=== PATIENT | female | born 1935 | race Caucasian/White ===

== ENCOUNTER → 2018-02-28 12:57 | Outpatient (CLI) | payer MEDICAID, SELFPAY ==
--- NOTE | 2018-02-28 13:06 | CDU_ITS ---
Reason For Study: carotid stenosis Rt. Velocities/BP Lt. Velocities/BP Prox CCA 105.0/21.7 cm/sec. Prox CCA 137.0/27.5 cm/sec. Mid CCA 82.7/20.5 cm/sec. Mid CCA 97.9/21.7 cm/sec. Dist CCA 97.3/21.7 cm/sec. Dist CCA 70.4/19.3 cm/sec. Prox ICA 103.0/24.6 cm/sec. Prox ICA 83.3/27.0 cm/sec. Mid ICA 109.0/35.4 cm/sec. Mid ICA 85.6/30.5 cm/sec. Dist ICA 113.0/27.5 cm/sec. Dist ICA 82.7/26.4 cm/sec. Rt. ICA/CCA = 113.0/82.7=1.4. Lt. ICA/CCA = 85.6/97.9=0.9. Prox ECA 96.2/11.1 cm/sec. Prox ECA 81.5/9.97 cm/sec. Rt. Vert. 73.9/20.5 cm/sec. Lt. Vert. 65.7/18.2 cm/sec. Right Extracranial There is homogeneous, smooth atherosclerotic plaque noted in the right common carotid artery. There is homogeneous, smooth atherosclerotic plaque noted in the right internal carotid artery. The right internal carotid artery is very tortuous. There is heterogeneous, smooth atherosclerotic plaque noted in the right external carotid artery. Antegrade flow is noted in the right vertebral artery. Left Extracranial There is homogeneous, smooth atherosclerotic plaque noted in the left common carotid artery. There is homogeneous, smooth atherosclerotic plaque noted in the left internal carotid artery. There is heterogeneous, smooth atherosclerotic plaque noted in the left external carotid artery. Antegrade flow is noted in the left vertebral artery. Procedure Carotid Duplex 34666. The exam was diagnostic. Exam performed in department. Interpretation Summary Smooth plague noted in bilateral proximal internal carotid arteries with post operative changes noted on the right. <50% stenosis bilateral internal carotids Normal flow bilateral external carotids Patent and antegrade vertebrals bilaterally. Mixed echogenicity 0.6 x 0.4cm lesion near the proximal right common carotid; possibly witin the right thyroid. Clinical correlation if indicated. Ordering Physician: Arjun Pena Referring Physician: Ivania Dennison Performed By: Supriya Torres, SAULO, RVT
== END ==
PROVIDERS: Family Provider Family Medicine; PCP Family Medicine; Visit Provider Surgery
DX: I65.23 Occlusion and stenosis of bilateral carotid arteries (principal)
CPT/HCPCS: 93880

== ENCOUNTER 2018-11-15 09:41 | Emergency (ER) | payer MEDICARE, SELFPAY ==
[2018-11-15 09:43] VITALS: BP 124/63; PULSE 82; RESP 16; TEMP 36.6; O2SAT 96; BMI 28.3
--- NOTE | 2018-11-15 09:59 | EKG12_ITS ---
Test Reason : DYSRHYTHMIA Blood Pressure : / mmHG Vent. Rate : 082 BPM Atrial Rate : 082 BPM P-R Int : 172 ms QRS Dur : 088 ms QT Int : 354 ms P-R-T Axes : 050 020 009 degrees QTc Int : 413 ms Normal sinus rhythm Nonspecific ST and T wave abnormality Abnormal ECG Confirmed by PORTER WRIGHT, QUITA ([id number]), state editor HERMINIA DAVILA ([id number]) on 11/16/2018 1:09:45 PM Referred By: DEMETRIO Confirmed By:QUITA BUENROSTRO MD
--- NOTE | 2018-11-15 09:59 | CT_ITS ---
STUDY: CT BRAIN WITHOUT CONTRAST REASON FOR EXAM: Female, 82 years old. History of fall. Loss of consciousness. RADIATION DOSAGE (If Supplied By Facility): CTDIvol = ( 44.99 ) mGy, DLP = ( 779.24 ) mGycm TECHNIQUE: Transaxial CT imaging of the brain was performed without administration of intravenous contrast material. Individualized dose optimization techniques were used for this CT. COMPARISON: No relevant priors. FINDINGS: Normal soft tissue structures. Normal calvarium. There is mild cerebral atrophy with widening of the extra-axial spaces and ventricular dilatation. There are areas of decreased attenuation within the white matter tracts of the supratentorial brain, consistent with microvascular disease changes. Normal basal ganglia and thalami. Normal brainstem. Normal cerebellum. There is no intracranial hemorrhage. There are no findings of an acute ischemic infarction. Normal visualized paranasal sinuses. CT/Brain/Head without Contrast IMPRESSION: Chronic involutional changes of the brain. Electronically Signed: Franklin Marquez, at 11:25 EDT , Service support ,
--- NOTE | 2018-11-15 10:00 | CT_ITS ---
STUDY: CT CERVICAL SPINE WITHOUT CONTRAST REASON FOR EXAM: Female, 82 years old. History of multiple falls. Loss of consciousness. RADIATION DOSAGE (If Supplied By Facility): CTDIvol = ( 22.86 ) mGy, DLP = ( 369.49 ) mGycm TECHNIQUE: High resolution transaxial imaging was performed without contrast material. Sagittal and coronal images were reconstructed. Individualized dose optimization techniques were used for this CT. COMPARISON: None FINDINGS: Normal craniovertebral junction. There are degenerative changes of the anterior atlantoaxial articulation. Normal odontoid process. There is straightening of the normal cervical lordosis. 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 C2-3: Facet joint osteoarthritis and hypertrophy worse on the left side. C3-4: Marked degree of disc space narrowing with anterior spondylosis. Uncovertebral arthrosis. Facet joint osteoarthritis and hypertrophy. Bilateral neural foraminal stenosis. C4-5: Minimal anterior listhesis of C4 on C5. Moderate degree of disc space narrowing. Moderate degree bilateral neural foraminal stenosis worse on the right side. C5-6: Marked degree of disc space narrowing with anterior and posterior spondylosis. Uncovertebral arthrosis. Central canal stenosis as well as bilateral neural foraminal stenosis worse on the right side. C6-7: Marked degree of disc space narrowing with spondylosis and uncovertebral arthrosis. Mild to moderate degree of bilateral neural foraminal stenosis. CT/Spine Cervical without Contras IMPRESSION: Multilevel degenerative changes, as described above. Electronically Signed: Franklin Marquez, at 11:22 EDT , Service support ,
--- NOTE | 2018-11-15 10:00 | CT_ITS ---
STUDY: CT ABDOMEN AND PELVIS WITHOUT CONTRAST REASON FOR EXAM: Female, 82 years old. History of multiple falls. Decreased level of consciousness. Chronic renal disease. RADIATION DOSAGE (If Supplied By Facility): CTDIvol = ( 20.52 ) mGy, DLP = ( 999.41 ) mGycm TECHNIQUE: Transaxial images were obtained from the dome of the diaphragm to the symphysis pubis without oral contrast, and without intravenous contrast. Sagittal and coronal images were reconstructed. Individualized dose optimization techniques were used for this CT. COMPARISON: None. FINDINGS: Mild increased linear markings at the lung bases suggestive of bibasilar linear atelectasis and/or scarring. The visualized portions of the heart are within normal limits. Normal liver. Normal gallbladder and extrahepatic biliary system. Normal spleen. Normal pancreas. Normal bilateral adrenal glands. Normal right kidney. Normal left kidney. There is a small hiatal hernia. Normal small intestine. Normal colon. The appendix is visualized and appears normal. There is diffuse atherosclerotic calcification of the abdominal aorta, without a demonstrated aneurysm. Normal inferior vena cava. Normal retroperitoneum. Normal urinary bladder. Focal calcification of a fibroid uterus. There is a small umbilical hernia containing fat. There are diffuse degenerative changes of the visualized lumbar spine. CT/Abdomen/Pelvis without Cont IMPRESSION: No acute abnormality is seen. Electronically Signed: Franklin Marquez, at 11:27 EDT , Service support ,
--- NOTE | 2018-11-15 10:00 | CT_ITS ---
STUDY: CT CHEST WITHOUT CONTRAST REASON FOR EXAM: Female, 82 years old. History of fall. Loss of consciousness. RADIATION DOSAGE (If Supplied By Facility): CTDIvol = ( 15.55 ) mGy, DLP = ( 439.05 ) mGycm TECHNIQUE: Transaxial imaging was performed without the administration of intravenous contrast material. Multiplanar coronal and sagittal images were reformatted. Individualized dose optimization techniques were used for this CT. COMPARISON: None. FINDINGS: Mild increased linear markings in the medial aspect of the right middle lobe suggestive of underlying atelectasis and/or scarring. No focal consolidation or mass lesion is seen. Mild increased markings at the lung bases suggestive of scarring. There is no demonstrated pleural abnormality. There are calcifications of the coronary arteries. Normal mediastinum. Normal hilar regions. Normal unenhanced pulmonary arteries. There is atherosclerotic calcification of the aortic arch with tortuosity and elongation of the aortic arch and descending thoracic aorta. There are multi-level degenerative changes of the thoracic spine. There is no demonstrated abnormality of the visualized upper abdomen. CT/Chest without Contrast IMPRESSION: Mild scarring at the lung bases and in the medial aspect of the right middle lobe. No acute abnormality is seen. Electronically Signed: Franklin Marquez, at 11:24 EDT , Service support ,
--- NOTE | 2018-11-15 10:01 | RAD_ITS ---
STUDY: X-RAY - RIGHT RADIUS AND ULNA REASON FOR EXAM: Female, 82 years old. Bruising following a fall. TECHNIQUE: 2 view(s) of the forearm. COMPARISON: None. FINDINGS: There is non-specific soft tissue swelling. Normal visualized radius. Normal visualized ulna. RAD/Forearm 2 Views IMPRESSION: Mild degree of soft tissue swelling. Electronically Signed: Franklin Marquez, at 11:09 EDT , Service support ,
--- NOTE | 2018-11-15 10:08 | ED.DCSUM_ITS ---
- ER Visit Summary Date of Service: 11/15/18 Chief Complaint: Fall History of Present Illness: The patient is a 82 F who reportedly has had nausea and mild diarrhea for the past 3 days. No fever. Today she lost her balance while walking and fell, witnessed by her daughter. Daughter states the patient hit her right side and was propped up against a wall. Daughter went to get help from nursing staff and when they returned the patient lost consciousness for approximately 3 or 4 minutes. At this time patient is awake and alert. Daughter states she is back to baseline. She complains of pain that moves around her body, currently at the right wrist. Physical Examination: Vital signs unremarkable. Patient is immobilized on spine board with c-collar in place. Head neck examination reveals no obvious external sign of trauma. She has mild C-spine tenderness and collar remains in days. Heart is regular rate and rhythm. Lungs sounds are clear. Chest wall is nontender. There is no crepitus. Abdomen is soft and nontender. Back examination reveals no midline thoracic or lumbar tenderness. Extremity examination is significant only for mild tenderness of the right wrist with a large area of ecchymosis. No deformity noted. She has full range of motion of all extremities with no focal deficit. Test Results: EKG is sinus 82 with no acute ischemia. Nonspecific lateral ST changes are noted but unchanged when compared to prior. Right forearm x-ray sh ows mild soft tissue swelling. CT head, C-spine, chest, and abdomen pelvis showed no acute abnormalities. CBC significant only for hemoglobin 11.2. Chemistry studies reveal potassium 3.4, BUN 26, creatinine 1.59. This is consistent with her prior values. Coags normal. Urinalysis normal. Emergency Department Course and Treatment: Patient received IV fluids here. On repeat evaluation she is resting comfortably and visiting with her family. Test results are discussed with patient and family. Patient does have a cane and walker at her assisted living center that she can use. Social work also spoke with patient and family regarding their concerns about her facility. Patient does not want to switch to a different facility and is comfortable with discharge. Treatment Plan: [] Disposition: Discharge Impression: 1. Mechanical fall 2. Syncope This note was generated with [employer] software. It may contain incorrect words, spelling, and punctuation that were not noted in review of the chart prior to signing ED Disposition - Plan for ED Patient: Referrals: Ivania Dennison MD [NON-STAFF] -
[2018-11-15 10:20] VITALS: BP 128/65; PULSE 100; RESP 18; TEMP 36.6; O2SAT 94
[2018-11-15] MEDS: 0.9% Normal Saline 1,000 ML 150 ML IV (10:25)
[2018-11-15 10:44] LABS: Absolute Lymphocyte Count 0.46 X10^3/ul (0.83-4.51); Absolute Neutrophil Count 6.1 X10^3/uL (2.0-7.7); Basophil# 0.01 X10^3/uL; Basophil% 0.1 % (0-1); Eosinophil# 0.01 X10^3/uL; Eosinophils% 0.1 % (0-5); Hematocrit 33.9 % (37-47); Hemoglobin 11.2 g/dl (12.0-15.0); Lymphocyte # 0.46 X10^3/ul (4.0); Lymphocyte % 6.2 % (19-41); Mean Corpuscular Hgb 30.2 pg (27.0-32.0); Mean Corpuscular Volume 91.4 fL (81-99); Mean Platelet Vol. 9.1 fl (6.2-12.0); Monocyte# 0.81 X10^3/uL; Neutrophil % 82.6 % (47-70); Platelet Count 164 K/mm3 (150-450); RBC Distribution Width CV 13.5 % (11.6-14.6); RBC Distribution Width SD 44.6 fl (35.1-43.9); Red Blood Count 3.71 M/mm3 (4.2-5.4); White Blood Count 7.4 K/mm3 (4.4-11.0)
[2018-11-15 10:45] LABS: Differential Indicated SCAN CRITERIA MET; POSITIVE COUNT NO; POSITIVE DIFFERENTIAL YES; POSITIVE MORPHOLOGY NO
[2018-11-15 10:46] LABS: International Normalized Ratio 1.1
[2018-11-15 10:53] LABS: Anion Gap 7 (5-15); BUN 26 mg/dL (7-18); BUN/Creat Ratio 16.4 RATIO (10-20); Calcium,Total 7.5 mg/dL (8.5-10.1); Chloride 100 mmol/L (98-107); Creatinine, Serum 1.59 mg/dL (0.55-1.02); EST Glomerular Filtration Rate 33 mL/min (>60); Est Glom Filt Rate - Afr Amer 40 mL/min (>60); Estimated Creatinine Clearance 19.93 ml/min; Glucose 104 mg/dL (74-106); Potassium 3.4 mmol/L (3.5-5.1); Sodium Level 136 mmol/L (136-145)
[2018-11-15 11:59] LABS: Bacteria 0 SEEN /hpf (None Seen); Mucous, Urine 0 SEEN /hpf (<or=2+); Red Blood Cells-Urine 0 SEEN /hpf (0-5); White Blood Cells 0 SEEN /hpf (0-5)
[2018-11-15 12:02] LABS: Color, Urine Yellow (Yellow); Glucose, Dipstick Normal (Normal); Ketone-Dipstick Negative (Negative); Leukocyte Esterase-Dipstick Negative /ul (Negative); Nitrite-Dipstick Negative (Negative); Occult Blood-Urine Negative /ul (Negative); Protein-Dipstick 30 mg/dl (Negative); Urine Bilirubin Dipstick Negative (Negative); Urine Clarity Clear (Clear); Urine Urobilinogen Normal (Normal); Urine pH 6.5 (5.0 - 8.0)
[2018-11-15 12:08] LABS: Squamous Epithelial Cells - UA 0-5 SEEN /hpf (5-10)
[2018-11-15 12:41] VITALS: BP 121/61; PULSE 81; RESP 17; O2SAT 95
--- NOTE | 2018-11-15 14:18 | ED.DEP ---
ED Disposition - Plan for ED Patient: Disposition: Home or Assisted Living Instructions: ED Mechanical Fall, ED Fainting Unkn Cause Referrals: Ivania Dennison MD [NON-STAFF] -
--- NOTE | 2018-11-15 14:33 | CM.ED ---
SOCIAL WORK NOTE INFORMANT: DR. ATKINSON REASON FOR CONSULT: DAUGHTER WITH ISSUES/CONCERNS WITH [facility] MET WITH PATIENT AND PATIENT'S DAUGHTER, SHANNAN AT BEDSIDE. PATIENT SITTING UP IN CHAIR VISITING WITH DAUGHTER UPON ENTERING THE ROOM. PATIENT AND DAUGHTER REPORTS PATIENT IS FROM ASSISTED LIVING AT [facility]. DAUGHTER VOICED CONCERNS WITH PATIENT RECENTLY BEING ILL AND NO SUPPORT FROM STAFF. DAUGHTER ALSO REPORTS IS NOT HAPPY WITH THE MEALS AND SNACKS PROVIDED AT FACILITY. BRUCE GUO HAS BEEN IN CONTACT WITH [facility] BEFORE AND CHANGES WERE MADE PREVIOUSLY. DISCUSSED CHANGING FACILITIES AND PATIENT NOT IN AGREEMENT. DAUGHTER VOICED OWN HEALTH ISSUES AND STATES HAS HAD MANY SIT DOWNS WITH STAFF AT [facility] AND JUST WISHES THEY WOULD PROVIDE BETTER MEAL SELECTION AND CARE. DISCUSSED SPEAKING WITH DIRECTION OIL WELL PERFORATOR OPERATOR. BRUCE GUO DOES NOT HAVE TIME TO CALL. INFORMED DAUGHTER THIS WORKER WILL GET IN TOUCH WITH [facility] AND STAFF AT [facility] TO REPORT ISSUES/CONCERNS. DAUGHTER AND PATIENT IN AGREEMENT WITH PLAN. CALL TO [facility]- SPOKE WITH LUCIAN. LUCIAN AWARE OF DAUGHTER'S FRUSTRATIONS AND REPORTS DAUGHTER AND PATIENT DO NOT ALWAYS SEE EYE TO EYE. [facility] STAFF HAVE BEEN AWARE PATIENT HAS BEEN ILL AND HAVE PROVIDED SUPPORT. 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 AWAITING CALL BACK AT THIS TIME. PLAN: RETURN TO [facility].
[2018-11-15 14:53] VITALS: BP 119/55; PULSE 80; RESP 17; TEMP 36.6
--- NOTE | 2018-11-15 14:54 | ED.RN ---
report called to rn at [facility] about pt coming back
== END 2018-11-15 14:55 | disposition home or self-care (01) ==
PROVIDERS: Emergency Provider Emergency Medicine; Family Provider Physician Assistant; PCP Physician Assistant
DX: R55 Syncope and collapse (principal); S60.211A Contusion of right wrist, initial encounter; W19.XXXA Unspecified fall, initial encounter; Y93.01 Activity, walking, marching and hiking; Y92.9 Unspecified place or not applicable; Y99.9 Unspecified external cause status; J44.9 Chronic obstructive pulmonary disease, unspecified; I10 Essential (primary) hypertension; N28.9 Disorder of kidney and ureter, unspecified; R19.7 Diarrhea, unspecified; F32.9 Major depressive disorder, single episode, unspecified; F41.9 Anxiety disorder, unspecified; Z79.02 Long term (current) use of antithrombotics/antiplatelets; Z79.82 Long term (current) use of aspirin; Z79.899 Other long term (current) drug therapy
CPT/HCPCS: 70450; 71250; 72125; 73090; 74176; 80048; 81001; 85025; 85610; 85730; 93005; 96360; 96361; 99285; J7030; A4216

== ENCOUNTER 2020-05-30 09:17 | Inpatient (IN) | payer MEDICARE, MEDICAID, SELFPAY ==
[2020-05-30] VITALS (13 sets, daily range): BP systolic 136–178; BP diastolic 69–88; PULSE 58–74; RESP 14–18; TEMP 36.7–36.8; O2SAT 93–100; BMI 32.4; BMI 32.2
--- NOTE | 2020-05-30 09:22 | EKG12_ITS ---
Test Reason : WEAKNESS Blood Pressure : / mmHG Vent. Rate : 061 BPM Atrial Rate : 061 BPM P-R Int : 174 ms QRS Dur : 086 ms QT Int : 420 ms P-R-T Axes : 053 001 030 degrees QTc Int : 422 ms Normal sinus rhythm Normal ECG Confirmed by SARAN WRIGHT, NOVA ([id number]), make up editor HERMINIA DAVILA ([id number]) on 06/04/2020 11:06:35 AM Referred By: BRYANNA Confirmed By:JESSICA NOONAN MD
--- NOTE | 2020-05-30 09:34 | ED.DCSUM_ITS ---
- ER Visit Summary Date of Service: 05/30/20 Chief Complaint: Numbness History of Present Illness: The patient is a 84 F who sees Noman Qiu. She reports that she went to bed at 7:00 last night feeling fine. However, she woke up at 630 this morning and her right side is numb. She denies any new weakness. She does report that she feels off balance. No difficulty with her speech. No vertigo. She has not fallen. On review of systems patient complains of intermittent nausea that is longstanding. She is not nauseated at this time. She denies any fever, chills, chest pain, shortness of breath. No abdominal pain. No vomiting or diarrhea. No dysuria or frequency. Physical Examination: Vitals: Stable. Afebrile. General: Well-nourished and well-developed. Head: Normocephalic atraumatic. Neck: Supple, no lymphadenopathy. No JVD. Nontender. Cardiovascular: Regular rate and rhythm. No murmurs. Respiratory: No respiratory distress. Clear to auscultation bilaterally. Abdominal: Soft, nontender, nondistended, normal bowel sounds. No guarding, rebound, or peritoneal signs. Back: Nontender. Extremities: Nontender, no edema. Skin: Normal color, no rash. Neurologic: Alert and oriented ?3. Cranial nerves II through XII are intact. Normal strength and sensation. NIH scale is 1 for paresthesias to right face, arm, and leg. Psych: Normal affect. Test Results: EKG is sinus at 61 with no acute changes. CBC shows a hemoglobin 11.9. Chem-7 shows a creatinine 1.7 glucose 145. Coags are normal. Troponin is negative. Clinical Impression(s) from Imaging Studies Chest X-Ray 05/30/20 10:20 IMPRESSION: Degenerative changes, as described above. No demonstrated acute cardiopulmonary process. Electronically Signed: Jeffrey Braga at 12:03 EDT Tel , Service support , Head/Neck CTA 05/30/20 10:36 IMPRESSION: No hemodynamically significant stenosis noted on the CTA Head and neck with contrast. Electronically Signed: Jeffrey Braga at 11:18 EDT Tel , Service support , Emergency Department Course and Treatment: Patient has had greater than 12 hours since her last known well. She is not a TPA candidate. However, the patient would be a candidate for clot retrieval. Because of this I do think that doing a CTA of her head and neck is indicated despite her creatinine of 1.7. This would not change her management if present. She was given a liter of normal saline to help prevent NÉSTOR. Treatment Plan: Patient is resting comfortably without complaint. She was discussed with the hospitalist. She will be admitted for further evaluation and treatment. Disposition: Admitted in stable condition. Impression: 1. Right-sided paresthesias. 2. Chronic renal insufficiency. This note was generated with [employer] dictation software. It may contain incorrect words, spelling, and punctuation that were not noted in review of the chart prior to signing ED Disposition - Plan for ED Patient: Referrals: Patrick Qiu PA [Primary Care Provider] -
[2020-05-30 09:41] LABS: Bedside Glucose 161 mg/dL (70-110)
[2020-05-30 09:47] LABS: Absolute Neutrophil Count 3.4 X10^3/uL (2.0-7.7); Basophil# 0.03 X10^3/uL; Basophil% 0.6 % (0-1); Eosinophil# 0.11 X10^3/uL; Eosinophils% 2.2 % (0-5); Hemoglobin 11.9 g/dL (12.0-15.0); Lymphocyte % 19.9 % (19-41); Mean Corp Hgb Conc 31.3 g/dL (32-36); Mean Corpuscular Volume 95.7 fL (81-99); Mean Platelet Vol. 9.4 fl (6.2-12.0); Monocyte# 0.48 X10^3/uL; Monocyte% 9.5 % (0-10); NRBC Flagged by Analyzer 0 % (0-5); Neutrophil % 67.6 % (47-70); Platelet Count 209 K/mm3 (150-450); RBC Distribution Width CV 12.9 % (11.6-14.6); RBC Distribution Width SD 45.7 fl (35.1-43.9); Red Blood Count 3.97 M/mm3 (4.2-5.4)
[2020-05-30 09:57] LABS: International Normalized Ratio 1.1; Partial Thromboplast Time 31.3 Seconds (24.1-36.2); Prothrombin Time (Protime)PT. 13.2 SECONDS (11.7-14.9)
[2020-05-30 09:59] LABS: Anion Gap 6 (5-15); BUN 15 mg/dL (7-18); BUN/Creat Ratio 8.8 RATIO (10-20); Calcium,Total 8.8 mg/dL (8.5-10.1); Chloride 105 mmol/L (98-107); EST Glomerular Filtration Rate 31 mL/min (>60); Est Glom Filt Rate - Afr Amer 37 mL/min (>60); Estimated Creatinine Clearance 18.01 ml/min; Glucose 145 mg/dL (74-106); Potassium 3.9 mmol/L (3.5-5.1); Sodium Level 141 mmol/L (136-145)
[2020-05-30 10:10] LABS: Bacteria 0 SEEN /hpf (None Seen); Mucous, Urine 0 SEEN /hpf (<or=2+); Red Blood Cells-Urine 0 SEEN /hpf (0-5); Squamous Epithelial Cells - UA 0 SEEN /hpf (5-10); White Blood Cells 0 SEEN /hpf (0-5)
[2020-05-30 10:12] LABS: Color, Urine Yellow (Yellow); Glucose, Dipstick Normal (Normal); Ketone-Dipstick Negative (Negative); Leukocyte Esterase-Dipstick Negative /ul (Negative); Nitrite-Dipstick Negative (Negative); Occult Blood-Urine Negative /ul (Negative); Protein-Dipstick Negative (Negative); Urine Bilirubin Dipstick Negative (Negative); Urine Clarity Clear (Clear); Urine Urobilinogen Normal (Normal); Urine pH 6.5 (5.0 - 8.0)
--- NOTE | 2020-05-30 10:20 | RAD_ITS ---
STUDY: X-RAY CHEST REASON FOR EXAM: Female, 84 years old. RIGHT SIDED WEAKNESS WITH NUMBNESS/TINGLING THAT SHE WOKE WITH -- CP, SOME SOB PER PT TECHNIQUE: Single AP portable view of the chest. COMPARISON: None. FINDINGS: The lungs are underexpanded. There is no demonstrated pleural abnormality. Normal size heart. Normal mediastinum and gustavo. Normal visualized pulmonary arteries. There is atherosclerotic calcification of the aortic arch with tortuosity. Normal visualized thoracic spine. There is degenerative osteoarthritis of the bilateral shoulders. There is no demonstrated abnormality of the visualized soft tissue structures of the upper abdomen. RAD/Chest 1 View IMPRESSION: Degenerative changes, as described above. No demonstrated acute cardiopulmonary process. Electronically Signed: Jeffrey Braga, at 12:03 EDT Tel , Service support ,
--- NOTE | 2020-05-30 10:36 | CT_ITS ---
STUDY: CTA HEAD AND NECK WITH CONTRAST REASON FOR EXAM: Female, 84 years old. right sided weakness. hx of htn, copd, ckd RADIATION DOSAGE (If Supplied By Facility): CTDIvol = ( 27.60 ) mGy, DLP = ( 1401.74 ) mGycm TECHNIQUE: CT angiography was performed with a multi-detector CT scanner. Data acquisition was obtained from the skull base through the vertex following intravenous administration of 100 ML OF ISOVUE 370. MIP images were reconstructed from the axial data set. Post-processing of the angiographic images was performed, with multiplanar reformation and 3D reconstruction. Individualized dose optimization techniques were used for this CT. COMPARISON: No relevant priors. FINDINGS: Normal bilateral petrous carotid arteries. There is calcified plaque formation of the right cavernous carotid artery, without a cross-sectional luminal stenosis. There is calcified plaque formation of the left cavernous carotid artery, without a cross-sectional luminal stenosis. Normal right A1 segments of the anterior cerebral artery. Normal left A1 segments of the anterior cerebral artery. Normal intact anterior communicating artery (ACOM). Normal bilateral A2 segments of the anterior cerebral arteries. Normal right M1 and M2 segments of the middle cerebral arteries, with a normal M1 bifurcation. Normal left M1 and M2 segments of the middle cerebral arteries, with a normal M1 bifurcation. There is non-visualization of the right posterior communicating artery (PCOM). There is non-visualization of the left posterior communicating artery (PCOM). Normal bilateral vertebral arteries. Normal basilar artery with a normal basilar bifurcation. The visualized bilateral superior cerebellar (SCA) arteries are normal. Normal bilateral P1, P2 and visualized P3 segments of the posterior cerebral arteries. There is no demonstrated aneurysm of the [place] of [place]. There is no demonstrated abnormality of the visualized brain. AORTIC ARCH: Normal visualized aortic arch. Normal origins of the brachiocephalic, left common carotid, and left subclavian arteries. RIGHT CAROTID ARTERIES: Normal right common carotid artery (CCA). Normal right common carotid bulb. Normal origin of the right internal carotid (ICA) artery without a hemodynamically significant stenosis. Normal visualized cervical portion of the right internal carotid artery. Normal origin of the right external carotid artery (ECA). LEFT CAROTID ARTERIES: Normal left common carotid artery (CCA). Normal left common carotid bulb. Normal origin of the left internal carotid (ICA) artery without a hemodynamically significant stenosis. Normal visualized cervical portion of the left internal carotid artery. Normal origin of the left external carotid artery (ECA). VERTEBRAL ARTERIES: Normal bilateral vertebral arteries. CT/CTA Head AND Neck W/ Contrast IMPRESSION: No hemodynamically significant stenosis noted on the CTA Head and neck with contrast. Electronically Signed: Jeffrey Braga, at 11:18 EDT Tel , Service support ,
[2020-05-30] MEDS: 0.9% Normal Saline 1,000 ML 999 ML IV (11:00)
--- NOTE | 2020-05-30 12:28 | HP.PCM_ITS ---
History of Present Illness Date of Admission: 05/30/20 Chief Complaint: right leg, arm and right face numbness The patient is a 84 year old F with an extensive past medical history as outlined. Patient states she went to bed at around 7:30 PM last night and woke up this morning and noticed that her right leg, right arm and right side of her face was numb. She has not had such symptoms before. She denied any blurred vision, palpitations, dizziness, nausea vomiting. She denied any weakness in any extremity or any slurring of her speech. Review of symptoms otherwise negative. The ED, vitals showed temperature of 98.1 Fahrenheit with blood pressure of 166/75, pulse rate of 61 and respiratory to 14. She was saturating at 96% on 2 L of oxygen. Chemistry showed creatinine of 1.7 was otherwise unremarkable. Initial troponin was negative. CBC showed hemoglobin of 11.9 but was otherwise unremarkable. Chest x-ray showed no acute cardiopulmonary process. CTA of the head and neck showed no hemodynamically significant stenosis. She is being admitted to be managed for TIA. [] Past Medical History Allergies ibuprofen Allergy (Verified 05/30/20 09:18) Unknown Penicillins Allergy (Verified 05/30/20 09:18) Swelling cyclobenzaprine [From Flexeril] Adverse Reaction (Verified 05/30/20 09:18) Other Home Medications: Ambulatory Orders Medication Instructions Recorded Acetaminophen [Tylenol] 2 tab PO Q4H PRN 05/30/20 Aspirin [Aspirin, Baby] 81 mg PO DAILY@0800 05/30/20 Carvedilol 25 mg PO BID 05/30/20 Clonazepam [Klonopin] 0.25 mg PO SUTUTHSA 05/30/20 Clonazepam [Klonopin] 0.5 mg PO MOWEFR 05/30/20 Clopidogrel Bisulfate [Plavix] 75 mg PO DAILY 05/30/20 Cyanocobalamin (Vitamin B-12) 1,000 mcg PO DAILY 05/30/20 [B-12] Denosumab [Prolia] 60 mg SQ 05/30/20 Ergocalciferol [Vitamin D] 50,000 unit PO SA 05/30/20 Famotidine [Pepcid] 20 mg PO BID 05/30/20 Guaifenesin [Robitussin] 10 ml PO Q4H PRN PRN 05/30/20 Mag Hydrox/Aluminum Hyd/Simeth 30 ml PO Q4H PRN 05/30/20 [Antacid Suspension] Magnesium Hydroxide [Milk Of 30 ml PO DAILY PRN PRN 05/30/20 Magnesia] Peg 400/Hypromellose/Glycerin 1 drp EACH EYE PRN PRN 05/30/20 [Artificial Tears] Polyethylene Glycol 3350 [Miralax] 17 gm PO QHS 05/30/20 Promethazine HCl 25 mg PO Q6H PRN 05/30/20 Quetiapine Fumarate [Seroquel] 100 mg PO QHS 05/30/20 Rosuvastatin Calcium 5 mg PO QHS 05/30/20 Venlafaxine HCl [Venlafaxine HCl 150 mg PO DAILY 05/30/20 ER] Surgical History: no surgical history Psychiatric History: 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 Lives: Alone Smoking Status: Former smoker Alcohol: None Drugs: None - *Family History Maternal History Items: No pertinent history Paternal History Items: No pertinent history Review of Systems Constitutional: Denies: Chills, Fever, Weight Change, Fatigue Eyes: Denies: Blurred vision HEENT: Denies: Head Aches, Sinus Congestion, Sinus Drainage Cardiovascular: Denies: Chest Pain, Palpitations Respiratory: Denies: Cough, Shortness of Breath, Shortness of breath at rest, Sputum production Gastrointestinal: Denies: Abdominal Pain, Nausea, Vomiting Genitourinary: Denies: Dysuria Musculoskeletal: Denies: Joint Pain, Joint Tenderness Skin: Denies: Rash, Wounds Neurological: Reports: Numbness, Tingling. Denies: Balance problems, Double vision, Change in Speech, Slurred speech, Confusion, Difficulty swallowing, Focal weakness, Tremor Psychiatric: Denies: Anxiety, Depression, Homicidal Ideations, Suicidal Ideations Hematologic/ Lymphatic: Denies: Easy Bruising, Easy Bleeding VTE Information - Inpt Only VTE Present on Admission: No VTE Pharm Prophylaxis ordered?: Yes - Physical Exam Vitals/I&O's: Vital Signs Temp Pulse Resp BP Pulse Ox 98.1 F 61 14 166/75 H 96 05/30/20 09:18 05/30/20 11:00 05/30/20 11:00 05/30/20 11:00 05/30/20 11:00 Oxygen Flow Rate (L/min) 2 Oxygen Delivery Method Nasal Cannula Weight: 166 lb 0.129 oz Body Mass Index (BMI) 32.4 Finger Stick Blood Glucose 161 General: Alert, Oriented x3, Cooperative, No apparent distress HEENT: Atraumatic, PERRLA, EOMI, Normocephalic Oral: Moist Mucosa Neck: Supple, No JVD, Negative Carotid Bruits Lungs: Clear to auscultation, Normal air movement, No rhonchi, No wheeze Cardiovascular: Regular rate, Regular Rhythm, Normal S1, Normal S2, No murmurs Abdomen: Bowel Sounds Present, Soft, Non Tender, Non-Distended, No Hepato- splenomegaly Extremities: No clubbing, No cyanosis, No edema, Capillary Refill Less than 3 Seconds Skin: No rashes, No breakdown Musculoskeletal: No Tenderness to Palpation of Joints or Extremities Lymphatic: No Cervical, Supraclavicular, or Inguinal Adenopathy Neurological: Cranial nerves II-XII grossly intact, Neuro grossly intact, Motor Exam 5/5 strength throughout, - - NIHSS is 1 Psych/Mental Status: Normal Affect, Appropriate, Alert and oriented to time, place, person, mood and affect Laboratory Results 05/30/20 09:33: WBC 5.0, RBC 3.97 L, Hgb 11.9 L, Hct 38.0, MCV 95.7, MCH 30.0, MCHC 31.3 L, RDW Std Deviation 45.7 H, RDW Coeff of Jessica 12.9, Plt Count 209, MPV 9.4, Immature Gran % (Auto) 0.200, Neut % (Auto) 67.6, Lymph % (Auto) 19.9, [place] % (Auto) 9.5, Eos % (Auto) 2.2, Baso % (Auto) 0.6, Absolute Neuts (auto) 3.4, Absolute Lymphs (auto) 1.00, Nucleated RBC % 0 05/30/20 09:33: PT 13.2, INR 1.1, APTT 31.3 05/30/20 09:33: Sodium 141, Potassium 3.9, Chloride 105, Carbon Dioxide 30.0, An ion Gap 6, BUN 15, Creatinine 1.70 H, Estim Creat Clear Calc 18.01, Est GFR (MDRD) Af Amer 37 L, Est GFR (MDRD) Non-Af 31 L, BUN/Creatinine Ratio 8.8 L, Glucose 145 H, Calcium 8.8, Troponin I < 0.015 05/30/20 09:37: POC Glucose 161 H 05/30/20 10:05: Urine Color Yellow, Urine Clarity Clear, Urine pH 6.5, Ur Specific [place] 1.010, Urine Protein Negative, Urine Glucose (UA) Normal, Urine Ketones Negative, Urine Occult Blood Negative, Urine Nitrite Negative, Urine Bilirubin Negative, Urine Urobilinogen Normal, Ur Leukocyte Esterase Negative, Urine RBC 0 SEEN, Urine WBC 0 SEEN, Ur Squamous Epith Cells 0 SEEN, Urine Bacteria 0 SEEN, Urine Mucus 0 SEEN Diagnostic Data Chest X-Ray 05/30/20 10:20 IMPRESSION: Degenerative changes, as described above. No demonstrated acute cardiopulmonary process. Electronically Signed: Jeffrey Braga, at 12:03 EDT Tel , Service support , Head/Neck CTA 05/30/20 10:36 IMPRESSION: No hemodynamically significant stenosis noted on the CTA Head and neck with contrast. Electronically Signed: Jeffrey Braga, at 11:18 EDT Tel , Service support , Current Medications Labetalol HCl (Trandate) 20 mg IV X1 PRN PRN Reason: BLOOD PRESSURE Assessment/Plan 84-year-old admitted with a complaint of right-sided numbness. # TIA * Admit to PCU telemetry. * NIH stroke scale is 1 on account of numbness and tingling on the right side. * Check A1c and lipid panel. P.o. aspirin 81 mg daily. * PT OT consults. Fall precautions. * CTA of the head and neck was negative for any stenosis. No CT of the brain was done. * Get MRI of the brain. * Get 2D echo. * #Hypertension: On carvedilol. #CAD: On aspirin, carvedilol, Plavix and rosuvastatin. DVT prophylaxis: SCDs CODE STATUS: Full code * Patient counseled extensively about different types of CODE STATUS including full code, DNR CCA and DNR CCA. Patient elects to be full code. Total [id number]-wr-izsm time 16 minutes. OBSV E&M: 44830 Initial observation care L2 Procedures: 21573 Advncd Care Plan 30 Min
--- NOTE | 2020-05-30 12:54 | MRI_ITS ---
STUDY: MRI BRAIN WITHOUT CONTRAST REASON FOR EXAM: Female, 84 years old. Dizziness right-sided neurologic deficit TECHNIQUE: Standardized multiplanar fat and water weighted pulse sequences were obtained. COMPARISON: CT head 30 May 2020 earlier same day FINDINGS: There are 2 punctate infarcts in the left thalamus. There is no acute territorial infarction. There is mild global brain atrophy and periventricular white matter gliosis. There are no extra parenchymal fluid collections, acute intracranial hemorrhage or herniation. MRI/Brain without Contrast IMPRESSION: 1. Two acute punctate left thalamic infarcts. Electronically Signed: Marco Rojas, at 16:40 EDT Tel , Service support ,
--- NOTE | 2020-05-30 13:08 | NURSING ---
MIRANDA PERRIN KAREEN
--- NOTE | 2020-05-30 14:52 | ECHOD_ITS ---
Reason For Study: TIA/CVA Procedure This was a 2D Doppler, Color Flow transthoracic echocardiogram. Exam performed portable in patient room. Left Ventricle Normal left ventricle. Left ventricular systolic function is normal. Right Ventricle Normal right ventricle. Normal systolic function. Atria Normal left atrium. Normal right atrium. Normal atrial septum. Mitral Valve The mitral valve is structurally normal. No prolapse or stenosis seen. Trivial eccentric mitral valve insufficiency. Tricuspid Valve Normal tricuspid valve. Mild tricuspid valve insufficiency. Aortic Valve Normal aortic valve. No aortic valve insufficiency. Pulmonic Valve The pulmonic valve is not well visualized. Great Vessels Normal arch. Inferior vena cava collapse with respiration. Pericardium/Pleural No pericardial effusion. Medication Performed a rapid injection of agitated mix of 9 cc saline and 1cc air to assess for atrial septal defect. MMode/2D Measurements & Calculations LVIDd: 4.0 cm IVSd: 1.1 cm Ao root diam: 3.0 cm LVIDs: 2.3 cm LVPWd: 1.0 cm RVDd: 2.8 cm FS: 42.1 % LAV(MOD-bp): 43.2 ml LA A4 area: 16.9 cm2 LA dimension(2D): 3.4 cm LAV(MOD-bp) Indexed: 25.5 ml/m2 LAV(MOD-sp2): 40.2 ml LAV(MOD-sp4): 45.8 ml RA A4 area: 14.1 cm2 Time Measurements MV dec time: 0.25 sec Doppler Measurements & Calculations MV E max jeovanny: 69.6 cm/sec Lat Peak E' Jeovanny: 5.6 cm/sec Med Peak E' Jeovanny: 5.4 cm/sec MV A max jeovanny: 76.4 cm/sec E/E' lat: 12.5 E/E' med: 13.0 MV E/A: 0.91 Ao V2 max: 123.7 cm/sec LV V1 max: 106.9 cm/sec TR max jeovanny: 246.9 cm/sec Ao max P.1 mmHg LV V1 max P.6 mmHg TR max P.4 mmHg Ao V2 mean: 83.9 cm/sec LV V1 mean P.3 mmHg Ao mean P.2 mmHg LV V1 mean: 69.9 cm/sec Ao V2 VTI: 28.7 cm LV V1 VTI: 23.5 cm Interpretation Summary Normal LV systolic function EF 55-60% Mild tricuspid valve insufficiency. Bubble study is negative, No PFO Ordering Physician: Mariposa Gaytan Referring Physician: JAZ Performed By: Lety Fitzpatrick, RDCS, RVT
--- NOTE | 2020-05-30 20:35 | TELEMED_ITS ---
[facility] Tele[facility] has confirmed receipt of a request for visit. This document confirms receipt of the order initiating the consult. To find the results of the consultation, please view the patient's reports for the scanned Telemed Consult.
[2020-05-30] MEDS: Acetaminophen 325 MG Tablet 650 MG PO (20:42)
[2020-05-30] MEDS: QUEtiapine 100 MG Tablet PO (21:26)
[2020-05-30] MEDS: Atorvastatin Calcium 80 MG Tablet PO (21:26)
[2020-05-30] MEDS: clonazePAM 0.5 MG Tablet PO (21:26)
[2020-05-30] MEDS: Carvedilol 25 MG Tablet PO (21:27)
[2020-05-31] VITALS (12 sets, daily range): BP systolic 134–163; BP diastolic 57–85; PULSE 62–71; RESP 16–18; TEMP 36.6–37.3; O2SAT 94–98; BMI 32.2
[2020-05-31 06:34] LABS: Absolute Lymphocyte Count 1.44 X10^3/uL (0.83-4.51); Absolute Neutrophil Count 2.4 X10^3/uL (2.0-7.7); Basophil# 0.01 X10^3/uL; Basophil% 0.2 % (0-1); Eosinophil# 0.11 X10^3/uL; Eosinophils% 2.5 % (0-5); Hematocrit 34.3 % (37-47); Hemoglobin 10.8 g/dL (12.0-15.0); Lymphocyte # 1.44 X10^3/ul (4.0); Lymphocyte % 32.6 % (19-41); Mean Corp Hgb Conc 31.5 g/dL (32-36); Mean Corpuscular Hgb 30.5 pg (27.0-32.0); Mean Corpuscular Volume 96.9 fL (81-99); Mean Platelet Vol. 9.4 fl (6.2-12.0); Monocyte# 0.48 X10^3/uL; Monocyte% 10.9 % (0-10); NRBC Flagged by Analyzer 0 % (0-5); Neutrophil # 2.37 X10^3/uL (2.7-7.7); Neutrophil % 53.6 % (47-70); Platelet Count 201 K/mm3 (150-450); RBC Distribution Width CV 13.2 % (11.6-14.6); RBC Distribution Width SD 47.4 fl (35.1-43.9); Red Blood Count 3.54 M/mm3 (4.2-5.4); White Blood Count 4.4 K/mm3 (4.4-11.0)
[2020-05-31 06:57] LABS: Erythrocyte Sedimentation Rate 10 mm/hr (0-30)
[2020-05-31 07:00] LABS: Anion Gap 5 (5-15); BUN 13 mg/dL (7-18); BUN/Creat Ratio 9.6 RATIO (10-20); CRP < 2.90 mg/L (0.0-3.0); Calcium,Total 8.4 mg/dL (8.5-10.1); Chloride 105 mmol/L (98-107); Cholesterol 152 mg/dL (200); Creatinine, Serum 1.36 mg/dL (0.55-1.02); EST Glomerular Filtration Rate 39 mL/min (>60); Est Glom Filt Rate - Afr Amer 48 mL/min (>60); Estimated Creatinine Clearance 36.86 ml/min; Glucose 81 mg/dL (74-106); High Density Lipoprotein 71 mg/dL; Potassium 3.6 mmol/L (3.5-5.1); Sodium Level 139 mmol/L (136-145); Triglycerides 123 mg/dL; Very Low Density Lipoprotein 25 mg/dL (5-40)
[2020-05-31] MEDS: Cyanocobalamin 500 MCG Tablet 1000 MCG PO (10:50)
[2020-05-31] MEDS: Carvedilol 25 MG Tablet PO (10:50)
[2020-05-31] MEDS: Famotidine 20 MG Tablet PO (10:51)
[2020-05-31] MEDS: 0.9% Saline Lock 10 ML Syringe IV (10:51)
[2020-05-31] MEDS: Clopidogrel Bisulfate 75 MG Tablet PO (10:51)
[2020-05-31] MEDS: Aspirin 81 MG TAB.CHEW PO (10:51)
--- NOTE | 2020-05-31 13:49 | PCM.DC.SUM ---
Discharge Date and Diagnosis Date of Admission: 05/30/20 Date of Discharge: 06/01/20 - Primary Discharge Diagnosis Acute Problems: CVA Hospital Course and Treatment Imaging Results: Diagnostic Data Chest X-Ray 05/30/20 10:20 IMPRESSION: Degenerative changes, as described above. No demonstrated acute cardiopulmonary process. Electronically Signed: Jeffrey Braga, at 12:03 EDT Tel , Service support , Head/Neck CTA 05/30/20 10:36 IMPRESSION: No hemodynamically significant stenosis noted on the CTA Head and neck with contrast. Electronically Signed: Jeffrey Braga, at 11:18 EDT Tel , Service support , Brain MRI 05/30/20 12:54 IMPRESSION: 1. Two acute punctate left thalamic infarcts. Electronically Signed: Marco Rojas, at 16:40 EDT Tel , Service support , neurology Operations: None, - Procedures: 2-D Echocardiogram Summary of Care Provided: The patient is a 84 year old F with an extensive past medical history as outlined. Patient states she went to bed at around 7:30 PM last night and woke up this morning and noticed that her right leg, right arm and right side of her face was numb. She has not had such symptoms before. She denied any blurred vision, palpitations, dizziness, nausea vomiting. She denied any weakness in any extremity or any slurring of her speech. Review of symptoms otherwise negative. The ED, vitals showed temperature of 98.1 Fahrenheit with blood pressure of 166/75, pulse rate of 61 and respiratory to 14. She was saturating at 96% on 2 L of oxygen. Chemistry showed creatinine of 1.7 was otherwise unremarkable. Initial troponin was negative. CBC showed hemoglobin of 11.9 but was otherwise unremarkable. Chest x-ray showed no acute cardiopulmonary process. CTA of the head and neck showed no hemodynamically significant stenosis. She was admitted to be managed for TIA and probable stroke. MRI of the brain done showed 2 acute punctate left thalamic infarcts.2D echo done showed EF of 55-60%, with normal LV systolic function and mild tricuspid valve insufficiency. neurology was consulted and recommended her continuing on aspirin and plavix as well as high intensity statin. Lipid panel done was WNL. Neurology also recommended ESR and ROCKY as well as RPR and a P2 Y 12 assay to ensure adequate response to Plavix. These were ordered and P2 Y 12 assay was pending at time of discharge. Patient remained stable and was evaluated by physical therapy and deemed as not needing any skilled therapy needs. She was discharged back to assisted living facility on 06/01/2020. She was continue her aspirin and Plavix as well as high intensity statin. She was fitted with a 48-hour Holter monitor and a 30-day event monitor also ordered which will be mailed to the patient to evaluate for 1 occult arrhythmia. Patient seen and examined prior to discharge. She had no complaints. Review of symptoms otherwise negative. Labs and vitals reviewed. Home medications reviewed and reconciled. O/E: Vital Signs Temp Pulse Resp BP Pulse Ox 97.7 F L 80 16 178/75 H 96 06/01/20 06:10 06/01/20 06:10 06/01/20 06:10 06/01/20 06:10 06/01/20 06:10 General: Alert, Oriented x3, Cooperative, No apparent distress HEENT: Atraumatic, PERRLA, EOMI, Normocephalic Oral: Moist Mucosa Neck: Supple, No JVD, Negative Carotid Bruits Lungs: Clear to auscultation, Normal air movement, No rhonchi, No wheeze Cardiovascular: Regular rate, Regular Rhythm, Normal S1, Normal S2, No murmurs Abdomen: Bowel Sounds Present, Soft, Non Tender, Non-Distended, No Hepato-splenomegaly Extremities: No clubbing, No cyanosis, No edema, Capillary Refill Less than 3 Seconds Skin: No rashes, No breakdown Musculoskeletal: No Tenderness to Palpation of Joints or Extremities Lymphatic: No Cervical, Supraclavicular, or Inguinal Adenopathy Neurological: Cranial nerves II-XII grossly intact, Neuro grossly intact, Motor Exam 5/5 strength throughout, - - NIHSS is 0 Psych/Mental Status: Normal Affect, Appropriate, Alert and oriented to time, place, person, mood and affect Plan is for discharge home today as above. - Physical Exam Vitals/I&O's: Vital Signs Temp Pulse Resp BP Pulse Ox 97.8 F 63 16 139/67 H 96 05/31/20 10:50 05/31/20 10:50 05/31/20 10:50 05/31/20 10:50 05/31/20 10:50 Oxygen Flow Rate (L/min) 2 Oxygen Delivery Method Room Air Weight: 164 lb 3.91 oz Body Mass Index (BMI) 32.2 Finger Stick Blood Glucose 161 Intake and Output for Last 24 Hours 05/29/20 05/30/20 05/31/20 23:59 23:59 23:59 Intake Total 1480 / 1480 240 / 240 Balance 1480 / 1480 240 / 240 Laboratory Results 05/30/20 16:46: Troponin I < 0.015 05/31/20 05:28: WBC 4.4, RBC 3.54 L, Hgb 10.8 L, Hct 34.3 L, MCV 96.9, MCH 30.5, MCHC 31.5 L, RDW Std Deviation 47.4 H, RDW Coeff of Jessica 13.2, Plt Count 201, MPV 9.4, Immature Gran % (Auto) 0.200, Neut % (Auto) 53.6, Lymph % (Auto) 32.6, [place] % (Auto) 10.9 H, Eos % (Auto) 2.5, Baso % (Auto) 0.2, Absolute Neuts (auto) 2.4, Absolute Lymphs (auto) 1.44, Nucleated RBC % 0, ESR 10 05/31/20 05:28: Sodium 139, Potassium 3.6, Chloride 105, Carbon Dioxide 29.0, Anion Gap 5, BUN 13, Creatinine 1.36 H, Estim Creat Clear Calc 36.86, Est GFR (MDRD) Af Amer 48 L, Est GFR (MDRD) Non-Af 39 L, BUN/Creatinine Ratio 9.6 L, Glucose 81, Calcium 8.4 L, C-React Prot Ext Range < 2.90, Triglycerides 123, Cholesterol 152, LDL Cholesterol 56, VLDL Cholesterol 25, HDL Cholesterol 71 05/31/20 05:28: Miscellaneous Test Pending 05/31/20 05:28: RPR Pending Current Medications Acetaminophen (Tylenol) 650 mg PO Q4H PRN PRN PRN Reason: Pain 1-10 or Fever Last Admin: 05/30/20 20:42 Dose: 650 mg Documented by: Al Hydroxide/Mg Hydroxide (Mylanta Ii) 30 ml PO Q4H PRN PRN Reason: GI DISTRESS Aspirin (Aspirin, Baby) 81 mg PO DAILY@0800 [facility] Last Admin: 05/31/20 10:51 Dose: 81 mg Documented by: Atorvastatin Calcium (Lipitor) 80 mg PO QHS [facility] Last Admin: 05/30/20 21:26 Dose: 80 mg Documented by: Carvedilol (Coreg) 25 mg PO BID [facility] Last Admin: 05/31/20 10:50 Dose: 25 mg Documented by: Clonazepam (Klonopin) 0.25 mg PO SuTuThSa@2100 [facility] Clonazepam (Klonopin) 0.5 mg PO MoWeFr@2100 [facility] Last Admin: 05/30/20 21:26 Dose: 0.5 mg Documented by: Clopidogrel Bisulfate (Plavix) 75 mg PO DAILY [facility] Last Admin: 05/31/20 10:51 Dose: 75 mg Documented by: Cyanocobalamin (Vitamin B12) 1,000 mcg PO DAILY [facility] Last Admin: 05/31/20 10:50 Dose: 1,000 mcg Documented by: Ergocalciferol (Vitamin D) 50,000 unit PO Sa@1000 [facility] Last Admin: 05/31/20 10:51 Dose: 50,000 unit Documented by: Famotidine (Pepcid) 20 mg PO DAILY [facility] Last Admin: 05/31/20 10:51 Dose: 20 mg Documented by: Guaifenesin (Robitussin) 10 ml PO Q4H PRN PRN PRN Reason: COUGH Hydralazine HCl (Apresoline Iv) 5 mg IV Q30M PRN PRN Reason: to maintain BP goals Labetalol HCl (Trandate) 20 mg IV X1 PRN PRN Reason: BLOOD PRESSURE Labetalol HCl (Trandate) 10 - 20 mg IV Q10M PRN PRN PRN Reason: to Maintain BP Goals Magnesium Hydroxide (Milk Of Magnesia) 30 ml PO DAILY PRN PRN PRN Reason: Constipation Ondansetron HCl (Zofran) 4 mg IV Q8H PRN PRN PRN Reason: NAUSEA/VOMITING Polyethylene Glycol (Miralax) 17 gm PO QHS [facility] Last Admin: 05/30/20 21:16 Dose: Not Given Documented by: Promethazine HCl (Phenergan Tablet) 25 mg PO Q6H PRN PRN PRN Reason: NAUSEA Quetiapine Fumarate (Seroquel) 100 mg PO QHS [facility] Last Admin: 05/30/20 21:26 Dose: 100 mg Documented by: Sodium Chloride () 10 - 40 ml IV UD PRN PRN Reason: SALINE FLUSH Last Admin: 05/31/20 10:51 Dose: 10 ml Documented by: Discharge Diet: Low fat/ Low Cholesterol Weight Bearing Status: Weight bearing as tolerated Home Medications: Medications to take at Discharge Acetaminophen [Tylenol] 2 tab PO Q4H PRN 05/30/20 Aspirin [Aspirin, Baby] 81 mg PO DAILY@0800 05/30/20 Carvedilol 25 mg PO BID 05/30/20 Clonazepam [Klonopin] 0.25 mg PO SUTUTHSA 05/30/20 Clonazepam [Klonopin] 0.5 mg PO MOWEFR 05/30/20 Clopidogrel Bisulfate [Plavix] 75 mg PO DAILY 05/30/20 Cyanocobalamin (Vitamin B-12) [B-12] 1,000 mcg PO DAILY 05/30/20 Denosumab [Prolia] 60 mg SQ 05/30/20 Ergocalciferol [Vitamin D] 50,000 unit PO SA 05/30/20 Famotidine [Pepcid] 20 mg PO BID 05/30/20 Guaifenesin [Robitussin] 10 ml PO Q4H PRN PRN 05/30/20 Mag Hydrox/Aluminum Hyd/Simeth [Antacid Suspension] 30 ml PO Q4H PRN 05/30/20 Magnesium Hydroxide [Milk Of Magnesia] 30 ml PO DAILY PRN PRN 05/30/20 Peg 400/Hypromellose/Glycerin [Artificial Tears] 1 drp EACH EYE PRN PRN 05/30/20 Polyethylene Glycol 3350 [Miralax] 17 gm PO QHS 05/30/20 Promethazine HCl 25 mg PO Q6H PRN 05/30/20 Quetiapine Fumarate [Seroquel] 100 mg PO QHS 05/30/20 Venlafaxine HCl [Venlafaxine HCl ER] 150 mg PO DAILY 05/30/20 Atorvastatin Calcium 40 mg PO QHS #30 tab 05/31/20 Following Prescriptions Were Given to Patient: Atorvastatin Calcium 40 mg PO QHS #30 tab Transmission Status: Received by [id number] Other Amb Orders: 30-Day Event Recorder [[facility]] Location: None Selected Primary Care Physician: Patrick Qiu PA [Primary Care Provider] - Patient Instructions: Symptoms of Stroke, What Is Ischemic Stroke?, Stroke: Taking Medications, Stroke: Self-Care Disposition: Home Minutes spent on discharge:: 40 Patient Condition:: Stable Medical Necessity - Tobacco Use Smoking Status: Former smoker Meaningful Use Info Meaningful Use Diagnoses (Choose all that apply): Ischemic CVA - CVA Therapy Assessed for PT,OT and/or ST?: Yes - Ischemic Stroke Antithrombotic order at d/c?: Yes Dx of Atrial fib/flutter?: No Statins at discharge?: Yes Primary Dx Acute Ischemic CVA?: Yes IV tPA ordered during stay?: No Reason IV t-PA not ordered: Treatment not Indicated Inpatient E&M: 25305 [facility]
--- NOTE | 2020-05-31 14:02 | PCM.PN.HOSP ---
Subjective: Patient seen and examined. She still complained of numbness on right side. Review of signs otherwise negative. She has been hemodynamically stable. Vitals/I&O's: Vital Signs Temp Pulse Resp BP Pulse Ox 97.8 F 63 16 139/67 H 96 05/31/20 10:50 05/31/20 10:50 05/31/20 10:50 05/31/20 10:50 05/31/20 10:50 Oxygen Flow Rate (L/min) 2 Oxygen Delivery Method Room Air Weight: 164 lb 3.91 oz Body Mass Index (BMI) 32.2 Finger Stick Blood Glucose 161 Intake and Output for Last 24 Hours 05/29/20 05/30/20 05/31/20 23:59 23:59 23:59 Intake Total 1480 / 1480 240 / 240 Balance 1480 / 1480 240 / 240 General: Alert, Oriented x3, Cooperative, No apparent distress HEENT: Atraumatic, PERRLA, EOMI, Normocephalic Oral: Moist Mucosa Neck: Supple, No JVD, Negative Carotid Bruits Lungs: Clear to auscultation, Normal air movement, No rhonchi, No wheeze Cardiovascular: Regular rate, Regular Rhythm, Normal S1, Normal S2, No murmurs Abdomen: Bowel Sounds Present, Soft, Non Tender, Non-Distended, No Hepato-splenomegaly Extremities: No clubbing, No cyanosis, No edema, Capillary Refill Less than 3 Seconds Skin: No rashes, No breakdown Musculoskeletal: No Tenderness to Palpation of Joints or Extremities Lymphatic: No Cervical, Supraclavicular, or Inguinal Adenopathy Neurological: Cranial nerves II-XII grossly intact, Neuro grossly intact, Motor Exam 5/5 strength throughout, - - NIHSS is 1 Psych/Mental Status: Normal Affect, Appropriate, Alert and oriented to time, place, person, mood and affect Laboratory Results 05/30/20 16:46: Troponin I < 0.015 05/31/20 05:28: WBC 4.4, RBC 3.54 L, Hgb 10.8 L, Hct 34.3 L, MCV 96.9, MCH 30.5, MCHC 31.5 L, RDW Std Deviation 47.4 H, RDW Coeff of Jessica 13.2, Plt Count 201, MPV 9.4, Immature Gran % (Auto) 0.200, Neut % (Auto) 53.6, Lymph % (Auto) 32.6, Boyd % (Auto) 10.9 H, Eos % (Auto) 2.5, Baso % (Auto) 0.2, Absolute Neuts (auto) 2.4, Absolute Lymphs (auto) 1.44, Nucleated RBC % 0, ESR 10 05/31/20 05:28: Sodium 139, Potassium 3.6, Chloride 105, Carbon Dioxide 29.0, Anion Gap 5, BUN 13, Creatinine 1.36 H, Estim Creat Clear Calc 36.86, Est GFR (MDRD) Af Amer 48 L, Est GFR (MDRD) Non-Af 39 L, BUN/Creatinine Ratio 9.6 L, Glucose 81, Calcium 8.4 L, C-React Prot Ext Range < 2.90, Triglycerides 123, Cholesterol 152, LDL Cholesterol 56, VLDL Cholesterol 25, HDL Cholesterol 71 05/31/20 05:28: Miscellaneous Test Pending 05/31/20 05:28: RPR Pending Current Medications Acetaminophen (Tylenol) 650 mg PO Q4H PRN PRN PRN Reason: Pain 1-10 or Fever Last Admin: 05/30/20 20:42 Dose: 650 mg Documented by: Al Hydroxide/Mg Hydroxide (Mylanta Ii) 30 ml PO Q4H PRN PRN Reason: GI DISTRESS Aspirin (Aspirin, Baby) 81 mg PO DAILY@0800 [facility] Last Admin: 05/31/20 10:51 Dose: 81 mg Documented by: Atorvastatin Calcium (Lipitor) 80 mg PO QHS [facility] Last Admin: 05/30/20 21:26 Dose: 80 mg Documented by: Carvedilol (Coreg) 25 mg PO BID [facility] Last Admin: 05/31/20 10:50 Dose: 25 mg Documented by: Clonazepam (Klonopin) 0.25 mg PO SuTuThSa@2100 [facility] Clonazepam (Klonopin) 0.5 mg PO MoWeFr@2100 [facility] Last Admin: 05/30/20 21:26 Dose: 0.5 mg Documented by: Clopidogrel Bisulfate (Plavix) 75 mg PO DAILY [facility] Last Admin: 05/31/20 10:51 Dose: 75 mg Documented by: Cyanocobalamin (Vitamin B12) 1,000 mcg PO DAILY [facility] Last Admin: 05/31/20 10:50 Dose: 1,000 mcg Documented by: Ergocalciferol (Vitamin D) 50,000 unit PO Sa@1000 [facility] Last Admin: 05/31/20 10:51 Dose: 50,000 unit Documented by: Famotidine (Pepcid) 20 mg PO DAILY [facility] Last Admin: 05/31/20 10:51 Dose: 20 mg Documented by: Guaifenesin (Robitussin) 10 ml PO Q4H PRN PRN PRN Reason: COUGH Hydralazine HCl (Apresoline Iv) 5 mg IV Q30M PRN PRN Reason: to maintain BP goals Labetalol HCl (Trandate) 20 mg IV X1 PRN PRN Reason: BLOOD PRESSURE Labetalol HCl (Trandate) 10 - 20 mg IV Q10M PRN PRN PRN Reason: to Maintain BP Goals Magnesium Hydroxide (Milk Of Magnesia) 30 ml PO DAILY PRN PRN PRN Reason: Constipation Ondansetron HCl (Zofran) 4 mg IV Q8H PRN PRN PRN Reason: NAUSEA/VOMITING Polyethylene Glycol (Miralax) 17 gm PO QHS [facility] Last Admin: 05/30/20 21:16 Dose: Not Given Documented by: Promethazine HCl (Phenergan Tablet) 25 mg PO Q6H PRN PRN PRN Reason: NAUSEA Quetiapine Fumarate (Seroquel) 100 mg PO QHS [facility] Last Admin: 05/30/20 21:26 Dose: 100 mg Documented by: Sodium Chloride () 10 - 40 ml IV UD PRN PRN Reason: SALINE FLUSH Last Admin: 05/31/20 10:51 Dose: 10 ml Documented by: STROKE Vital Signs/Narrative: Vital Signs Temp Pulse Resp BP Pulse Ox 05/31/20 10:50 97.8 F 63 16 139/67 H 96 Medical Necessity - Tobacco Use Smoking Status: Former smoker Assessment/Plan 84-year-old admitted with a complaint of right-sided numbness. # Acute CVA NIH stroke score remains 1 on account of numbness on right side of body. MRI done 2 to acute small thalamic infarcts On aspirin and Plavix. On high intensity statin. Neurology reviewed patient and recommended ROCKY and RPR as well as ESR check in a P2 Y 12 assay to determine if she had resistance to Plavix. These have been ordered PT/OT on board. 2D echo done showed EF of 55 to 60% with trivial mitral valve insufficiency but otherwise normal. Fall precautions. #Hypertension: On carvedilol. #CAD: On aspirin, carvedilol, Plavix and statom DVT prophylaxis: SCDs CODE STATUS: Full code OBSV E&M: 95029 Subsequent observation care L2
--- NOTE | 2020-05-31 14:10 | CM.UR ---
Addendum entered by Lexie Mendoza 05/31/20 15:41: Appears not being discharged today. Changed to IP. Loela Mendoza RN, CCM. Original Note: reviewed OBS status. Xsolis score remains 25. Meets Interqual criteria for IP for Stroke however patient is being discharged today. Leola Mendoza RN, CCM.
[2020-05-31 14:28] LABS: Hemoglobin A1c 5.8 % (3.8-5.6)
--- NOTE | 2020-05-31 16:59 | CASEMGMT ---
Social Work Consult: Return to Assisted Living Informant: etl informatica developer Met with patient in room. Introduced self and social and political studies professor role. Patient agreeable to speaking with this social and political studies professor. Patient reports to have lived at [facility] for several years. Patient plans to return to [facility]. Per therapy documentation recommending for patient to use a walker. Patient reports to have a walk[facility] at the [facility]. Patient with no concerns on returning to assisted living and is hoping to be able to discharge tomorrow. Patient with no further questions. Updated medical team on patient wish to discharge tomorrow. Green sheet placed on chart in the event that patient is cleared for discharge. Declan Hogan MSW, KOTA
[2020-05-31] MEDS: clonazePAM 0.5 MG Tablet 0.25 MG PO (21:20)
[2020-05-31] MEDS: Polyethylene Glycol 3350 17 GM PACKET PO (21:21)
[2020-05-31] MEDS: QUEtiapine 100 MG Tablet PO (21:21)
[2020-05-31] MEDS: Atorvastatin Calcium 80 MG Tablet PO (21:21)
[2020-06-01 01:42] VITALS: BMI 32.2
[2020-06-01 02:10] VITALS: BP 141/64; PULSE 69; RESP 16; TEMP 36.3; O2SAT 93
[2020-06-01 03:00] VITALS: PULSE 76
[2020-06-01 06:10] VITALS: BP 178/75; PULSE 80; RESP 16; TEMP 36.5; O2SAT 96
[2020-06-01 07:04] VITALS: O2SAT 93
[2020-06-01 07:33] VITALS: PULSE 64
--- NOTE | 2020-06-01 09:36 | DCINST_ITS ---
You will use the following diet at home:: Cardiac Your food should be the consistency of: Regular Your liquids should be the consistency of: Regular/Thin Discharge Activity: Return to Normal Activity Weight Bearing Status: Weight bearing as tolerated Call your doctor if you observe: Numbness or Tingling, Shortness of breath, Dizziness, Fainting spells, Swelling in the ankles Instructions: Symptoms of Stroke, What Is Ischemic Stroke?, Stroke: Taking Medications, Stroke: Self-Care Allergies/Adverse Reactions: Allergies ibuprofen Allergy (Verified 05/30/20 09:18) Unknown Penicillins Allergy (Verified 05/30/20 09:18) Swelling cyclobenzaprine [From Flexeril] Adverse Reaction (Verified 05/30/20:18) Other Medications to take at Discharge Acetaminophen [Tylenol] 2 tab PO Q4H PRN 05/30/20 Aspirin [Aspirin, Baby] 81 mg PO DAILY@0800 05/30/20 Carvedilol 25 mg PO BID 05/30/20 Clonazepam [Klonopin] 0.25 mg PO SUTUTHSA 05/30/20 Clonazepam [Klonopin] 0.5 mg PO MOWEFR 05/30/20 Clopidogrel Bisulfate [Plavix] 75 mg PO DAILY 05/30/20 Cyanocobalamin (Vitamin B-12) [B-12] 1,000 mcg PO DAILY 05/30/20 Denosumab [Prolia] 60 mg SQ 05/30/20 Ergocalciferol [Vitamin D] 50,000 unit PO SA 05/30/20 Famotidine [Pepcid] 20 mg PO BID 05/30/20 Guaifenesin [Robitussin] 10 ml PO Q4H PRN PRN 05/30/20 Mag Hydrox/Aluminum Hyd/Simeth [Antacid Suspension] 30 ml PO Q4H PRN 05/30/20 Magnesium Hydroxide [Milk Of Magnesia] 30 ml PO DAILY PRN PRN 05/30/20 Peg 400/Hypromellose/Glycerin [Artificial Tears] 1 drp EACH EYE PRN PRN 05/30/20 Polyethylene Glycol 3350 [Miralax] 17 gm PO QHS 05/30/20 Promethazine HCl 25 mg PO Q6H PRN 05/30/20 Quetiapine Fumarate [Seroquel] 100 mg PO QHS 05/30/20 Venlafaxine HCl [Venlafaxine HCl ER] 150 mg PO DAILY 05/30/20 Atorvastatin Calcium 40 mg PO QHS #30 tab 05/31/20 The following prescriptions were given: Atorvastatin Calcium 40 mg PO QHS #30 tab Transmission Status: Received by [id number] Orders to be completed after discharge: [facility]-Day [facility] Location: None Selected Primary Care Physician: Patrick Qiu PA [Primary Care Provider] - Test Results: Test results from this visit will be discussed in further detail at your follow- up appointment, if applicable. Proposed Discharge Date: 06/01/20
[2020-06-01 09:38] VITALS: BP 134/76; PULSE 73; RESP 16; TEMP 36.7; O2SAT 96
[2020-06-01] MEDS: Aspirin 81 MG TAB.CHEW PO (09:55)
[2020-06-01] MEDS: Carvedilol 25 MG Tablet PO (09:55)
[2020-06-01] MEDS: Clopidogrel Bisulfate 75 MG Tablet PO (09:55)
[2020-06-01] MEDS: Cyanocobalamin 500 MCG Tablet 1000 MCG PO (09:55)
[2020-06-01] MEDS: Acetaminophen 325 MG Tablet 650 MG PO (09:55)
[2020-06-01] MEDS: Famotidine 20 MG Tablet PO (09:55)
--- NOTE | 2020-06-01 13:11 | NURSING ---
Report called to Margaret, nurse at [facility].
[2020-06-05 01:46] LABS: Rapid Plasmin Reagin (RPR) NONREACTIVE (NONREACTIVE)
== END 2020-06-01 12:50 | disposition home or self-care (01) ==
LOC: ED 09:38 → PCU 15:04
PROVIDERS: Family Medicine; Admitting Provider Student in an Organized Health Care Education/Training Program; Emergency Provider Emergency Medicine; PCP Physician Assistant; Visit Provider Student in an Organized Health Care Education/Training Program
CPT/HCPCS: 36415; 70496; 70498; 70551; 71045; 80048; 80061; 81001; 82962; 83036; 84484; 85025; 85610; 85652; 85730; 86140; 86592; 93005; 93225; 93226; 93306; 94762; 97161; 97165; 99251; 99285; J7030; Q9967; A4216; G0463

== ENCOUNTER → 2020-06-01 12:47 | Outpatient (CLI) | payer MEDICARE, MEDICAID, SELFPAY ==
[2020-06-01 01:42] VITALS: BMI 32.2
== END ==
PROVIDERS: PCP Physician Assistant; Visit Provider Internal Medicine Cardiovascular Disease
DX: Z86.73 Personal history of transient ischemic attack (TIA), and cerebral infarction without residual deficits (principal)
CPT/HCPCS: 93225; 93226

== ENCOUNTER 2021-04-28 16:21 | Emergency (ER) | payer MEDICARE, MEDICAID, SELFPAY ==
[2021-04-28 16:23] VITALS: BP 190/88; PULSE 69; RESP 15; TEMP 36.6; O2SAT 99; BMI 31.4
[2021-04-28 16:26] VITALS: O2SAT 99
--- NOTE | 2021-04-28 17:02 | CT_ITS ---
STUDY: CT CERVICAL SPINE WITHOUT CONTRAST REASON FOR EXAM: Female, 85 years old. trauma RADIATION DOSAGE (If Supplied By Facility): CTDIvol = ( 14.94 ) mGy, DLP = ( 286.26 ) mGycm TECHNIQUE: High resolution transaxial imaging was performed without contrast material. Sagittal and coronal images were reconstructed. Individualized dose optimization techniques were used for this CT. COMPARISON: 11/15/2018. FINDINGS: Normal craniovertebral junction. Normal anterior atlantoaxial articulation. Normal odontoid process. Normal cervical lordosis. Normal vertebral bodies and posterior osseous elements. C2-3: Normal endplates. Normal disc height and morphology. Normal central canal and intervertebral neuroforamina. Mild facet arthrosis. C3-4: Disc space narrowing with sclerotic endplate changes. Mild, noncompressive spondylotic bar. Mild foraminal encroachment due to uncinate and facet hypertrophy. C4-5: Disc space narrowing. 4 mm degenerative anterolisthesis. No demonstrated fracture. No canal stenosis. Foramina are patent. Left facet hypertrophy. No significant change from the prior study. C5-6: Marked disc space narrowing with sclerotic endplate changes. 3 mm degenerative retrolisthesis. No demonstrated fracture. Borderline canal stenosis due to retrolisthesis and mild spondylotic bar. Foraminal stenosis is mild on the left and severe on the right due to uncinate hypertrophy. No significant change from prior. C6-7: Marked disc space narrowing. Mild, noncompressive spondylotic bar. No canal stenosis. Mild foraminal encroachment due to uncinate hypertrophy. C7-T1: Normal endplates. Normal disc height and morphology. Normal central canal and intervertebral neuroforamina. T1-T2: Disc space narrowing with sclerotic endplate changes. No canal stenosis. Mild foraminal encroachment due to spurring. T1-2: 3 mm degenerative anterolisthesis. No demonstrated fracture. No canal or foraminal stenosis. Normal visualized soft tissue structures. CT/Spine Cervical without Contras IMPRESSION: 1. No demonstrated trauma. 2. Mild degenerative changes of the cervical spine, detailed above. Electronically Signed: Loli Garcia MD at 17:52 EDT Tel , Service support ,
--- NOTE | 2021-04-28 17:02 | CT_ITS ---
EXAMINATION : Head CT w/out contrast HISTORY : trauma COMPARISON : 11/15/2018. TECHNIQUE : Multiple contiguous axial images were obtained from the skull base to the vertex without intravenous contrast. A radiation dose optimization technique was used for this scan. FINDINGS : There is no evidence for acute intracranial hemorrhage, mass effect, or midline shift. There is no extra-axial fluid collection. There are periventricular white matter changes consistent with chronic microvascular ischemic disease. There is sulcal widening and ventricular enlargement consistent with cerebral atrophy. There is normal tafoya-white differentiation, without CT evidence of acute ischemia or infarct. The skull base and calvarium are unremarkable. The orbits are unremarkable. The paranasal sinuses are clear. The mastoid air cells are well-aerated. The soft tissues are unremarkable. CT/Brain/Head without Contrast IMPRESSION: No acute intracranial abnormality. Chronic involutional and ischemic changes of the brain. Electronically Signed: John Zaidi MD at 17:29 EDT Tel , Service support ,
--- NOTE | 2021-04-28 17:04 | EDS_ITS ---
HPI History of Present Illness Chief Complaint: Fall Informant: patient Onset/Context/Timing Onset: Today Mechanism/Context: Fall Location of pain/injuries: Left arm Current Severity: Mild Maximum Severity: Mild Narrative Narrative: Patient presents after fall at [facility]. She states she was getting up out of a recliner. She felt that she was off balance and fell putting her left arm out to catch herself. She has 3 skin tears noted to the left forearm region. She denies striking her head. No loss of consciousness. [facility] Medical History CKD (chronic kidney disease) Hyperlipemia Hypertension Home Medications acetaminophen 2 tab PO Q4H PRN 05/30/20 [History Last Taken Unknown] alum-mag hydroxide-simeth 30 ml PO Q4H PRN 05/30/20 [History Last Taken Unknown] aspirin 81 mg PO DAILY@0800 05/30/20 [History Last Taken Unknown] carvedilol 25 mg PO BID 05/30/20 [History Last Taken Unknown] clonazepam 0.25 mg PO SUTUTHSA 05/30/20 [History Last Taken Unknown] clonazepam 0.5 mg PO MOWEFR 05/30/20 [History Last Taken Unknown] clopidogrel 75 mg PO DAILY 05/30/20 [History Last Taken Unknown] cyanocobalamin (vitamin B-12) 1,000 mcg PO DAILY 05/30/20 [History Last Taken Unknown] denosumab 60 mg SQ 05/30/20 [History Last Taken Unknown] ergocalciferol (vitamin D2) 50,000 unit PO SA 05/30/20 [History Last Taken Unknown] famotidine 20 mg PO BID 05/30/20 [History Last Taken Unknown] guaifenesin 10 ml PO Q4H PRN PRN 05/30/20 [History Last Taken Unknown] magnesium hydroxide 30 ml PO DAILY PRN PRN 05/30/20 [History Last Taken Unknown] peg [id number] 1 drp EACH EYE PRN PRN 05/30/20 [History Last Taken Unknown] polyethylene glycol 3350 17 gm PO QHS 05/30/20 [History Last Taken Unknown] promethazine 25 mg PO Q6H PRN 05/30/20 [History Last Taken Unknown] quetiapine 100 mg PO QHS 05/30/20 [History Last Taken Unknown] venlafaxine 150 mg PO DAILY 05/30/20 [History Last Taken Unknown] atorvastatin 40 mg PO QHS #30 tab 05/31/20 [Rx Last Taken Unknown] Allergy/AdvReac Type Severity Reaction Status Date / Time ibuprofen Allergy Unknown Verified 04/28/21 16:28 Penicillins Allergy Swelling Verified 04/28/21 16:28 cyclobenzaprine AdvReac Other Verified 04/28/21 16:28 [From Flexeri] Social History Smoking Status: Former smoker ROS ROS ED Constitutional Constitutional ED: Denies chills or fever(s) Eyes Eyes: Denies change in vision ENT ENT ED: Denies sore throat Cardiovascular Cardiovascular: Denies chest pain Respiratory/Chest Respiratory/Chest: Denies cough or dyspnea Gastrointestinal Gastrointestinal: Denies abdominal pain, diarrhea, nausea or vomiting Genitourinary Genitourinary ED: Denies dysuria Musculoskeletal Musculoskeletal: Reports arthralgias and neck pain; Denies back pain Integumentary Denies rash Neurologic Neurologic: Denies headache(s) or weakness Allergic/Immunologic Allergic/Immunologic ED: Denies urticaria EXAM Physical Exam Const Vital Signs: 04/28/21 16:23 04/28/21 16:26 04/28/21 18:21 Temperature 98 F Temperature Source Oral Pulse Rate 69 Respiratory Rate 15 Respiratory Effort Normal Non-Labored Respiratory Depth Normal Respiratory Pattern Normal Blood Pressure 190/88 H 176/96 H Blood Pressure Mean 122 122 Pulse Ox 99 99 Oxygen Delivery Method Room Air Room Air Positive well nourished and well developed General Appearance ED: well developed HEENT Reports normocephalic and head/scalp atraumatic Eyes PERRL and EOMs intact bilaterally Neck supple Neck Narrative: Mild C-spine tenderness. No step-offs. Chest Wall inspection of chest normal and palpation of chest normal Resp normal respiratory effort and clear to auscultation bilaterally Cardio regular rate and regular rhythm GI normal to inspection, nondistended, normoactive bowel sounds Palpation: soft Back/Spine no CVA tenderness Extremity normal to inspection Extremity Narrative: 3 U-shaped skin tears to the left forearm, each measuring approximately 2 x 2 cm. Mild tenderness at the elbow. Full range of motion without difficulty. Strong distal pulses. No tenderness at the hand or shoulder. Neuro oriented x3 and no sensory deficits noted Sensorium / Orientation: alert Motor Exam: strength 5/5 throughout Psych mental status grossly normal MDM MDM MDM Narrative Medical decision making narrative: Patient is given Tylenol. CT scan of the head and C-spine are obtained. Left forearm x-rays obtained. Radiography Diagnostic Testing: Radiology Impression Brain CT 04/28/21 17:02 IMPRESSION: No acute intracranial abnormality. Chronic involutional and ischemic changes of the brain. Electronically Signed: John Zaidi MD at 17:29 EDT Tel , Service support , Cervical Spine CT 04/28/21 17:02 IMPRESSION: 1. No demonstrated trauma. 2. Mild degenerative changes of the cervical spine, detailed above. Electronically Signed: Loli Garcia MD at 17:52 EDT Tel , Service support , Forearm X-Ray 04/28/21 17:23 IMPRESSION: Bone demineralization, otherwise negative x-ray examination of the radius and ulna. Electronically Signed: Loli Garcia MD at 17:56 EDT Tel , Service support , Treatment and Re-Evaluation Comments:: Left arm x-ray reveals no fracture per my interpretation. Radiology interpreted patient is reviewed. CT scans are unremarkable. Left arm wounds were cleansed. Steri-Strips and dressing applied by nursing staff. Tetanus shot will be given and patient be discharged back to [facility]. Discharge Plan Triage Chief Complaint: Fall ED Provider: Lexie Weiss Dx/Rx/DC Orders Clinical Impression: Skin tear, Contusion of forearm, left, Fall Instructions: ED Contusion, Upper Extremity, ED Mechanical Fall, ED Skin Avulsion Prescriptions: No Action carvedilol 25 MG tablet 25 mg PO BID RF: 0 cyanocobalamin (vitamin B-12) 1,000 MCG tablet 1,000 mcg PO DAILY RF: 0 guaifenesin 10 ML liquid 10 ml PO Q4H PRN PRN (Reason: Cough) RF: 0 aspirin 81 MG tablet,chewable 81 mg PO DAILY@0800 RF: 0 ergocalciferol (vitamin D2) 50,000 UNIT capsule 50,000 unit PO SA RF: 0 alum-mag hydroxide-simeth 355 ML suspension 30 ml PO Q4H PRN (Reason: GI DISTRESS) RF: 0 peg [id number] 1 DROP bottle 1 drp EACH EYE PRN PRN (Reason: Dry Eyes) RF: 0 acetaminophen 325 MG capsule 2 tab PO Q4H PRN (Reason: Pain 1-10 Or Fever) RF: 0 polyethylene glycol 3350 17 GM packet 17 gm PO QHS RF: 0 clonazepam 0.5 MG tablet 0.5 mg PO MOWEFR RF: 0 clonazepam 0.5 MG tablet 0.25 mg PO SUTUTHSA RF: 0 venlafaxine 150 MG capsule,extended release 24hr 150 mg PO DAILY RF: 0 clopidogrel 75 MG tablet 75 mg PO DAILY RF: 0 quetiapine 100 MG tablet 100 mg PO QHS RF: 0 famotidine 20 MG tablet 20 mg PO BID RF: 0 magnesium hydroxide 30 ML suspension 30 ml PO DAILY PRN PRN (Reason: Constipation) RF: 0 promethazine 25 MG tablet 25 mg PO Q6H PRN (Reason: Nausea) RF: 0 denosumab 60 MG/ML syringe 60 mg SQ RF: 0 atorvastatin 40 MG tablet 40 mg PO QHS Qty: 30 RF: 1 Primary Care Provider: Patrick Qiu Referrals: Patrick Qiu, MARILEE [Primary Care Provider] - 1 Week Disposition Disposition: Home, Self Care
[2021-04-28] MEDS: Acetaminophen 325 MG Tablet 650 MG PO (17:08)
--- NOTE | 2021-04-28 17:23 | RAD_ITS ---
STUDY: X-RAY - LEFT RADIUS AND ULNA REASON FOR EXAM: Female, 85 years old. fall TECHNIQUE: 2 view(s) of the forearm. COMPARISON: None. FINDINGS: Bones are demineralized. No acute fracture or dislocation. No destructive bone changes. Joint spaces are well-maintained. Normal alignment. Soft tissues are unremarkable. No radiopaque foreign body or soft tissue gas. RAD/Forearm 2 Views IMPRESSION: Bone demineralization, otherwise negative x-ray examination of the radius and ulna. Electronically Signed: Loli Garcia MD at 17:56 EDT Tel , Service support ,
[2021-04-28 18:21] VITALS: BP 176/96
[2021-04-28] MEDS: Diphth,Pertuss(Acell),Tet Vac 0.5 ML Vial IM (18:46)
--- NOTE | 2021-04-28 18:56 | ED.RN ---
Report called to Jayla at [facility].
== END 2021-04-28 19:28 | disposition home or self-care (01) ==
PROVIDERS: Emergency Provider Emergency Medicine; PCP Physician Assistant
DX: S51.812A Laceration without foreign body of left forearm, initial encounter (principal); S50.12XA Contusion of left forearm, initial encounter; W01.0XXA Fall on same level from slipping, tripping and stumbling without subsequent striking against object, initial encounter; Y93.89 Activity, other specified; Y92.129 Unspecified place in nursing home as the place of occurrence of the external cause; Y99.8 Other external cause status; I12.9 Hypertensive chronic kidney disease with stage 1 through stage 4 chronic kidney disease, or unspecified chronic kidney disease; N18.9 Chronic kidney disease, unspecified; E78.5 Hyperlipidemia, unspecified; Z23 Encounter for immunization; Z79.82 Long term (current) use of aspirin; Z79.02 Long term (current) use of antithrombotics/antiplatelets; Z79.899 Other long term (current) drug therapy; Z87.891 Personal history of nicotine dependence
CPT/HCPCS: 90471; 70450; 72125; 73090; 90715; 99285

== ENCOUNTER → 2021-09-10 04:00 | Outpatient (REF) | payer MEDICARE, MEDICAID, SELFPAY ==
[2021-09-10 07:57] LABS: Absolute Lymphocyte Count 1.68 X10^3/uL (0.83-4.51); Absolute Neutrophil Count 2.7 X10^3/uL (2.0-7.7); Basophil# 0.02 X10^3/uL; Basophil% 0.4 % (0-1); Hematocrit 34.4 % (37-47); Hemoglobin 11.1 g/dL (12.0-15.0); Lymphocyte # 1.68 X10^3/ul (0.83-4.51); Lymphocyte % 32.8 % (19-41); Mean Corp Hgb Conc 32.3 g/dL (32-36); Mean Corpuscular Hgb 29.6 pg (27.0-32.0); Mean Corpuscular Volume 91.7 fL (81-99); Mean Platelet Vol. 9.7 fl (6.2-12.0); Monocyte# 0.63 X10^3/uL; Monocyte% 12.3 % (0-10); NRBC Flagged by Analyzer 0 % (0-5); Neutrophil # 2.67 X10^3/uL (2.7-7.7); Neutrophil % 52.1 % (47-70); Platelet Count 200 K/mm3 (150-450); RBC Distribution Width CV 13.3 % (11.6-14.6); RBC Distribution Width SD 45.4 fl (35.1-43.9); Red Blood Count 3.75 M/mm3 (4.2-5.4); White Blood Count 5.1 K/mm3 (4.4-11.0)
[2021-09-10 08:17] LABS: Hemoglobin A1c 6.1 % (3.8-5.6)
[2021-09-10 08:24] LABS: PTHIN 79.9 pg/mL (18.4-80.1)
[2021-09-10 08:33] LABS: AST(SGOT) 20 U/L (15-37); Alanine Aminotransfer ALT/SGPT 18 U/L (13-56); Albumin, Serum 3.2 g/dL (3.2-5.0); Alkaline Phosphatase 81 U/L (45-117); Anion Gap 5 (5-15); BUN 15 mg/dL (7-18); BUN/Creat Ratio 10.7 RATIO (10-20); Calcium,Total 8.3 mg/dL (8.5-10.1); Chloride 105 mmol/L (98-107); Cholesterol 145 mg/dL (200); EST Glomerular Filtration Rate 38 mL/min (>60); Est Glom Filt Rate - Afr Amer 46 mL/min (>60); Globulin 3.3 g/dL (2.2-4.2); Glucose 80 mg/dL (74-106); High Density Lipoprotein 60 mg/dL; Potassium 3.7 mmol/L (3.5-5.1); Protein, Total 6.5 g/dL (6.4-8.2); Sodium Level 140 mmol/L (136-145); Triglycerides 122 mg/dL; Very Low Density Lipoprotein 24 mg/dL (5-40)
== END ==
LOC: OLS.SWAL 04:00
PROVIDERS: PCP Physician Assistant
DX: D64.9 Anemia, unspecified (principal); F33.41 Major depressive disorder, recurrent, in partial remission; N18.4 Chronic kidney disease, stage 4 (severe); E78.2 Mixed hyperlipidemia
CPT/HCPCS: 36415; 80053; 80061; 82306; 83036; 83970; 85025

== ENCOUNTER 2022-06-14 09:18 | Emergency (ER) | payer MEDICARE, MEDICAID, SELFPAY ==
[2022-06-14 09:19] VITALS: BP 114/52; PULSE 86; RESP 18; TEMP 37; O2SAT 93; BMI 29.9
--- NOTE | 2022-06-14 09:26 | EKG12_ITS ---
Test Reason : ALT LOC Blood Pressure : / mmHG Vent. Rate : 086 BPM Atrial Rate : 086 BPM P-R Int : 172 ms QRS Dur : 094 ms QT Int : 372 ms P-R-T Axes : 056 -01 014 degrees QTc Int : 445 ms Sinus rhythm with marked sinus arrhythmia Nonspecific ST and T wave abnormality Abnormal ECG Confirmed by DARCY WRIGHT, SULEIMAN ([id number]), publication editor HERMINIA DAVILA ([id number]) on 06/16/2022 8:36:47 AM Referred By: Confirmed By:SULEIMAN TAVERAS MD
--- NOTE | 2022-06-14 09:27 | EX.ED.DYSGE1 ---
HPI History of Present Illness Chief Complaint: Alt LOC Informant: patient, EMS and SNF Narrative Narrative: 86-year-old female from [facility] reportedly sent to the emergency room following an unresponsive episode. It was reported the patient has been sick for the past several days. Patient does not know whether or not she has felt sick. Apparently she was sitting in a chair today was found unresponsive and was hypotensive. EMS notes that now she is awake talking and normotensive. She does not recall going unresponsive. She states that she had oatmeal today but cannot recall anything else that is happened. She denies any pain. She denies any fevers. The chart states that she is a full code. [facility] Medical History CKD (chronic kidney disease) Hyperlipemia Hypertension Home Medications acetaminophen 325 mg capsule 2 tab PO Q4H PRN Pain 1-10 Or Fever 05/30/20 [History Last Taken Unknown] aluminum-mag hydroxide-simethicone 400 mg-400 mg-40 mg/5 mL oral susp 30 ml PO Q4H PRN GI DISTRESS 05/30/20 [History Last Taken Unknown] aspirin 81 mg chewable tablet 81 mg PO DAILY@0800 05/30/20 [History Last Taken Unknown] carvedilol 25 mg tablet 25 mg PO BID 05/30/20 [History Last Taken Unknown] clonazepam 0.5 mg tablet 0.25 mg PO SUTUTHSA 05/30/20 [History Last Taken Unknown] clonazepam 0.5 mg tablet 0.5 mg PO MOWEFR 05/30/20 [History Last Taken Unknown] clopidogrel 75 mg tablet 75 mg PO DAILY 05/30/20 [History Last Taken Unknown] cyanocobalamin (vitamin B-12) 1,000 mcg tablet 1,000 mcg PO DAILY 05/30/20 [History Last Taken Unknown] denosumab 60 mg/mL subcutaneous syringe 60 mg SQ 05/30/20 [History Last Taken Unknown] famotidine 20 mg tablet 20 mg PO BID 05/30/20 [History Last Taken Unknown] guaifenesin 100 mg/5 mL oral liquid 10 ml PO Q4H PRN PRN Cough 05/30/20 [History Last Taken Unknown] magnesium hydroxide 400 mg/5 mL oral suspension 30 ml PO DAILY PRN PRN Constipation 05/30/20 [History Last Taken Unknown] peg [id number] 1 %-0.2 %-0.2 % eye drops 1 drp EACH EYE PRN PRN Dry Eyes 05/30/20 [History Last Taken Unknown] polyethylene glycol 3350 17 gram oral powder packet 17 gm PO QHS 05/30/20 [History Last Taken Unknown] promethazine 25 mg tablet 25 mg PO Q6H PRN Nausea 05/30/20 [History Last Taken Unknown] quetiapine 100 mg tablet 100 mg PO QHS 05/30/20 [History Last Taken Unknown] venlafaxine 150 mg capsule,extended release 24 hr 150 mg PO DAILY 05/30/20 [History Last Taken Unknown] atorvastatin 40 mg tablet 40 mg PO QHS #30 tabs 05/31/20 [Rx Last Taken Unknown] alendronate 70 mg tablet 70 mg PO QWEEK 06/14/22 [History Last Taken Unknown] cholecalciferol (vitamin D3) 50 mcg (2,000 unit) capsule (Vitamin D3) 50 mcg PO DAILY 06/14/22 [History Last Taken Unknown] lisinopril 5 mg tablet 5 mg PO DAILY 06/14/22 [History Last Taken Unknown] Allergy/AdvReac Type Severity Reaction Status Date / Time ibuprofen Allergy Unknown Verified 06/14/22 09:26 Penicillins Allergy Swelling Verified 06/14/22 09:26 cyclobenzaprine AdvReac Other Verified 06/14/22 09:26 [From Flexeril] Social History (Updated 06/14/22 @ 09:[address] Glenn Acevedo, DO) Smoking Status: Former smoker substance use type: does not use ROS ROS ED Constitutional Constitutional ED: Denies chills or weight loss Eyes Eyes: Denies change in vision or diplopia ENT ENT ED: Denies ear pain, rhinorrhea or sore throat Cardiovascular Cardiovascular: Denies chest pain, orthopnea, palpitations or racing heartbeat Respiratory/Chest Respiratory/Chest: Reports cough; Denies dyspnea or orthopnea Gastrointestinal Gastrointestinal: Denies abdominal pain, diarrhea, nausea or vomiting Genitourinary Genitourinary ED: Denies dysuria, hematuria or urinary frequency Musculoskeletal Musculoskeletal: Denies arthralgias or myalgias Integumentary Denies abscess or rash Neurologic Neurologic: Denies headache(s) or weakness Psychiatric Psychiatric: Denies anxiety, depression, suicidal ideation or suicidal thoughts Endocrine Endocrinology: Denies polydipsia, polyphagia or polyuria Allergic/Immunologic Allergic/Immunologic ED: Denies mouth swelling, tongue swelling or urticaria EXAM Physical Exam Const Vital Signs: 06/14/22 09:19 06/14/22 09:32 06/14/22 09:59 Temperature 98.6 F 97.9 F Temperature Source Oral Temporal Pulse Rate 86 88 Respiratory Rate 18 16 Respiratory Effort Normal Respiratory Pattern Normal Blood Pressure 114/52 L 133/89 H Blood Pressure Mean 72 103 Pulse Ox 93 97 Oxygen Delivery Method Room Air Room Air 06/14/22 11:36 06/14/22 13:17 Temperature Temperature Source Pulse Rate 72 74 Respiratory Rate 20 H 23 H Respiratory Effort Respiratory Pattern Blood Pressure 145/59 H 147/73 H Blood Pressure Mean 87 97 Pulse Ox 99 94 Oxygen Delivery Method Room Air Room Air Positive well nourished and well developed General Appearance ED: well developed HEENT Reports normocephalic, head/scalp atraumatic and moist mucous membranes Eyes PERRL and EOMs intact bilaterally Neck no lymphadenopathy, supple and no JVD Resp normal respiratory effort and clear to auscultation bilaterally Cardio regular rate, regular rhythm and no murmurs GI normal to inspection, nondistended, normoactive bowel sounds and non-tender Palpation: soft Back/Spine no CVA tenderness and normal ROM Extremity normal to inspection General Extremety ED: Negative for edema General Extremity: Negative for edema Neuro CN's II-XII intact bilaterally Sensorium / Orientation: alert Motor Exam: strength 5/5 throughout Psych mental status grossly normal Mood & Affect: Negative for depressed or tearful Skin no rashes or lesions noted and no wounds MDM MDM MDM Narrative Medical decision making narrative: Patient has been normotensive and without any dysrhythmias on the monitor for her ED course. White count of 6.4 with a hemoglobin of 12. Coags normal. BUN is 16 with a creatinine 1.75. Troponin and delta troponin are in the normal range. Initial lactic acid was curiously elevated. But a repeat 1 was normal. She is not showing any evidence of a shock state. She has been conversant and has also taken naps. I think the patient is able to be discharged at this time. Lab Data Attestation: I reviewed the patient's lab results. Labs: Laboratory Results - last 24 hr 06/14/22 06/14/22 06/14/22 09:02 09:02 09:02 WBC 6.4 RBC 3.94 L Hgb 12.0 Hct 36.7 L MCV 93.1 MCH 30.5 MCHC 32.7 RDW Std Deviation 46.0 H RDW Coeff of Jessica 13.4 Plt Count 154 MPV 9.8 Immature Gran % (Auto) 0.500 Neut % (Auto) 73.0 H Lymph % (Auto) 15.5 L [place] % (Auto) 10.8 H Eos % (Auto) 0.0 Baso % (Auto) 0.2 Absolute Neuts (auto) 4.7 Absolute Lymphs (auto) 0.99 Nucleated RBC % 0 PT 14.0 INR 1.1 APTT 33.5 Sodium 135 L Potassium 3.4 L Chloride 98 Carbon Dioxide 30.0 Anion Gap 7 BUN 16 Creatinine 1.75 H Estim Creat Clear Calc 16.88 Est GFR (MDRD) Af Amer 36 L Est GFR (MDRD) Non-Af 29 L BUN/Creatinine Ratio 9.1 L Glucose 179 H Lactic Acid Calcium 8.1 L Total Bilirubin 0.50 AST 103 H ALT 46 Alkaline Phosphatase 69 Troponin I High Sens 18 Total Protein 7.0 Albumin 3.4 Globulin 3.6 Albumin/Globulin Ratio 0.9 Urine Color Urine Clarity Urine pH Ur Specific [place] Urine Protein Urine Glucose (UA) Urine Ketones Urine Occult Blood Urine Nitrite Urine Bilirubin Urine Urobilinogen Ur Leukocyte Esterase Urine RBC Urine WBC Ur Squamous Epith Cells Urine Bacteria Urine Mucus 06/14/22 06/14/22 06/14/22 09:02 09:55 11:00 WBC RBC Hgb Hct MCV MCH MCHC RDW Std Deviation RDW Coeff of Jessica Plt Count MPV Immature Gran % (Auto) Neut % (Auto) Lymph % (Auto) [place] % (Auto) Eos % (Auto) Baso % (Auto) Absolute Neuts (auto) Absolute Lymphs (auto) Nucleated RBC % PT INR APTT Sodium Potassium Chloride Carbon Dioxide Anion Gap BUN Creatinine Estim Creat Clear Calc Est GFR (MDRD) Af Amer Est GFR (MDRD) Non-Af BUN/Creatinine Ratio Glucose Lactic Acid 2.4 H* Calcium Total Bilirubin AST ALT Alkaline Phosphatase Troponin I High Sens 16 Total Protein Albumin Globulin Albumin/Globulin Ratio Urine Color Yellow Urine Clarity Clear Urine pH 6.0 Ur Specific [place] 1.015 Urine Protein 30 H Urine Glucose (UA) Normal Urine Ketones 15 H Urine Occult Blood 10 H Urine Nitrite Negative Urine Bilirubin Negative Urine Urobilinogen Normal Ur Leukocyte Esterase Negative Urine RBC 0 SEEN Urine WBC 0 SEEN Ur Squamous Epith Cells 0 SEEN Urine Bacteria 0 SEEN Urine Mucus 0 SEEN 06/14/22 11:00 WBC RBC Hgb Hct MCV MCH MCHC RDW Std Deviation RDW Coeff of Jessica Plt Count MPV Immature Gran % (Auto) Neut % (Auto) Lymph % (Auto) [place] % (Auto) Eos % (Auto) Baso % (Auto) Absolute Neuts (auto) Absolute Lymphs (auto) Nucleated RBC % PT INR APTT Sodium Potassium Chloride Carbon Dioxide Anion Gap BUN Creatinine Estim Creat Clear Calc Est GFR (MDRD) Af Amer Est GFR (MDRD) Non-Af BUN/Creatinine Ratio Glucose Lactic Acid 1.8 Calcium Total Bilirubin AST ALT Alkaline Phosphatase Troponin I High Sens Total Protein Albumin Globulin Albumin/Globulin Ratio Urine Color Urine Clarity Urine pH Ur Specific [place] Urine Protein Urine Glucose (UA) Urine Ketones Urine Occult Blood Urine Nitrite Urine Bilirubin Urine Urobilinogen Ur Leukocyte Esterase Urine RBC Urine WBC Ur Squamous Epith Cells Urine Bacteria Urine Mucus Radiography Diagnostic Testing: Clinical Impression(s) from Imaging Studies Chest X-Ray 06/14/22 09:35 IMPRESSION: Possible 3.4 cm x 2.6 cm nodule in the medial aspect of the right lung base. Correlation with CT scan is recommended. Electronically Signed: Franklin Marquez MD at 9:57 EDT Reading Location ID and State: [facility] / [place] , Service support , EKG Initial EKG: Attestation: I personally reviewed and interpreted this EKG as follows: Comments: Sinus rhythm with a ventricular rate of 86 bpm. Sinus arrhythmia noted. Discharge Plan Triage Chief Complaint: Alt LOC ED Provider: Glenn Acevedo Dx/Rx/DC Orders Clinical Impression: Syncope, Dementia Instructions: What Is Syncope Prescriptions: No Action carvedilol 25 MG tablet 25 mg PO BID cyanocobalamin (vitamin B-12) 1,000 MCG tablet 1,000 mcg PO DAILY guaifenesin 10 ML liquid 10 ml PO Q4H PRN PRN (Reason: Cough) aspirin 81 MG tablet,chewable 81 mg PO DAILY@0800 alum-mag hydroxide-simeth 355 ML suspension 30 ml PO Q4H PRN (Reason: GI DISTRESS) peg [id number] 1 DROP bottle 1 drp EACH EYE PRN PRN (Reason: Dry Eyes) acetaminophen 325 MG capsule 2 tab PO Q4H PRN (Reason: Pain 1-10 Or Fever) polyethylene glycol 3350 17 GM packet 17 gm PO QHS clonazepam 0.5 MG tablet 0.5 mg PO MOWEFR clonazepam 0.5 MG tablet 0.25 mg PO SUTUTHSA venlafaxine 150 MG capsule,extended release 24hr 150 mg PO DAILY clopidogrel 75 MG tablet 75 mg PO DAILY quetiapine 100 MG tablet 100 mg PO QHS famotidine 20 MG tablet 20 mg PO BID magnesium hydroxide 30 ML suspension 30 ml PO DAILY PRN PRN (Reason: Constipation) promethazine 25 MG tablet 25 mg PO Q6H PRN (Reason: Nausea) denosumab 60 MG/ML syringe 60 mg SQ Rx Instructions: Q 6 MONTHS atorvastatin 40 MG tablet 40 mg PO QHS Qty: 30 1RF alendronate 70 mg Tablet 70 mg PO QWEEK lisinopril 5 mg Tablet 5 mg PO DAILY cholecalciferol (vitamin D3) [Vitamin D3] 50 mcg (2,000 unit) Capsule 50 mcg PO DAILY Primary Care Provider: Yonny Renee Referrals: Patrick Qiu, PA [Non-Staff] - As soon as possible Disposition Disposition: Home, Self Care
[2022-06-14] MEDS: 0.9% Normal Saline 1,000 ML 1000 ML IV (09:33)
--- NOTE | 2022-06-14 09:35 | RAD_ITS ---
STUDY: X-RAY CHEST REASON FOR EXAM: Female, 86 years old. Syncope TECHNIQUE: Single AP portable view of the chest. COMPARISON: Comparison is made with prior study 05/30/2020. FINDINGS: EKG electrodes are seen. Hyperinflation. Questionable 2.6 cm x 3.4 cm nodule in the medial aspect of the right lung base. There is no demonstrated pleural abnormality. Normal size heart. Normal mediastinum and gustavo. Normal visualized pulmonary arteries. There is atherosclerotic tortuosity of the aortic arch and descending thoracic aorta. There are diffuse degenerative changes of the visualized thoracic spine. Normal visualized ribs, clavicles, and shoulders. There is no demonstrated abnormality of the visualized soft tissue structures of the upper abdomen. RAD/Chest 1 View (Portable) IMPRESSION: Possible 3.4 cm x 2.6 cm nodule in the medial aspect of the right lung base. Correlation with CT scan is recommended. Electronically Signed: Franklin Marquez MD at 9:57 EDT ,
[2022-06-14 09:44] LABS: Absolute Lymphocyte Count 0.99 X10^3/uL (0.83-4.51); Absolute Neutrophil Count 4.7 X10^3/uL (2.0-7.7); Basophil# 0.01 X10^3/uL; Basophil% 0.2 % (0-1); Hematocrit 36.7 % (37-47); Lymphocyte # 0.99 X10^3/ul (0.83-4.51); Lymphocyte % 15.5 % (19-41); Mean Corp Hgb Conc 32.7 g/dL (32-36); Mean Corpuscular Hgb 30.5 pg (27.0-32.0); Mean Corpuscular Volume 93.1 fL (81-99); Mean Platelet Vol. 9.8 fl (6.2-12.0); Monocyte# 0.69 X10^3/uL; Monocyte% 10.8 % (0-10); NRBC Flagged by Analyzer 0 % (0-5); Neutrophil # 4.67 X10^3/uL (2.7-7.7); Platelet Count 154 K/mm3 (150-450); RBC Distribution Width CV 13.4 % (11.6-14.6); Red Blood Count 3.94 M/mm3 (4.2-5.4); White Blood Count 6.4 K/mm3 (4.4-11.0)
[2022-06-14 09:59] VITALS: BP 133/89; PULSE 88; RESP 16; TEMP 36.6; O2SAT 97
[2022-06-14 09:59] LABS: ALB/GLOB Ratio 0.9 RATIO (0.9-2.4); AST(SGOT) 103 U/L (15-37); Alanine Aminotransfer ALT/SGPT 46 U/L (13-56); Albumin, Serum 3.4 g/dL (3.2-5.0); Alkaline Phosphatase 69 U/L (45-117); Anion Gap 7 (5-15); BUN 16 mg/dL (7-18); BUN/Creat Ratio 9.1 RATIO (10-20); Calcium,Total 8.1 mg/dL (8.5-10.1); Chloride 98 mmol/L (98-107); Creatinine, Serum 1.75 mg/dL (0.55-1.02); EST Glomerular Filtration Rate 29 mL/min (>60); Est Glom Filt Rate - Afr Amer 36 mL/min (>60); Estimated Creatinine Clearance 16.88 ml/min; Globulin 3.6 g/dL (2.2-4.2); Glucose 179 mg/dL (74-106); Potassium 3.4 mmol/L (3.5-5.1); Sodium Level 135 mmol/L (136-145); Troponin-I HS 18 pg/mL (3.0-54.0)
[2022-06-14 10:00] LABS: International Normalized Ratio 1.1
[2022-06-14 10:01] LABS: Bacteria 0 SEEN /hpf (None Seen); Mucous, Urine 0 SEEN /hpf (<or=2+); Red Blood Cells-Urine 0 SEEN /hpf (0-5); Squamous Epithelial Cells - UA 0 SEEN /hpf (5-10); White Blood Cells 0 SEEN /hpf (0-5)
[2022-06-14 10:01] LABS: Partial Thromboplast Time 33.5 Seconds (24.1-36.2)
[2022-06-14 10:06] LABS: Lactic Acid 2.4 mmol/L (0.4-1.9)
[2022-06-14 10:06] LABS: Color, Urine Yellow (Yellow); Glucose, Dipstick Normal (Normal); Ketone-Dipstick 15 mg/dl (Negative); Leukocyte Esterase-Dipstick Negative /ul (Negative); Nitrite-Dipstick Negative (Negative); Occult Blood-Urine 10 /ul (Negative); Protein-Dipstick 30 mg/dl (Negative); Specific Gravity, Urine 1.015 (1.002-1.030); Urine Bilirubin Dipstick Negative (Negative); Urine Clarity Clear (Clear); Urine Urobilinogen Normal (Normal)
--- NOTE | 2022-06-14 10:38 | ED.RN ---
dr elaine requesting second lactic acid be drawn at 2 hours with the second troponin
[2022-06-14 11:36] VITALS: BP 145/59; PULSE 72; RESP 20; O2SAT 99
[2022-06-14 12:06] LABS: Lactic Acid 1.8 mmol/L (0.4-1.9)
[2022-06-14 12:53] LABS: Troponin-I HS 16 pg/mL (3.0-54.0)
[2022-06-14 13:17] VITALS: BP 147/73; PULSE 74; RESP 23; O2SAT 94
[2022-06-14 13:35] LABS: Reflex Lactate? Y
== END 2022-06-14 16:07 | disposition home or self-care (01) ==
PROVIDERS: Emergency Provider Emergency Medicine; PCP Family Medicine; Visit Provider Emergency Medicine
DX: R55 Syncope and collapse (principal); F03.90 Unspecified dementia, unspecified severity, without behavioral disturbance, psychotic disturbance, mood disturbance, and anxiety; I12.9 Hypertensive chronic kidney disease with stage 1 through stage 4 chronic kidney disease, or unspecified chronic kidney disease; N18.9 Chronic kidney disease, unspecified; E78.5 Hyperlipidemia, unspecified; Z79.82 Long term (current) use of aspirin; Z79.899 Other long term (current) drug therapy; Z87.891 Personal history of nicotine dependence
CPT/HCPCS: 71045; 80053; 81001; 83605; 84484; 85025; 85610; 85730; 93005; 96360; 96361; 99285; A4216

== ENCOUNTER → 2023-02-28 | Outpatient (REF) | payer MEDICARE, MEDICAID, SELFPAY ==
[2023-03-01 08:10] LABS: Bacteria 0 SEEN /hpf (None Seen); Mucous, Urine 0 SEEN /hpf (<or=2+); Red Blood Cells-Urine 0 SEEN /hpf (0-5)
[2023-03-01 08:34] LABS: Color, Urine Yellow (Yellow); Glucose, Dipstick Normal (Normal); Ketone-Dipstick Negative (Negative); Leukocyte Esterase-Dipstick 25 /ul (Negative); Nitrite-Dipstick Negative (Negative); Occult Blood-Urine Negative /ul (Negative); Protein-Dipstick 15 mg/dl (Negative); Urine Bilirubin Dipstick Negative (Negative); Urine Clarity Clear (Clear); Urine Urobilinogen Normal (Normal)
[2023-03-01 08:46] LABS: Squamous Epithelial Cells - UA 0-5 SEEN /hpf (5-10); White Blood Cells 0-5 SEEN /hpf (0-5)
== END ==
LOC: OLS.SWAL 08:09
PROVIDERS: PCP Family Medicine
DX: N39.0 Urinary tract infection, site not specified (principal)
CPT/HCPCS: 81001; 87086; 87088

== ENCOUNTER 2023-08-01 19:42 | Observation (INO) | payer MEDICARE, MEDICAID, SELFPAY ==
[2023-08-01] VITALS (14 sets, daily range): BP systolic 155–196; BP diastolic 69–97; PULSE 64–82; RESP 16–20; TEMP 33.8–36.3; O2SAT 94–98; BMI 21.6
--- NOTE | 2023-08-01 19:58 | CT_ITS ---
STUDY: CT BRAIN WITHOUT CONTRAST REASON FOR EXAM: Female, 87 years old. Neuro deficit, acute, stroke suspected RADIATION DOSAGE (If Supplied By Facility): CTDIvol = ( 44.99 ) mGy, DLP = ( 745.49 ) mGycm TECHNIQUE: Transaxial CT imaging of the brain was performed without administration of intravenous contrast material. Individualized dose optimization techniques were used for this CT. COMPARISON: April 28, 2021 FINDINGS: Normal soft tissue structures. Normal calvarium. There is temporomandibular arthrosis. There is moderate cerebral atrophy with widening of the extra-axial spaces and ventricular dilatation. There are areas of decreased attenuation within the white matter tracts of the supratentorial brain, consistent with microvascular disease changes. Normal basal ganglia and thalami. Normal brainstem. Normal cerebellum. There is no intracranial hemorrhage. There are no findings of an acute ischemic infarction. Normal visualized paranasal sinuses. CT/Brain/Head without Contrast IMPRESSION: Chronic involutional changes of the brain. Electronically Signed: Kendall Mary MD at 21:05 EST ,
--- NOTE | 2023-08-01 19:58 | EKG12_ITS ---
Test Reason : DYSRHYTHMIA Blood Pressure : / mmHG Vent. Rate : 064 BPM Atrial Rate : 064 BPM P-R Int : 166 ms QRS Dur : 088 ms QT Int : 410 ms P-R-T Axes : 020 004 044 degrees QTc Int : 422 ms Normal sinus rhythm Normal ECG Confirmed by SARAN WRIGHT, NOVA ([id number]), managing editor GUY FLOYD ([id number]) on 08/08/2023 6:56:47 AM Referred By: Confirmed By:JESSICA NOONAN MD
--- NOTE | 2023-08-01 19:59 | ED.VIS.STROK ---
HPI History of Present Illness Chief Complaint: Numb/Ting Narrative Narrative: 87-year-old female past medical history of hypertension, hypercholesterolemia, presents from her assisted living facility at [facility] with right-sided arm and leg numbness. She states that at around 6:45 PM, almost an hour ago, she was sitting and resting, and not doing anything active. She started to get right arm and leg numbness. She denies chest pain or shortness of breath, but noticed that her blood pressure was elevated at 215 systolic. She presents with the numbness that seems to be improving. She denies any difficulty with speech, no headaches, no other symptoms. She is unsure if she has had problems with TIA or stroke in the past. She does state that she is on a blood thinner but does not know which 1. [facility] Medical History (Updated 08/01/23 @ 22:16 by Eliazar Mcknight MD) Anxiety CKD (chronic kidney disease) COPD (chronic obstructive pulmonary disease) Hyperlipemia Hypertension Major depressive disorder with psychotic features Home Medications acetaminophen 325 mg capsule 2 tab PO Q4H PRN Pain 1-10 Or Fever 05/30/20 [History Last Taken Unknown] aluminum-mag hydroxide-simethicone 400 mg-400 mg-40 mg/5 mL oral susp 30 ml PO Q4H PRN GI DISTRESS 05/30/20 [History Last Taken Unknown] aspirin 81 mg chewable tablet 81 mg PO DAILY@0800 05/30/20 [History Last Taken Unknown] carvedilol 25 mg tablet 25 mg PO BID 05/30/20 [History Last Taken Unknown] clopidogrel 75 mg tablet 75 mg PO DAILY 05/30/20 [History Last Taken Unknown] cyanocobalamin (vitamin B-12) 1,000 mcg tablet 1,000 mcg PO DAILY 05/30/20 [History Last Taken Unknown] famotidine 20 mg tablet 20 mg PO BID 05/30/20 [History Last Taken Unknown] guaifenesin 100 mg/5 mL oral liquid 10 ml PO Q4H PRN PRN Cough 05/30/20 [History Last Taken Unknown] magnesium hydroxide 400 mg/5 mL oral suspension 30 ml PO DAILY PRN PRN Constipation 05/30/20 [History Last Taken Unknown] peg [id number] 1 %-0.2 %-0.2 % eye drops 1 drp EACH EYE PRN PRN Dry Eyes 05/30/20 [History Last Taken Unknown] polyethylene glycol 3350 17 gram oral powder packet 17 gm PO QHS 05/30/20 [History Last Taken Unknown] promethazine 25 mg tablet 25 mg PO Q6H PRN Nausea 05/30/20 [History Last Taken Unknown] quetiapine 100 mg tablet 100 mg PO QHS 05/30/20 [History Last Taken Unknown] venlafaxine 150 mg capsule,extended release 24 hr 150 mg PO DAILY 05/30/20 [History Last Taken Unknown] atorvastatin 40 mg tablet 40 mg PO QHS #30 tabs 05/31/20 [Rx Last Taken Unknown] alendronate 70 mg tablet 70 mg PO QWEEK 06/14/22 [History Last Taken Unknown] cholecalciferol (vitamin D3) 50 mcg (2,000 unit) capsule (Vitamin D3) 50 mcg PO DAILY 06/14/22 [History Last Taken Unknown] lisinopril 5 mg tablet 5 mg PO DAILY 06/14/22 [History Last Taken Unknown] Allergy/AdvReac Type Severity Reaction Status Date / Time ibuprofen Allergy Unknown Verified 08/01/23 19:51 Penicillins Allergy Swelling Verified 08/01/23 19:51 cyclobenzaprine AdvReac Other Verified 08/01/23 19:51 [From Flexeril] Social History Smoking Status: Former smoker substance use type: does not use ROS ROS ED ROS Narrative Constitutional: No fever, no chills. HEENT: No sore throat. No neck pain. No loss of vision. No rhinorrhea. Cardiovascular: No chest pain. No palpitations. No pedal edema. Respiratory: No cough, no shortness of breath. Abdominal: No abdominal pain. No nausea. No vomiting. Genitourinary: No dysuria. No hematuria. Musculoskeletal: No myalgias. No arthralgias. Neurologic: No headaches. No dizziness. No lightheadedness. Paresthesias of right arm and right leg. Skin: No rash. No change in color. Psychiatric: No depression. No anxiety. EXAM Physical Exam Narrative Exam Narrative: Afebrile. Vital signs noted. HEENT: Normocephalic. Atraumatic. PERRL, EOMI. Neck soft and supple. No point tenderness or step off. Cardiovascular: Regular rate and rhythm. No murmurs, rubs, or gallops appreciated. Respiratory: No tachypnea. Lungs clear to auscultation bilaterally. Gastrointestinal: Abdomen soft, nontender, with normoactive bowel sounds. No rebound or guarding. Neurological: Awake. Alert. Nonfocal, nonlateralizing. NIH stroke scale of 0. Skin: No rash. Normal color. No pallor. Musculoskeletal: No pedal edema. Full range of motion extremities. Const Vital Signs: 08/01/23 19:43 08/01/23 20:11 08/01/23 20:04 Temperature 97.0 F L Temperature Source Temporal Pulse Rate 70 67 Respiratory Rate 18 18 Blood Pressure 178/95 H 192/91 H Blood Pressure Mean 122 124 Pulse Ox 96 96 Oxygen Delivery Method Room Air Room Air Room Air 08/01/23 20:17 08/01/23 20:19 08/01/23 20:34 Temperature Temperature Source Pulse Rate 68 65 Respiratory Rate 16 19 H Blood Pressure 196/88 H 155/85 H 186/91 H Blood Pressure Mean 124 108 122 Pulse Ox 98 95 Oxygen Delivery Method Room Air Room Air 08/01/23 20:49 08/01/23 21:04 08/01/23 21:19 Temperature Temperature Source Pulse Rate 70 66 82 Respiratory Rate 16 19 H 18 Blood Pressure 181/76 H 169/77 H 173/91 H Blood Pressure Mean 111 107 118 Pulse Ox 97 94 95 Oxygen Delivery Method Room Air Room Air Room Air 08/01/23 21:49 08/01/23 22:00 08/01/23 22:03 Temperature 93 F L Temperature Source Pulse Rate 64 64 65 Respiratory Rate 16 18 19 H Blood Pressure 161/83 H 159/97 H 159/97 H Blood Pressure Mean 109 117 117 Pulse Ox 96 95 Oxygen Delivery Method Room Air NIHSS NIHSS Initial: 1a Level of Consciousness: 0 1b LOC Questions (Score 2 if aphasic/stupor): 0 1c LOC Commands (Only score 1st attempt): 0 2 Best Gaze (If aphasic, use reflexive mvmts.): 0 3 Visual: 0 4 Facial Palsy: 0 5 Motor Arm Right (UN = amputation/fusion): 0 5 Motor Arm Left: 0 6 Motor Leg Right: 0 6 Motor Leg Left: 0 7 Limb ataxia (Only + if out of proportion): 0 8 Sensory (Aphasia/stupor=0 or 1, coma=2): 0 9 Best Language: 0 10 Dysarthria (mute, coma=2, intubated=UN): 0 11 Extinction and Inattention (only scored if +): 0 Total Score: 0 MDM MDM MDM Narrative Medical decision making narrative: Patient only has subjective paresthesias of her right arm and leg. She did have elevated blood pressure reportedly but currently it is 178/95. I do not feel that stroke team is indicated as her NIH stroke scale is 0. However, CT of the brain will be obtained along with generalized stroke workup as she may be having more of a TIA. Chest x-ray in 1 view was obtained and I see no evidence of pneumothorax or pneumonia. I reviewed the radiology report and they commented on a left seventh rib fracture. However, patient is not having any tenderness or pain in that area. There is no direct clinical correlation. Patient did require a dose of labetalol as her blood pressure was elevated at 191 systolic. I reviewed her laboratory work and she has normal white count of 6.1, hemoglobin stable 11.1, hematocrit 34.7, platelet count normal at 221. Coags are normal with an INR of 1.0 and a PTT of 29.7. Her BUN is elevated at 19 with a creatinine of 1.46. She does have a history of chronic kidney disease. Troponin is 9. [id number] glucose 95. I reviewed the radiology report of the CT of the brain which shows chronic involutional Saulo changes but no evidence of acute hemorrhage. I do not feel CTA is indicated as her NIH stroke scale is 0. I do not feel that she is a tPA candidate as she does not have a debilitating deficit, and has subjective numbness. Upon repeat examination, she states she feels she has improved. I do feel that she requires further workup. I discussed the patient with Dr. Perfecto Juarez for observation on PCU. Patient is in stable condition. History & Record Review Discussion w/independent historian: Patient Additional record(s) reviewed:: Prior ED visit and Prior labs Lab Data Attestation: I reviewed the patient's lab results. Labs: Laboratory Results - last 24 hr 08/01/23 08/01/23 20:02 20:11 WBC 6.1 RBC 3.78 L Hgb 11.1 L Hct 34.7 L MCV 91.8 MCH 29.4 MCHC 32.0 RDW Std Deviation 45.5 H RDW Coeff of Jessica 13.5 Plt Count 221 MPV 9.3 Immature Gran % (Auto) 0.200 Neut % (Auto) 54.1 Lymph % (Auto) 30.0 [place] % (Auto) 12.0 H Eos % (Auto) 3.0 Baso % (Auto) 0.7 Absolute Neuts (auto) 3.3 Absolute Lymphs (auto) 1.82 Nucleated RBC % 0 PT 12.9 INR 1.0 APTT 29.7 Sodium 136 Potassium 3.7 Chloride 99 Carbon Dioxide 32.0 Anion Gap 5 BUN 19 H Creatinine 1.46 H Estim Creat Clear Calc 3.97 Est GFR (MDRD) Af Amer 44 L Est GFR (MDRD) Non-Af 36 L BUN/Creatinine Ratio 13.0 Glucose 105 Calcium 8.7 Troponin I High Sens 9 POC Glucose 95 Radiography Diagnostic Testing: Clinical Impression(s) from Imaging Studies Brain CT 08/01/23 19:58 IMPRESSION: Chronic involutional changes of the brain. Electronically Signed: Kendall Mary MD at 21:05 EST , Chest X-Ray 08/01/23 20:25 IMPRESSION: Left rib fracture. Electronically Signed: Kendall Mary MD at 21:12 EST , Differential Diagnosis Differential Diagnosis: TIA, stroke, hypertensive emergency/urgency, intracranial hemorrhage. Stroke Documentation Questions Stroke Team Activated: No Was Patient considered for Endovascular Intervention?: No-CTA not indicated IV Thrombolytic Administered: No Discharge Plan Dx/Rx/DC Orders Clinical Impression: TIA (transient ischemic attack), Hyperlipemia, Hypertension Disposition Disposition: Acute Care [facility]
[2023-08-01 20:11] LABS: Absolute Lymphocyte Count 1.82 X10^3/uL (0.83-4.51); Absolute Neutrophil Count 3.3 X10^3/uL (2.0-7.7); Basophil# 0.04 X10^3/uL; Basophil% 0.7 % (0-1); Eosinophil# 0.18 X10^3/uL; Hematocrit 34.7 % (37-47); Hemoglobin 11.1 g/dL (12.0-15.0); Lymphocyte # 1.82 X10^3/ul (0.83-4.51); Mean Corpuscular Hgb 29.4 pg (27.0-32.0); Mean Corpuscular Volume 91.8 fL (81-99); Mean Platelet Vol. 9.3 fl (6.2-12.0); Monocyte# 0.73 X10^3/uL; NRBC Flagged by Analyzer 0 % (0-5); Neutrophil # 3.29 X10^3/uL (2.7-7.7); Neutrophil % 54.1 % (47-70); Platelet Count 221 K/mm3 (150-450); RBC Distribution Width CV 13.5 % (11.6-14.6); RBC Distribution Width SD 45.5 fl (35.1-43.9); Red Blood Count 3.78 M/mm3 (4.2-5.4); White Blood Count 6.1 K/mm3 (4.4-11.0)
[2023-08-01] MEDS: Labetalol (Prefilled) 20 MG/4 ML IV (20:13)
[2023-08-01 20:25] LABS: Prothrombin Time (Protime)PT. 12.9 SECONDS (11.7-14.9)
--- NOTE | 2023-08-01 20:25 | RAD_ITS ---
STUDY: X-RAY CHEST REASON FOR EXAM: Female, 87 years old. Neuro deficit, acute, stroke suspected TECHNIQUE: Single AP portable view of the chest. COMPARISON: June 14, 2022 FINDINGS: The lungs are clear and expanded. There is no demonstrated pleural abnormality. Normal size heart. Normal mediastinum and gustavo. Normal visualized pulmonary arteries. There is atherosclerotic calcification of the aortic arch with tortuosity. Normal visualized thoracic spine. There is left seventh rib fracture. There is no demonstrated abnormality of the visualized soft tissue structures of the upper abdomen. RAD/Chest 1 View IMPRESSION: Left rib fracture. Electronically Signed: Kendall Mary MD at 21:[address] [facility] ,
[2023-08-01 20:26] LABS: Partial Thromboplast Time 29.7 Seconds (24.1-36.2)
[2023-08-01 20:30] LABS: Anion Gap 5 (5-15); BUN 19 mg/dL (7-18); Calcium,Total 8.7 mg/dL (8.5-10.1); Chloride 99 mmol/L (98-107); Creatinine, Serum 1.46 mg/dL (0.55-1.02); EST Glomerular Filtration Rate 36 mL/min (>60); Est Glom Filt Rate - Afr Amer 44 mL/min (>60); Estimated Creatinine Clearance 3.97 ml/min; Glucose 105 mg/dL (74-106); Potassium 3.7 mmol/L (3.5-5.1); Sodium Level 136 mmol/L (136-145); Troponin-I HS 9 pg/mL (3.0-54.0)
[2023-08-01 20:38] LABS: Bedside Glucose 95 mg/dL (74-106)
--- NOTE | 2023-08-01 21:52 | PCM.HP.STD ---
HPI - General General Date of Admission: 08/01/23 Date of Service: 08/01/23 Chief Complaint: Right-sided paresthesia HPI Narrative GELY DAVILA, is a 87 F who presents to the emergency room with chief complaint of right-sided arm and leg numbness. Onset of symptoms began this evening after she was having dinner. Where she felt her leg was heavy and her arm felt numb as well. This was approximately at 6:45 PM and she was transferred to the emergency room for evaluation. She denies any chest pain, shortness of breath or fevers or chills. She does have an elevated blood pressure with systolic of 215 upon arrival however her initial NIH score was 0. CT scan of the brain was negative for hemorrhage and other laboratory studies were unremarkable. Patient will be admitted for observation to the progressive care unit for workup of fatigue of transient ischemic attack. Patient does states she is on a blood thinner but is unclear as to which one she is taking at this time will review medical records. [facility] Medical History (Updated 08/01/23 @ 21:[address] Perfecto Juarez MD) Anxiety CKD (chronic kidney disease) COPD (chronic obstructive pulmonary disease) Hyperlipemia Hypertension Major depressive disorder with psychotic features Home Medications acetaminophen 325 mg capsule 2 tab PO Q4H PRN Pain 1-10 Or Fever 05/30/20 [History Last Taken Unknown] aluminum-mag hydroxide-simethicone 400 mg-400 mg-40 mg/5 mL oral susp 30 ml PO Q4H PRN GI DISTRESS 05/30/20 [History Last Taken Unknown] aspirin 81 mg chewable tablet 81 mg PO DAILY@0800 05/30/20 [History Last Taken Unknown] carvedilol 25 mg tablet 25 mg PO BID 05/30/20 [History Last Taken Unknown] clopidogrel 75 mg tablet 75 mg PO DAILY 05/30/20 [History Last Taken Unknown] cyanocobalamin (vitamin B-12) 1,000 mcg tablet 1,000 mcg PO DAILY 05/30/20 [History Last Taken Unknown] famotidine 20 mg tablet 20 mg PO BID 05/30/20 [History Last Taken Unknown] guaifenesin 100 mg/5 mL oral liquid 10 ml PO Q4H PRN PRN Cough 05/30/20 [History Last Taken Unknown] magnesium hydroxide 400 mg/5 mL oral suspension 30 ml PO DAILY PRN PRN Constipation 05/30/20 [History Last Taken Unknown] peg 608-kfzhyfricdey-hbfrimjg 1 %-0.2 %-0.2 % eye drops 1 drp EACH EYE PRN PRN Dry Eyes 05/30/20 [History Last Taken Unknown] polyethylene glycol 3350 17 gram oral powder packet 17 gm PO QHS 05/30/20 [History Last Taken Unknown] promethazine 25 mg tablet 25 mg PO Q6H PRN Nausea 05/30/20 [History Last Taken Unknown] quetiapine 100 mg tablet 100 mg PO QHS 05/30/20 [History Last Taken Unknown] venlafaxine 150 mg capsule,extended release 24 hr 150 mg PO DAILY 05/30/20 [History Last Taken Unknown] atorvastatin 40 mg tablet 40 mg PO QHS #30 tabs 05/31/20 [Rx Last Taken Unknown] alendronate 70 mg tablet 70 mg PO QWEEK 06/14/22 [History Last Taken Unknown] cholecalciferol (vitamin D3) 50 mcg (2,000 unit) capsule (Vitamin D3) 50 mcg PO DAILY 06/14/22 [History Last Taken Unknown] lisinopril 5 mg tablet 5 mg PO DAILY 06/14/22 [History Last Taken Unknown] Allergy/AdvReac Type Severity Reaction Status Date / Time ibuprofen Allergy Unknown Verified 08/01/23 19:51 Penicillins Allergy Swelling Verified 08/01/23 19:51 cyclobenzaprine AdvReac Other Verified 08/01/23 19:51 [From Flexeril] Social History Smoking Status: Former smoker substance use type: does not use ROS Constitutional Constitutional: Denies chills or fever(s) Eyes Eyes: Denies blurry vision, change in vision or double vision ENT HEENT: Denies abnormal hearing, headache(s), hearing loss or loss taste/smell Cardiovascular Cardiovascular: Denies chest pain Respiratory/Chest Respiratory/Chest: Denies shortness of breath at rest Gastrointestinal Gastrointestinal: Denies abdominal pain Genitourinary Genitourinary: Denies dysuria Musculoskeletal Musculoskeletal: Denies back pain Neurologic Neurologic: Reports numbness; Denies confusion Psychiatric Psychiatric: Denies anxiety Vital Signs Vital Signs Vital Signs: 08/01/23 19:43 08/01/23 20:11 08/01/23 20:04 Temperature 97.0 F L Temperature Source Temporal Pulse Rate 70 67 Respiratory Rate 18 18 Blood Pressure 178/95 H 192/91 H Blood Pressure Mean 122 124 Pulse Ox 96 96 Oxygen Delivery Method Room Air Room Air Room Air 08/01/23 20:17 08/01/23 20:19 08/01/23 20:34 Temperature Temperature Source Pulse Rate 68 65 Respiratory Rate 16 19 H Blood Pressure 196/88 H 155/85 H 186/91 H Blood Pressure Mean 124 108 122 Pulse Ox 98 95 Oxygen Delivery Method Room Air Room Air 08/01/23 20:49 08/01/23 21:04 08/01/23 21:19 Temperature Temperature Source Pulse Rate 70 66 82 Respiratory Rate 16 19 H 18 Blood Pressure 181/76 H 169/77 H 173/91 H Blood Pressure Mean 111 107 118 Pulse Ox 97 94 95 Oxygen Delivery Method Room Air Room Air Room Air Weight Weight: 20 lb 0.993 oz Body Mass Index (BMI) 3.9 Physical Exam Const oriented x3 General Appearance: cooperative and well developed HEENT normocephalic and head/scalp atraumatic Eyes PERRL and EOMs intact bilaterally Neck no lymphadenopathy Lymph Lymphatic: no lymphadenopathy noted Resp normal respiratory effort, normal air movement and clear to auscultation bilaterally Cardio regular rate, regular rhythm, S1 normal heart sound and S2 normal heart sound GI normal to inspection, nondistended, normoactive bowel sounds Extremity normal capillary refill Skin General Skin Exam: turgor normal Neuro CN's II-XII intact bilaterally Speech: speech normal Motor Exam: strength 5/5 throughout Psych thought process normal, cooperative and affect normal Appearance: appropriate Results Lab / Micro Data 08/01/23 20:02 08/01/23 20:02 Labs: Laboratory Results - last 24 hr 08/01/23 20:02: WBC 6.1, RBC 3.78 L, Hgb 11.1 L, Hct 34.7 L, MCV 91.8, MCH 29.4, MCHC 32.0, RDW Std Deviation 45.5 H, RDW Coeff of Jessica 13.5, Plt Count 221, MPV 9.3, Immature Gran % (Auto) 0.200, Neut % (Auto) 54.1, Lymph % (Auto) 30.0, [place] % (Auto) 12.0 H, Eos % (Auto) 3.0, Baso % (Auto) 0.7, Absolute Neuts (auto) 3.3, Absolute Lymphs (auto) 1.82, Nucleated RBC % 0, PT 12.9, INR 1.0, APTT 29.7, Sodium 136, Potassium 3.7, Chloride 99, Carbon Dioxide 32.0, Anion Gap 5, BUN 19 H, Creatinine 1.46 H, Estim Creat Clear Calc 3.97, Est GFR (MDRD) Af Amer 44 L, Est GFR (MDRD) Non-Af 36 L, BUN/Creatinine Ratio 13.0, Glucose 105, Calcium 8.7, Troponin I High Sens 9 08/01/23 20:11: POC Glucose 95 Imagaing Radiology Impression Brain CT 08/01/23 19:58 IMPRESSION: Chronic involutional changes of the brain. Electronically Signed: Kendall Mary MD at 21:05 EST , Chest X-Ray 08/01/23 20:25 IMPRESSION: Left rib fracture. Electronically Signed: Kendall Mary MD at 21:12 EST , Assessment & Plan Assessment/Plan (1) TIA (transient ischemic attack): (2) Major depressive disorder with psychotic features: (3) Hypertension: (4) Hyperlipemia: (5) CKD (chronic kidney disease): (6) COPD (chronic obstructive pulmonary disease): PLAN: Plan 1 transient ischemic attack?admit patient for observation to progressive care unit, neurologic evaluations every 4 hours per routine protocol, will add aspirin if not already taking after review of home medical record, MRI MRA head and neck to be done in the morning 2. COPD?continue routine home medications 3. Hyperlipidemia?continue statin therapy 4. Hypertension?will add as needed antihypertensive per routine TIA protocol 5. Depression?continue antidepressant therapy 6. DVT prophylaxis?low molecular weight heparin unless already anticoagulated after review Charges/Coding Visit Charges OBSV E&M: 25903 Observ/hosp same date L2
[2023-08-02] VITALS: O2SAT 95
[2023-08-02 00:14] VITALS: BMI 21.6
[2023-08-02 00:21] VITALS: BMI 21.6
[2023-08-02] MEDS: Atorvastatin Calcium 40 MG Tablet PO (00:31)
[2023-08-02] MEDS: Carvedilol 25 MG Tablet PO ×2 (00:31→11:20)
[2023-08-02] MEDS: QUEtiapine 100 MG Tablet PO (00:31)
[2023-08-02 03:30] VITALS: BP 155/85; PULSE 68; RESP 16; TEMP 36.5; O2SAT 95
[2023-08-02 07:15] VITALS: BP 129/83; PULSE 65; RESP 16; TEMP 36.1; O2SAT 94
[2023-08-02 07:29] LABS: Cholesterol 162 mg/dL (200); High Density Lipoprotein 81 mg/dL; Triglycerides 61 mg/dL; Very Low Density Lipoprotein 12 mg/dL (5-40)
[2023-08-02 08:10] VITALS: O2SAT 92
--- NOTE | 2023-08-02 09:15 | MRI_ITS ---
INDICATION: Transient ischemic attack, rt arm weakness, memory issues EXAMINATION: MRA - MRA Neck W/O Contrast TECHNIQUE: Routine non-contrast [id number] Carotid MR angiogram protocol was performed without gadolinium. 3D reconstructions were reviewed. Nascet criteria using the distal ICAs for comparison were used for evaluation of stenoses. IV Contrast Dosage and Agent: None. COMPARISON: CTA neck 05/30/2020. FINDINGS: AORTIC ARCH AND BRANCHES: Suboptimal visualization due to excessive motion. RIGHT CCA: Limited study due to motion. No suspicious occlusion or significant stenosis in the source images. RIGHT ICA: Limited study due to motion. No suspicious occlusion or significant stenosis in the source images. LEFT CCA: Limited study due to motion. No suspicious occlusion or significant stenosis in the source images. LEFT ICA: Limited study due to motion. No suspicious occlusion or significant stenosis in the source images. RIGHT VERTEBRAL ARTERY: Limited study due to motion. No suspicious occlusion or significant stenosis. LEFT VERTEBRAL ARTERY: Limited study due to motion. No suspicious occlusion or significant stenosis. MRI/MRA Neck without Contrast IMPRESSION: Limited study due to motion but no suspicious occlusion or significant stenosis in both cervical carotid and vertebral arteries. This correlates with CTA neck of 05/30/2020. Electronically Signed: Eliazar Beltran MD at 11:27 EST ,
--- NOTE | 2023-08-02 09:15 | MRI_ITS ---
EXAM: MR HEAD WITHOUT INTRAVENOUS CONTRAST CLINICAL INDICATION: Transient ischemic attack, rt arm weakness, memory issues TECHNIQUE: Multiplanar and multisequence MR images of the brain were obtained without intravenous contrast. COMPARISON: MRI brain without contrast 05/30/2020. CT Head without contrast 08/02/2023. FINDINGS: BRAIN AND EXTRA-AXIAL SPACES: Periventricular white matter more than subcortical white matter T2 FLAIR hyperintensity foci in both cerebral hemispheres are chronic white matter ischemic changes. No intra- or extra-axial hemorrhage. No intracranial mass or mass effect. Posterior fossa structures are unremarkable. No hydrocephalus. Basal cisterns are patent. No diffusion restriction to suspect acute or subacute ischemic infarct throughout the brain parenchyma. No remote cortical-based ischemic infarct. SELLA: Unremarkable. Normal sella turcica, pituitary gland, infundibular stalk, optic chiasm and hypothalamus. AUDITORY SYSTEM: Unremarkable. The internal auditory canals are patent. BONES/JOINTS: Unremarkable. No discrete lytic or blastic abnormalities. SINUSES: Unremarkable as visualized. Clear. MASTOID AIR CELLS: Unremarkable as visualized. Clear. ORBITS: Unremarkable as visualized. Both globes, extraocular muscles, optic nerves and retrobulbar fat appear unremarkable. VASCULATURE: Unremarkable as visualized. Normal flow voids in the major intracranial circulation. MRI/Brain without Contrast IMPRESSION: 1. No MRI evidence of acute or subacute ischemic infarct or remote cortical-based ischemic infarct. 2. Chronic white matter ischemic changes in both cerebral hemispheres. 3. No significant interval change when compared to 05/30/2020. Electronically Signed: Eliazar Beltran MD at 11:35 EST ,
--- NOTE | 2023-08-02 09:15 | MRI_ITS ---
INDICATION: Transient ischemic attack rt arm weakness, memory issues EXAMINATION: MRA - MRA Head W/O Contrast TECHNIQUE: Routine [place]/brain 3D time of flight MR angiogram protocol was performed without gadolinium. 3D reconstructions were reviewed. IV Contrast Dosage and Agent: None. COMPARISON: CTA head 05/30/2020. FINDINGS: --Anterior Circulation: ICAs: No significant stenosis at the intracranial/visualized segments. ACAs: No significant stenosis at the visualized segments. ACOM: Present. MCAs: No significant stenosis at the visualized segments. --Posterior Circulation: PCOMs: No visible posterior communicating arteries. director of integrated marketing: No significant stenosis at the visualized segments. BASILAR ARTERY: No significant stenosis. VERTEBRAL ARTERIES: No significant stenosis at the intradural/visualized segments. No suspicious intracranial aneurysm. MRI/MRA Head ONLY without Contrast IMPRESSION: Unremarkable MRA head and without significant change when compared to CTA head of 05/30/2020. Electronically Signed: Eliazar Beltran MD at 11:30 EST ,
[2023-08-02] MEDS: Clopidogrel Bisulfate 75 MG Tablet PO (11:20)
[2023-08-02] MEDS: Aspirin 81 MG TAB.CHEW PO (11:20)
[2023-08-02] MEDS: Famotidine 20 MG Tablet PO (11:21)
[2023-08-02] MEDS: Venlafaxine XR 150 MG Capsule PO (11:21)
[2023-08-02] MEDS: Cholecalciferol (VIT D3) 25 MCG TABLET (1,000 UNITS) 50 MCG PO (11:21)
[2023-08-02] MEDS: Enoxaparin 30 MG/0.3 ML Syringe SC (11:21)
[2023-08-02] MEDS: Cyanocobalamin 500 MCG Tablet 1000 MCG PO (11:21)
[2023-08-02] MEDS: Lisinopril 5 MG Tablet PO (11:22)
[2023-08-02 11:30] VITALS: BP 151/84; PULSE 58; RESP 14; TEMP 36.6; O2SAT 99
--- NOTE | 2023-08-02 14:09 | CASEMGMT ---
Discharge Planning Updates faxed to [facility] with msg that patient will likely return today. Kira Bingham, Discharge Planning Asst.
--- NOTE | 2023-08-02 15:36 | DCINST_ITS ---
Discharge Instructions Diet Discharge Diet: No restrictions Activity Discharge Activity: Return to Normal Activity Weight Bearing Status: Full weight bearing Follow Up Care Please Follow Up With: Yonny Renee MD When: As needed Test Results: Test results from this visit will be discussed in further detail at your follow- up appointment, if applicable. Pending Tests Upon Discharge: None Discharge Plan Admission Admit Date/Time: 08/01/23 22:00 Primary Reason for Your Visit: Right-sided paresthesias Attending Provider: Shane Conroy Primary Care Provider: Yonny Renee Consulting Providers: Perfecto Juarez Instructions Additional Instructions / Restrictions: Continue all home medications as previously prescribed. Follow-up with your primary care doctor as needed. Discharge Orders/Prescriptions Prescriptions: Continued carvedilol 25 MG tablet 25 mg PO BID cyanocobalamin (vitamin B-12) 1,000 MCG tablet 1,000 mcg PO DAILY guaifenesin 10 ML liquid 10 ml PO Q4H PRN PRN (Reason: Cough) aspirin 81 MG tablet,chewable 81 mg PO DAILY@0800 alum-mag hydroxide-simeth 355 ML suspension 30 ml PO Q4H PRN (Reason: GI DISTRESS) peg [id number]-iljxmcgp 1 DROP bottle 1 drp EACH EYE PRN PRN (Reason: Dry Eyes) acetaminophen 325 MG capsule 2 tab PO Q4H PRN (Reason: Pain 1-10 Or Fever) polyethylene glycol 3350 17 GM packet 17 gm PO QHS venlafaxine 150 MG capsule,extended release 24hr 150 mg PO DAILY clopidogrel 75 MG tablet 75 mg PO DAILY quetiapine 100 MG tablet 100 mg PO QHS famotidine 20 MG tablet 20 mg PO BID magnesium hydroxide 30 ML suspension 30 ml PO DAILY PRN PRN (Reason: Constipation) promethazine 25 MG tablet 25 mg PO Q6H PRN (Reason: Nausea) atorvastatin 40 MG tablet 40 mg PO QHS Qty: 30 1RF alendronate 70 mg Tablet 70 mg PO QWEEK lisinopril 5 mg Tablet 5 mg PO DAILY cholecalciferol (vitamin D3) [Vitamin D3] 50 mcg (2,000 unit) Capsule 50 mcg PO DAILY Referrals / Follow Up: Yonny Renee MD [Primary Care Provider] - Disposition Disposition (needs filled in before D/C Order can be placed): Home Health Service
--- NOTE | 2023-08-02 15:39 | PCM.DC.SUM ---
Providers Date of Admission: 08/01/23 Date of Discharge: 08/02/23 Primary Care Physician: Dr. Yonny Renee MD Reason For Visit: TIA,HYPERTENSIVE URGENCY Diagnosis Discharge Diagnosis (1) TIA (transient ischemic attack): Status: Acute Code(s): G45.9 - Transient cerebral ischemic attack, unspecified (2) Major depressive disorder with psychotic features: Status: Acute Code(s): F32.3 - Major depressive disorder, single episode, severe with psychotic features (3) Hypertension: Status: Chronic Code(s): I10 - Essential (primary) hypertension (4) Hyperlipemia: Status: Acute Code(s): E78.5 - Hyperlipidemia, unspecified (5) CKD (chronic kidney disease): Status: Chronic Code(s): N18.9 - Chronic kidney disease, unspecified (6) COPD (chronic obstructive pulmonary disease): Status: Chronic Code(s): J44.9 - Chronic obstructive pulmonary disease, unspecified Medications at Discharge Home Medications acetaminophen 325 mg capsule 2 tab PO Q4H PRN Pain 1-10 Or Fever 05/30/20 aluminum-mag hydroxide-simethicone 400 mg-400 mg-40 mg/5 mL oral susp 30 ml PO Q4H PRN GI DISTRESS 05/30/20 aspirin 81 mg chewable tablet 81 mg PO DAILY@0800 heart health 05/30/20 carvedilol 25 mg tablet 25 mg PO BID blood pressure 05/30/20 clopidogrel 75 mg tablet 75 mg PO DAILY anti platelet 05/30/20 cyanocobalamin (vitamin B-12) 1,000 mcg tablet 1,000 mcg PO DAILY vitamin 05/30/20 famotidine 20 mg tablet 20 mg PO BID reflux 05/30/20 guaifenesin 100 mg/5 mL oral liquid 10 ml PO Q4H PRN PRN Cough 05/30/20 magnesium hydroxide 400 mg/5 mL oral suspension 30 ml PO DAILY PRN PRN Constipation 05/30/20 peg 204-jopjjuhrhmgw-xnvlwvag 1 %-0.2 %-0.2 % eye drops 1 drp EACH EYE PRN PRN Dry Eyes 05/30/20 polyethylene glycol 3350 17 gram oral powder packet 17 gm PO QHS 05/30/20 promethazine 25 mg tablet 25 mg PO Q6H PRN Nausea 05/30/20 quetiapine 100 mg tablet 100 mg PO QHS sleep 05/30/20 venlafaxine 150 mg capsule,extended release 24 hr 150 mg PO DAILY mental health 05/30/20 atorvastatin 40 mg tablet 40 mg PO QHS cholesterol #30 tabs 05/31/20 alendronate 70 mg tablet 70 mg PO QWEEK bone health 06/14/22 cholecalciferol (vitamin D3) 50 mcg (2,000 unit) capsule (Vitamin D3) 50 mcg PO DAILY vitamin 06/14/22 lisinopril 5 mg tablet 5 mg PO DAILY blood pressure 06/14/22 Hospital Course Operations None Procedures EKG and - (CXR, CT brain, MRI brain w/o contrast, MRA head/neck) Summary of Care Provided Minutes Spent on Discharge: 35 Hospital Course: Patient is an 87 year old female who presented to [facility] ED on 08/01/2023 from her assisted living facility with new-onset right-sided paresthesias. Short hospital course as noted below. Patient ultimately was stable for discharge back to her AL facility with home health care on 08/02. Right-sided paresthesias, CVA ruled out: Presented with right-sided arm and leg numbness, onset on evening of admission while having dinner. Noted to have elevated systolic BP of 215 in the ED, but NIHSS score 0. CT brain w/o contrast non-acute. MRI brain w/o contrast with no evidence of acute or subacute ischemic infarct or remote cortical-based ischemic infarct. MRA head/neck unremarkable. Labs benign. Patient did report some continued mild symptoms on day of discharge but had moderate improvement. - Continued home aspirin and statin on discharge. PT/OT/case management followed, discharged back to assisted living facility with home health care to see her at her facility as needed. Hypertension: Hypertensive on admit as noted above but improved with administration of home medications. Continued home Coreg 25 mg BID, lisinopril 5 mg daily on discharge. Chronic medical conditions managed during hospitalization: - Hyperlipidemia: Continued home statin. - Depression: Continued home venlafaxine, Seroquel. - GERD: Continued home PPI. Total clinical time spent by myself addressing the patient's discharge needs: 35 minutes. Physical Exam Const alert, oriented x3, no apparent distress and average body habitus General Appearance: cooperative and comfortable HEENT normocephalic, head/scalp atraumatic, hearing grossly normal bilaterally, nasal mucous membranes and turbinates normal and moist oral mucous membranes Eyes PERRL, EOMs intact bilaterally and conjunctivae normal Neck full ROM, no lymphadenopathy and supple Lymph Lymphatic: no lymphadenopathy noted Chest inspection of chest normal Resp normal respiratory effort, normal air movement, no use of accessory muscles and clear to auscultation bilaterally Cardio regular rate, regular rhythm, no murmurs and peripheral pulses 2+ throughout GI normal to inspection, nondistended, normoactive bowel sounds, soft to palpation, non-tender and non-distended Back/Spine normal ROM Extremity normal to inspection, full ROM and no pedal edema Skin no rashes or lesions noted Neuro moves all extremities Speech: speech normal Psych mental status grossly normal Weight / BMI Weight Weight: 66.3 kg Body Mass Index (BMI) 21.6 ABG / Lab / Microbiology Data 08/01/23 20:02 08/01/23 20:02 Laboratory: Laboratory Results - last 24 hr 08/01/23 20:02: WBC 6.1, RBC 3.78 L, Hgb 11.1 L, Hct 34.7 L, MCV 91.8, MCH 29.4, MCHC 32.0, RDW Std Deviation 45.5 H, RDW Coeff of Jessica 13.5, Plt Count 221, MPV 9.3, Immature Gran % (Auto) 0.200, Neut % (Auto) 54.1, Lymph % (Auto) 30.0, [place] % (Auto) 12.0 H, Eos % (Auto) 3.0, Baso % (Auto) 0.7, Absolute Neuts (auto) 3.3, Absolute Lymphs (auto) 1.82, Nucleated RBC % 0, PT 12.9, INR 1.0, APTT 29.7, Sodium 136, Potassium 3.7, Chloride 99, Carbon Dioxide 32.0, Anion Gap 5, BUN 19 H, Creatinine 1.46 H, Estim Creat Clear Calc 3.97, Est GFR (MDRD) Af Amer 44 L, Est GFR (MDRD) Non-Af 36 L, BUN/Creatinine Ratio 13.0, Glucose 105, Calcium 8.7, Troponin I High Sens 9 08/01/23 20:11: POC Glucose 95 08/02/23 06:20: Triglycerides 61, Cholesterol 162, LDL Cholesterol 69, VLDL Cholesterol 12, HDL Cholesterol 81 Radiography Diagnostic Testing: Radiology Impression Brain CT 08/01/23 19:58 IMPRESSION: Chronic involutional changes of the brain. Electronically Signed: Kendall Mary MD at 21:05 EST , Chest X-Ray 08/01/23 20:25 IMPRESSION: Left rib fracture. Electronically Signed: Kendall Mary MD at 21:12 EST , Brain MRI 08/02/23 09:15 IMPRESSION: 1. No MRI evidence of acute or subacute ischemic infarct or remote cortical-based ischemic infarct. 2. Chronic white matter ischemic changes in both cerebral hemispheres. 3. No significant interval change when compared to 05/30/2020. Electronically Signed: Eliazar Beltran MD at 11:35 EST , Head MRA 08/02/23 09:15 IMPRESSION: Unremarkable MRA head and without significant change when compared to CTA head of 05/30/2020. Electronically Signed: Eliazar Beltran MD at 11:30 EST , Neck MRA 08/02/23 09:15 IMPRESSION: Limited study due to motion but no suspicious occlusion or significant stenosis in both cervical carotid and vertebral arteries. This correlates with CTA neck of 05/30/2020. Electronically Signed: Eliazar Beltran MD at 11:27 EST , D/C Instructions Discharge Diet: No restrictions Weight Bearing Status: Full weight bearing Pending Tests Upon Discharge: None Please Follow Up With: Yonny Renee MD When: As needed Meaningful Use Info Meaningful Use Diagnoses (Choose all that apply): None applicable Discharge Plan Admission Admit Date/Time: 08/01/23 22:00 Primary Reason for Your Visit: Right-sided paresthesias Attending Provider: Shane Conroy Primary Care Provider: Yonny Renee Consulting Providers: Perfecto Juarez Instructions Additional Instructions / Restrictions: Continue all home medications as previously prescribed. Follow-up with your primary care doctor as needed. Discharge Orders/Prescriptions Prescriptions: Continued carvedilol 25 MG tablet 25 mg PO BID cyanocobalamin (vitamin B-12) 1,000 MCG tablet 1,000 mcg PO DAILY guaifenesin 10 ML liquid 10 ml PO Q4H PRN PRN (Reason: Cough) aspirin 81 MG tablet,chewable 81 mg PO DAILY@0800 alum-mag hydroxide-simeth 355 ML suspension 30 ml PO Q4H PRN (Reason: GI DISTRESS) peg [id number]-[id number] 1 DROP bottle 1 drp EACH EYE PRN PRN (Reason: Dry Eyes) acetaminophen 325 MG capsule 2 tab PO Q4H PRN (Reason: Pain 1-10 Or Fever) polyethylene glycol 3350 17 GM packet 17 gm PO QHS venlafaxine 150 MG capsule,extended release 24hr 150 mg PO DAILY clopidogrel 75 MG tablet 75 mg PO DAILY quetiapine 100 MG tablet 100 mg PO QHS famotidine 20 MG tablet 20 mg PO BID magnesium hydroxide 30 ML suspension 30 ml PO DAILY PRN PRN (Reason: Constipation) promethazine 25 MG tablet 25 mg PO Q6H PRN (Reason: Nausea) atorvastatin 40 MG tablet 40 mg PO QHS Qty: 30 1RF alendronate 70 mg Tablet 70 mg PO QWEEK lisinopril 5 mg Tablet 5 mg PO DAILY cholecalciferol (vitamin D3) [Vitamin D3] 50 mcg (2,000 unit) Capsule 50 mcg PO DAILY Referrals / Follow Up: Yonny Renee MD [Primary Care Provider] - Disposition Disposition (needs filled in before D/C Order can be placed): Home Health Service Charges/Coding Visit Charges Inpatient E&M: 66172 Disch Hosp >30min
--- NOTE | 2023-08-02 15:43 | PHA.DC.MR.R ---
Pharmacy CT Med Reconciliation Pharmacy Service has performed discharge medication reconciliation for this patient. The patient's discharge medication list was reviewed for discrepancies and discrepancies were resolved.
--- NOTE | 2023-08-02 15:48 | CASEMGMT ---
Discharge Planning PT/OT evals and discharge instructions faxed to [facility]. Kira Bingham, Discharge Planning Asst.
--- NOTE | 2023-08-02 15:49 | CASEMGMT ---
SW spoke with patient. Introduced self and role at [facility]. Patient confirms her plan is to return to [facility]. Patient said she is not sure if her daughter can take her back. SW called patient's daughter Pam and she said she is out of town until 9p tonight so she will not be able to transport patient. Plan: d/c back to [facility]. [facility] [employer]
--- NOTE | 2023-08-02 16:16 | CASEMGMT ---
Discharge Planning [facility] will transport patient by wheelchair at 6:30p. SW updated. Kira Bingham, Discharge Planning Asst.
[2023-08-02 18:18] VITALS: BP 120/89; PULSE 75; RESP 16; TEMP 36.2; O2SAT 93
== END 2023-08-02 20:25 | disposition home health service (06) ==
LOC: ED 22:16 → PCU 22:25
PROVIDERS: Admitting Provider Family Medicine; Emergency Provider Emergency Medicine; PCP Family Medicine; Visit Provider Hospitalist
DX: G45.9 Transient cerebral ischemic attack, unspecified (principal); J44.9 Chronic obstructive pulmonary disease, unspecified; F32.3 Major depressive disorder, single episode, severe with psychotic features; Z79.82 Long term (current) use of aspirin; I12.9 Hypertensive chronic kidney disease with stage 1 through stage 4 chronic kidney disease, or unspecified chronic kidney disease; N18.9 Chronic kidney disease, unspecified; Z87.891 Personal history of nicotine dependence; I16.0 Hypertensive urgency; K21.9 Gastro-esophageal reflux disease without esophagitis; R29.700 NIHSS score 0; E78.00 Pure hypercholesterolemia, unspecified; Z79.02 Long term (current) use of antithrombotics/antiplatelets; Z79.899 Other long term (current) drug therapy; R20.0 Anesthesia of skin; R20.2 Paresthesia of skin
CPT/HCPCS: 36415; 70450; 70544; 70547; 70551; 71045; 80048; 80061; 82962; 84484; 85025; 85610; 85730; 93005; 94762; 96372; 96374; 97162; 97166; 99221; 99285; A4216; G0378

== ENCOUNTER → 2023-10-27 | Outpatient (REF) | payer MEDICARE, MEDICAID, SELFPAY ==
[2023-10-28 07:41] LABS: Bacteria 0 SEEN /hpf (None Seen); Mucous, Urine 0 SEEN /hpf (<or=2+); Red Blood Cells-Urine 0 SEEN /hpf (0-5)
--- OUTSIDE RECORDS SUMMARY | 2023-10-28 07:43 | XMS RPT_ITS | CCD ---
Author Name Unknown Address [address] [place] [address] Organization [facility] Care Team Providers Care Unloader Operator Name Role Phone Patrick Qiu PA-C Primary Care Provider [phone] Taj Sifuentes MD Primary Care Provider Ivania Dennison DO Primary Care Provider [phone] Patrick QIU Referring Unavailable Patrick QIU Primary Care Unavailable Patrick QIU Primary Care Unavailable BENJAMIN RENEE Attending Unavailable Patrick QIU Attending Unavailable Patrick QIU Primary Care Unavailable Patrick QIU Attending Unavailable Patrick QIU Primary Care Unavailable Patrick QIU Attending Unavailable Patrick QIU Primary Care Unavailable Patrick QIU Attending Unavailable Patrick QIU Primary Care Unavailable Patrick QIU Primary Care Unavailable Allergies Allergy Classification Reported Allergen(s) Allergy Type Date of Onset Reaction(s) Facility (12 sources) cyclobenzaprine; Translations: [CYCLOBENZAPRINE HCL] Drug Allergy 03-23-2016 Intolerance [facility] (12 sources) Ibuprofen; Translations: [IBUPROFEN] Drug Allergy 03-23-2016 Intolerance [facility] (12 sources) Penicillin; Translations: [PENICILLIN] Drug Allergy 03-23-2016 [facility] Medications Current Medications Medication Drug Class(es) Dates Sig (Normalized) Sig (Original) lisinopril 30 mg oral tablet (9 sources) Angiotensin Converting Enzyme Inhibitor Start: 08-19-2023 End: 08-18-2024 take 1 tablet by mouth once daily lisinopril (ZESTRIL) 30 mg tablet Take 1 tablet by mouth once daily. 30 tablet 11 08/19/2023 08/18/2024 Active Completed/Discontinued Medications Medication Drug Class(es) Dates Sig (Normalized) Sig (Original) acetaminophen 325 mg oral tablet (9 sources) take 2 tablets by mouth every six hours as needed acetaminophen (TYLENOL) 325 mg tablet Take 650 mg by mouth every 6 hours as needed. 0 Active Problems Active Problems Problem Classification Problem Date Documented Da te Episodic/Chronic Acute cerebrovascular disease (14 sources) Ischemic stroke; Translations: [Other cerebral infarction due to occlusion or stenosis of small artery] Onset: 06-01-2020 08-31-2021 Chronic Chronic kidney disease (14 sources) Chronic renal failure; Translations: [Chronic kidney disease, stage 4 (severe)] Onset: 06-09-2016 05-08-2018 Chronic Chronic obstructive pulmonary disease and bronchiectasis (12 sources) Chronic obstructive lung disease; Translations: [Chronic obstructive pulmonary disease, unspecified] Onset: 09-06-2022 Chronic Delirium, dementia, and amnestic and other cognitive disorders (2 sources) Senile dementia; Translations: [Alzheimer's disease with late onset] Onset: 08-11-2023 08-11-2023 Chronic Disorders of lipid metabolism (13 sources) Mixed hyperlipidemia; Translations: [Mixed hyperlipidemia] Onset: 06-27-2017 06-27-2017 Chronic Essential hypertension (15 sources) Essential hypertension; Translations: [Essential (primary) hypertension] Onset: 12-23-2016 12-23-2016 Chronic Mood disorders (15 sources) Recurrent major depression in partial remission; Translations: [Major depressive disorder, recurrent, in partial remission] Onset: 06-09-2016 11-13-2020 Chronic Nutritional deficiencies (1 source) Vitamin D deficiency, unspecified; Translations: [Vitamin D deficiency] Onset: 02-09-2023 Chronic Occlusion or stenosis of precerebral arteries (13 sources) Internal carotid artery stenosis; Translations: [Occlusion and stenosis of right carotid artery] Onset: 10-14-2016 06-09-2020 Chronic Osteoporosis (15 sources) Osteoporosis; Translations: [Age-related osteoporosis without current pathological fracture] Onset: 12-08-2016 12-23-2016 Chronic Other aftercare (1 source) Encounter for follow-up examination after completed treatment for conditions other than malignant neoplasm; Translations: [Hospital discharge follow-up] Onset: 08-11-2023 Episodic Other circulatory disease (1 source) Other specified symptoms and signs involving the circulatory and respiratory systems; Translations: [Labile hypertension] Onset: 08-11-2023 Episodic Other ear and sense organ disorders (1 source) Tinnitus; Translations: [Tinnitus, unspecified ear] Episodic Other lower respiratory disease (1 source) Multiple nodules of lung; Translations: [Other nonspecific abnormal finding of lung field] Episodic Other nervous system disorders (1 source) Impairment of balance; Translations: [Other abnormalities of gait and mobility] Episodic Other nervous system disorders (1 source) Abnormal gait; Translations: [Unsteadiness on feet] Episodic Residual codes; unclassified (1 source) Auditory hallucinations; Translations: [Auditory hallucinations] Episodic Residual codes; unclassified (1 source) Amnesia; Translations: [Other amnesia] Episodic Transient cerebral ischemia (1 source) Transient cerebral ischemic attack, unspecified; Translations: [TIA (transient ischemic attack)] Onset: 08-11-2023 Chronic Unclassified (1 source) Mild late onset Alzheimer's dementia without behavioral disturbance, psychotic disturbance, mood disturbance, or anxiety (HCC); Translations: [Mild late onset Alzheimer's dementia without behavioral disturbance, psychotic disturbance, mood disturbance, or anxiety (HCC)] Onset: 08-11-2023 Past or Other Problems Problem Classification Problem Date Documented Da te Episodic/Chronic Abdominal hernia (12 sources) Hiatal hernia; Translations: [Diaphragmatic hernia without obstruction or gangrene] Onset: 09-02-2022 Episodic Deficiency and other anemia (1 source) Anemia, unspecified; Translations: [Anemia, unspecified type] Onset: 12-02-2022 Episodic Diabetes mellitus without complication (14 sources) Prediabetes; Translations: [Prediabetes] Onset: 09-22-2017 09-22-2017 Episodic Nutritional deficiencies (1 source) Deficiency of other specified B group vitamins; Translations: [Vitamin B12 deficiency] Onset: 02-09-2023 Episodic Other gastrointestinal disorders (12 sources) Oropharyngeal dysphagia; Translations: [Dysphagia, oropharyngeal phase] Onset: 01-30-2018 01-30-2018 Episodic Other gastrointestinal disorders (1 source) Dysphagia, oropharyngeal phase; Translations: [Oropharyngeal dysphagia] Onset: 01-30-2018 Episodic Other lower respiratory disease (12 sources) Solitary nodule of lung; Translations: [Solitary pulmonary nodule] Onset: 06-25-2022 06-25-2022 Episodic Residual codes; unclassified (1 source) Auditory hallucinations; Translations: [Auditory hallucinations] Onset: 02-09-2023 Episodic Residual codes; unclassified (1 source) Other amnesia; Translations: [Memory loss] Onset: 02-09-2023 Episodic Spondylosis; intervertebral disc disorders; other back problems (11 sources) Chronic low back pain; Translations: [Lumbago with sciatica, right side] Onset: 12-23-2016 12-23-2016 Episodic Results Test Name Value Interpretation Reference Range Facil ity Vital Signs Date Time Vital Sign Value Performing Clinician Faci lity 10-10-2023 13:44-0500 Body weight 65.77 kg NA Qiu PA-C Work Phone: [facility] 10-10-2023 13:44-0500 Diastolic blood pressure 66 mm[Hg] NA Qiu PA-C Work Phone: [facility] 10-10-2023 13:44-0500 Heart rate 66 /min NA Qiu PA-C Work Phone: [facility] 10-10-2023 13:44-0500 Respiratory rate 16 /min NA Qiu PA-C Work Phone: [facility] 10-10-2023 13:44-0500 SaO2% (BldA) [Mass fraction] 96 % NA Qiu PA-C Work Phone: [facility] 10-10-2023 13:44-0500 Systolic blood pressure 118 mm[Hg] NA Qiu PA-C Work Phone: [facility] 09-02-2022 09:53-0500 Body weight 68.49 kg NA Qiu PA-C Work Phone: [facility] 09-02-2022 09:53-0500 Diastolic blood pressure 60 mm[Hg] NA Qiu PA-C Work Phone: [facility] 09-02-2022 09:53-0500 Heart rate 83 /min NA Qiu PA-C Work Phone: [facility] 09-02-2022 09:53-0500 Respiratory rate 18 /min NA Qiu PA-C Work Phone: [facility] 09-02-2022 09:53-0500 SaO2% (BldA) [Mass fraction] 95 % NA Qiu PA-C Work Phone: [facility] 09-02-2022 09:53-0500 Systolic blood pressure 142 mm[Hg] NA Qiu PA-C Work Phone: [facility] Encounters Encounter Date Encounter Type Care Provider Facility Start: 10-10-2023 End: 10-10-2023 ambulatory Patrick QIU Facility:[facility] Start: 10-10-2023 End: 10-10-2023 Patient encounter procedure Patrick Qiu PA-C Work Phone: [facility] Procedures Date Procedure Procedure Detail Performing Clinician Start: 08-09-2012 SURGICAL PATHOLOGY, CONVERTED Rigo Preciado MD Work Phone: Start: 07-02-2008 SURGICAL PATHOLOGY, CONVERTED Taj Sifuentes MD Work Phone: Plan of Treatment Date Care Activity Detail Author Start: 04-28-2031 Urine microalbumin profile [facility] Start: 02-09-2026 DIABETES SCREEN DIABETES SCREEN [facility] Start: 02-09-2026 Diabetes Screening Diabetes Screenin g [facility] Start: 10-10-2024 Covid-19 Vaccine (#1) Covid-19 Vacci ne (#1) [facility] Immunizations Immunization Date Immunization Notes Care Provider Fa cility 04-28-2021 tetanus toxoid, redu nabil diphtheria toxoid, and acellular pertussis vaccine, adsorbed NA Qiu PA-C Work Phone: [facility] 06-24-2020 influenza virus vaccine, unspecified formulation Taj Sifuentes MD Work Phone: [facility] 05-11-2019 influenza, high dose seasonal, preservative-free NA Qiu PA-C Work Phone: [facility] 06-07-2018 influenza, injectabl e, quadrivalent, contains preservative NA Qiu PA-C Work Phone: [facility] Work Phone: 05-25-2016 influenza, high dose seasonal, preservative-free NA Qiu PA-C Work Phone: [facility] Payers Date Payer Category Payer Medicaid [facility] [employer] [facility] [employer]ICA[facility] [id number] 2018-Present [phone] [address] [place] [address] Medicaid [id number] 2017 Medicare [id number] 2001 Medicare [id number] Social History Date Type Detail Facility Start: 10-26-2017 End: 09-02-2022 Tobacco smoking status NHIS Never smoked tobacco [facility] Work Phone: Start: 10-26-2017 End: 09-02-2022 Tobacco use and exposure Smokeless tobacco non-user [facility] Work Phone: Start: 08-31-2021 End: 10-10-2023 Alcohol intake Not Asked [facility] Start: 06-09-2020 End: 02-04-2023 History SDOH Social Connections Phone 5 [facility] Start: 06-09-2020 End: 02-04-2023 History SDOH Social Connections Get Together 1 [facility] Start: 06-09-2020 End: 02-04-2023 History SDOH Social Connections Membership 2 [facility] Start: 06-09-2020 End: 02-04-2023 History SDOH Social Connections Living 4 [facility] Start: 06-09-2020 End: 02-04-2023 History SDOH Physical Activity DPW 0 [facility] Start: 1935 Sex Assigned At Not on file [facility] Start: 02-04-2023 History SDOH Stress 3 [facility] Start: 09-06-2022 End: 02-04-2023 History of Social function [facility] Start: 09-06-2022 End: 02-04-2023 Social connection and isolation panel [facility] Do you belong to any clubs or organizations such as evangelical groups, unions, fraternal or athletic groups, or school groups? No [facility] Are you now , , , , never or living with a partner? [facility] How often to you hav e a drink containing alcohol? Never [facility] How many standard dr inks containing alcohol do you have on a typical day? Patient does not drink [facility] Do you feel stress - tense, restless, nervous, or anxious, or unable to sleep at night because your mind is troubled all the time - these days [OSQ] To some extent [facility] (I/We) worried wheth er (my/our) food would run out before (I/we) got money to buy more. Never true [facility] Tobacco smoking stat [facility] Tobacco smoking consumption unknown [facility] Start: 08-08-2021 End: 09-07-2021 Exposure to SARS-CoV-2 (event) Unable to assess [facility] Clinical Notes 06-09-2016 to 10-10-2023 Patrick Qiu PA-C - 10/10/2023 1:51 PM Patrick Velásquez PA-C - 10/10/2023 1:47 PM ESTTelephone Encounter - Ailyn Amador Ma - 02/28/2023 5:20 PM TRESATBenjamin Renee MD - 02/04/2023 9:11 AM EDT Note Date & Type Note Facility 10-10-2023 Note HNO ID: [id number] Author: Patrick QIU PA-C Service: ? Author Type: Physician It Engineer Type: Progress Notes Filed: 10/10/2023 18:54 Note Text: 87 year old female with c/o here for 4 week BP recheck since increasing to Lisinopril 30mg BP from [facility] show controlled BPs 09/24/2023: 92/68 09/15/2023: 144/70 09/10/2023: 150-76 Pt states she sleeps in until 9 am, and she doesn't eat until lunch. She doesn't participate in any activities. Daughter comes to visit. She watches TV a lot. Appetite is good. Sleep is good. She complains she lost her keys (to her door). Forgot the visit today was happening. She identifies that she does not get out as much, and tends to stay in but knows that being social helps her feel better. Stools: loose, and smaller pieces ( has not changed diet) 1 month or so. HTN: Current meds: HCTZ 12.5 mg daily Lisinopril 30mg daily Carvedilol 25mg daily Patient is compliant with meds Yes Monitors bp at home: Yes. If yes, Readings from ECF without comment: 09/24/2023: 92/68 09/15/2023: 144/70 09/10/2023: 150-76 Denies side effects: No. Chest pain: No. Dyspnea: No, but some SOB coming in today from parking lot to office. Edema: No. Palpitations: No. Syncope: No. Headache: No. Dizziness: Yes. [place] a little unsteady coming in today, unsure-footed , blames on her anxiety. Does have some cough, a little tickle and then coughs, states not recently Last 3 Encounter BP Readings: Date: BP: 10/10/2023 118/66 09/12/2023 152/79 08/11/2023 179/83 [BP AVERAGE[ Last 2 Encounter Wt Readings: Date: Wt: 10/10/2023 65.8 kg (145 lb) 09/12/2023 64.4 kg (142 lb) Readings from ECF HISTORIES FAMILY HISTORY Problem Relation Age of Onset Breast Cancer Mother PAST MEDICAL HISTORY Diagnosis Date Anxiety Arterial ischemic stroke, vertebrobasilar, thalamic, acute, left ([facility]) 06/01/2020 05/30/2020 sx dizziness and RUE numbness, MRI brain WO: two punctate left thalamic infarcts. CKD (chronic kidney disease) stage 3, GFR 30-59 ml/min ([facility]) COPD (chronic obstructive pulmonary disease) ([facility]) Essential hypertension Hyperlipidemia Recurrent major depression in partial remission ([facility]) 06/09/2016 PAST SURGICAL HISTORY Procedure Laterality Date BREAST LUMPECTOMY HX Left 1987 TEAEC W/PATCH GRF CAROTID VERTB SUBCLAV NECK INC Right 01/27/2017 Social History Tobacco Use Smoking status: Never Smokeless tobacco: Never ACTIVE PROBLEM LIST Recurrent Major Depression in Partial Remission ([facility]) Chronic Renal Failure, Stage 4 (Severe) ([facility]) Internal Carotid Artery Stenosis, Right Osteoporosis Chronic Midline Low Back Pain With Right-Sided Sciatica Essential Hypertension Hyperlipidemia, Mixed Prediabetes Oropharyngeal Dysphagia Arterial Ischemic Stroke, Vertebrobasilar, Thalamic, Acute, Left (Hcc) Incidental Lung Nodule, Greater Than Or Equal to 8mm Hiatal Hernia Chronic Obstructive Pulmonary Disease (Hcc) Major Depression With Psychotic Features (Hcc) Mild Late Onset Alzheimer's Dementia Without Behavioral Disturbance, Psychotic Disturbance, Mood Disturbance, Or Anxiety (Hcc) Current Outpatient Medications Medication Sig Dispense Refill hydroCHLOROthiazide 12.5 mg capsule Take 1 capsule by mouth once daily. 30 capsule 12 lisinopril (ZESTRIL) 30 mg tablet Take 1 tablet by mouth once daily. 30 tablet 11 donepezil (ARICEPT) 5 mg tablet Take 1 tablet by mouth daily at bedtime. 30 tablet 2 Cholecalciferol, Vitamin D3, 50 mcg (2,000 unit) cap Take by mouth. carvedilol (COREG) 25 mg tablet Take 1 tablet by mouth two times a day. 180 tablet 1 venlafaxine ER (EFFEXOR XR) 150 mg 24 hr capsule Take 1 capsule by mouth once daily. 30 capsule 5 famotidine (PEPCID) 20 mg tablet Take 1 tablet by mouth twice daily. promethazine (PHENERGAN) 25 mg tablet Take 1 tablet by mouth every 6 hours as needed for nausea/vomiting. Walker misc 1 Each once daily. 1 Each 0 atorvastatin (LIPITOR) 40 mg tablet Take 40 mg by mouth once daily. QUEtiapine (SEROQUEL) 100 mg tablet Take 100 mg by mouth once daily. alendronate (FOSAMAX) 70 mg tablet Take 1 tablet by mouth one time a week. Take with a full glass of water, on an empty stomach; do NOT lie down for 30minutes. 12 tablet 3 magnesium hydroxide (MILK OF MAGNESIA ORAL) Take 30 mL by mouth as needed. clopidogrel (PLAVIX) 75 mg tablet Take 1 tablet by mouth once daily. 30 tablet 11 aluminum-magnesium hydroxide-simethicone (MAALOX,MYLANTA,MAG-AL PLUS) 200-200-20 mg/5 mL suspension Take 30 mL by mouth every 4 hours as needed. for Gi distress guaiFENesin (ROBITUSSIN) 100 mg/5 mL syrup Take 10 mL by mouth every 4 hours as needed. for cough and congestion aspirin, enteric coated (ASPIRIN, ENTERIC COATED) 81 mg EC tablet GIVE 1 TABLET BY MOUTH ONCE DAILY 30 tablet 2 clonazePAM (KLONOPIN) 0.5 mg tablet Take 0.125 mg by mouth daily at bedtime. Routine dose. Mayra Irving Sa (more content not included)... [facility] 10-10-2023 Note HNO ID: [id number] Author: Patrick QIU PA-C Service: ? Author Type: Physician It Engineer Type: Progress Notes Filed: 10/10/2023 18:54 Note Text: . [facility] 10-10-2023 History of Presen t illness Narrative 87 year old female with c/o here for 4 week BP recheck since increasing to Lisinopril 30mg BP from [facility] show controlled BPs 09/24/2023: 92/68 09/15/2023: 144/70 09/10/2023: 150-76 Pt states she sleeps in until 9 am, and she doesn't eat until lunch. She doesn't participate in any activities. Daughter comes to visit. She watches TV a lot. Appetite is good. Sleep is good. She complains she lost her keys (to her door). Forgot the visit today was happening. She identifies that she does not get out as much, and tends to stay in but knows that being social helps her feel better. Stools: loose, and smaller pieces ( has not changed diet) 1 month or so. HTN: Current meds: HCTZ 12.5 mg daily Lisinopril 30mg daily Carvedilol 25mg daily Patient is compliant with meds Yes Monitors bp at home: Yes. If yes, Readings from [facility] without comment: 09/24/2023: 92/68 09/15/2023: 144/70 09/10/2023: 150-76 Denies side effects: No. Chest pain: No. Dyspnea: No, but some SOB coming in today from parking lot to office. Edema: No. Palpitations: No. Syncope: No. Headache: No. Dizziness: Yes. [place] a little unsteady coming in today, unsure-footed , blames on her anxiety. Does have some cough, a little tickle and then coughs, states not recently Last 3 Encounter BP Readings: Date: BP: 10/10/2023 118/66 09/12/2023 152/79 08/11/2023 179/83 [BP AVERAGE[ Last 2 Encounter Wt Readings: Date: Wt: 10/10/2023 65.8 kg (145 lb) 09/12/2023 64.4 kg (142 lb) Readings from ECF HISTORIES FAMILY HISTORY Problem Relation Age of Onset Breast Cancer Mother PAST MEDICAL HISTORY Diagnosis Date Anxiety Arterial ischemic stroke, vertebrobasilar, thalamic, acute, left (HCC) 06/01/2020 05/30/2020 sx dizziness and RUE numbness, MRI brain WO: two punctate left thalamic infarcts. CKD (chronic kidney disease) stage 3, GFR 30-59 ml/min (HCC) COPD (chronic obstructive pulmonary disease) (HCC) Essential hypertension Hyperlipidemia Recurrent major depression in partial remission (HCC) 06/09/2016 PAST SURGICAL HISTORY Procedure Laterality Date BREAST LUMPECTOMY HX Left 1987 TEAEC W/PATCH GRF CAROTID VERTB SUBCLAV NECK INC Right 01/27/2017 Social History Tobacco Use Smoking status: Never Smokeless tobacco: Never ACTIVE PROBLEM LIST Recurrent Major Depression in Partial Remission ([facility]) Chronic Renal Failure, Stage 4 (Severe) ([facility]) Internal Carotid Artery Stenosis, Right Osteoporosis Chronic Midline Low Back Pain With Right-Sided Sciatica Essential Hypertension Hyperlipidemia, Mixed Prediabetes Oropharyngeal Dysphagia Arterial Ischemic Stroke, Vertebrobasilar, Thalamic, Acute, Left (Hcc) Incidental Lung Nodule, Greater Than Or Equal to 8mm Hiatal Hernia Chronic Obstructive Pulmonary Disease ([facility]) Major Depression With Psychotic Features ([facility]) Mild Late Onset Alzheimer's Dementia Without Behavioral Disturbance, Psychotic Disturbance, Mood Disturbance, Or Anxiety ([facility]) Current Outpatient Medications Medication Sig Dispense Refill hydroCHLOROthiazide 12.5 mg capsule Take 1 capsule by mouth once daily. 30 capsule 12 lisinopril (ZESTRIL) 30 mg tablet Take 1 tablet by mouth once daily. 30 tablet 11 donepezil (ARICEPT) 5 mg tablet Take 1 tablet by mouth daily at bedtime. 30 tablet 2 Cholecalciferol, Vitamin D3, 50 mcg (2,000 unit) cap Take by mouth. carvedilol (COREG) 25 mg tablet Take 1 tablet by mouth two times a day. 180 tablet 1 venlafaxine ER (EFFEXOR XR) 150 mg 24 hr capsule Take 1 capsule by mouth once daily. 30 capsule 5 famotidine (PEPCID) 20 mg tablet Take 1 tablet by mouth twice daily. promethazine (PHENERGAN) 25 mg tablet Take 1 tablet by mouth every 6 hours as needed for nausea/vomiting. Walker misc 1 Each once daily. 1 Each 0 atorvastatin (LIPITOR) 40 mg tablet Take 40 mg by mouth once daily. QUEtiapine (SEROQUEL) 100 mg tablet Take 100 mg by mouth once daily. alendronate (FOSAMAX) 70 mg tablet Take 1 tablet by mouth one time a week. Take with a full glass of water, on an empty stomach; do NOT lie down for 30minutes. 12 tablet 3 magnesium hydroxide (MILK OF MAGNESIA ORAL) Take 30 mL by mouth as needed. clopidogrel (PLAVIX) 75 mg tablet Take 1 tablet by mouth once daily. 30 tablet 11 aluminum-magnesium hydroxide-simethicone (MAALOX,MYLANTA,MAG-AL PLUS) 200-200-20 mg/5 mL suspension Take 30 mL by mouth every 4 hours as needed. for Gi distress guaiFENesin (ROBITUSSIN) 100 mg/5 mL syrup Take 10 mL by mouth every 4 hours as needed. for cough and congestion aspirin, enteric coated (ASPIRIN, ENTERIC COATED) 81 mg EC tablet GIVE 1 TABLET BY MOUTH ONCE DAILY 30 tablet 2 clonazePAM (KLONOPIN) 0.5 mg tablet Take 0.125 mg by mouth daily at bedtime. Routine dose. Tues, Thur, Sat, Sun in the evening. This medication is managed and ordered by Psychiatrist, Dr. Salinas. acetaminophen (TYLENOL) 325 mg tablet Take 650 mg by mouth every 6 hours as needed. POLYETHYLENE GLYCOL 3350 (MIRALAX ORAL) Take 17 g by mouth once daily. cyanocobalamin (VITAMIN B-12) 1,000 mcg tab Take 1,000 mcg by mouth once daily. (Patient not taking: Reported on 09/12/2023) No current facility-administered medications for this visit. Pneumococcal Vaccine: 65+(1 of 2 - PCV) Never done Spirometry Never done Shingrix Vaccine(1 of 2) Never done RSV Vaccine(1 - 1-dose 60+ series) Never done Advance Directive Discussion due on 08/22/2023 EXAM: BP 118/66 Pulse 66 Resp 16 Wt 65.8 kg (145 lb) SpO2 96% BMI 29.29 kg/m Pleasant adult female, in no acute distress. Again more alert today. Knows who I am and where she is. Normal affect and cognition. Speech normal. No deficits to learning or comprehension. Skin warm, dry, pink to lips and nailbeds. Normal turgor. Respirations regular and unlabored. Chest is normal shape. Lungs are clear to all velázquez with good air exchange through out. HRRR without murmur or gallop. No lifts, heaves, or rubs. Extrem: no clubbing or cyanosis. Edema: None. Extremities are warm and pink with prompt capillary refill. ASSESSMENT/PLAN: 1. Essential hypertension - ICD9: 401.9, ICD10: I10 - Controlled: possible over controlled. Instruction to ECF to hold Lisinopril if SBP < 100 - Continue current medications - Recommend home blood pressure monitoring, to bring results to next visit - Encouraged sodium restriction, DASH or Mediterranean diet - Recommend regular aerobic exercise F/u routine visit 3 months, CRISS Sosa PA-C Some of this note may have been copied and pasted for the purpose of history context and comparison and has been adjusted for changes in prior data. Patrick Qiu PA-C . documented in this encounter [facility] 09-12-2023 Note HNO ID: [id number] Author: Patrick QIU PA-C Service: ? Author Type: Physician It Engineer Type: Progress Notes Filed: 09/12/2023 20:48 Note Text: 87 year old female with c/o recheck on BP HTN: Current meds: Carvedilol 25mg twice a day Lisinopril 30mg daily Patient is compliant with meds Yes Monitors bp at home: Yes.. ECF nursing checks If yes, readings: Denies side effects: Yes. Chest pain: No. Dyspnea: No. Edema: No. Palpitations: No. Syncope: No. Headache: No. Dizziness: No. Last 3 Encounter BP Readings: Date: BP: 09/12/2023 152/79 08/11/2023 179/83[BP AVERAGE[ 12/02/2022 144/82 Started donezapil: does seem more herself today: speaking clearly. HISTORIES FAMILY HISTORY Problem Relation Age of Onset Breast Cancer Mother PAST MEDICAL HISTORY Diagnosis Date Anxiety Arterial ischemic stroke, vertebrobasilar, thalamic, acute, left (HCC) 06/01/2020 05/30/2020 sx dizziness and RUE numbness, MRI brain WO: two punctate left thalamic infarcts. CKD (chronic kidney disease) stage 3, GFR 30-59 ml/min (HCC) COPD (chronic obstructive pulmonary disease) (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-Sided Sciatica Essential Hypertension Hyperlipidemia, Mixed Prediabetes Oropharyngeal Dysphagia Arterial Ischemic Stroke, Vertebrobasilar, Thalamic, Acute, Left (Hcc) Incidental Lung Nodule, Greater Than Or Equal to 8mm Hiatal Hernia Chronic Obstructive Pulmonary Disease ([facility]) Major Depression With Psychotic Features ([facility]) Mild Late Onset Alzheimer's Dementia Without Behavioral Disturbance, Psychotic Disturbance, Mood Disturbance, Or Anxiety ([facility]) Current Outpatient Medications Medication Sig Dispense Refill lisinopril (ZESTRIL) 30 mg tablet Take 1 tablet by mouth once daily. 30 tablet 11 donepezil (ARICEPT) 5 mg tablet Take 1 tablet by mouth daily at bedtime. 30 tablet 2 Cholecalciferol, Vitamin D3, 50 mcg (2,000 unit) cap Take by mouth. carvedilol (COREG) 25 mg tablet Take 1 tablet by mouth two times a day. 180 tablet 1 venlafaxine ER (EFFEXOR XR) 150 mg 24 hr capsule Take 1 capsule by mouth once daily. 30 capsule 5 famotidine (PEPCID) 20 mg tablet Take 1 tablet by mouth twice daily. promethazine (PHENERGAN) 25 mg tablet Take 1 tablet by mouth every 6 hours as needed for nausea/vomiting. Walker misc 1 Each once daily. 1 Each 0 atorvastatin (LIPITOR) 40 mg tablet Take 40 mg by mouth once daily. QUEtiapine (SEROQUEL) 100 mg tablet Take 100 mg by mouth once daily. alendronate (FOSAMAX) 70 mg tablet Take 1 tablet by mouth one time a week. Take with a full glass of water, on an empty stomach; do NOT lie down for 30minutes. 12 tablet 3 cyanocobalamin (VITAMIN B-12) 1,000 mcg tab Take 1,000 mcg by mouth once daily. magnesium hydroxide (MILK OF MAGNESIA ORAL) Take 30 mL by mouth as needed. clopidogrel (PLAVIX) 75 mg tablet Take 1 tablet by mouth once daily. 30 tablet 11 aluminum-magnesium hydroxide-simethicone (MAALOX,MYLANTA,MAG-AL PLUS) 200-200-20 mg/5 mL suspension Take 30 mL by mouth every 4 hours as needed. for Gi distress guaiFENesin (ROBITUSSIN) 100 mg/5 mL syrup Take 10 mL by mouth every 4 hours as needed. for cough and congestion aspirin, enteric coated (ASPIRIN, ENTERIC COATED) 81 mg EC tablet GIVE 1 TABLET BY MOUTH ONCE DAILY 30 tablet 2 clonazePAM (KLONOPIN) 0.5 mg tablet Take 0.125 mg by mouth daily at bedtime. Routine dose. Tues, Thur, Sat, Sun in the evening. This medication is managed and ordered by Psychiatrist, Dr. Salinas. (Patient not taking: Reported on 08/11/2023) acetaminophen (TYLENOL) 325 mg tablet Take 650 mg by mouth every 6 hours as needed. POLYETHYLENE GLYCOL 3350 (MIRALAX ORAL) Take 17 g by mouth once daily. No current facility-administered medications for this visit. Covid-19 Vaccine(1) Never done Pneumococcal Vaccine: 65+(1 of 2 - PCV) Never done Spirometry Never done Shingrix Vaccine(1 of 2) Never done RSV Vaccine(1 - 1-dose 60+ series) Never done Influenza Vaccine(1) due on 04/22/2023 Advance Directive Discussion due on 08/22/2023 EXAM: BP 152/79 Pulse 63 Resp 16 Wt 64.4 kg (142 lb) SpO2 96% BMI 28.68 kg/m? Pleasant overweight adult woman in no acute distress. More alert today, talking about daughters, past issues, taking new BP medication. Alert to time and place. Usual affect and cognition. Speech normal. No deficits to learning or comprehension. Skin warm, dry, pin (more content not included)... [facility] 08-11-2023 Note HNO ID: [id number] Author: Patrick Qiu PA-C Service: ? Author Type: Physician It Engineer Type: Progress Notes Filed: 08/11/2023 9:30 PM Note Text: 87 year old female with c/o Hospital discharge follow-up: Facility: [facility] Date of admission 08/01/2023 Date of discharge 08/02/2023 Discharge diagnoses: 1. TIA acute 2. Major depressive disorder with psychotic features 3. Hypertension, chronic 4. Hyperlipidemia, unspecified 5. Chronic kidney disease 6. COPD Medication reconciliation: Continued: Carvedilol 25 mg p.o. twice daily Cyanocobalamin 1000 mcg daily Guaifenesin 10 mL every 4 hours as needed for cough ASA 81 mg chewable daily Ikas-dgo-audgumti-simeth 355ml susp 30 mL every 4 hours as needed Wetting eyedrops as needed Acetaminophen 325 2 tabs every 4 hours as needed Polyethylene glycol 3350: 17 g packet daily at bedtime Venlafaxine 150 mg XR every 24 hours Clopidogrel 75 mg daily Quetiapine 100 mg nightly Famotidine 20 mg p.o. twice daily Magnesium hydroxide 30 mL suspension daily as needed for constipation Promethazine 25 mg p.o. every 6 hours. Nausea atorvastatin 40 mg nightly, #30/1 Alendronate 70 mg p.o. q. weekly Cholecalciferol 2000 unit capsule daily Hospital course: 08/01/2023 presented to emergency room with numbness and tingling right arm and leg numbness while she was sitting and resting without activity. No chest pain or shortness of breath. Systolic blood pressure per record was elevated at 215. By the time she reached ER she states symptoms were receding. Identified possible TIA in the past and on blood thinner. Exam: Vital signs 97.0 F-70-18-178/95-96% RA. Exam essentially normal, no focal or lateralizing symptoms. NIH stroke scale of 0. Patient was given 1 dose of labetalol due to elevated blood pressure. Data: CBC abnormals: RBC 3.78-Hgb 11.1-HCT 34.7, RDW 45.5, monocyte percent 12.0 PT, INR, APTT WNL, troponin normal Chemistry abnormals: CO2 32.0-BUN 19-CRE 1.46, EGFR [address] brain: Chronic involutional changes Chest x-ray: Left rib fracture Admission assessment and plan: 1. Transient ischemic attack, admitted to PCU for observation with neurologic evaluations every 4 hours per protocol. MRI of head and neck 2. COPD: Continue home meds 3. Hyperlipidemia: Continue statin 4. Hypertension will add as needed hypertensive medication per routine Protocol 5. Depression: Continue antidepressant therapy 6. DVT prophylaxis with low molecular weight heparin 08/02/2023 MRI: 1. No evidence of acute or subacute ischemic infarct or remote cortical-based ischemic infarct. 2. Chronic white matter ischemic changes both cerebral hemispheres 3. No significant interval change compared to prior 92 Currently status: Denies numbness or tingling Had severe pain indicating epigastric area and into chest, didn't last long at all . Current status: Presents alone in office with son-in-law in [facility]. Doesn't recall hospitalization though when reviewed details says she does remember. Talked about ECF and residents, women and their terrible lusts, alleged having women residents talking about handsome young man and having sex with him. This is unusual sexual level of talk for Esha with me. Reciting her usual thoughts of desire to and have a good man she can love and depend on. She acknowledges memory decline and loss of words. Denies any current numbness or tingling Feels she has been using all extremities without complication, feeding herself, bathing herself, ambulating in hallways for exercise. ECF records indicate labile BPs last 3 months: 157/88 169/94 122/70 122/74 154/82 176/84 146/82 138/82 120/64 130/80 BP's with similar pattern back to 03/04/2016 Has outstanding US carotids ordered 12/01/2022. US bilateral carotids: IMPRESSION Compared to prior study of 11/20/2018, Unable to visualize plaque within internal carotid artery. Was noted 20-39% previously. No significant change on the left. RIGHT SIDE Common carotid artery: Endarterectomy patch at distal : 0.90 cm. Internal carotid artery: 0-19% stenosis. Endarterectomy patch . Vertebral artery: Patent and antegrade flow noted. Subclavian artery: Plaque visualized without evidence of hemodynamically significant stenosis. LEFT SIDE Internal carotid artery: 20-39% stenosis. Vertebral artery: Patent and antegrade flow noted. HISTORIES FAMILY HISTORY Problem Relation Age of Onset Breast Cancer Mother PAST MEDICAL HISTORY Diagnosis Date Anxiety Arterial ischemic stroke, vertebrobasilar, thalamic, acute, left (HCC) 06/01/2020 05/30/2020 sx dizziness and RUE numbness, MRI brain WO: two punctate left thalamic infarcts. CKD (chronic kidney disease) stage 3, GFR 30-59 ml/min (HCC) COPD (chronic obstructive pulmonary disease) (HCC) Essential hypertension Hyperlipidemi (more content not included)... [facility] 02-28-2023 Miscellaneous Notes Orders faxed to [facility] See mychart note to daughter Pam today. I think patient resides at [facility]. I don't see that she was checked for UTI at her last visit with change in mental status with hallucinations both visual and auditory. I would like notes on when the first evidence of auditory or visual hallucinations (bugs) occurred. Please contact [facility] to see if this was checked and if not should have a least a urinalysis and culture. Should also have a CXR to r/o occult pneumonia. Thanks, Noman Qiu PA-C documented in this encounter [facility] 02-04-2023 Note HNO ID: [id number] Author: Benjamin Renee MD Service: ? Author Type: Physician Type: Progress Notes Filed: 02/04/2023 9:34 AM Note Text: Patient presents with: Acute Visit HPI:This Team Access Model visit is a virtual encounter. It required patient-provider interaction for the medical decision making as documented below. Patient has elected to have a visit through distance medicine I have communicated my name and active licensure. The patient's identity and physical location were verified at the time of this visit. Either the patient or their legal medical claims representative has been informed of the risks and benefits of -- and alternatives to -- treatment through a remote evaluation and consents to proceed with the evaluation remotely. Accompanied by her daughter. Is noting music like a choir singing is very soothing. No voices. But sounds like singing. Is happening for a number of months. Happens often at night. Has noted it at other times. Did have her ears cleaned out recently. Has been referred to neurology for dementia work up as long ago as 2017 but did not go. Has had ongoing memory issues. I had even done lab work for memory loss in 2020. Emotionally is stable. Does take effexor and seroquel. Is in assisted living. No visual hallucinations. No focal neuro issues. Does have a cane and walker but does not like to use them. No recent falls No headaches. No chest pain or shortness of breath. Does have some occasional lightheadedness a few weeks ago but thought it was allergies. No garbled speech. No new bladder control issues. Appetite has been ok No fever or chills. MEDICATIONS: Current Outpatient Medications Medication Sig lisinopril (ZESTRIL) 10 mg tablet Take 1 tablet by mouth once daily. venlafaxine ER (EFFEXOR XR) 150 mg 24 hr capsule Take 1 capsule by mouth once daily. famotidine (PEPCID) 20 mg tablet Take 1 tablet by mouth twice daily. promethazine (PHENERGAN) 25 mg tablet Take 1 tablet by mouth every 6 hours as needed for nausea/vomiting. Walker misc 1 Each once daily. atorvastatin (LIPITOR) 40 mg tablet QUEtiapine (SEROQUEL) 100 mg tablet Take 100 mg by mouth once daily. alendronate (FOSAMAX) 70 mg tablet Take 1 tablet by mouth one time a week. Take with a full glass of water, on an empty stomach; do NOT lie down for 30minutes. cyanocobalamin (VITAMIN B-12) 1,000 mcg tab Take 1,000 mcg by mouth once daily. magnesium hydroxide (MILK OF MAGNESIA ORAL) Take 30 mL by mouth as needed. cholecalciferol, Vitamin D3, (VITAMIN D3) 50,000 unit cap capsule Take 1 capsule by mouth once each week. carvedilol (COREG) 12.5 mg tablet Take 1 tablet by mouth twice daily. (Patient taking differently: Take 25 mg by mouth twice daily.) clopidogrel (PLAVIX) 75 mg tablet Take 1 tablet by mouth once daily. aluminum-magnesium hydroxide-simethicone (MAALOX,MYLANTA,MAG-AL PLUS) 200-200-20 mg/5 mL suspension Take 30 mL by mouth every 4 hours as needed. for Gi distress guaiFENesin (ROBITUSSIN) 100 mg/5 mL syrup Take 10 mL by mouth every 4 hours as needed. for cough and congestion aspirin, enteric coated (ASPIRIN, ENTERIC COATED) 81 mg EC tablet GIVE 1 TABLET BY MOUTH ONCE DAILY clonazePAM (KLONOPIN) 0.5 mg tablet Take 0.125 mg by mouth daily at bedtime. Routine dose. Tues, Thur, Sat, Sun in the evening. This medication is managed and ordered by Psychiatrist, Dr. Salinas. acetaminophen (TYLENOL) 325 mg tablet Take 650 mg by mouth every 6 hours as needed. POLYETHYLENE GLYCOL 3350 (MIRALAX ORAL) Take 17 g by mouth once daily. tuberculin (TUBERSOL) 5 tub. unit /0.1 mL injection 5 Units by INTRADERMAL route one time only. No current facility-administered medications for this visit. ALLERGIES: ALLERGIES Allergen Reactions Flexeril [Cyclobenz* Intolerance Ibuprofen Intolerance Penicillin Swelling PAST MEDICAL HISTORY Diagnosis Date Anxiety Arterial ischemic stroke, vertebrobasilar, thalamic, acute, left ([facility]) 06/01/2020 05/30/2020 sx dizziness and RUE numbness, MRI brain WO: two punctate left thalamic infarcts. CKD (chronic kidney disease) stage 3, GFR 30-59 ml/min ([facility]) COPD (chronic obstructive pulmonary disease) ([facility]) Essential hypertension Hyperlipidemia Recurrent major depression in partial remission ([facility]) 06/09/2016 PAST SURGICAL HISTORY Procedure Laterality Date BREAST LUMPECTOMY HX Left 1987 TEAEC W/PATCH GRF CAROTID VERTB SUBCLAV NECK INC Right 01/27/2017 FAMILY HISTORY Problem Relation Age of Onset Breast Cancer Mother Social History Tobacco Use Smoking status: Never Smokeless tobacco: Never Reviewed current medications, allergies, past medical history, surgical history, family history and social history today. REVIEW OF SYSTEMS All other reviewed and negative other than HPI. VITALS: There were no vitals taken for this visit. Last 4 Encounter Wt Readings: Date: Wt: 12/02/2022 68.5 kg (151 lb) 0 (more content not included)... [facility] 02-04-2023 History of Presen t illness Narrative Patient presents with: Acute Visit HPI:This Team Access Model visit is a virtual encounter. It required patient-provider interaction for the medical decision making as documented below. Patient has elected to have a visit through distance medicine I have communicated my name and active licensure. The patient's identity and physical location were verified at the time of this visit. Either the patient or their legal medical claims representative has been informed of the risks and benefits of -- and alternatives to -- treatment through a remote evaluation and consents to proceed with the evaluation remotely. Accompanied by her daughter. Is noting music like a choir singing is very soothing. No voices. But sounds like singing. Is happening for a number of months. Happens often at night. Has noted it at other times. Did have her ears cleaned out recently. Has been referred to neurology for dementia work up as long ago as 2016 but did not go. Has had ongoing memory issues. I had even done lab work for memory loss in 2020. Emotionally is stable. Does take effexor and seroquel. Is in assisted living. No visual hallucinations. No focal neuro issues. Does have a cane and walker but does not like to use them. No recent falls No headaches. No chest pain or shortness of breath. Does have some occasional lightheadedness a few weeks ago but thought it was allergies. No garbled speech. No new bladder control issues. Appetite has been ok No fever or chills. MEDICATIONS: Current Outpatient Medications Medication Sig lisinopril (ZESTRIL) 10 mg tablet Take 1 tablet by mouth once daily. venlafaxine ER (EFFEXOR XR) 150 mg 24 hr capsule Take 1 capsule by mouth once daily. famotidine (PEPCID) 20 mg tablet Take 1 tablet by mouth twice daily. promethazine (PHENERGAN) 25 mg tablet Take 1 tablet by mouth every 6 hours as needed for nausea/vomiting. Walker misc 1 Each once daily. atorvastatin (LIPITOR) 40 mg tablet QUEtiapine (SEROQUEL) 100 mg tablet Take 100 mg by mouth once daily. alendronate (FOSAMAX) 70 mg tablet Take 1 tablet by mouth one time a week. Take with a full glass of water, on an empty stomach; do NOT lie down for 30minutes. cyanocobalamin (VITAMIN B-12) 1,000 mcg tab Take 1,000 mcg by mouth once daily. magnesium hydroxide (MILK OF MAGNESIA ORAL) Take 30 mL by mouth as needed. cholecalciferol, Vitamin D3, (VITAMIN D3) 50,000 unit cap capsule Take 1 capsule by mouth once each week. carvedilol (COREG) 12.5 mg tablet Take 1 tablet by mouth twice daily. (Patient taking differently: Take 25 mg by mouth twice daily.) clopidogrel (PLAVIX) 75 mg tablet Take 1 tablet by mouth once daily. aluminum-magnesium hydroxide-simethicone (MAALOX,MYLANTA,MAG-AL PLUS) 200-200-20 mg/5 mL suspension Take 30 mL by mouth every 4 hours as needed. for Gi distress guaiFENesin (ROBITUSSIN) 100 mg/5 mL syrup Take 10 mL by mouth every 4 hours as needed. for cough and congestion aspirin, enteric coated (ASPIRIN, ENTERIC COATED) 81 mg EC tablet GIVE 1 TABLET BY MOUTH ONCE DAILY clonazePAM (KLONOPIN) 0.5 mg tablet Take 0.125 mg by mouth daily at bedtime. Routine dose. Tues, Thur, Sat, Sun in the evening. This medication is managed and ordered by Psychiatrist, Dr. Salinas. acetaminophen (TYLENOL) 325 mg tablet Take 650 mg by mouth every 6 hours as needed. POLYETHYLENE GLYCOL 3350 (MIRALAX ORAL) Take 17 g by mouth once daily. tuberculin (TUBERSOL) 5 tub. unit /0.1 mL injection 5 Units by INTRADERMAL route one time only. No current facility-administered medications for this visit. ALLERGIES: ALLERGIES Allergen Reactions Flexeril [Cyclobenz* Intolerance Ibuprofen Intolerance Penicillin Swelling PAST MEDICAL HISTORY Diagnosis Date Anxiety Arterial ischemic stroke, vertebrobasilar, thalamic, acute, left ([facility]) 06/01/2020 05/30/2020 sx dizziness and RUE numbness, MRI brain WO: two punctate left thalamic infarcts. CKD (chronic kidney disease) stage 3, GFR 30-59 ml/min ([facility]) COPD (chronic obstructive pulmonary disease) ([facility]) Essential hypertension Hyperlipidemia Recurrent major depression in partial remission ([facility]) 06/09/2016 PAST SURGICAL HISTORY Procedure Laterality Date BREAST LUMPECTOMY HX Left 1987 TEAEC W/PATCH GRF CAROTID VERTB SUBCLAV NECK INC Right 01/27/2017 FAMILY HISTORY Problem Relation Age of Onset Breast Cancer Mother Social History Tobacco Use Smoking status: Never Smokeless tobacco: Never Reviewed current medications, allergies, past medical history, surgical history, family history and social history today. REVIEW OF SYSTEMS All other reviewed and negative other than HPI. VITALS: There were no vitals taken for this visit. Last 4 Encounter Wt Readings: Date: Wt: 12/02/2022 68.5 kg (151 lb) 09/02/2022 68.5 kg (151 lb) 08/31/2021 71.2 kg (157 lb) 02/12/2021 71.7 kg (158 lb) PHYSICAL EXAMINATION: Patient is alert and oriented during visit. Answers appropriately. ASSESSMENT/PLAN: 1. Arterial ischemic stroke, vertebrobasilar, thalamic, acute, left (HCC) - ICD9: 434.91, ICD10: I63.81 (primary diagnosis) - stable. 2. Auditory hallucinations - ICD9: 780.1, ICD10: R44.0 - rule out dementia. Rule out hearing issues. Consider psych. If worsens call. Is on seroquel. - CONSULT TO NEUROLOGY - CBC + DIFF - COMP METABOLIC PANEL - VITAMIN B12 BLOOD - FOLATE SERUM - TSH BLD - VITAMIN B1 (THIAMINE), WHOLE BLOOD 3. Memory loss - ICD9: 780.93, ICD10: R41.3 - as above. - CONSULT TO NEUROLOGY - CBC + DIFF - COMP METABOLIC PANEL - VITAMIN B12 BLOOD - FOLATE SERUM - TSH BLD - VITAMIN B1 (THIAMINE), WHOLE BLOOD 4. Tinnitus, unspecified laterality - ICD9: 388.30, ICD10: H93.19 - CONSULT TO ENT 5. Essential hypertension - ICD9: 401.9, ICD10: I10 - Controlled - CBC + DIFF - COMP METABOLIC PANEL - LIPID PANEL BASIC 6. Age-related osteoporosis without current pathological fracture - ICD9: 733.01, ICD10: M81.0 - VITAMIN D 25 HYDROXY 7. Prediabetes - ICD9: 790.29, ICD10: R73.03 - HGB A1C Benjamin Renee MD RTO in six weeks documented in this encounter [facility] 01-24-2023 Miscellaneous Notes Placed call to [facility]. No answer. Left detailed message on his secure voicemail that patient can stop the med. Advised to call back with any questions or concerns. Ciear Black Can stop [facility] with [facility] calls to ask if dr wants pt to still take [place] 5/325 mg 1 q 6hrs prn pain. Do not see a current rx for this medication in pt's med chart. Red reports if dr wants pt to still take medication a new rx needs to be sent to [facility]. Red reports Dr. Renee wrote original rx?! Please review and advise. Radha White LPN documented in this encounter [facility] 01-14-2023 Miscellaneous Notes Caregiver calling with bp concerns, pt breathing is labored and she is anxious. Caregiver denies any new or worsening symptoms of which a provider is not aware:No transferred to the affiliate line for paging an adoption social worker provider to report. Jeanine Archer LPN documented in this encounter [facility] 12-02-2022 Note HNO ID: [id number] Author: Patrick Qiu PA-C Service: ? Author Type: Physician It Engineer Type: Progress Notes Filed: 12/02/2022 12:41 PM Note Text: 87 year old female with c/o here for routine follow up Always tired, bored. Daughter states she asks her something and she answers completely off. Concerned about hearing. Arterial ischemic stroke, vertebrobasilar, thalamic, acute, left (hcc) (primary encounter diagnosis) Internal carotid artery stenosis, right Essential hypertension Hyperlipidemia, mixed Cardiovascular interval hx: 05/31/2020 echocardiogram [facility]: LV: Normal size and LVSF. RV: Normal RV SF Bilateral atria normal size, bubble study no PFO. Mild tricuspid insufficiency, otherwise no valvular heart disease. 05/30/2020 MRI brain without contrast: 2 punctate infarcts in left thalamus, no acute territorial infarction, mild global brain atrophy and periventricular white matter gliosis 05/30/2020 CTA head/ neck no significant stenosis. 02/28/17 US: Endarterectomy patch at distal : 0.89 cm with homogeneous plaque noted at mid vessel, proximal to patch site. LICA 20-39%, patent vertebral; Subclavian artery: Plaque visualized without evidence of hemodynamically significant stenosis. 01/27/17 LICE 09/27/16 LINDA 60-79% stenosis, LIC 20-39%. Vertebrals without retrograde flow. Following with Dr. Yinka Pena. Current meds: Atorvastatin 40 mg Carvedilol 25mg twice a day Clopidogrel 75 mg daily ASA 81 mg daily Chest pain: No. SOB: Gets out of breath easily. Exercises a couple times a day walking in the facility, does leg strengthening in room over last 6 week. Dyspnea with exertion: No orthopnea: No racing or irregular heartbeats: No palpitations: No syncopal sx: No Leg swelling: No Nausea: No diaphoresis: No Heartburn: No Claudication: No Smoking: No Following Low cholesterol, high fiber diet? Yes If on statin: muscle aches? No If on statin: GI sx or diarrhea? No Additional history none. Component Latest Ref Rng AND Units 10/10/2020 12/30/2020 WBC 3.70 - 11.00 k/uL 5.58 RBC 3.90 - 5.20 m/uL 3.77 (L) Hemoglobin 11.5 - 15.5 g/dL 11.7 Hematocrit 36.0 - 46.0 % 36.5 MCV 80.0 - 100.0 fL 96.8 MCH 26.0 - 34.0 pG 31.0 MCHC 30.5 - 36.0 g/dL 32.1 RDW-CV 11.5 - 15.0 % 13.1 Platelet Count 150 - 400 k/uL 216 MPV 9.0 - 12.7 fL 9.8 Neut% % 67.3 Abs Neut (ANC) 1.45 - 7.50 k/uL 3.75 Lymph% % 21.9 Abs Lymph 1.00 - 4.00 k/uL 1.22 Coamo% % 8.6 Abs Coamo <0.87 k/uL 0.48 Eosin% % 1.8 Abs Eosin <0.46 k/uL 0.10 Baso% % 0.4 Abs Baso <0.11 k/uL <0.03 Nucleated Reds 0 /100 WBC 0.0 Absolute nRBC <0.01 k/uL <0.01 Diff Type Auto Diff Protein, Total 6.3 - 8.0 g/dL 7.1 Albumin 3.9 - 4.9 g/dL 4.3 Calcium 8.5 - 10.2 mg/dL 9.1 Bilirubin, Total 0.2 - 1.3 mg/dL 0.4 Alkaline Phosphatase 34 - 123 U/L 99 AST 13 - 35 U/L 22 Glucose 74 - 99 mg/dL 91 BUN 7 - 21 mg/dL 18 Creatinine 0.58 - 0.96 mg/dL 1.67 (H) Sodium 136 - 144 mmol/L 141 Potassium 3.7 - 5.1 mmol/L 4.2 Chloride 97 - 105 mmol/L 100 CO2 22 - 30 mmol/L 29 Anion Gap 9 - 18 mmol/L 12 ALT 7 - 38 U/L 16 eGFR- 35 eGFR-All Other Races . 29 Cholesterol, Total <200 mg/dL 144 Triglyceride <150 mg/dL 132 HDL Cholesterol >39 mg/dL 65 LDL Cholesterol <100 mg/dL 53 Non HDL Cholesterol <130 mg/dL 79 Fasting Time hrs 12 VLDL Cholesterol <30 mg/dL 26 TC:HDL Ratio <5.10 2.22 LDL:HDL Ratio <2.54 0.82 Last 14 BP Last 14 Encounter BP Readings: Date: BP: 12/02/2022 144/82 09/02/2022 142/60 08/31/2021 183/89 02/12/2021 142/84 12/18/2020 162/82 11/13/2020 120/68 07/01/2020 122/82 04/07/2020 140/92 03/31/2020 170/82 09/21/2019 118/68 05/11/2019 130/80 11/06/2018 134/88 08/07/2018 138/74 05/08/2018 136/72 Chronic obstructive pulmonary disease, unspecified copd type (hcc) No current medications. Occasional cough. No wheezing. Prediabetes Hemoglobin A1C (%) Date Value 12/30/2020 6.1 05/11/2019 5.7 ) Chronic renal failure, stage 4 (severe) (hcc) CMP Latest Ref Rng AND Units 05/11/2019 10/10/2020 12/30/2020 SODIUM 136 - 144 mmol/L 138 141 140 POTASSIUM 3.7 - 5.1 mmol/L 4.6 4.2 4.2 CHLORIDE 97 - 105 mmol/L 98 100 100 CO2 22 - 30 mmol/L 30 29 29 GLUCOSE 74 - 99 mg/dL 86 91 93 BUN 7 - 21 mg/dL 16 18 19 CREATININE 0.58 - 0.96 mg/dL 1.58(H) 1.67(H) 1.55(H) EGFR-ALL OTHER RACES . 31 29 32 EGFR- - 38 35 39 PROTEIN, TOTAL 6.3 - 8.0 g/dL 7.0 7.1 - ALBUMIN 3.9 - 4.9 g/dL 4.3 4.3 - CALCIUM, TOTAL 8.5 - 10.2 mg/dL 9.4 9.1 9.1 BILIRUBIN, TOTAL 0.2 - 1.3 mg/dL <0.2(L) 0.4 - AST 13 - 35 U/L 26 22 - ALT 7 - 38 U/L 11 16 - ALKALINE PHOSPHATASE 34 - 123 U/L 71 99 - Hiatal Hernia Oropharyngeal dysphagia Current medication: Famotidine 20mg daily AC Maalox 30 mL as needed Current symptoms: gets upset stomach but related to stress or emotional upset. . Last Mg level if on PPI chronically: n/a. Heartburn is controlled (more content not included)... [facility] [place] 09-09-2022 Miscellaneous Notes Patient has been identified by name and date of : Yes Requested Prescriptions Pending Prescriptions Disp Refills venlafaxine ER (EFFEXOR XR) 150 mg 24 hr capsule 30 capsule 5 Sig: Take 1 capsule by mouth once daily. RX INSTRUCTIONS: Requested per Hector Louis. Bobbi New LPN documented in this encounter [facility] 09-02-2022 Instructions M Beto Qiu PA-C - 09/02/2022 10:17 AM EST Please check carvedilol (Coreg) dosage and prescriber and let me know what the bottle says. documented in this encounter [facility] 09-02-2022 History of Presen t illness Narrative 86 year old female with c/o daughter's concern with loss of balance and falls. Twice missed step and tumbled forward. Last episode was in kitchen, turning in daughter's kitchen and lost balance, hit kitchen table with a little soreness in posterior lower rib from contact. Patient identifies usually occurs when turning and stepping. Has pain with L> R hip, states she has known severe arthritis but I can find no record. Doesn't want to consider surgery Essential hypertension (primary encounter diagnosis) Current meds: Lisinopril 5mg daily Carvedilol 25mg twice a day continued rx per Dr. Verdugo, last OV 09/13/2017 Patient is compliant with meds No Monitors bp at home: no If yes, readings: Denies side effects: Yes. Chest pain: Yes. Had sharp pain under left breast brief. Dyspnea: some with activity but no change. . Edema: No. Palpitations: No. Syncope: No. Headache: No. Dizziness: No. Last 3 Encounter BP Readings: Date: BP: 09/02/2022 142/60 08/31/2021 183/89 02/12/2021 142/84 Last 2 Encounter Wt Readings: Date: Wt: 09/02/2022 68.5 kg (151 lb) 08/31/2021 71.2 kg (157 lb) Hyperlipidemia, mixed Current medication Atorvastatin 40mg daily BOLAÑOS Taking medication consistently Yes Observing low cholesterol high fiber diet No Muscle aches No Stomach complaints/ diarrhea No Last 2 Lipids: Component Latest Ref Rng & Units 11/06/2018 10/10/2020 Cholesterol, Total <200 mg/dL 144 Triglyceride <150 mg/dL 132 HDL Cholesterol >39 mg/dL 65 LDL Cholesterol <100 mg/dL 53 Non HDL Cholesterol <130 mg/dL 79 Fasting Time hrs 12 VLDL Cholesterol <30 mg/dL 26 TC:HDL Ratio <5.10 2.22 LDL:HDL Ratio <2.54 0.82 Total Cholesterol, Nonfasting <200 mg/dL 187 Triglycerides, Nonfasting <150 mg/dL 200 (H) HDL Cholesterol, Nonfasting >39 mg/dL 74 LDL Cholesterol, Nonfasting <100 mg/dL 73 Non HDL Cholesterol, Nonfasting <130 mg/dL 113 VLDL Cholesterol, Nonfasting <30 mg/dL 40 (H) Total Chol/HDL Ratio, Nonfasting <5.10 mg/dL 2.53 LDL/HDL Ratio, Nonfasting <2.54 mg/dL 0.99 Arterial ischemic stroke, vertebrobasilar, thalamic, acute, left (hcc) Internal carotid artery stenosis, right 05/30/2020 MRI brain without contrast: 2 punctate infarcts in left thalamus, no acute territorial infarction, mild global brain atrophy and periventricular white matter gliosis 05/30/2020 sx dizziness and RUE numbness, MRI brain WO: two punctate left thalamic infarcts. Pending coag tests. 05/30/2020 CTA head/ neck no significant stenosis. 02/28/17 US: Endarterectomy patch at distal : 0.89 cm with homogeneous plaque noted at mid vessel, proximal to patch site. LICA 20-39%, patent vertebral; Subclavian artery: Plaque visualized without evidence of hemodynamically significant stenosis. 01/27/17 LICE 09/27/16 LINDA 60-79% stenosis, LIC 20-39%. Vertebrals without retrograde flow. Following with Dr. Yinka Pena. Current medications: Clopidogrel 75mg daily ASA 81mg EC daily Chronic renal failure, stage 4 (severe) (hcc) Component Latest Ref Rng & Units 11/06/2018 05/11/2019 12/30/2020 Protein, Total 6.3 - 8.0 g/dL 7.0 Albumin 3.9 - 4.9 g/dL 4.1 4.3 Calcium 8.5 - 10.2 mg/dL 9.0 9.4 9.1 Bilirubin, Total 0.2 - 1.3 mg/dL <0.2 (L) Alkaline Phosphatase 34 - 123 U/L 71 AST 13 - 35 U/L 26 Glucose 74 - 99 mg/dL 78 86 93 BUN 7 - 21 mg/dL 14 16 19 Creatinine 0.58 - 0.96 mg/dL 1.51 (H) 1.58 (H) 1.55 (H) Sodium 136 - 144 mmol/L 137 138 140 Potassium 3.7 - 5.1 mmol/L 4.4 4.6 4.2 Chloride 97 - 105 mmol/L 96 (L) 98 100 CO2 22 - 30 mmol/L 28 30 29 Anion Gap 9 - 18 mmol/L 13 10 11 ALT 7 - 38 U/L 11 eGFR- 40 38 39 eGFR-All Other Races . 33 31 32 Phosphorus 2.7 - 4.8 mg/dL 3.0 Prediabetes Hemoglobin A1C (%) Date Value 12/30/2020 6.1 05/11/2019 5.7 ) Recurrent major depression in partial remission (hcc) Psychiatrist Dr. Salinas Current medications: Venlafaxine 150mg ER Quetiapine 100mg daily Klonopin 0.5m.125mg daily Stable symptom maria per patient and daughter. Chronic obstructive pulmonary disease, unspecified copd type (hcc) No medications No overt sx with chronic cough. Winded with exercise at times. 06/14/2022 CXR [facility] showed a 2.6 x 3.4cm nodule medial aspect right lun07/09/2022 CT chest WO: 2 mm right upper lobe nodule (6, 72). 4 mm right medial upper lobe triangular subpleural nodule (6, 72). 5-6 mm right lower lobe pulmonary nodule (6, 124). Subcentimeter calcified left lower lobe granuloma. 4 mm lingular pulmonary nodule (6, 108). Age-related osteoporosis without current pathological fracture 12/01/2020 DXA osteoporosis right hip unchanged, LS spine and LH improved. T- scores: LS 1.135; LH -1.1, LFN -1.9; RH -1.1; RFN -2.8 08/18/2017 -08/20/2020 desonumab 1mg SC q6m. Stopped due to lack of insurance converage 12/08/16 Started Fosamax 12/08/16 DXA study: osteoporosis: T/Z-scores: LS -0.6 SDs /2.1 SDs; LH -1.0/ 1.0; LFN: -2.5 SDs/ -0.2; RH: -1.1 SDs /1.0 SDs; RFN: -2.8 SDs/- 0.5 SDs ( FRAX 10y major 21%, hip 7.6% Oropharyngeal dysphagia No recent issues. Has had episodes dysphagia in past associated with anxiety. No heart burn or reflux. HISTORIES FAMILY HISTORY Problem Relation Age of Onset Breast Cancer Mother PAST MEDICAL HISTORY Diagnosis Date Anxiety Arterial ischemic stroke, vertebrobasilar, thalamic, acute, left (HCC) 06/01/2020 05/30/2020 sx dizziness and RUE numbness, MRI brain WO: two punctate left thalamic infarcts. CKD (chronic kidney disease) stage 3, GFR 30-59 ml/min ([facility]) COPD (chronic obstructive pulmonary disease) ([facility]) Essential hypertension Hyperlipidemia Recurrent major depression in partial remission (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 1 Each 0 lisinopril (ZESTRIL, PRINIVIL) 5 mg tablet Take 1 tablet by mouth once daily. 30 tablet 5 atorvastatin (LIPITOR) 40 mg tablet QUEtiapine (SEROQUEL) 100 mg tablet Take 100 mg by mouth once daily. alendronate (FOSAMAX) 70 mg tablet Take 1 tablet by mouth one time a week. Take with a full glass of water, on an empty stomach; do NOT lie down for 30minutes. 12 tablet 3 cyanocobalamin (VITAMIN B-12) 1,000 mcg tab Take 1,000 mcg by mouth once daily. magnesium hydroxide (MILK OF MAGNESIA ORAL) Take 30 mL by mouth as needed. cholecalciferol, Vitamin D3, (VITAMIN D3) 50,000 unit cap capsule Take 1 capsule by mouth once each week. 12 capsule 3 carvedilol (COREG) 12.5 mg tablet Take 1 tablet by mouth twice daily. (Patient taking differently: Take 25 mg by mouth twice daily. ) 60 tablet 3 venlafaxine ER (EFFEXOR XR) 150 mg 24 hr capsule Take 1 capsule by mouth once daily. 90 capsule 3 clopidogrel (PLAVIX) 75 mg tablet Take 1 tablet by mouth once daily. 30 tablet 11 aluminum-magnesium hydroxide-simethicone (MAALOX,MYLANTA,MAG-AL PLUS) 200-200-20 mg/5 mL suspension Take 30 mL by mouth every 4 hours as needed. for Gi distress guaiFENesin (ROBITUSSIN) 100 mg/5 mL syrup Take 10 mL by mouth every 4 hours as needed. for cough and congestion aspirin, enteric coated (ASPIRIN, ENTERIC COATED) 81 mg EC tablet GIVE 1 TABLET BY MOUTH ONCE DAILY 30 tablet 2 clonazePAM (KLONOPIN) 0.5 mg tablet Take 0.25 mg by mouth twice daily as needed. Routine dose.Also 0.5 mg Mon, Wed, Fri in the evening. This medication is managed and ordered by Psychiatrist, Dr. Salinas. acetaminophen (TYLENOL) 325 mg tablet Take 650 mg by mouth every 6 hours as needed. POLYETHYLENE GLYCOL 3350 (MIRALAX ORAL) Take 17 g by mouth once daily. tuberculin (TUBERSOL) 5 tub. unit /0.1 mL injection 5 Units by INTRADERMAL route one time only. No current facility-administered medications for this visit. COVID-19 VACCINE(1) Never done PNEUMOCOCCAL: 65+(1 - PCV) Never done SPIROMETRY Never done SHINGRIX VACCINE(1 of 2) Never done INFLUENZA(1) due on 04/22/2022 ADVANCE DIRECTIVE DISCUSSION Never done EXAM: BP 142/60 Pulse 83 Resp 18 Wt 68.5 kg (151 lb) SpO2 95% BMI 30.50 kg/m Pleasant overweight older adult woman in no acute distress. Alert and oriented all spheres. Normal affect and cognition. Speech normal. No deficits to learning or comprehension. Skin warm, dry, pink to lips and nailbeds. Normal turgor. Respirations regular and unlabored. HEENT: NCAT. No scleral icterus or conjunctival injection. TM's clear. Nose and oropharynx free from injection or lesion. Oral membranes moist and pink. No cervical lymph nodes. Thyroid non-tender, no masses, or enlargement. Carotids pulses 2+/4+ without bruits. No JVD with HOB at 30 degrees. Chest is normal shape. Lungs are clear to all velázquez with good air exchange through out. HRRR without murmur or gallop. No lifts, heaves, or rubs. Extrem: no clubbing or cyanosis. Edema: none. Extremities are warm and pink with prompt capillary refill. Neuro:Romberg negative, heel to toe in tandem WNL. No pass-pointing . EOMI, vision intact to confrontation. No pronator drift. ASSESSMENT/PLAN: 1. Essential hypertension - ICD9: 401.9, ICD10: I10 (primary diagnosis) - good control - Recommended regular aerobic exercise. - Recommend home blood pressure monitoring, to bring results in on next visit - Goal of BP <130/80 - CBC - COMP METABOLIC PANEL - MAGNESIUM BLD 2. Hyperlipidemia, mixed - ICD9: 272.2, ICD10: E78.2 - good control - Continue current medication. - COMP METABOLIC PANEL - LIPID PANEL BASIC 3. Arterial ischemic stroke, vertebrobasilar, thalamic, acute, left (HCC) - ICD9: 434.91, ICD10: I63.81 No recurrent sx 4. Internal carotid artery stenosis, right - ICD9: 433.10, ICD10: I65.[address] orders to recheck. 5. Chronic renal failure, stage 4 (severe) (HCC) - ICD9: 585.4, ICD10: N18.4 - eGFR: Stable - Counseled on avoiding regular use of NSAIDs, adequate hydration, potential risk of IV dye - ALBUMIN/CREAT RATIO RND UR - URINALYSIS, WITH MICROSCOPIC 6. Prediabetes - ICD9: 790.29, ICD10: R73.03 Follow trends - MAGNESIUM BLD - HGB A1C 7. Recurrent major depression in partial remission (HCC) - ICD9: 296.35, ICD10: F33.41 Stable, managed by psychiatry - CBC - LIPID PANEL BASIC 8. Chronic obstructive pulmonary disease, unspecified COPD type (HCC) - ICD9: 496, ICD10: J44.9 No medications or overt sx. 9. Age-related osteoporosis without current pathological fracture - ICD9: 733.01, ICD10: M81.0 - revisit later this year for BMD: improved on Prolia. - set up for BMD AP Spine and Hip Unilateral - Reviewed the need for Calcium and Vitamin D supplements and weight bearing exercise as tolerated 10. Oropharyngeal dysphagia - ICD9: 787.22, ICD10: R13.12 No current issues, 11. Hiatal hernia - ICD9: 553.3, ICD10: K44.9 No current sx. Patrick Qiu PA-C documented in this encounter [facility] 08-25-2022 Miscellaneous Notes Daughter contacted and updated of orders below. Walker prescription and PT order faxed to [facility] as requested. Natalie Perez RN [facility] Get Medical Advice on 08/20/22 CONSULT TO PHYSICAL THERAPY Please fax order printed an on desk Thanks, Noman Qiu PA-C Daughter is requesting physical therapy order to be faxed to [facility]. . The following approved medication requests have been transmitted electronically. Requested Prescriptions Signed Prescriptions Disp Refills Walker misc 1 Each 0 Si Each once daily. Patrick Qiu PA-C documented in this encounter [facility] 06-29-2022 Miscellaneous Notes Spoke with patients daughterPam who states patients number is wrong. Gave me correct number. Chart updated. Pam is durable POA and took message regarding result. Verbalized understanding. Sent to schedulers for CT. Ciera Black TC to pt, phone rings busy. Eddie Gerard LPN Please advise CXR [facility] showed a 2.6 x 3.4cm nodule medial aspect right lung: recommend CT chest for clarification. Telephone on 06/25/22 CT CHEST WO IVCON Noman Martinez PA-C documented in this encounter [facility] documented as of this encounter (statuses as of 08/26/2022) [address]19-2016 History of Past illness Narrative* Problem Noted Date Resolved Date Undiagnosed cardiac murmurs 06/09/2016 05/0 10/2016 documented as of this encounter (statuses as of 09/06/2022) [address]19-2016 History of Past illness Narrative* Problem Noted Date Resolved Date Undiagnosed cardiac murmurs 06/09/2016 05/0 10/2016 documented as of this encounter (statuses as of 09/08/2022) [address]19-2016 History of Past illness Narrative* Problem Noted Date Resolved Date Undiagnosed cardiac murmurs 06/09/2016 05/0 10/2016 documented as of this encounter (statuses as of 09/09/2022) [facility] History of Past illness Narrative* Problem Noted Date Resolved Date Undiagnosed cardiac murmurs 06/09/2016/0 10/2016 documented as of this encounter (statuses as of 01/15/2023) [facility] History of Past illness Narrative* Problem Noted Date Resolved Date Undiagnosed cardiac murmurs 06/09/2016/0 10/2016 documented as of this encounter (statuses as of 01/25/2023) [address]19-2016 History of Past illness Narrative* Problem Noted Date Resolved Date Undiagnosed cardiac murmurs 06/09/2016 05/0 10/2016 documented as of this encounter (statuses as of 02/04/2023) [address]19-2016 History of Past illness Narrative* Problem Noted Date Diagnosed Date Resolved Date Undiagnosed cardiac murmurs 06/09/2016 12/22/2016 documented as of this encounter (statuses as of 03/01/2023) [address]19-2016 History of Past illness Narrative* Problem Noted Date Diagnosed Date Resolved Date UNDIAGNOSED CARDIAC MURMURS 06/09/2016 12/22/2016 documented as of this encounter (statuses as of 05/12/2023) [facility] History of Past illness Narrative* Problem Noted Date Diagnosed Date Resolved Date Undiagnosed cardiac murmurs 06/09/2016 12/22/2016 documented as of this encounter (statuses as of 05/13/2023) [facility] History of Past illness Narrative* Problem Noted Date Diagnosed Date Resolved Date Undiagnosed cardiac murmurs 06/09/2016 12/22/2016 documented as of this encounter (statuses as of 10/10/2023) [facility] Diagnosis Imbalance- Primary Abnormality of gait Gait instability Abnormality of gait [facility] Diagnosis Essential hypertension- Primary Unspecified essential hypertension Hyperlipidemia, mixed Mixed hyperlipidemia Arterial ischemic stroke, vertebrobasilar, thalamic, acute, left (HCC) Internal carotid artery stenosis, right Chronic renal failure, stage 4 (severe) (HCC) Prediabetes Other abnormal glucose Recurrent major depression in partial remission (HCC) Major depressive disorder, recurrent episode, in partial or unspecified remission Chronic obstructive pulmonary disease, unspecified COPD type (HCC) Age-related osteoporosis without current pathological fracture Senile osteoporosis Oropharyngeal dysphagia Dysphagia, oropharyngeal phase Hiatal hernia Diaphragmatic hernia without mention of obstruction or gangrene [facility] Lung nodules- Primary Other nonspecific abnormal finding of lung field Incidental lung nodule, greater than or equal to 8mm Solitary pulmonary nodule [facility] Diagnosis Arterial ischemic stroke, vertebrobasilar, thalamic, acute, left (HCC)- Primary Auditory hallucinations Hallucinations Memory loss Tinnitus, unspecified laterality Essential hypertension Unspecified essential hypertension Age-related osteoporosis without current pathological fracture Senile osteoporosis Prediabetes Other abnormal glucose [facility] Diagnosis Essential hypertension- Primary Unspecified essential hypertension Chronic renal failure, stage 4 (severe) (HCC) documented in this encounter [facility] Reason for Referral Specialty Diagnoses / Procedures Referred By Flip wray Referred To Contact [facility] Diagnoses Imbalance Gait instability Procedures CONSULT TO PHYSICAL THERAPY PHYSICAL THERAPY EVALUATION HIGH COMPLEX 45 MINS Patrick Qiu PA-C [address] [place] [address] [facility] [place] [address] [place] [address] Referral ID Status Reason Start Date Expiration Date Visits Requested Visits Authorized [id number] Pending Review Auto-Generat ed Referral 08/24/2022 08/24/2023 1 1 Specialty Diagnoses / Procedures Referred By Contac t Referred To Contact CT IMAGING Diagnoses Lung nodules Procedures CT CHEST WO IVCON DIAGNOSTIC COMPUTED TOMOGRAPHY THORAX W/O TERESAT Patrick Qiu PA-C [address] [place] [address] Ct Imaging Referral ID Status Reason Start Date Expiration Date V isits Requested Visits Authorized [id number] Closed Auto-Generate d Referral 06/25/2022 07/25/2023 1 1 Specialty Diagnoses / Procedures Referred By Contac t Referred To Contact Ent - Otolaryngology Diagnoses Tinnitus, unspecified laterality Procedures CONSULT TO ENT OFFICE/OUTPATIENT CARE ONE AT [facility] 60-74 MINUTES Benjamin Renee MD [facility] [place] [address] Referral ID Status Reason Start Date Expiration Date Visits Requested Visits Authorized [id number] Authorized PCP Requested Referral 02/04/2023 02/04/2024 1 1 Specialty Diagnoses / Procedures Referred By Contac t Referred To Contact Neurology Diagnoses Auditory hallucinations Memory loss Procedures CONSULT TO NEUROLOGY OFFICE/OUTPATIENT CARE ONE AT [facility] 60-74 MINUTES Benjamin Renee MD [address] [place] [address] Referral ID Status Reason Start Date Expiration Date Visits Requested Visits Authorized [id number] Authorized PCP Requested Referral 02/04/2023 02/04/2024 1 1 Advance Directives No Advanced Directives Records FoundDocuments on File Type Date Recorded Patient Litigator Expl anation Advance Directive(s) 04/09/2016 12:37 PM Documents on File Type Date Recorded Patient Litigator Expl anation Advance Directive(s) 04/09/2016 12:37 PM Summary Purpose Family History No Family History Records Found Additional Source Comments Source Comments (unrecognize d section and content) In the event this informatio n is protected by the Federal Confidentiality of Alcohol and Drug Abuse Patient Records regulations: The Federal rules restrict any use of the information to criminally investigate or prosecute any alcohol or drug abuse patient.[facility] event this information is protected by the Federal Confidentiality of Alcohol and Drug Abuse Patient Records regulations: The Federal rules restrict any use of the information to criminally investigate or prosecute any alcohol or drug abuse patient.[facility] the event this information is protected by the Federal Confidentiality of Alcohol and Drug Abuse Patient Records regulations: The Federal rules restrict any use of the information to criminally investigate or prosecute any alcohol or drug abuse patient.[facility] event this information is protected by the Federal Confidentiality of Alcohol and Drug Abuse Patient Records regulations: The Federal rules restrict any use of the information to criminally investigate or prosecute any alcohol or drug abuse patient.[facility] event this information is protected by the Federal Confidentiality of Alcohol and Drug Abuse Patient Records regulations: The Federal rules restrict any use of the information to criminally investigate or prosecute any alcohol or drug abuse patient.[facility] the event this information is protected by the Federal Confidentiality of Alcohol and Drug Abuse Patient Records regulations: The Federal rules restrict any use of the information to criminally investigate or prosecute any alcohol or drug abuse patient.[facility]ima[facility] the event this information is protected by the Federal Confidentiality of Alcohol and Drug Abuse Patient Records regulations: The Federal rules restrict any use of the information to criminally investigate or prosecute any alcohol or drug abuse patient.[facility]ima[facility] the event this information is protected by the Federal Confidentiality of Alcohol and Drug Abuse Patient Records regulations: The Federal rules restrict any use of the information to criminally investigate or prosecute any alcohol or drug abuse patient.[facility]ima[facility] the event this information is protected by the Federal Confidentiality of Alcohol and Drug Abuse Patient Records regulations: The Federal rules restrict any use of the information to criminally investigate or prosecute any alcohol or drug abuse patient.[facility]ima[facility] the event this information is protected by the Federal Confidentiality of Alcohol and Drug Abuse Patient Records regulations: The Federal rules restrict any use of the information to criminally investigate or prosecute any alcohol or drug abuse patient.[facility]ima[facility] the event this information is protected by the Federal Confidentiality of Alcohol and Drug Abuse Patient Records regulations: The Federal rules restrict any use of the information to criminally investigate or prosecute any alcohol or drug abuse patient.[facility] Care Teams (unrecognized sec tion and content) Unloader Operator Relationship Specialty Start Date End Date Patrick Qiu PA-C [address] [place] [address] PCP - General Family Medicine 12/22/16 Unloader Operator Relationship Specialty Start Date End Date Patrick Qiu PA-C [address] [place] [address] PCP - General Family Medicine 12/22/16 Unloader Operator Relationship Specialty Start Date End Date Patrick Qiu PA-C [address] [place] [address] PCP - General Family Medicine 12/22/16 Unloader Operator Relationship Specialty Start Date End Date Patrick Qiu PA-C [address] [place] [address] PCP - General Family Medicine 12/22/16 Unloader 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 Relationship Specialty Start Date End Date Patrick Qiu PA-C [address] [place] [address] PCP - General Family Medicine 12/22/16 Unloader Operator Relationship Specialty Start Date End Date Patrick Qiu PA-C [address] [place] [address] PCP - General Family Medicine 12/22/16 Unloader Operator Relationship Specialty Start Date End Date Patrick Qiu PA-C [address] [place] [address] PCP - General Family Medicine 12/22/16 Unloader Operator Relationship Specialty Start Date End Date Taj Sifuentes MD [address] [place] [phone] PCP - General Family Medicine 02/27/16 03/22/16 Ivania Dennison DO [address] [place] [phone] PCP - General Family Medicine 03/23/16 12/21/16 Patrick Qiu PA-C [address] [place] [address] PCP - General Family Medicine 12/22/16 Unloader Operator Relationship Specialty Start Date End Date Patrick Qiu PA-C [address] [place] [address] PCP - General Family Medicine 12/22/16 Reason for Visit (unrecogniz ed section and content) Reason Comments Results Reason Onset Date Comments Refill Request 09/09/2022 Reason Onset Date Comments Blood Pressure 01/14/2023 Reason Comments Medication Question Reason Comments Acute Visit Reason Comments Patient Update Reason Comments Follow Up 4 week INFORMATION SOURCE (unrecogn ized section and content) FOR RECORDS PERTAINING TO PATIENTS WHO ARE OR HAVE BEEN ENROLLED IN A CHEMICAL DEPENDENCY/SUBSTANCEABUSE PROGRAM, SOME INFORMATION MAY BE OMITTED. This clinical summary was aggregated from multiple sources. Caution should be exercised in using it in the provision of clinical care. This summary normalizes information from multiple sources, and as a consequence, information in this document may materially change the coding, format and clinical context of patient data. In addition, data may be omitted in some cases. CLINICAL DECISIONS SHOULD BE BASED ON THE PRIMARY CLINICAL RECORDS. [employer] provides no warranty or guarantee of the accuracy or completeness of information in this document.
[2023-10-28 08:06] LABS: Color, Urine Yellow (Yellow); Glucose, Dipstick Normal (Normal); Ketone-Dipstick 5 mg/dl (Negative); Leukocyte Esterase-Dipstick 25 /ul (Negative); Nitrite-Dipstick Negative (Negative); Occult Blood-Urine Negative /ul (Negative); Protein-Dipstick 15 mg/dl (Negative); Specific Gravity, Urine 1.015 (1.002-1.030); Urine Bilirubin Dipstick Negative (Negative); Urine Clarity Sl. Cloudy (Clear); Urine Urobilinogen Normal (Normal)
[2023-10-28 08:47] LABS: Squamous Epithelial Cells - UA 0-5 SEEN /hpf (5-10); White Blood Cells 0-5 SEEN /hpf (0-5)
== END ==
LOC: OLS.SWAL 18:00
PROVIDERS: PCP Family Medicine; Visit Provider Registered Nurse
DX: N39.0 Urinary tract infection, site not specified (principal)
CPT/HCPCS: 81001; 87086; 87088

== ENCOUNTER 2023-10-31 12:31 | Emergency (ER) | payer MEDICARE, MEDICAID, SELFPAY ==
[2023-10-31 12:33] VITALS: BP 166/91; PULSE 61; RESP 16; TEMP 36.1; O2SAT 92; BMI 21.7
[2023-10-31 12:45] VITALS: BP 166/89; PULSE 78; RESP 16; O2SAT 99
--- NOTE | 2023-10-31 13:20 | EX.ED.VIS.PS ---
HPI <MARILEE Holt - Last Filed: 10/31/23 16:49> HPI - Psych History of Present Illness Chief Complaint: Mental Health Narrative Narrative: Patient presenting today due to hallucinations that patient has had since over the weekend. She is presenting from [facility]. They report that patient has been paranoid that there is 2 people that are trying to kill her. Patient has told the staff that she can see them waiting outside in the car. Patient has also been complaining of seeing spiders on the bed that are not there. Patient did tell her daughter about this who became concerned and wanted her to be evaluated to have her, psych meds adjusted. The nursing facility did try to get a hold of her PCP but were unsuccessful, prompting them to bring her here for evaluation. Patient denies any fevers, chills, recent illness, SI, HI. PFSH <MARILEE Holt - Last Filed: 10/31/23 16:49> PFS Medical History Anxiety CKD (chronic kidney disease) COPD (chronic obstructive pulmonary disease) Hyperlipemia Hypertension Major depressive disorder with psychotic features Home Medications acetaminophen 325 mg capsule 2 tab PO Q4H PRN Pain 1-10 Or Fever 05/30/20 [History Last Taken Unknown] aluminum-mag hydroxide-simethicone 400 mg-400 mg-40 mg/5 mL oral susp 30 ml PO Q4H PRN GI DISTRESS 05/30/20 [History Last Taken Unknown] aspirin 81 mg chewable tablet 81 mg PO DAILY@0800 heart health 05/30/20 [History Last Taken Unknown] carvedilol 25 mg tablet 25 mg PO BID blood pressure 05/30/20 [History Last Taken Unknown] clopidogrel 75 mg tablet 75 mg PO DAILY anti platelet 05/30/20 [History Last Taken Unknown] cyanocobalamin (vitamin B-12) 1,000 mcg tablet 1,000 mcg PO DAILY vitamin 05/30/20 [History Last Taken Unknown] famotidine 20 mg tablet 20 mg PO BID reflux 05/30/20 [History Last Taken Unknown] guaifenesin 100 mg/5 mL oral liquid 10 ml PO Q4H PRN PRN Cough 05/30/20 [History Last Taken Unknown] magnesium hydroxide 400 mg/5 mL oral suspension 30 ml PO DAILY PRN PRN Constipation 05/30/20 [History Last Taken Unknown] peg [id number] 1 %-0.2 %-0.2 % eye drops 1 drp EACH EYE PRN PRN Dry Eyes 05/30/20 [History Last Taken Unknown] polyethylene glycol 3350 17 gram oral powder packet 17 gm PO QHS 05/30/20 [History Last Taken Unknown] promethazine 25 mg tablet 25 mg PO Q6H PRN Nausea 05/30/20 [History Last Taken Unknown] quetiapine 100 mg tablet 100 mg PO QHS sleep 05/30/20 [History Last Taken Unknown] venlafaxine 150 mg capsule,extended release 24 hr 150 mg PO DAILY mental health 05/30/20 [History Last Taken Unknown] atorvastatin 40 mg tablet 40 mg PO QHS cholesterol #30 tabs 05/31/20 [Rx Last Taken Unknown] alendronate 70 mg tablet 70 mg PO QWEEK bone health 06/14/22 [History Last Taken Unknown] cholecalciferol (vitamin D3) 50 mcg (2,000 unit) capsule (Vitamin D3) 50 mcg PO DAILY vitamin 06/14/22 [History Last Taken Unknown] lisinopril 5 mg tablet 5 mg PO DAILY blood pressure 06/14/22 [History Last Taken Unknown] sulfamethoxazole 800 mg-trimethoprim 160 mg tablet (Bactrim DS) 1 tab PO BID 7 days #13 tabs 10/31/23 [Rx Last Taken Unknown] Allergy/AdvReac Type Severity Reaction Status Date / Time ibuprofen Allergy Unknown Verified 10/31/23 12:33 Penicillins Allergy Swelling Verified 10/31/23 12:33 cyclobenzaprine AdvReac Other Verified 10/31/23 12:33 [From Flexeril] Social History Smoking Status: Unknown if ever smoked substance use type: does not use ROS <MARILEE Holt - Last Filed: 10/31/23 16:49> ROS ED Constitutional Constitutional ED: Denies chills or fever(s) Cardiovascular Cardiovascular: Denies chest pain Respiratory/Chest Respiratory/Chest: Denies cough or dyspnea Gastrointestinal Gastrointestinal: Denies abdominal pain, nausea or vomiting Genitourinary Genitourinary ED: Denies dysuria, hematuria or urinary frequency Musculoskeletal Musculoskeletal: Denies arthralgias or myalgias Integumentary Denies rash Neurologic Neurologic: Denies confusion or weakness Psychiatric Psychiatric: Reports hallucinations and paranoia; Denies anxiety, depression, suicidal ideation or suicidal thoughts EXAM <MARILEE Holt - Last Filed: 10/31/23 16:49> Physical Exam Const Vital Signs: 10/31/23 12:33 10/31/23 12:45 10/31/23 14:45 Temperature 97.0 F L Temperature Source Temporal Pulse Rate 61 78 80 Respiratory Rate 16 16 16 Blood Pressure 166/91 H 166/89 H 171/90 H Blood Pressure Mean 116 114 117 Pulse Ox 92 99 98 Oxygen Delivery Method Room Air 10/31/23 16:30 Temperature 97.6 F L Temperature Source Pulse Rate 79 Respiratory Rate 16 Blood Pressure 166/90 H Blood Pressure Mean 115 Pulse Ox 99 Oxygen Delivery Method Positive well nourished, well developed and no apparent distress General Appearance ED: well developed HEENT Reports normocephalic and head/scalp atraumatic Mouth ED: Yes moist mucous membranes normal Eyes PERRL and EOMs intact bilaterally Neck full ROM and supple Chest Wall inspection of chest normal Resp normal respiratory effort and clear to auscultation bilaterally Cardio regular rate and regular rhythm GI soft to palpation, non-tender, non-distended and no masses Back/Spine normal ROM and normal to inspection Extremity normal to inspection and full ROM Neuro oriented x3, CN's II-XII intact bilaterally, moves all extremities, no focal motor deficits and no sensory deficits noted Sensorium / Orientation: awake and alert Psych mental status grossly normal, thought process normal, cooperative, affect normal and speech normal Appearance: grossly normal Attitude: calm Thought Process: normal thought process Skin no rashes or lesions noted and no wounds <Dr. Katharina Read DO - Last Filed: 11/02/23 12:37> Physical Exam Const Vital Signs: 10/31/23 12:33 10/31/23 12:45 10/31/23 14:45 Temperature 97.0 F L Temperature Source Temporal Pulse Rate 61 78 80 Respiratory Rate 16 16 16 Blood Pressure 166/91 H 166/89 H 171/90 H Blood Pressure Mean 116 114 117 Pulse Ox 92 99 98 Oxygen Delivery Method Room Air 10/31/23 16:30 Temperature 97.6 F L Temperature Source Pulse Rate 79 Respiratory Rate 16 Blood Pressure 166/90 H Blood Pressure Mean 115 Pulse Ox 99 Oxygen Delivery Method MDM <MARILEE Holt - Last Filed: 10/31/23 16:49> [facility] Narrative Medical decision making narrative: Patient presenting today due to concerns for delirium. She was telling her daughter that she was seeing bugs in her room that were not there and thought that people outside were trying to harm her. She is alert and oriented x 4, well-appearing, and in no acute distress. She does not appear confused. Labs will be obtained to rule out leukocytosis, anemia, electrolyte abnormality, NÉSTOR, and UTI. CT of the head will be obtained to rule out intracranial abnormality. She does have a UTI, culture will be obtained. 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 Given the CT findings, I did offer admission to the hospital for further workup to include an MRI of the head. Patient does not want to be admitted and prefers to be discharged home, she would rather follow-up with her PCP as an outpatient. I did try to get ahold of her POA, her daughter Pam but she just had surgery performed today and is unable to answer the phone. I did speak to her other daughter, Supriya who reports that it is best if we send her mom home and have her follow-up with her PCP to have this worked up as an outpatient. I do think that this is a reasonable plan. She will be started on Bactrim for the UTI and will be discharged in stable condition. She is comfortable with plan. Lab Data Attestation: I reviewed the patient's lab results. Labs: Laboratory Results - last 24 hr 10/31/23 10/31/23 13:25 13:55 WBC 5.0 RBC 3.53 L Hgb 10.5 L Hct 32.5 L MCV 92.1 MCH 29.7 MCHC 32.3 RDW Std Deviation 44.0 H RDW Coeff of Jessica 13.2 Plt Count 185 MPV 10.2 Immature Gran % (Auto) 0.400 Neut % (Auto) 66.0 Lymph % (Auto) 19.9 Harnett % (Auto) 10.9 H Eos % (Auto) 2.4 Baso % (Auto) 0.4 Absolute Neuts (auto) 3.3 Absolute Lymphs (auto) 1.00 Nucleated RBC % 0 Sodium 138 Potassium 3.6 Chloride 102 Carbon Dioxide 33.0 H Anion Gap 3 L BUN 14 Creatinine 1.50 H Estim Creat Clear Calc 28.14 Est GFR (MDRD) Af Amer 42 L Est GFR (MDRD) Non-Af 35 L BUN/Creatinine Ratio 9.3 L Glucose 104 Calcium 8.8 Urine Color Yellow Urine Clarity Sl. Cloudy Urine pH 7.0 Ur Specific Paisley 1.005 Urine Protein 15 H Urine Glucose (UA) Normal Urine Ketones Negative Urine Occult Blood Negative Urine Nitrite Negative Urine Bilirubin Negative Urine Urobilinogen Normal Ur Leukocyte Esterase 500 H Urine RBC 0 SEEN Urine WBC 25-50 SEEN Ur Squamous Epith Cells 0-5 SEEN Urine Bacteria 1+ Urine Mucus 0 SEEN Radiography X-Ray: Read by ED Physician Diagnostic Testing: Clinical Impression(s) from Imaging Studies Brain CT 10/31/23 13:33 IMPRESSION: Tiny lacuna is seen in the posterior medial aspect of the left thalamus. Age cannot be determined on a single examination. Electronically Signed: Franklin Marquez MD at 14:21 EDT , Chest X-Ray 10/31/23 14:08 IMPRESSION: Hyperinflation. The lungs are clear. Electronically Signed: Franklin Marquez MD at 14:22 EDT , <Dr. Katharina Read, DO - Last Filed: 11/02/23 12:37> [facility] Lab Data Labs: Laboratory Results - last 24 hr 10/31/23 10/31/23 13:25 13:55 WBC 5.0 RBC 3.53 L Hgb 10.5 L Hct 32.5 L MCV 92.1 MCH 29.7 MCHC 32.3 RDW Std Deviation 44.0 H RDW Coeff of Jessica 13.2 Plt Count 185 MPV 10.2 Immature Gran % (Auto) 0.400 Neut % (Auto) 66.0 Lymph % (Auto) 19.9 Harnett % (Auto) 10.9 H Eos % (Auto) 2.4 Baso % (Auto) 0.4 Absolute Neuts (auto) 3.3 Absolute Lymphs (auto) 1.00 Nucleated RBC % 0 Sodium 138 Potassium 3.6 Chloride 102 Carbon Dioxide 33.0 H Anion Gap 3 L BUN 14 Creatinine 1.50 H Estim Creat Clear Calc 28.14 Est GFR (MDRD) Af Amer 42 L Est GFR (MDRD) Non-Af 35 L BUN/Creatinine Ratio 9.3 L Glucose 104 Calcium 8.8 Urine Color Yellow Urine Clarity Sl. Cloudy Urine pH 7.0 Ur Specific Paisley 1.005 Urine Protein 15 H Urine Glucose (UA) Normal Urine Ketones Negative Urine Occult Blood Negative Urine Nitrite Negative Urine Bilirubin Negative Urine Urobilinogen Normal Ur Leukocyte Esterase 500 H Urine RBC 0 SEEN Urine WBC 25-50 SEEN Ur Squamous Epith Cells 0-5 SEEN Urine Bacteria 1+ Urine Mucus 0 SEEN Radiography Diagnostic Testing: Clinical Impression(s) from Imaging Studies Brain CT 10/31/23 13:33 IMPRESSION: Tiny lacuna is seen in the posterior medial aspect of the left thalamus. Age cannot be determined on a single examination. Electronically Signed: Franklin Marquez MD at 14:21 EDT , Chest X-Ray 10/31/23 14:08 IMPRESSION: Hyperinflation. The lungs are clear. Electronically Signed: Franklin Marquez MD at 14:22 EDT , Treatment and Re-Evaluation Narrative: I have personally performed a face to face assessment of the patient and have reviewed the ZOË Note. I performed a substantive portion of the visit including all aspects of the following. My kearns findings include: History is patient 87-year-old female presenting with couple days of intermittent visual hallucinations. She had waxing waning symptoms. Sounds more like delirium as she has had intermittent paranoia and seeing bugs under her bed. However, patient recalls these episodes. Patient is currently acting appropriately with no audio or visual hallucinations. Has no physical complaints at this time. On exam patient is well-appearing sitting in bed, no acute distress. She is acting appropriately. ANO x 4 with no focal neurologic deficits appreciated. Medical workup looking for infection or other acute abnormalities to explain her symptoms is obtained. CBC and BMP largely unremarkable. Creatinine is mildly elevated at 1.5 but this appears to be patient's baseline. Clinically she does not appear dehydrated. Urinalysis is concerning for infection with 500 leukocyte esterase, 25-50 white blood cells and 1+ bacteria. Will be sent for culture and patient is started on Bactrim (has a penicillin allergy). A CT of the brain does show an age-indeterminate lacunar infarct. I do not think it likely that her symptoms are consistent with an acute infarct however patient is offered admission for further neurologic workup/MRI. Patient states she feels fine and would like to go home. We spoke with one of the patient's daughter who is agreeable to treating her UTI and outpatient follow-up for the CT findings. Given that patient does not have any focal neurologic deficits and appears to be at her baseline I think this is reasonable plan of care. In addition patient is acting appropriately and I think requires Vandana psych evaluation at this time. Patient is [facility] back to [facility]. Other additions or changes: [None] Discharge Plan Triage Chief Complaint: Mental Health ED Midlevel Provider: Lara Jones ED Provider: Katharina Read Dx/Rx/DC Orders Clinical Impression: UTI (urinary tract infection), Acute delirium Instructions: Urinary Tract Infections in Women Prescriptions: New sulfamethoxazole-trimethoprim [Bactrim DS] 800-160 mg tablet 1 tab PO BID 7 Days Qty: 13 0RF No Action carvedilol 25 MG tablet 25 mg PO BID cyanocobalamin (vitamin B-12) 1,000 MCG tablet 1,000 mcg PO DAILY guaifenesin 10 ML liquid 10 ml PO Q4H PRN PRN (Reason: Cough) aspirin 81 MG tablet,chewable 81 mg PO DAILY@0800 alum-mag hydroxide-simeth 355 ML suspension 30 ml PO Q4H PRN (Reason: GI DISTRESS) peg 435-gllffzlptggn-nwfjjiur 1 DROP bottle 1 drp EACH EYE PRN PRN (Reason: Dry Eyes) acetaminophen 325 MG capsule 2 tab PO Q4H PRN (Reason: Pain 1-10 Or Fever) polyethylene glycol 3350 17 GM packet 17 gm PO QHS venlafaxine 150 MG capsule,extended release 24hr 150 mg PO DAILY clopidogrel 75 MG tablet 75 mg PO DAILY quetiapine 100 MG tablet 100 mg PO QHS famotidine 20 MG tablet 20 mg PO BID magnesium hydroxide 30 ML suspension 30 ml PO DAILY PRN PRN (Reason: Constipation) promethazine 25 MG tablet 25 mg PO Q6H PRN (Reason: Nausea) atorvastatin 40 MG tablet 40 mg PO QHS Qty: 30 1RF alendronate 70 mg Tablet 70 mg PO QWEEK lisinopril 5 mg Tablet 5 mg PO DAILY cholecalciferol (vitamin D3) [Vitamin D3] 50 mcg (2,000 unit) Capsule 50 mcg PO DAILY Primary Care Provider: Yonny Renee Referrals: Yonny Renee MD [Primary Care Provider] - 3-5 Days Activity Restrictions/Additional Instructions: The CT scan of your head shows a lacunar infarct, it is unclear how old that is, I would recommend following up with your PCP for an outpatient MRI. Disposition Disposition: Home, Self Care Discharge Date/Time: 10/31/23 18:00
--- NOTE | 2023-10-31 13:33 | CT_ITS ---
STUDY: CT BRAIN WITHOUT CONTRAST REASON FOR EXAM: Female, 87 years old. Confusion, delirium. Hallucinations. RADIATION DOSAGE (If Supplied By Facility): CTDIvol = ( 44.99 ) mGy, DLP = ( 745.49 ) mGycm TECHNIQUE: Transaxial CT imaging of the brain was performed without administration of intravenous contrast material. Individualized dose optimization techniques were used for this CT. COMPARISON: No relevant priors. FINDINGS: Normal soft tissue structures. Normal calvarium. There is mild cerebral atrophy with widening of the extra-axial spaces and ventricular dilatation. There are areas of decreased attenuation within the white matter tracts of the supratentorial brain, consistent with microvascular disease changes. Tiny lacunae seen in the posterior medial aspect of the left thalamus. Normal brainstem. Normal cerebellum. There is no intracranial hemorrhage. There are no findings of an acute ischemic infarction. Atherosclerotic plaque formation of the cavernous portions of the internal carotid arteries bilaterally. Normal visualized paranasal sinuses. CT/Brain/Head without Contrast IMPRESSION: Tiny lacuna is seen in the posterior medial aspect of the left thalamus. Age cannot be determined on a single examination. Electronically Signed: Franklin Marquez MD at 14:21 EDT ,
[2023-10-31 13:39] LABS: Absolute Neutrophil Count 3.3 X10^3/uL (2.0-7.7); Basophil# 0.02 X10^3/uL; Basophil% 0.4 % (0-1); Eosinophil# 0.12 X10^3/uL; Eosinophils% 2.4 % (0-5); Hematocrit 32.5 % (37-47); Hemoglobin 10.5 g/dL (12.0-15.0); Lymphocyte % 19.9 % (19-41); Mean Corp Hgb Conc 32.3 g/dL (32-36); Mean Corpuscular Hgb 29.7 pg (27.0-32.0); Mean Corpuscular Volume 92.1 fL (81-99); Mean Platelet Vol. 10.2 fl (6.2-12.0); Monocyte# 0.55 X10^3/uL; Monocyte% 10.9 % (0-10); NRBC Flagged by Analyzer 0 % (0-5); Neutrophil # 3.32 X10^3/uL (2.7-7.7); POSITIVE COUNT YES; Platelet Count 185 K/mm3 (150-450); RBC Distribution Width CV 13.2 % (11.6-14.6); Red Blood Count 3.53 M/mm3 (4.2-5.4)
[2023-10-31 13:58] LABS: Anion Gap 3 (5-15); BUN 14 mg/dL (7-18); BUN/Creat Ratio 9.3 RATIO (10-20); Calcium,Total 8.8 mg/dL (8.5-10.1); Chloride 102 mmol/L (98-107); EST Glomerular Filtration Rate 35 mL/min (>60); Est Glom Filt Rate - Afr Amer 42 mL/min (>60); Estimated Creatinine Clearance 28.14 ml/min; Glucose 104 mg/dL (74-106); Potassium 3.6 mmol/L (3.5-5.1); Sodium Level 138 mmol/L (136-145)
[2023-10-31 14:03] LABS: Mucous, Urine 0 SEEN /hpf (<or=2+); Red Blood Cells-Urine 0 SEEN /hpf (0-5)
--- NOTE | 2023-10-31 14:08 | RAD_ITS ---
STUDY: X-RAY CHEST REASON FOR EXAM: Female, 87 years old. Confusion TECHNIQUE: PA and lateral views of the chest. COMPARISON: Comparison is made with prior study dated August 01, 2023. FINDINGS: Hyperinflation. The lungs are clear. There is no demonstrated pleural abnormality. Normal size heart. Normal mediastinum and gustavo. Normal visualized pulmonary arteries. There is atherosclerotic calcification of the aortic arch with tortuosity. There are diffuse degenerative changes of the visualized thoracic spine. Healed left rib fractures. There is no demonstrated abnormality of the visualized soft tissue structures of the upper abdomen. RAD/Chest PA and Lateral IMPRESSION: Hyperinflation. The lungs are clear. Electronically Signed: Franklin Marquez MD at 14:22 EDT ,
[2023-10-31 14:10] LABS: Color, Urine Yellow (Yellow); Glucose, Dipstick Normal (Normal); Ketone-Dipstick Negative (Negative); Leukocyte Esterase-Dipstick 500 /ul (Negative); Nitrite-Dipstick Negative (Negative); Occult Blood-Urine Negative /ul (Negative); Protein-Dipstick 15 mg/dl (Negative); Specific Gravity, Urine 1.005 (1.002-1.030); Urine Bilirubin Dipstick Negative (Negative); Urine Clarity Sl. Cloudy (Clear); Urine Urobilinogen Normal (Normal)
[2023-10-31 14:24] LABS: Squamous Epithelial Cells - UA 0-5 SEEN /hpf (5-10); White Blood Cells 25-50 SEEN /hpf (0-5)
[2023-10-31 14:25] LABS: Bacteria 1+ /hpf (None Seen)
[2023-10-31 14:45] VITALS: BP 171/90; PULSE 80; RESP 16; O2SAT 98
--- NOTE | 2023-10-31 15:50 | ED.RN ---
attempted to call amalia curran for report/update.
--- NOTE | 2023-10-31 15:55 | ED.RN ---
attempted to call amalia curran with no answer.
--- NOTE | 2023-10-31 16:10 | ED.RN ---
third attempt tp call amalia curran with no answer
--- NOTE | 2023-10-31 16:19 | ED.RN ---
spoke with director at care center. gave reports/reviewed plan of care. to call fro transport.
[2023-10-31] MEDS: Smz/Tmp Ds Tablet 1 TABLET PO (16:24)
[2023-10-31 16:30] VITALS: BP 166/90; PULSE 79; RESP 16; TEMP 36.4; O2SAT 99
--- NOTE | 2023-10-31 16:41 | ED.RN ---
EUGENIE CALLED, ETA 3 HOURS ([phone])
--- NOTE | 2023-10-31 17:18 | ED.RN ---
pt dressed and ready for dc. updated pt that ride eta 3hrs
--- NOTE | 2023-10-31 17:30 | ED.RN ---
called dietary for dinner tray
--- OUTSIDE RECORDS SUMMARY | 2023-10-31 19:41 | XMS RPT_ITS | CCD ---
Author Name Unknown Address [address] [facility] [address] [place] [address] Organization [facility] Care Team Providers Care Nursing Resident Name Role Phone Patrick Qiu PA-C Primary Care Provider [phone] Taj Sifuentes MD Primary Care Provider [phone] Ivania Dennison DO Primary Care Provider Patrick QIU Referring Unavailable Patrick QIU Primary [...] Translations: [CYCLOBENZAPRINE HCL] Drug Allergy 03-23-2016 Intolerance [facility] (12 sources) Ibuprofen; Translations: [IBUPROFEN] Drug Allergy 03-23-2016 Intolerance [facility] (12 sources) Penicillin; Translations: [PENICILLIN] Drug Allergy 03-23-2016 [facility] Medications Current Medications Medication Drug Class(es) Dates [...] 65.77 kg NA Qiu PA-C Work Phone: [facility] 10-10-2023 13:44-0500 Diastolic blood pressure 66 mm[Hg] NA Qiu PA-C Work Phone: [facility] 10-10-2023 13:44-0500 Heart rate 66 /min NA Qiu PA-C Work Phone: [facility] 10-10-2023 13:44-0500 Respiratory rate 16 /min NA Qiu PA-C Work Phone: [facility] 10-10-2023 13:44-0500 SaO2% (BldA) [Mass fraction] 96 % NA Qiu PA-C Work Phone: [facility] 10-10-2023 13:44-0500 Systolic blood pressure 118 mm[Hg] NA Qiu PA-C Work Phone: [facility] 09-02-2022 09:53-0500 Body weight 68.49 kg NA Qiu PA-C Work Phone: [facility] 09-02-2022 09:53-0500 Diastolic blood pressure 60 mm[Hg] NA Qiu PA-C Work Phone: [facility] 09-02-2022 09:53-0500 Heart rate 83 /min NA Qiu PA-C Work Phone: [facility] 09-02-2022 09:53-0500 Respiratory rate 18 /min NA Qiu PA-C Work Phone: [facility] 09-02-2022 09:53-0500 SaO2% (BldA) [Mass fraction] 95 % NA Qiu PA-C Work Phone: [facility] 09-02-2022 09:53-0500 Systolic blood pressure 142 mm[Hg] NA Qiu PA-C Work Phone: [facility] Encounters Encounter Date Encounter Type Care Provider Facility Start: 10-10-2023 End: 10-10-2023 ambulatory Patrick QIU Facility:[facility] Start: 10-10-2023 End: 10-10-2023 Patient encounter procedure Patrick Qiu PA-C Work Phone: [facility] Procedures Date Procedure Procedure Detail Performing Clinician Start: 08-09-2012 SURGICAL PATHOLOGY, CONVERTED Rigo Preciado MD Work Phone: Start: 07-02-2008 SURGICAL PATHOLOGY, CONVERTED Taj Sifuentes MD Work Phone: Plan of Treatment Date Care Activity Detail Author Start: 04-28-2031 Urine microalbumin profile [facility] Start: 02-09-2026 DIABETES SCREEN DIABETES SCREEN [facility] Start: 02-09-2026 Diabetes Screening Diabetes Screenin g [facility] Start: 10-10-2024 Covid-19 Vaccine (#1) Covid-19 Vacci ne (#1) [facility] Immunizations Immunization Date Immunization Notes Care Provider Fa cility 04-28-2021 tetanus toxoid, redu nabil diphtheria toxoid, and acellular pertussis vaccine, adsorbed NA Qiu PA-C Work Phone: [facility] 06-24-2020 influenza virus vaccine, unspecified formulation Taj Sifuentes MD Work Phone: [facility] 05-11-2019 influenza, high dose seasonal, preservative-free NA Qiu PA-C Work Phone: [facility] 06-07-2018 influenza, injectabl e, quadrivalent, contains preservative NA Qiu PA-C Work Phone: [facility] Work Phone: 05-25-2016 influenza, high dose seasonal, preservative-free NA Qiu PA-C Work Phone: [facility] Payers Date Payer Category Payer Medicaid [facility] MEDICAID MYC ARE [facility] MEDICAID [id number] 2018-Present [phone] [address] [place] [address] Medicaid [id number] 2017 Medicare [id number] 2001 Medicare [id number] Social History Date Type Detail Facility Start: 10-26-2017 End: 09-02-2022 Tobacco smoking status NHIS Never smoked tobacco [facility] Work Phone: Start: 10-26-2017 End: 09-02-2022 Tobacco use and exposure Smokeless tobacco non-user [facility] Work Phone: Start: 08-31-2021 End: 10-10-2023 Alcohol intake Not Asked [facility] Start: 06-09-2020 End: 02-04-2023 History SDOH Social Connections Phone 5 [facility] Start: 06-09-2020 End: 02-04-2023 History SDOH Social Connections Get Together 1 [facility] Start: 06-09-2020 End: 02-04-2023 History SDOH Social Connections Membership 2 [facility] Start: 06-09-2020 End: 02-04-2023 History SDOH Social Connections Living 4 [facility] Start: 06-09-2020 End: 02-04-2023 History SDOH Physical Activity DPW 0 [facility] Start: 1935 Sex Assigned At Not on file [facility] Start: 02-04-2023 History SDOH Stress 3 [facility] Start: 09-06-2022 End: 02-04-2023 History of Social function [facility] Start: 09-06-2022 End: 02-04-2023 Social connection and isolation panel [facility] Do you belong to any clubs or organizations such as caodaism groups, unions, fraternal or athletic groups, or school groups? No [facility] Are you now , , , , never or living with a partner? [facility] How often to you hav e a drink containing alcohol? Never [facility] How many standard dr inks containing alcohol do you have on a typical day? Patient does not drink [facility] Do you feel stress - tense, restless, nervous, or anxious, or unable to sleep at night because your mind is troubled all the time - these days [OSQ] To some extent [facility] (I/We) worried wheth er (my/our) food would run out before (I/we) got money to buy more. Never true [facility] Tobacco smoking stat [facility] Tobacco smoking consumption unknown [facility] Start: 08-08-2021 End: 09-07-2021 Exposure to SARS-CoV-2 (event) Unable to assess [facility] Clinical Notes 06-09-2016 to 10-10-2023 Patrick Qiu PA-C - 10/10/2023 1:51 PM Patrick Velásquez PA-C - 10/10/2023 1:47 PM ESTTelephone Encounter - Ailyn Amador Ma - 02/28/2023 5:20 PM TRESATBenjamin Renee MD - 02/04/2023 9:11 AM EDT Note Date & Type Note Facility 10-10-2023 Note HNO ID: [id number] Author: Patrick QIU PA-C Service: ? Author Type: Physician Sample Mounter Type: Progress Notes Filed: 10/10/2023 18:54 Note Text: 87 year old female with c/o here for 4 week BP recheck since increasing to Lisinopril 30mg BP from [facility] Living show controlled BPs 09/24/2023: 92/68 09/15/2023: [...] No. Syncope: No. Headache: No. Dizziness: Yes. [place] a little unsteady coming in today, unsure-footed [...] Arterial ischemic stroke, vertebrobasilar, thalamic, acute, left ([facility]) 06/01/2020 05/30/2020 sx dizziness and RUE numbness, MRI brain WO: two punctate left thalamic infarcts. CKD (chronic kidney disease) stage 3, GFR 30-59 ml/min ([facility]) COPD (chronic obstructive pulmonary disease) ([facility]) Essential hypertension Hyperlipidemia Recurrent major depression in partial remission ([facility]) 06/09/2016 PAST SURGICAL HISTORY Procedure Laterality Date BREAST LUMPECTOMY HX Left 1987 TEAEC W/PATCH GRF CAROTID VERTB SUBCLAV NECK INC Right 01/27/2017 Social History Tobacco Use Smoking status: Never Smokeless tobacco: Never ACTIVE PROBLEM LIST Recurrent Major Depression in Partial Remission ([facility]) Chronic Renal Failure, Stage 4 (Severe) ([facility]) Internal Carotid Artery Stenosis, Right Osteoporosis Chronic [...] Mayra Irving Sa (more content not included)... [facility] 10-10-2023 Note HNO ID: [id number] Author: Patrick QIU PA-C Service: ? Author Type: Physician Sample Mounter Type: Progress Notes Filed: 10/10/2023 18:54 Note Text: . [facility] 10-10-2023 History of Presen t illness Narrative 87 year old female with c/o here for 4 week BP recheck since increasing to Lisinopril 30mg BP from [facility] show controlled BPs 09/24/2023: 92/68 09/15/2023: 144/70 [...] at home: Yes. If yes, Readings from [facility] without comment: 09/24/2023: 92/68 09/15/2023: 144/70 09/10/2023: 150-76 Denies side effects: No. Chest pain: No. Dyspnea: No, but some SOB coming in today from parking lot to office. Edema: No. Palpitations: No. Syncope: No. Headache: No. Dizziness: Yes. [place] a little unsteady coming in today, unsure-footed [...] LIST Recurrent Major Depression in Partial Remission ([facility]) Chronic Renal Failure, Stage 4 (Severe) ([facility]) Internal Carotid Artery Stenosis, Right Osteoporosis Chronic Midline Low Back Pain With Right-Sided Sciatica Essential Hypertension Hyperlipidemia, Mixed Prediabetes Oropharyngeal Dysphagia Arterial Ischemic Stroke, Vertebrobasilar, Thalamic, Acute, Left ([facility]) Incidental Lung Nodule, Greater Than Or Equal to 8mm Hiatal Hernia Chronic Obstructive Pulmonary Disease ([facility]) Major Depression With Psychotic Features ([facility]) Mild Late Onset Alzheimer's Dementia Without Behavioral Disturbance, Psychotic Disturbance, Mood Disturbance, Or Anxiety ([facility]) Current Outpatient Medications Medication Sig Dispense Refill [...] Qiu PA-C . documented in this encounter [facility] 09-12-2023 Note HNO ID: [id number] Author: Patrick QIU PA-C Service: ? Author Type: Physician Sample Mounter Type: Progress Notes Filed: 09/12/2023 20:48 Note [...] ml/min (HCC) COPD (chronic obstructive pulmonary disease) ([facility]) Essential hypertension Hyperlipidemia Recurrent major depression in partial remission ([facility]CC) 06/09/2016 PAST SURGICAL HISTORY Procedure Laterality Date BREAST LUMPECTOMY HX Left 1987 TEAEC W/PATCH GRF CAROTID VERTB SUBCLAV NECK INC Right 01/27/2017 Social History Tobacco Use Smoking status: Never Smokeless tobacco: Never ACTIVE PROBLEM LIST Recurrent Major Depression in Partial Remission ([facility]) Chronic Renal Failure, Stage 4 (Severe) ([facility]) Internal Carotid Artery Stenosis, Right Osteoporosis Chronic Midline Low Back Pain With Right-Sided Sciatica Essential Hypertension Hyperlipidemia, Mixed Prediabetes Oropharyngeal Dysphagia Arterial Ischemic Stroke, Vertebrobasilar, Thalamic, Acute, Left ([facility]) Incidental Lung Nodule, Greater Than Or Equal to 8mm Hiatal Hernia Chronic Obstructive Pulmonary Disease ([facility]) Major Depression With Psychotic Features ([facility]) Mild Late Onset Alzheimer's Dementia Without Behavioral Disturbance, Psychotic Disturbance, Mood Disturbance, Or Anxiety ([facility]) Current Outpatient Medications Medication Sig Dispense Refill [...] warm, dry, pin (more content not included)... [facility] 08-11-2023 Note HNO ID: [id number] Author: Patrick Qiu PA-C Service: ? Author Type: Physician Sample Mounter Type: Progress Notes Filed: 08/11/2023 9:30 PM Note Text: 87 year old female with c/o Hospital discharge follow-up: Facility: [facility] Date of admission 08/01/2023 Date of discharge 08/02/2023 Discharge diagnoses: 1. TIA acute 2. Major depressive disorder with psychotic features 3. Hypertension, chronic 4. Hyperlipidemia, unspecified 5. Chronic kidney disease 6. COPD Medication reconciliation: Continued: Carvedilol 25 mg p.o. twice daily Cyanocobalamin 1000 mcg daily Guaifenesin 10 mL every 4 hours as needed for cough ASA 81 mg chewable daily Yyma-xml-wgbjsuzk-simeth 355ml susp 30 mL every 4 hours [...] Presents alone in office with son-in-law in [facility]. Doesn't recall hospitalization though when reviewed [...] Essential hypertension Hyperlipidemi (more content not included)... [facility] 02-28-2023 Miscellaneous Notes Orders faxed to [facility] See mychart note to daughter Pam today. I think patient resides at [facility]. I don't see that she was checked for UTI at her last visit with change in mental status with hallucinations both visual and auditory. I would like notes on when the first evidence of auditory or visual hallucinations (bugs) occurred. Please contact [facility] to see if this was checked and if not should have a least a urinalysis and culture. Should also have a CXR to r/o occult pneumonia. Thanks, Noman Qiu PA-C documented in this encounter [facility] 02-04-2023 Note HNO ID: [id number] Author: Benjamin Renee MD Service: ? Author [...] visit. Either the patient or their legal manufacturer representative has been informed of the risks [...] Arterial ischemic stroke, vertebrobasilar, thalamic, acute, left ([facility]) 06/01/2020 05/30/2020 sx dizziness and RUE numbness, MRI brain WO: two punctate left thalamic infarcts. CKD (chronic kidney disease) stage 3, GFR 30-59 ml/min ([facility]) COPD (chronic obstructive pulmonary disease) ([facility]) Essential hypertension Hyperlipidemia Recurrent major depression in partial remission ([facility]) 06/09/2016 PAST SURGICAL HISTORY Procedure Laterality Date [...] (151 lb) 0 (more content not included)... [facility] 02-04-2023 History of Presen t illness Narrative [...] visit. Either the patient or their legal manufacturer representative has been informed of the risks [...] Arterial ischemic stroke, vertebrobasilar, thalamic, acute, left ([facility]) 06/01/2020 05/30/2020 sx dizziness and RUE numbness, MRI brain WO: two punctate left thalamic infarcts. CKD (chronic kidney disease) stage 3, GFR 30-59 ml/min ([facility]) COPD (chronic obstructive pulmonary disease) ([facility]) Essential hypertension Hyperlipidemia Recurrent major depression in partial remission ([facility]) 06/09/2016 PAST SURGICAL HISTORY Procedure Laterality Date [...] in six weeks documented in this encounter [facility] 01-24-2023 Miscellaneous Notes Placed call to Red with [facility]. No answer. Left detailed message on his secure voicemail that patient can stop the med. Advised to call back with any questions or concerns. Ciera Black Can stop Red with H[facility] Louis calls to ask if dr wants pt to still take [place]rose 5/325 mg 1 q 6hrs prn pain. Do not see a current rx for this medication in pt's med chart. Red reports if dr wants pt to still take medication a new rx needs to be sent to [facility]. Red reports Dr. Renee wrote original rx?! Please review and advise. Radha White LPN documented in this encounter [facility] 01-14-2023 Miscellaneous Notes Caregiver calling with bp concerns, pt breathing is labored and she is anxious. Caregiver denies any new or worsening symptoms of which a provider is not aware:No transferred to the affiliate line for paging an infection prevention specialist provider to report. Jeanine Archer LPN documented in this encounter [facility] 12-02-2022 Note HNO ID: [id number] Author: Patrick Qiu PA-C Service: ? Author Type: Physician Sample Mounter Type: Progress Notes Filed: 12/02/2022 12:41 PM [...] Abs Lymph 1.00 - 4.00 k/uL 1.22 Weston% % 8.6 Abs Weston <0.87 k/uL 0.48 Eosin% % 1.8 Abs [...] Heartburn is controlled (more content not included)... [facility] 09-09-2022 Miscellaneous Notes Patient has been identified by name and date of : Yes Requested Prescriptions Pending Prescriptions Disp Refills venlafaxine ER (EFFEXOR XR) 150 mg 24 hr capsule 30 capsule 5 Sig: Take 1 capsule by mouth once daily. RX INSTRUCTIONS: Requested per Hector Louis. Bobbi New LPN documented in this encounter [facility] 09-02-2022 Instructions M Beto Qiu PA-C - 09/02/2022 10:17 AM EST Please check carvedilol (Coreg) dosage and prescriber and let me know what the bottle says. documented in this encounter [facility] 09-02-2022 History of Presen t illness Narrative [...] kidney disease) stage 3, GFR 30-59 ml/min ([facility]) COPD (chronic obstructive pulmonary disease) ([facility]) Essential hypertension Hyperlipidemia Recurrent major depression in partial remission ([facility]) 06/09/2016 PAST SURGICAL HISTORY Procedure Laterality Date BREAST LUMPECTOMY HX Left 1987 TEAEC W/PATCH GRF CAROTID VERTB SUBCLAV NECK INC Right 01/27/2017 Social History Tobacco Use Smoking status: Never Smokeless tobacco: Never ACTIVE PROBLEM LIST Recurrent Major Depression in Partial Remission ([facility]) Chronic Renal Failure, Stage 4 (Severe) ([facility]) Internal Carotid Artery Stenosis, Right Osteoporosis Chronic [...] Patrick Qiu PA-C documented in this encounter [facility] 08-25-2022 Miscellaneous Notes Daughter contacted and updated of orders below. Walker prescription and PT order faxed to [facility] as requested. Natalie Perez RN [facility] Get Medical Advice on 08/20/22 CONSULT TO PHYSICAL THERAPY Please fax order printed an on desk Thanks, Noman Qiu PA-C Daughter is requesting physical therapy order to be faxed to [facility]. . The following approved medication requests have been transmitted electronically. Requested Prescriptions Signed Prescriptions Disp Refills Walker misc 1 Each 0 Si Each once daily. Patrick Qiu PA-C documented in this encounter [facility] 06-29-2022 Miscellaneous Notes Spoke with patients daughterPam who states patients number is wrong. Gave me correct number. Chart updated. Pam is durable POA and took message regarding result. Verbalized understanding. Sent to schedulers for CT. Ciera Black TC to pt, phone rings busy. Edide Gerard LPN Please advise CXR [facility] showed a 2.6 x 3.4cm nodule medial aspect right lung: recommend CT chest for clarification. Telephone on 06/25/22 CT CHEST WO IVCON Noman Martinez PA-C documented in this encounter [facility] documented as of this encounter (statuses as of 08/26/2022) [address]19-2016 History of Past illness Narrative* Problem Noted Date Resolved Date Undiagnosed cardiac murmurs 06/09/2016 05/0 10/2016 documented as of this encounter (statuses as of 09/06/2022) [address]19-2016 History of Past illness Narrative* Problem Noted Date Resolved Date Undiagnosed cardiac murmurs 06/09/2016 05/0 10/2016 documented as of this encounter (statuses as of 09/08/2022) [address]19-2016 History of Past illness Narrative* Problem Noted Date Resolved Date Undiagnosed cardiac murmurs 06/09/2016 05/0 10/2016 documented as of this encounter (statuses as of 09/09/2022) [facility] History of Past illness Narrative* Problem Noted Date Resolved Date Undiagnosed cardiac murmurs 06/09/2016/0 10/2016 documented as of this encounter (statuses as of 01/15/2023) [facility] History of Past illness Narrative* Problem Noted Date Resolved Date Undiagnosed cardiac murmurs 06/09/2016/0 10/2016 documented as of this encounter (statuses as of 01/25/2023) [address]19-2016 History of Past illness Narrative* Problem Noted Date Resolved Date Undiagnosed cardiac murmurs 06/09/2016 05/0 10/2016 documented as of this encounter (statuses as of 02/04/2023) [address]19-2016 History of Past illness Narrative* Problem Noted Date Diagnosed Date Resolved Date Undiagnosed cardiac murmurs 06/09/2016 12/22/2016 documented as of this encounter (statuses as of 03/01/2023) [address]19-2016 History of Past illness Narrative* Problem Noted Date Diagnosed Date Resolved Date UNDIAGNOSED CARDIAC MURMURS 06/09/2016 12/22/2016 documented as of this encounter (statuses as of 05/12/2023) [facility] History of Past illness Narrative* Problem Noted Date Diagnosed Date Resolved Date Undiagnosed cardiac murmurs 06/09/2016 12/22/2016 documented as of this encounter (statuses as of 05/13/2023) [facility] History of Past illness Narrative* Problem Noted Date Diagnosed Date Resolved Date Undiagnosed cardiac murmurs 06/09/2016 12/22/2016 documented as of this encounter (statuses as of 10/10/2023) [facility] Diagnosis Imbalance- Primary Abnormality of gait Gait instability Abnormality of gait [facility] Diagnosis Essential hypertension- Primary Unspecified essential [...] obstruction or gangrene [facility] Diagnosis Lung nodules- Primary Other nonspecific abnormal finding of lung field Incidental lung nodule, greater than or equal to 8mm Solitary pulmonary nodule [facility] Diagnosis Arterial ischemic stroke, vertebrobasilar, thalamic, acute, left (HCC)- Primary Auditory hallucinations Hallucinations Memory loss Tinnitus, unspecified laterality Essential hypertension Unspecified essential hypertension Age-related osteoporosis without current pathological fracture Senile osteoporosis Prediabetes Other abnormal glucose [facility] Diagnosis Essential hypertension- Primary Unspecified essential hypertension Chronic renal failure, stage 4 (severe) (HCC) documented in this encounter [facility] Reason for Referral Specialty Diagnoses / Procedures Referred By Flip wray Referred To Contact [facility] Diagnoses Imbalance Gait instability Procedures CONSULT TO PHYSICAL THERAPY PHYSICAL THERAPY EVALUATION HIGH COMPLEX 45 MINS Patrick Qiu PA-C [address] [place] [address] [facility] [place] [address] [place] [address] Referral ID Status Reason Start Date Expiration Date Visits Requested Visits Authorized [id number] Pending Review Auto-Generat ed Referral 08/24/2022 08/24/2023 1 1 Specialty Diagnoses / Procedures Referred By Contac t Referred To Contact CT IMAGING Diagnoses Lung nodules Procedures CT CHEST WO IVCON DIAGNOSTIC COMPUTED TOMOGRAPHY THORAX W/O TERESAT Patrick Qiu PA-C [address] [place] [address] Ct Imaging Referral ID Status Reason Start Date Expiration Date V isits Requested Visits Authorized [id number] Closed Auto-Generate d Referral 06/25/2022 07/25/2023 1 1 Specialty Diagnoses / Procedures Referred By Contac t Referred To Contact Ent - Otolaryngology Diagnoses Tinnitus, unspecified laterality Procedures CONSULT TO ENT OFFICE/OUTPATIENT [facility] 60-74 MINUTES Benjamin Renee MD [facility] [place] [address] Referral ID Status Reason Start Date Expiration Date Visits Requested Visits Authorized [id number] Authorized PCP Requested Referral 02/04/2023 02/04/2024 1 1 Specialty Diagnoses / Procedures Referred By Contac t Referred To Contact Neurology Diagnoses Auditory hallucinations Memory loss Procedures CONSULT TO NEUROLOGY OFFICE/OUTPATIENT [facility] 60-74 MINUTES Benjamin Renee MD [address] [place] [address] Referral ID Status Reason Start Date Expiration Date Visits Requested Visits Authorized [id number] Authorized PCP Requested Referral 02/04/2023 02/04/2024 1 1 Advance Directives No Advanced Directives Records FoundDocuments on File Type Date Recorded Patient Regional Coordinator Expl anation Advance Directive(s) 04/09/2016 12:37 PM Documents on File Type Date Recorded Patient Regional Coordinator Expl anation Advance Directive(s) 04/09/2016 12:37 PM [...] or prosecute any alcohol or drug abuse patient.[facility] HospitalIn the event this information is protected by the Federal Confidentiality of Alcohol and Drug Abuse Patient Records regulations: The Federal rules restrict any use of the information to criminally investigate or prosecute any alcohol or drug abuse patient.[facility] HospitalIn the event this information is protected by the Federal Confidentiality of Alcohol and Drug Abuse Patient Records regulations: The Federal rules restrict any use of the information to criminally investigate or prosecute any alcohol or drug abuse patient.[facility] HospitalIn the event this information is protected by the Federal Confidentiality of Alcohol and Drug Abuse Patient Records regulations: The Federal rules restrict any use of the information to criminally investigate or prosecute any alcohol or drug abuse patient.[facility] HospitalIn the event this information is protected by the Federal Confidentiality of Alcohol and Drug Abuse Patient Records regulations: The Federal rules restrict any use of the information to criminally investigate or prosecute any alcohol or drug abuse patient.[facility] HospitalIn the event this information is protected by the Federal Confidentiality of Alcohol and Drug Abuse Patient Records regulations: The Federal rules restrict any use of the information to criminally investigate or prosecute any alcohol or drug abuse patient.[facility] HospitalIn the event this information is protected by the Federal Confidentiality of Alcohol and Drug Abuse Patient Records regulations: The Federal rules restrict any use of the information to criminally investigate or prosecute any alcohol or drug abuse patient.[facility] HospitalIn the event this information is protected by the Federal Confidentiality of Alcohol and Drug Abuse Patient Records regulations: The Federal rules restrict any use of the information to criminally investigate or prosecute any alcohol or drug abuse patient.[facility] HospitalIn the event this information is protected by the Federal Confidentiality of Alcohol and Drug Abuse Patient Records regulations: The Federal rules restrict any use of the information to criminally investigate or prosecute any alcohol or drug abuse patient.[facility] HospitalIn the event this information is protected by the Federal Confidentiality of Alcohol and Drug Abuse Patient Records regulations: The Federal rules restrict any use of the information to criminally investigate or prosecute any alcohol or drug abuse patient.[facility] HospitalIn the event this information is protected by the Federal Confidentiality of Alcohol and Drug Abuse Patient Records regulations: The Federal rules restrict any use of the information to criminally investigate or prosecute any alcohol or drug abuse patient.[facility] Care Teams (unrecognized sec tion and content) Nursing Resident Relationship Specialty Start Date End Date Patrick Qiu PA-C [address] [place] [address] PCP - General Family Medicine 12/22/16 Nursing Resident Relationship Specialty Start Date End Date Patrick Qiu PA-C [address] [place] [address] PCP - General Family Medicine 12/22/16 Nursing Resident Relationship Specialty Start Date End Date Patrick Qiu PA-C [address] [place] [address] PCP - General Family Medicine 12/22/16 Nursing Resident Relationship Specialty Start Date End Date Patrick Qiu PA-C [address] [place] [address] PCP - General Family Medicine 12/22/16 Nursing Resident Relationship Specialty Start Date End Date Patrick Qiu PA-C [address] [place] [address] PCP - General Family Medicine 12/22/16 Nursing Resident Relationship Specialty Start Date End Date Patrick Qiu PA-C [address] [place] [address] PCP - General Family Medicine 12/22/16 Nursing Resident Relationship Specialty Start Date End Date Patrick Qiu PA-C [address] [place] [address] PCP - General Family Medicine 12/22/16 Nursing Resident Relationship Specialty Start Date End Date Taj Sifuentes MD [address] [place] [id number] PCP - General Family Medicine 02/27/16 03/22/16 Ivania Dennison DO [address] [place] [phone] PCP - General Family Medicine 03/23/16 12/21/16 Patrick Qiu PA-C [address] [place] [address] PCP - General Family Medicine 12/22/16 Nursing Resident Relationship Specialty Start Date End Date Patrick Qiu PA-C [address] [place] [address] PCP - General Family Medicine 12/22/16 Reason [...] BE BASED ON THE PRIMARY CLINICAL RECORDS. [employer] provides no warranty or guarantee of the accuracy or completeness of information in this document.
== END 2023-10-31 18:00 | disposition home or self-care (01) ==
PROVIDERS: Physician Assistant; Emergency Provider Emergency Medicine; PCP Family Medicine; Visit Provider Emergency Medicine
DX: N39.0 Urinary tract infection, site not specified (principal); J44.9 Chronic obstructive pulmonary disease, unspecified; R41.0 Disorientation, unspecified; N18.9 Chronic kidney disease, unspecified
CPT/HCPCS: 70450; 71046; 80048; 81001; 85025; 87086; 87088; 99282

== ENCOUNTER → 2024-04-02 | Outpatient (REF) | payer MEDICARE, MEDICAID, SELFPAY ==
[2024-04-02 09:10] LABS: Hemoglobin 9.8 g/dL (12.0-15.0); Mean Corp Hgb Conc 30.6 g/dL (32-36); Mean Corpuscular Hgb 28.5 pg (27.0-32.0); Mean Platelet Vol. 9.5 fl (6.2-12.0); Platelet Count 217 K/mm3 (150-450); RBC Distribution Width SD 48.1 fl (35.1-43.9); Red Blood Count 3.44 M/mm3 (4.2-5.4); White Blood Count 5.3 K/mm3 (4.4-11.0)
[2024-04-02 09:18] LABS: Color, Urine Yellow (Yellow); Glucose, Dipstick Normal (Normal); Ketone-Dipstick Negative (Negative); Leukocyte Esterase-Dipstick 100 /ul (Negative); Nitrite-Dipstick Negative (Negative); Occult Blood-Urine Negative /ul (Negative); Protein-Dipstick 15 mg/dl (Negative); Specific Gravity, Urine 1.015 (1.002-1.030); Urine Bilirubin Dipstick Negative (Negative); Urine Clarity Clear (Clear); Urine Urobilinogen Normal (Normal)
[2024-04-02 10:48] LABS: Anion Gap 5 (5-15); BUN 16 mg/dL (7-18); BUN/Creat Ratio 10.6 RATIO (10-20); Calcium,Total 8.6 mg/dL (8.5-10.1); Chloride 105 mmol/L (98-107); Creatinine, Serum 1.51 mg/dL (0.55-1.02); EST Glomerular Filtration Rate 35 mL/min (>60); Est Glom Filt Rate - Afr Amer 42 mL/min (>60); Glucose 83 mg/dL (74-106); Potassium 4.1 mmol/L (3.5-5.1); Sodium Level 138 mmol/L (136-145); Thyroid Stim Hormone (TSH) 2.74 uIU/mL (0.358-3.74)
== END ==
LOC: OLS.SW 06:40
PROVIDERS: PCP Family Medicine
DX: I12.9 Hypertensive chronic kidney disease with stage 1 through stage 4 chronic kidney disease, or unspecified chronic kidney disease (principal); N18.30 Chronic kidney disease, stage 3 unspecified; R53.83 Other fatigue; R39.9 Unspecified symptoms and signs involving the genitourinary system
CPT/HCPCS: 36415; 80048; 81002; 84443; 85027; 87086; 87088

== ENCOUNTER → 2024-04-20 | Outpatient (REF) | payer MEDICARE, MEDICAID, SELFPAY ==
[2024-04-20 08:58] LABS: Hematocrit 30.1 % (37-47); Hemoglobin 9.4 g/dL (12.0-15.0); Mean Corp Hgb Conc 31.2 g/dL (32-36); Mean Corpuscular Hgb 28.5 pg (27.0-32.0); Mean Corpuscular Volume 91.2 fL (81-99); Mean Platelet Vol. 9.3 fl (6.2-12.0); Platelet Count 238 K/mm3 (150-450); RBC Distribution Width CV 14.2 % (11.6-14.6); RBC Distribution Width SD 47.8 fl (35.1-43.9); White Blood Count 5.8 K/mm3 (4.4-11.0)
== END ==
LOC: OLS.SWAL 05:00
PROVIDERS: PCP Family Medicine
DX: D64.9 Anemia, unspecified (principal)
CPT/HCPCS: 36415; 85027

== ENCOUNTER → 2024-05-16 | Outpatient (REF) | payer MEDICARE, MEDICAID, SELFPAY ==
[2024-05-18 12:26] LABS: Anion Gap 5 (5-15); BUN 15 mg/dL (7-18); BUN/Creat Ratio 10.4 RATIO (10-20); Calcium,Total 8.6 mg/dL (8.5-10.1); Chloride 105 mmol/L (98-107); Creatinine, Serum 1.44 mg/dL (0.55-1.02); EST Glomerular Filtration Rate 37 mL/min (>60); Est Glom Filt Rate - Afr Amer 44 mL/min (>60); Glucose 73 mg/dL (74-106); Sodium Level 139 mmol/L (136-145)
== END ==
LOC: OLS.SWAL 06:58
PROVIDERS: PCP Family Medicine
DX: I10 Essential (primary) hypertension (principal); E78.5 Hyperlipidemia, unspecified
CPT/HCPCS: 80048

== ENCOUNTER → 2024-05-16 | Outpatient (REF) | payer MEDICARE, MEDICAID, SELFPAY ==
[2024-05-16 08:56] LABS: Hematocrit 30.6 % (37-47); Hemoglobin 9.7 g/dL (12.0-15.0); Mean Corp Hgb Conc 31.7 g/dL (32-36); Mean Corpuscular Volume 91.3 fL (81-99); Mean Platelet Vol. 9.2 fl (6.2-12.0); Platelet Count 219 K/mm3 (150-450); RBC Distribution Width CV 14.7 % (11.6-14.6); RBC Distribution Width SD 49.4 fl (35.1-43.9); Red Blood Count 3.35 M/mm3 (4.2-5.4); White Blood Count 5.4 K/mm3 (4.4-11.0)
[2024-05-16 09:34] LABS: Vitamin B12 826 pg/mL (211-911)
[2024-05-16 09:48] LABS: Ferritin 11 ng/mL (8-252); Iron 45 ug/dL (50-170); Magnesium 2.2 mg/dL (1.6-2.6)
== END ==
LOC: OLS.SWAL 06:50
PROVIDERS: PCP Family Medicine
DX: I10 Essential (primary) hypertension (principal); E78.5 Hyperlipidemia, unspecified; D64.9 Anemia, unspecified
CPT/HCPCS: 36415; 80048; 82607; 82728; 82746; 83540; 83735; 85027

== ENCOUNTER → 2024-05-31 | Outpatient (REF) | payer MEDICARE, MEDICAID, SELFPAY | LOC: OLS.SWAL 05:00 | PROVIDERS: PCP Family Medicine | DX: I10 Essential (primary) hypertension (principal); E78.5 Hyperlipidemia, unspecified | CPT/HCPCS: 36415; 84443 ==

== ENCOUNTER → 2024-06-05 | Outpatient (REF) | payer MEDICARE, MEDICAID, SELFPAY ==
[2024-06-05 08:26] LABS: Hemoglobin 9.3 g/dL (12.0-15.0); Mean Corpuscular Hgb 28.4 pg (27.0-32.0); Mean Corpuscular Volume 91.5 fL (81-99); Mean Platelet Vol. 8.9 fl (6.2-12.0); Platelet Count 224 K/mm3 (150-450); RBC Distribution Width CV 14.6 % (11.6-14.6); RBC Distribution Width SD 49.3 fl (35.1-43.9); Red Blood Count 3.28 M/mm3 (4.2-5.4); White Blood Count 5.2 K/mm3 (4.4-11.0)
[2024-06-05 08:47] LABS: Iron 43 ug/dL (50-170); Iron Binding Capacity,Total 262 ug/dL (250-450)
== END ==
LOC: OLS.SWAL 05:00
PROVIDERS: PCP Family Medicine
DX: D64.9 Anemia, unspecified (principal)
CPT/HCPCS: 36415; 83540; 83550; 85027

== ENCOUNTER → 2024-11-13 | Outpatient (REF) | payer MEDICARE, MEDICAID, SELFPAY ==
[2024-11-13 09:15] LABS: Hematocrit 33.5 % (37-47); Hemoglobin 10.7 g/dL (12.0-15.0); Mean Corp Hgb Conc 31.9 g/dL (32-36); Mean Corpuscular Hgb 29.9 pg (27.0-32.0); Mean Corpuscular Volume 93.6 fL (81-99); Mean Platelet Vol. 9.1 fl (6.2-12.0); Platelet Count 225 K/mm3 (150-450); RBC Distribution Width CV 14.6 % (11.6-14.6); RBC Distribution Width SD 50.1 fl (35.1-43.9); Red Blood Count 3.58 M/mm3 (4.2-5.4); White Blood Count 5.4 K/mm3 (4.4-11.0)
[2024-11-13 23:10] LABS: Hemoglobin A1c 5.6 % (<=5.6)
[2024-11-14 00:19] LABS: ALB/GLOB Ratio 1.5 RATIO (0.9-2.4); AST(SGOT) 29 U/L (<=31); Alanine Aminotransfer ALT/SGPT 19 U/L (<=34); Albumin, Serum 3.7 g/dL (3.4-4.8); Alkaline Phosphatase 56 U/L (35-104); Anion Gap 12 (5-15); BUN 14 mg/dL (4-19); BUN/Creat Ratio 10.3 RATIO (10-20); Carbon Dioxide 26.1 mmol/L (21.0-32.0); Chloride 103 mmol/L (98-108); Creatinine, Serum 1.31 mg/dL (0.70-1.20); EST Glomerular Filtration Rate 39 (>60); Ferritin 38 ng/mL (22-378); Globulin 2.4 g/dL (2.2-4.2); Glucose 85 mg/dL (70-99); Iron 54 ug/dL (50-170); Potassium 3.9 mmol/L (3.3-5.1); Protein, Total 6.1 g/dL (5.9-8.4); Sodium Level 140 mmol/L (133-145)
== END ==
LOC: OLS.SWAL 05:00
PROVIDERS: PCP Family Medicine
DX: R41.82 Altered mental status, unspecified (principal)
CPT/HCPCS: 36415; 80053; 82728; 83036; 83540; 85027

== ENCOUNTER → 2024-11-22 | Outpatient (REF) | payer MEDICARE, MEDICAID, SELFPAY ==
[2024-11-22 08:23] LABS: Bacteria 0 SEEN /hpf (None Seen); Mucous, Urine 0 SEEN /hpf (<or=2+); Red Blood Cells-Urine 0 SEEN /hpf (0-5); Squamous Epithelial Cells - UA 0 SEEN /hpf (5-10); White Blood Cells 0 SEEN /hpf (0-5)
[2024-11-22 08:55] LABS: Color, Urine Yellow (Yellow); Glucose, Dipstick Normal (Normal); Ketone-Dipstick Negative (Negative); Leukocyte Esterase-Dipstick Negative /ul (Negative); Nitrite-Dipstick Negative (Negative); Occult Blood-Urine Negative /ul (Negative); Protein-Dipstick 15 mg/dl (Negative); Urine Bilirubin Dipstick Negative (Negative); Urine Clarity Sl. Cloudy (Clear); Urine Urobilinogen Normal (Normal)
[2024-11-22 09:02] LABS: FOLATES,SERUM (FOLIC ACID) 6.99 ng/mL (4.60-34.80)
[2024-11-22 09:06] LABS: Vitamin B12 1023 pg/mL (180-914); Vitamin D,25 Hydroxy 67.8 ng/mL (30-100)
== END ==
LOC: OLS.SWAL 05:00
PROVIDERS: PCP Family Medicine; Visit Provider Internal Medicine
DX: F32.3 Major depressive disorder, single episode, severe with psychotic features (principal); F41.9 Anxiety disorder, unspecified; E78.5 Hyperlipidemia, unspecified
CPT/HCPCS: 36415; 81001; 82306; 82607; 82746; 84443; 87086; 87088

== ENCOUNTER → 2025-01-18 02:00 | Outpatient (REF) | payer MEDICARE, MEDICAID, SELFPAY ==
[2025-01-18 06:57] LABS: Mucous, Urine 0 SEEN /hpf (<or=2+); Squamous Epithelial Cells - UA 0 SEEN /hpf (5-10)
[2025-01-18 07:52] LABS: Color, Urine Yellow (Yellow); Glucose, Dipstick Normal (Normal); Ketone-Dipstick Negative (Negative); Leukocyte Esterase-Dipstick 100 /ul (Negative); Nitrite-Dipstick Positive (Negative); Occult Blood-Urine 10 /ul (Negative); Protein-Dipstick 30 mg/dl (Negative); Urine Bilirubin Dipstick Negative (Negative); Urine Clarity Sl. Cloudy (Clear); Urine Urobilinogen Normal (Normal); Urine pH 6.5 (5.0 - 8.0)
[2025-01-18 08:37] LABS: Bacteria 3+ /hpf (None Seen); Red Blood Cells-Urine 0-5 SEEN /hpf (0-5); White Blood Cells 10-25 SEEN /hpf (0-5)
== END ==
LOC: OLS.SWAL 02:00
PROVIDERS: PCP Family Medicine
DX: N39.0 Urinary tract infection, site not specified (principal)
CPT/HCPCS: 81001; 87077; 87086; 87088; 87186

== ENCOUNTER → 2025-01-28 07:30 | Outpatient (REF) | payer MEDICARE, MEDICAID, SELFPAY ==
[2025-01-28 08:06] LABS: Bacteria 0 SEEN /hpf (None Seen); Mucous, Urine 0 SEEN /hpf (<or=2+); Red Blood Cells-Urine 0 SEEN /hpf (0-5); Squamous Epithelial Cells - UA 0 SEEN /hpf (5-10)
[2025-01-28 08:20] LABS: Color, Urine Yellow (Yellow); Glucose, Dipstick Normal (Normal); Ketone-Dipstick Negative (Negative); Leukocyte Esterase-Dipstick 25 /ul (Negative); Nitrite-Dipstick Negative (Negative); Occult Blood-Urine Negative /ul (Negative); Protein-Dipstick 30 mg/dl (Negative); Specific Gravity, Urine 1.015 (1.002-1.030); Urine Bilirubin Dipstick Negative (Negative); Urine Clarity Sl. Cloudy (Clear); Urine Urobilinogen Normal (Normal)
[2025-01-28 08:26] LABS: Hematocrit 32.3 % (37-47); Hemoglobin 10.6 g/dL (12.0-15.0); Mean Corp Hgb Conc 32.8 g/dL (32-36); Mean Corpuscular Hgb 30.7 pg (27.0-32.0); Mean Corpuscular Volume 93.6 fL (81-99); Mean Platelet Vol. 9.1 fl (6.2-12.0); Platelet Count 239 K/mm3 (150-450); RBC Distribution Width CV 13.2 % (11.6-14.6); RBC Distribution Width SD 45.1 fl (35.1-43.9); Red Blood Count 3.45 M/mm3 (4.2-5.4); White Blood Count 4.9 K/mm3 (4.4-11.0)
[2025-01-28 08:38] LABS: White Blood Cells 0-5 SEEN /hpf (0-5)
[2025-01-28 09:13] LABS: ALB/GLOB Ratio 1.6 RATIO (0.9-2.4); AST(SGOT) 28 U/L (<=31); Alanine Aminotransfer ALT/SGPT 18 U/L (<=34); Albumin, Serum 3.6 g/dL (3.4-4.8); Alkaline Phosphatase 61 U/L (35-104); Anion Gap 9 (5-15); BUN 12 mg/dL (4-19); BUN/Creat Ratio 8.8 RATIO (10-20); Calcium,Total 8.5 mg/dL (7.6-11.0); Chloride 103 mmol/L (98-108); Creatinine, Serum 1.32 mg/dL (0.70-1.20); EST Glomerular Filtration Rate 39 (>60); Globulin 2.2 g/dL (2.2-4.2); Glucose 86 mg/dL (70-99); Potassium 3.9 mmol/L (3.3-5.1); Protein, Total 5.8 g/dL (5.9-8.4); Sodium Level 140 mmol/L (133-145); Total Bilirubin 0.21 mg/dL (0.00-1.30)
== END ==
LOC: OLS.SWAL 07:30
PROVIDERS: PCP Family Medicine; Visit Provider Internal Medicine
DX: N18.30 Chronic kidney disease, stage 3 unspecified (principal); N39.0 Urinary tract infection, site not specified
CPT/HCPCS: 36415; 80053; 81001; 85027; 87086; 87088

== ENCOUNTER → 2025-02-26 01:30 | Outpatient (REF) | payer MEDICARE, MEDICAID, SELFPAY ==
[2025-02-26 07:57] LABS: Mucous, Urine 0 SEEN /hpf (<or=2+); Red Blood Cells-Urine 0 SEEN /hpf (0-5); Squamous Epithelial Cells - UA 0 SEEN /hpf (5-10)
[2025-02-26 08:34] LABS: Color, Urine Yellow (Yellow); Glucose, Dipstick Normal (Normal); Ketone-Dipstick Negative (Negative); Leukocyte Esterase-Dipstick Negative /ul (Negative); Nitrite-Dipstick Negative (Negative); Occult Blood-Urine Negative /ul (Negative); Protein-Dipstick 15 mg/dl (Negative); Specific Gravity, Urine 1.010 (1.002-1.030); Urine Bilirubin Dipstick Negative (Negative)
== END ==
LOC: OLS.SWAL 01:30
PROVIDERS: PCP Family Medicine; Visit Provider Internal Medicine
DX: N39.0 Urinary tract infection, site not specified (principal)
CPT/HCPCS: 81001; 87086; 87088

== ENCOUNTER → 2025-04-28 | Outpatient (REF) | payer MEDICARE, MEDICAID, SELFPAY ==
[2025-04-29 08:13] LABS: Mucous, Urine 0 SEEN /hpf (<or=2+); Red Blood Cells-Urine 0 SEEN /hpf (0-5); Squamous Epithelial Cells - UA 0 SEEN /hpf (5-10)
[2025-04-29 08:31] LABS: Color, Urine Yellow (Yellow); Glucose, Dipstick Normal (Normal); Ketone-Dipstick Negative (Negative); Leukocyte Esterase-Dipstick Negative /ul (Negative); Nitrite-Dipstick Negative (Negative); Occult Blood-Urine Negative /ul (Negative); Protein-Dipstick 30 mg/dl (Negative); Specific Gravity, Urine 1.010 (1.002-1.030); Urine Bilirubin Dipstick Negative (Negative)
== END ==
LOC: OLS.SWAL 18:20
PROVIDERS: PCP Family Medicine; Referring Provider Internal Medicine; Visit Provider Internal Medicine
DX: N39.0 Urinary tract infection, site not specified (principal)
CPT/HCPCS: 81001; 87086; 87088

== ENCOUNTER → 2025-05-06 | Outpatient (CLI) | payer MEDICARE, MEDICAID, SELFPAY | END | disposition home or self-care (01) | PROVIDERS: PCP Family Medicine; Referring Provider Internal Medicine; Visit Provider Internal Medicine | DX: Z00.00 Encounter for general adult medical examination without abnormal findings (principal) ==

== ENCOUNTER → 2025-08-07 05:00 | Outpatient (REF) | payer MEDICARE, MEDICAID, SELFPAY ==
--- OUTSIDE RECORDS SUMMARY | 2025-08-07 04:57 | XMS RPT_ITS | CCD ---
Author Organization [facility] Care Team Providers Care Contact Center Associate Name Role Phone Patrick Esqueda PA-C Primary Care Provider Taj Sifuentes MD Primary Care Provider Ivania Dennison DO Primary Care Provider Dr. Yonny Renee Primary Care Provider MD Eliazar Mcknight Emergency Provider Dr. Perfecto Juarez Attending Provider Dr. Yonny Renee Primary Care Provider MD Eliazar Mcknight Emergency Provider Dr. Perfecto Juarez Attending Provider Dr. Perfecto Juarez Admit Provider Dr. Perfecto Juarez Other Provider Dr. Shane Conroy Attending Provider Dr. Shane Conroy Other Provider Patrick Esqueda PA-C Primary Care Provider Haagen SENIOR PROJECT ACCOUNTANT.ADULT BASIC EDUCATION INSTRUCTOR, Shae Unavailable Suppan SENIOR PROJECT ACCOUNTANT.ADULT BASIC EDUCATION INSTRUCTOR Jeanine A Unavailable [phone] Suppan SENIOR PROJECT ACCOUNTANT.IGOR Jeanine A Primary Care Provi isidra Suppan SENIOR PROJECT ACCOUNTANT.IGOR Jeanine A Unavailable Suppan SENIOR PROJECT ACCOUNTANT.ADULT BASIC EDUCATION INSTRUCTOR Jeanine A Primary Care Provi isidra Suppan SENIOR PROJECT ACCOUNTANT.IGOR Jeanine A Primary Care Provi isidra Patmos MD, Dr. Blancas Primary Care Provider [phone] Yonny Lee Attending Provider Unavailable Cheyenne WRIGHT, Dr. Cuellar Attending Provider UnavailMANUEL Nation Primary Care Unavailable SUPPAN, JEANINE A Referring Unavailable SUPPAN, JEANINE A Attending Unavailable SUPPAN, JEANINE A Primary Care Unavailable SUPPAN, JEANINE A Referring Unavailable SUPPAN, JEANINE A Primary Care Unavailable MANUEL ESQUEDA Primary Care Unavailable SUPPAN, JEANINE A Referring Unavailable SUPPAN, JEANINE A Attending Unavailable MANUEL ESQUEDA Primary Care Unavailable Thelma WRIGHT, Dr. Blancas Primary Care Physician Cheyenne WRIGHT, Dr. Cuellar Attending Physician Unavail gina Quinn MD, Dr. Cuellar Referring Provider Unavailvinod Quinn MD, Dr. Cuellar Attending Physician Unavail gina Quinn MD, Dr. Cuellar Referring Provider UnavailAlisa Miranda Attending Unavailable Cheyenne WRIGHT, Dr. Cuellar Attending Physician Unavail able Alisa Quinn Attending Unavailable Alisa Quinn Referring Unavailable ThelmaYonny Primary Care Unavailable Alisa Quinn Attending Unavailable Yonny Renee Primary Care Unavailable Yonny Lee Attending Unavailable Yonny Renee Primary Care Unavailable Alisa Sloan Attending Unavailable ThelmaYonny Primary Care Unavailable Alisa Sloan Attending Unavailable Patmos, Yonny Primary Care Unavailable Alisa Sloan Attending Unavailable Patmos, Yonny Primary Care Unavailable Alisa Sloan Referring Unavailable Yonny Lee Attending Unavailable Thelma, Yonny Primary Care Unavailable Alisa Quinn Attending Unavailable Alisa Quinn Referring Unavailable PatmosYonny Primary Care Unavailable Allergies Allergy Classification Reported Allergen(s) Allergy Type Date of Onset Reaction(s) Facility (8 sources) cyclobenzaprine Drug Allergy 2 [facility] (20 sources) Ibuprofen; Translations: [IBUPROFEN] Drug Allergy 6 Intolerance [facility] (8 sources) Penicillins Allergy to substance 2 [facility] (20 sources) cyclobenzaprine; Translations: [CYCLOBENZAPRINE HCL] Drug Allergy 6 Intolerance [facility] (20 sources) Penicillin; Translations: [PENICILLIN] Drug Allergy 6 Swelling [facility] (1 source) cyclobenzaprine Drug Allergy 4 [facility] (1 source) Ibuprofen Drug Allergy 4 [facility] (1 source) Penicillins Drug allergy (disorder) 4 [facility] Medications Current Medications Medication Drug Class(es) Dates Sig (Normalized) Sig (Original) acetaminophen 325 mg oral capsule (20 sources) Start: 05-30-2020 take 1-10 capsules by mouth every four hours as needed for pain take 2 tablets by mo [facility] every six hours as needed acetaminophen (TYLENOL) 325 mg tablet Ta ke 650 mg by mouth every 6 hours as needed. Active Comment on above: Take 650 mg by mouth every 6 hours as needed. alendronic acid 70 mg oral tablet (20 sources) Bisphosphonate Start: 08-20-2020 take 1 tablet by mouth every week Comment on above: Take 1 tablet by tien one time a week. Take with a full glass of water, on an empty stomach; do NOT lie down for 30minutes. Alum-Mag Hydroxide-Simeth (4 sources) Start: 05-30-2020 take 1 mL by mouth every four hours Alum-Mag Hydroxide-Simeth Active 30 ML PO Q4H May 30, 2020 12:00am Start: 05-30-2020 take 1 mL by mouth e very four hours Alum-Mag Hydroxide-Simeth Active 30 ML PO Q4H May 29, 2020 11:00pm Alum-Mag Hydroxide-Simeth 355 ML suspension (1 source) Start: 05-30-2020 take 1 mL by mouth every four hours as needed Alum-Mag Hydroxide-Simeth 355 ML suspension Active 30 mL PO Q4H as needed for GI DISTRESS May 30, 2020 12:00am aluminum hydroxide 80 mg/ml / magnesium hydroxide 80 mg/ml / simethicone 8 mg/ml oral suspension (20 sources) Start: 05-30-2020 take 1 mL by mouth every four hours as needed Start: 05-30-2020 take 1 mL by mouth e very four hours Alum-Mag Hydroxide-Simeth Active 30 ML PO Q4H May 30, 2020 12:00am take 30 mL by mouth every four hours as needed aluminum-magnesium hydroxide-simethicone (MAALOX,MYLANTA,MAG-AL PLUS) 200-200-20 mg/5 mL suspension Take 30 mL by mouth every 4 hours as needed. for Gi distress Active Comment on above: Take 30 mL by mouth every 4 hours as needed. for Gi distress aspirin 81 mg chewable tablet (20 sources) Platelet Aggregation Inhibitor, Nonsteroidal Anti-inflammatory Drug Start: 05-30-2020 take 1 tablet by mouth once daily Start: 01-04-2017 take 1 tablet by tien once daily aspirin, enteric coated (ASPIRIN, ENTERIC COATED) 81 mg EC tablet GIVE 1 TABLET BY MOUTH ONCE DAILY 30 tablet 2 01/04/2017 Active Comment on above: GIVE 1 TABLET BY TIEN ONCE DAILY atorvastatin 40 mg oral tablet (20 sources) HMG-CoA Reductase Inhibitor Start: 05-31-2020 take 1 tablet by mouth at bedtime Comment on above: Take 40 mg by mouth once daily. carvedilol 25 mg oral tablet (20 sources) alpha-Adrenergic Marcella, beta-Adrenergic Marcella Start: 05-30-2020 take 1 tablet by mouth twice daily Start: 01-30-2018 take 1 tablet by tien twice daily carvedilol (COREG) 12.5 mg tablet Take 1 tablet by mouth twice daily. 60 tablet 3 01/30/2018 Active Comment on above: Take 1 tablet by [facility] twice daily. Take 1 tablet by [facility] two times a day. cholecalciferol 0.05 mg oral capsule (20 sources) Vitamin D Start: 06-14-2022 take 1 capsule by mouth once daily Start: 02-01-2018 take 1 capsule by [facility] every week cholecalciferol, Vitamin D3, (VITAMIN D3) 50,000 unit cap capsule Take 1 capsule by mouth once each week. 12 capsule 3 02/01/2018 Active Comment on above: Take 1 capsule by [facility] once each week. Take by mouth. clopidogrel 75 mg oral tablet (20 sources) P2Y12 Platelet Inhibitor Start: 01-30-2018 take 1 tablet by mouth once daily Start: 2016 End: 01-25-2017 take 1 tablet by mouth once daily Clopidogrel 75 MG tablet Discontinued 75 mg PO DAILY 2016 12:00am January 25, 2017 9:56am Comment on above: Take 1 tablet by tien once daily. diclofenac sodium 0.03 mg/mg topical gel (4 sources) Nonsteroidal Anti-inflammatory Drug Start: 09-06-19 End: 12-06-19 Diclofenac Sodium 3 % gel Indications: Primary osteoarthritis of both hands Apply 0.5 g to affected area two times a day. To hands 30 g 2 09/06/2024 12/05/2024 Active donepezil hydrochloride 5 mg oral tablet (19 sources) Start: 09-24-19 End: 09-24-19 take 1 tablet by mouth once daily at bedtime donepezil (ARICEPT) 5 mg tablet Indications: Memory loss Take 1 tablet by mouth daily at bedtime. Psych is taking over. 08/20/24 30 tablet 11 09/24/2024 09/24/2025 Active Start: 08-12-2023 End: 08-23-2024 take 1 tablet by mouth once daily at bedtime donepezil (ARICEPT) 5 mg tablet Take 1 tablet by mouth daily at bedtime. Psych is taking over. 08/20/24 2 08/23/2024 Active Comment on above: Take 1 tablet by tien th daily at bedtime. famotidine 20 mg oral tablet (20 sources) Histamine-2 Receptor Antagonist Start: 05-30-2020 take 1 tablet by mouth twice daily Comment on above: Take 1 tablet by tien th twice daily. glycerin 2 mg/ml / hypromellose 2 mg/ml / polyethylene glycol 400 10 mg/ml ophthalmic solution (8 sources) Non-Standardized Chemical Allergen Start: 05-30-2020 Start: 05-30-2020 Peg 400-Hyprom ellose-Glycerin Active 1 DRP EACH EYE NEEDED May 30, 2020 12:00am guaiFENesin 20 mg/ml oral so lution (20 sources) Start: 05-30-2020 take 1 mL by mouth e very four hours as needed for cough Start: 05-30-2020 take 1 mL by mouth e very four hours as needed Guaifenesin Active 10 ML PO EVERY 4 HOURS NEEDED May 30, 2020 12:00am Comment on above: Take 10 mL by mouth every 4 hours as needed. for cough and congestion hydroCHLOROthiazide 12.5 mg oral capsule (18 sources) Thiazide Diuretic Start: 2023 take 1 capsule by mouth once daily hydroCHLOROthiazide 12.5 mg capsule Take 1 capsule by mouth once daily. 30 capsule 12 09/12/2023 Active Comment on above: Take 1 capsule by mo [facility] once daily. lisinopril 40 mg oral tablet (20 sources) Angiotensin Converting Enzyme Inhibitor Start: 2023 End: 2024 take 1 tablet by mouth once daily lisinopril (ZESTRIL) 40 mg tablet Indications: Chronic renal failure, stage 4 (severe) ([facility]) Take 1 tablet by mouth once daily. 30 tablet 11 08/10/2024 08/10/2025 Active Start: 08-19-2023 End: 08-18-2024 take 1 tablet by mouth once daily lisinopril (ZESTRIL) 30 mg tablet Take 1 tablet by mouth once daily. 30 tablet 11 08/19/2023 08/10/2024 Discontinued Start: 12-02-2022 [facility] (ZESTRIL) 10 mg tablet Take 1 tablet by mouth once daily. 30 tablet 11 12/02/2022 Active Start: 08-31-2021 take 1 tablet by [facility] once daily Comment on above: Take 1 tablet by [facility] once daily. magnesium hydroxide 80 mg/ml oral suspension (20 sources) Start: 05-30-2020 take 1 mL by mouth once daily as needed for constipation Start: 05-30-2020 take 1 mL by mouth o nce daily as needed for constipation Magnesium Hydroxide 30 ML suspension Active 30 mL PO DAILY NEEDED as needed for Constipation May 30, 2020 12:00am Start: 05-30-2020 take 1 mL by mouth o nce daily as needed Magnesium Hydroxide Active 30 ML PO DAILY NEEDED May 29, 2020 11:00pm Start: 05-30-2020 take 1 mL by mouth o nce daily as needed Magnesium Hydroxide Active 30 ML PO DAILY NEEDED May 30, 2020 12:00am magnesium hydrox tucker (MILK OF MAGNESIA ORAL) Take 30 mL by mouth as needed. Active magnesium hydrox tucker (MILK OF MAGNESIA ORAL) Take 30 mL by mouth as needed. 0 Active Comment on above: Take 30 mL by mouth as needed. melatonin 5 mg oral capsule (16 sources) Melatonin 5 mg c ap Take by mouth. Active polyethylene glycol 3350 96932 mg powder for oral solution (8 sources) Osmotic Laxative Start: 0 take 17 g by mouth at bedtime Polyethylene Glycols (20 sources) take 17 g by mouth once daily POLYETHYLENE GLYCOL 3350 (MIRALAX ORAL) Take 17 g by mouth once daily. Active take 17 g by mouth once daily PO LYETHYLENE GLYCOL 3350 (MIRALAX ORAL) Take 17 g by mouth once daily. 0 Active Comment on above: Take 17 g by mouth o nce daily. promethazine hydrochloride 25 mg oral tablet (20 sources) Phenothiazine Start: 0 take 1 tablet by mouth every six hours as needed for nausea Comment on above: Take 1 tablet by [facility] every 6 hours as needed for nausea/vomiting. QUEtiapine 25 mg oral tablet (20 sources) Atypical Antipsychotic Start: 4 End: 5 take 1 tablet by mouth twice daily QUEtiapine (SEROQUEL) 25 mg tablet Take 1 tablet by mouth two times a day. 08/23/2024 Active Start: 05-30-2020 End: 08-23-2024 take 1 tablet by mouth at bedtime Comment on above: Take 100 mg by mouth once daily. sulfamethoxazole 800 mg / trimethoprim 160 mg oral tablet (4 sources) Dihydrofolate Reductase Inhibitor Antibacterial, Sulfonamide Antimicrobial Start: 024 24 hr venlafaxine 150 mg extended release oral capsule (20 sources) Serotonin and Norepinephrine Reuptake Inhibitor Start: 018 End: 023 take 1 capsule by mouth once daily Comment on above: Take 1 capsule by [facility] once daily. vitamin b12 1 mg oral tablet (20 sources) Vitamin B12 Start: 020 take 1 tablet by mouth once daily Comment on above: Take 1,000 mcg by [facility] once daily. Walker misc (20 sources) Start: 022 Walker misc Indications: Gait instability 1 Each once daily. 1 Each 08/20/2022 Active Start: 08-20-2022 Walker misc In dications: Gait instability 1 Each once daily. 1 Each 0 08/20/2022 Active Comment on above: 1 Each once daily. Completed/Discontinued Medications Medication Drug Class(es) Dates Sig (Normalized) Sig (Original) acetaminophen 325 mg / HYDROcodone bitartrate 5 mg oral tablet (1 source) Opioid Agonist Start: 01-25-2017 End: 09-02-2022 take 1 tablet by mouth every six hours as needed HYDROcodone-aceta minophen (NORCO) 5-325 mg per tablet Take 1 tablet by mouth every 6 hours as needed for pain. 0 01/25/2017 09/02/2022 Discontinued Comment on above: Take 1 tablet by tien th every 6 hours as needed for pain. clonazePAM 0.5 mg oral tablet (20 sources) Benzodiazepine Start: 05-30-2020 End: 08-01-2023 Clonazepam 0.5 MG tablet Discontinued 0.5 mg PO MOWEFR May 30, 2020 12:00am August 01, 2023 9:46pm Start: 05-30-2020 End: 08-01-2023 take 0.25 mg by mouth once Clonazepam 0.5 MG tablet Discontinued 0.25 mg PO every Tuesday, , Th, Sat May 30, 2020 12:00am August 01, 2023 9:46pm Start: 05-30-2020 End: 08-01-2023 take 0.25 mg by mouth once Clonazepam Discontinued 0.2 5 MG PO every Tuesday, Tues, Thurs, Sat May 30, 2020 12:00am August 01, 2023 9:46pm Start: 10-07-2016 take 0.125 mg by tien th once daily at bedtime clonazePAM (KLONOPIN) 0.5 mg tablet Indications: Anxiety neurosis Take 0.125 mg by mouth daily at bedtime. Routine dose. Tues, Thur, Sat, Sun in the evening. This medication is managed and ordered by PsychiatristDr. Salinas. 10/07/2016 Active Start: 10-07-2016 take 0.25 mg by mout h twice daily as needed, then take 1 tablet by mouth in the evening as needed clonazePAM (KLONOPIN) 0.5 mg tablet Indications: Anxiety neurosis Take 0.25 mg by mouth twice daily as needed. Routine dose.Also 0.5 mg Mon, Wed, Fri in the evening. This medication is managed and ordered by PsychiatristDr. Salinas. 0 10/07/2016 Active Comment on above: Take 0.25 mg by mout h twice daily as needed. Routine dose.Also 0.5 mg Mon, Wed, Fri in the evening. This medication is managed and ordered by PsychiatristDr. Salinas. Take 0.125 mg by tien th daily at bedtime. Routine dose. Tues, Thur, Sat, Sun in the evening. This medication is managed and ordered by Psychiatrist, Dr. Salinas. 1 ml denosumab 60 mg/ml prefilled syringe (8 sources) RANK Ligand Inhibitor Start: 05-30-2020 End: 08-01-2023 Denosumab 60 MG/ML syringe Discontinued 60 mg SQ May 30, 2020 12:00am August 01, 2023 9:47pm Q 6 MONTHS Start: 05-30-2020 End: 08-01-2023 Denosumab Discontinued 60 MG SQ May 30, 2020 12:00am August 01, 2023 9:47pm Q 6 MONTHS escitalopram 10 mg oral tablet (2 sources) Serotonin Reuptake Inhibitor Start: 12-28-2023 End: 01-25-2024 take 1 tablet by mouth once daily escitalopram oxalate (LEXAPRO) 10 mg tablet Take 10 mg by mouth once daily. 0 12/28/2023 01/25/2024 Discontinued (Course of therapy completed) purified protein derivative of tuberculin 50 unt/ml injectable solution (8 sources) Tuberculosis Skin Test, Skin Test Antigen tuberculin (TUBERSOL) 5 tub. unit /0.1 mL injection 5 Units by INTRADERMAL route one time only. 0 Active Comment on above: 5 Units by INTRADERM AL route one time only. rosuvastatin calcium 5 mg oral tablet (8 sources) HMG-CoA Reductase Inhibitor Start: 05-30-2020 End: 05-31-2020 take 1 tablet by mouth at bedtime Rosuvastatin 5 MG tablet Discontinued 5 mg PO AT BEDTIME May 30, 2020 12:00am May 31, 2020 1:46pm Problems Active Problems Problem Classification Problem Date Documented Da te Episodic/Chronic Acute cerebrovascular disease (20 sources) Ischemic stroke; Translations: [Other cerebral infarction due to occlusion or stenosis of small artery] Onset: 06-01-2020 08-31-2021 Chronic Anxiety disorders (1 source) Anxiety disorder, unspecified; Translations: [Anxiety disorder, unspecified] Onset: 12-17-2024 Chronic Chronic kidney disease (20 sources) Chronic renal failure; Translations: [Chronic kidney disease, stage 4 (severe)] Onset: 06-09-2016 05-08-2018 Chronic Chronic kidney disease (1 source) Chronic kidney disease; Translations: [Chronic kidney disease, stage 3 unspecified] Onset: 02-13-2025 Chronic obstructive pulmonary disease and bronchiectasis (20 sources) Chronic obstructive lung disease; Translations: [Chronic obstructive pulmonary disease, unspecified] Onset: 09-06-2022 Chronic Deficiency and other anemia (1 source) Anemia of chronic disease; Translations: [Anemia in other chronic diseases classified elsewhere] 08-10-2024 Chronic Deficiency and other anemia (1 source) Anemia in other chronic diseases classified elsewhere; Translations: [Anemia in other chronic diseases classified elsewhere] Onset: 08-10-2024 Chronic Delirium, dementia, and amnestic and other cognitive disorders (20 sources) Dementia; Translations: [Unspecified dementia without behavioral disturbance] Onset: 08-11-2023 06-22-2022 Chronic Disorders of lipid metabolism (20 sources) Mixed hyperlipidemia; Translations: [Mixed hyperlipidemia] Onset: 06-27-2017 06-27-2017 Chronic E Codes: Fall (8 sources) Fall; Translations: [Unspecified fall, initial encounter] 04-28-2021 Episodic Essential hypertension (20 sources) Essential hypertension; Translations: [Essential (primary) hypertension] Onset: 12-23-2016 12-23-2016 Chronic Malaise and fatigue (2 sources) Fatigue; Translations: [Chronic fatigue, unspecified] Onset: 08-10-2024 08-10-2024 Chronic Mood disorders (20 sources) Recurrent major depression in partial remission; Translations: [Major depressive disorder, recurrent, in partial remission] Onset: 06-09-2016 11-13-2020 Chronic Occlusion or stenosis of precerebral arteries (20 sources) Internal carotid artery stenosis; Translations: [Occlusion and stenosis of right carotid artery] Onset: 10-14-2016 06-09-2020 Chronic Open wounds of head; neck; and trunk (8 sources) Tear of skin; Translations: [Skin tear] 04-28-2021 Episodic Osteoarthritis (3 sources) Degenerative joint disease involving multiple joints; Translations: [Primary generalized (osteo)arthritis] Onset: 08-10-2024 08-10-2024 Chronic Osteoporosis (20 sources) Osteoporosis; Translations: [Age-related osteoporosis without current pathological fracture] Onset: 12-08-2016 12-23-2016 Chronic Other ear and sense organ disorders (1 source) Tinnitus; Translations: [Tinnitus, unspecified ear] Episodic Other lower respiratory disease (1 source) Multiple nodules of lung; Translations: [Other nonspecific abnormal finding of lung field] Episodic Other nervous system disorders (1 source) Impairment of balance; Translations: [Other abnormalities of gait and mobility] Episodic Other nervous system disorders (1 source) Abnormal gait; Translations: [Unsteadiness on feet] Episodic Other nutritional; endocrine; and metabolic disorders (1 source) Weight loss; Translations: [Abnormal weight loss] 08-10-2024 Episodic Other nutritional; endocrine; and metabolic disorders (2 sources) Abnormal weight loss; Translations: [Weight loss] Onset: 08-10-2024 Episodic Residual codes; unclassified (1 source) Auditory hallucinations; Translations: [Auditory hallucinations] Episodic Residual codes; unclassified (2 sources) Amnesia; Translations: [Other amnesia] Episodic Residual codes; unclassified (4 sources) Delirium; Translations: [Disorientation, unspecified] 10-31-2023 Episodic Superficial injury; contusion (8 sources) Contusion of forearm; Translations: [Contusion of left forearm, initial encounter] 04-28-2021 Episodic Syncope (8 sources) Syncope; Translations: [Syncope and collapse] 06-22-2022 Episodic Transient cerebral ischemia (10 sources) Transient cerebral ischemia; Translations: [Transient cerebral ischemic attack, unspecified] 08-01-2023 Chronic Unclassified (1 source) Mild late onset Alzheimer's dementia without behavioral disturbance, psychotic disturbance, mood disturbance, or anxiety (HCC); Translations: [Mild late onset Alzheimer's dementia without behavioral disturbance, psychotic disturbance, mood disturbance, or anxiety (HCC)] Onset: 08-11-2023 Urinary tract infections (6 sources) Urinary tract infectious disease; Translations: [Urinary tract infection, site not specified] Onset: 03-18-2025 10-31-2023 Episodic Past or Other Problems Problem Classification Problem Date Documented Da te Episodic/Chronic Abdominal hernia (20 sources) Hiatal hernia; Translations: [Diaphragmatic hernia without obstruction or gangrene] Onset: 09-02-2022 Episodic Administrative/social admission (16 sources) Patient encounter status; Translations: [Persons encountering health services in other specified circumstances] Onset: 11-03-2023 11-03-2023 Episodic Diabetes mellitus without complication (20 sources) Prediabetes; Translations: [Prediabetes] Onset: 09-22-2017 09-22-2017 Episodic Heart valve disorders (16 sources) Heart murmur; Translations: [Cardiac murmur, unspecified] Onset: 06-09-2016 Resolved: 12-22-2016 12-22-2016 Episodic Other gastrointestinal disorders (20 sources) Oropharyngeal dysphagia; Translations: [Dysphagia, oropharyngeal phase] Onset: 01-30-2018 01-30-2018 Episodic Other lower respiratory disease (20 sources) Solitary nodule of lung; Translations: [Solitary pulmonary nodule] Onset: 06-25-2022 06-25-2022 Episodic Other lower respiratory disease (1 source) Solitary pulmonary nodule; Translations: [Incidental lung nodule, greater than or equal to 8mm] Onset: 06-25-2022 Episodic Residual codes; unclassified (1 source) Other amnesia; Translations: [Memory loss] Onset: 01-23-2024 Episodic Spondylosis; intervertebral disc disorders; other back problems (20 sources) Chronic low back pain; Translations: [Lumbago with sciatica, right side] Onset: 12-23-2016 12-23-2016 Episodic Results Test Name Value Interpretation Reference Range Facility Urine Cultureon 05-04-2025 [facility] Mixed Gram Pos Gram Neg Org [place] Count 25,000-50,000 [facility] Mixed contaminants. Submit a new specimen if indicated. Normal [facility] Comment on above: Performed By: #### L 400.0001, M100.2200 #### [facility] [address] [place] [address]. [place], [address] Bilirubin Test strip Ql (U)O rdered By: Alisa Quinn on 05-03-2025 Bilirubin Ql (U) Negative Negative [facility] Ketones Test strip Ql (U)Ord ered By: Alisa Quinn on 05-03-2025 Ketones Ql (U) Negative Negative [facility] Microscopic analysis of urin e for red blood cells (RBC)Ordered By: Alisa Quinn on 05-03-2025 Microscopic analysis of urine for red blood cells (RBC) 0 SEEN /hpf 0-5 [facility] Mucus LM Ql (Urine sed)Order ed By: Alisa Quinn on 05-03-2025 Mucus Ql (Urine sed) 0 SEEN /hpf [facility] Nitrite Test strip Ql (U)Ord ered By: Alisa Quinn on 05-03-2025 Nitrite Ql (U) Negative Negative [facility] Protein Test strip Ql (U)Ord ered By: Alisa Quinn on 05-03-2025 Protein Ql (U) Negative Negative [facility] Squamous epithelial cells de tection in urine sediment by light microscopyOrdered By: Alisa Quinn on 05-03-2025 Epithelial cells.squamous LM Ql (Urine sed) 0-5 SEEN /hpf - [facility] Urinalysis, Completeon 05-03 EPI,SQUAMOUS 0-5 SEEN Normal - [facility] Comment on above: Order Comment: Urine , Random Performed By: #### L 400.0001, M100.2200 #### [facility] [address] [place], [address] WBC 0-5 SEEN Normal 0-5 [facility] Comment on above: Order Comment: Urine , Random Performed By: #### L 400.0001, M100.2200 #### [facility] [address] [place], [address] BACTERIA 0 SEEN Normal None Seen [facility] Comment on above: Order Comment: Urine , Random Performed By: #### L 400.0001, M100.2200 #### [facility] [address] [place], [address] Mucus Ql (Urine sed) 0 SEEN Normal [facility] Comment on above: Order Comment: Urine , Random Performed By: #### L 400.0001, M100.2200 #### [facility] [address] [place], [address] RBC 0 SEEN Normal 0-5 [facility] Comment on above: Order Comment: Urine , Random Performed By: #### L 400.0001, M100.2200 #### [facility] [address] [place], [address] Urine clarityOrdered By: Siri Quinn on 05-03-2025 Clarity (U) Clear Clear [facility] Urine color determinationOrd ered By: Alisa Quinn on 05-03-2025 Color (U) Yellow Yellow [facility] Urine cultureOrdered By: Siri Quinn on 05-03-2025 Bacteria identified Cx Nom (U) Mixed Gram Pos & Gram Neg Org Abnormal [facility] Urine glucose detectionOrder ed By: Alisa Quinn on 05-03-2025 Glucose Ql (U) Normal mg/dl Normal [facility] Urine leukocyte esterase det ection by dipstickOrdered By: Alisa Quinn on 05-03-2025 Leukocyte esterase Test strip Ql (U) 25 /ul High Negative [facility] Urine pHOrdered By: Alisa Littlejohn udla on 05-03-2025 pH (U) 7.0 [pH] 5.0 - 8.0 [facility] Urine sediment bacteria coun t by microscopy (number/high power field)Ordered By: Alisa Quinn on 05-03-2025 Bacteria LM.HPF (Urine sed) [#/Area] 0 /[HPF] None Seen [facility] Urine specific gravity measu rementOrdered By: Alisa Quinn on 05-03-2025 Specific gravity (U) [Rel density] 1.010 1.002-1.030 [facility] Urine urobilinogen measureme ntOrdered By: Alisa Quinn on 05-03-2025 Urobilinogen Ql (U) Normal mg/dl Normal [facility] White blood cell countOrdere d By: Alisa Quinn on 05-03-2025 White blood cell count 0-5 SEEN /hpf 0-5 [facility] Urine Cultureon 05-01-2025 URC 161 Mixed Gram Pos Gram Neg Org [place] Count 80,000-100,000 [facility] Mixed contaminants. Submit a new specimen if indicated. Normal [facility] Comment on above: Performed By: #### L [id number], M100.2200, L506.1001, L503.0106, L506.0200, L400.0001 #### [facility] [address] [place], [address] Urinalysis, Completeon 04-29 BACTERIA 0 SEEN Normal None Seen [facility] Comment on above: Order Comment: 161 N Performed By: #### L [id number], M100.2200, L506.1001, L503.0106, L506.0200, L400.0001 #### [facility] [address] [place], [address] EPI,SQUAMOUS 0 SEEN Normal 5-10 [facility] Comment on above: Order Comment: 161 N Performed By: #### L [id number], M100.2200, L506.1001, L503.0106, L506.0200, L400.0001 #### [facility] [address] [place], [address] Mucus Ql (Urine sed) 0 SEEN Normal [facility] Comment on above: Order Comment: 161 N Performed By: #### L [id number], M100.2200, L506.1001, L503.0106, L506.0200, L400.0001 #### [facility] [address] [place], [address] RBC 0 SEEN Normal 0-5 [facility] Comment on above: Order Comment: 161 N Performed By: #### L [id number], M100.2200, L506.1001, L503.0106, L506.0200, L400.0001 #### [facility] [address] [place], [address] WBC 0 SEEN Normal 0-5 [facility] Comment on above: Order Comment: 161 N Performed By: #### L [id number], M100.2200, L506.1001, L503.0106, L506.0200, L400.0001 #### [facility] [address] [place], [address] Bilirubin Test strip Ql (U)O rdered By: Alisa Quinn on 04-28-2025 Bilirubin Ql (U) Negative Negative [facility] Ketones Test strip Ql (U)Ord ered By: Alisa Quinn on 04-28-2025 Ketones Ql (U) Negative Negative [facility] Microscopic analysis of urin e for red blood cells (RBC)Ordered By: Alisa Quinn on 04-28-2025 Microscopic analysis of urine for red blood cells (RBC) 0 SEEN /hpf 0-5 [facility] Mucus LM Ql (Urine sed)Order ed By: Alisa Quinn on 04-28-2025 Mucus Ql (Urine sed) 0 SEEN /hpf [facility] Nitrite Test strip Ql (U)Ord ered By: Alisa Quinn on 04-28-2025 Nitrite Ql (U) Negative Negative [facility] Protein Test strip Ql (U)Ord ered By: Alisa Quinn on 04-28-2025 Protein Ql (U) 30 mg/dl High Negative [facility] Squamous epithelial cells de tection in urine sediment by light microscopyOrdered By: Alisa Quinn on 04-28-2025 Epithelial cells.squamous LM Ql (Urine sed) 0 SEEN /hpf 5-10 [facility] Urine clarityOrdered By: Siri Quinn on 04-28-2025 Clarity (U) Clear Clear [facility] Urine color determinationOrd ered By: Alisa Quinn on 04-28-2025 Color (U) Yellow Yellow [facility] Urine cultureOrdered By: Siri Quinn on 04-28-2025 Bacteria identified Cx Nom (U) Mixed Gram Pos & Gram Neg Org Abnormal [facility] Urine glucose detectionOrder ed By: Alisa Quinn on 04-28-2025 Glucose Ql (U) Normal mg/dl Normal [facility] Urine leukocyte esterase det ection by dipstickOrdered By: Alisa Quinn on 04-28-2025 Leukocyte esterase Test strip Ql (U) Negative Negative [facility] Urine pHOrdered By: Alisa lott on 04-28-2025 pH (U) 6.5 [pH] 5.0 - 8.0 [facility] Urine sediment bacteria coun t by microscopy (number/high power field)Ordered By: Alisa Quinn on 04-28-2025 Bacteria LM.HPF (Urine sed) [#/Area] 0 /[HPF] None Seen [facility] Urine specific gravity measu rementOrdered By: Alisa Quinn on 04-28-2025 Specific gravity (U) [Rel density] 1.010 1.002-1.030 [facility] Urine urobilinogen measureme ntOrdered By: Alisa Quinn on 04-28-2025 Urobilinogen Ql (U) Normal mg/dl Normal [facility] White blood cell countOrdere d By: Alisa Quinn on 04-28-2025 White blood cell count 0 SEEN /hpf 0-5 [facility] Urine Cultureon 02-27-2025 URC Mixed Gram Pos Gram Neg Org [place] Count 11,000-25,000 [facility] Mixed contaminants. Submit a new specimen if indicated. Normal [facility] Comment on above: Performed By: #### L [id number], M100.2200, L506.1001, L503.0106, L506.0200, L400.0001 #### [facility] [place] [address], [address] Bilirubin Test strip Ql (U)O rdered By: Alisa Quinn on 02-26-2025 Bilirubin Ql (U) Negative Negative [facility] Ketones Test strip Ql (U)Ord ered By: Alisa Quinn on 02-26-2025 Ketones Ql (U) Negative Negative [facility] Microscopic analysis of urin e for red blood cells (RBC)Ordered By: Alisa Quinn on 02-26-2025 Microscopic analysis of urine for red blood cells (RBC) 0 SEEN /hpf 0-5 [facility] Mucus LM Ql (Urine sed)Order ed By: Alisa Quinn on 02-26-2025 Mucus Ql (Urine sed) 0 SEEN /hpf [facility] Nitrite Test strip Ql (U)Ord ered By: Alisa Quinn on 02-26-2025 Nitrite Ql (U) Negative Negative [facility] Protein Test strip Ql (U)Ord ered By: Alisa Quinn on 02-26-2025 Protein Ql (U) 15 mg/dl High Negative [facility] Squamous epithelial cells de tection in urine sediment by light microscopyOrdered By: Alisa Quinn on 02-26-2025 Epithelial cells.squamous LM Ql (Urine sed) 0 SEEN /hpf 5-10 [facility] Urinalysis, Completeon 02-26 BACTERIA 0 SEEN Normal None Seen [facility] Comment on above: Order Comment: 161 N Performed By: #### L [id number], M100.2200, L506.1001, L503.0106, L506.0200, L400.0001 #### [facility] [address] [place], [address] EPI,SQUAMOUS 0 SEEN Normal 5-10 [facility] Comment on above: Order Comment: 161 N Performed By: #### L [id number], M100.2200, L506.1001, L503.0106, L506.0200, L400.0001 #### [facility] [address] [place], [address] Mucus Ql (Urine sed) 0 SEEN Normal [facility] Comment on above: Order Comment: 161 N Performed By: #### L [id number], M100.2200, L506.1001, L503.0106, L506.0200, L400.0001 #### [facility] [address] [place], [address] RBC 0 SEEN Normal 0-5 [facility] Comment on above: Order Comment: 161 N Performed By: #### L [id number], M100.2200, L506.1001, L503.0106, L506.0200, L400.0001 #### [facility] [address] [place], [address] WBC 0 SEEN Normal 0-5 [facility] Comment on above: Order Comment: 161 N Performed By: #### L [id number], M100.2200, L506.1001, L503.0106, L506.0200, L400.0001 #### [facility] [place], [address] Urine clarityOrdered By: Siri Quinn on 02-26-2025 Clarity (U) Clear Clear [facility] Urine color determinationOrd ered By: Alisa Quinn on 02-26-2025 Color (U) Yellow Yellow [facility] Urine cultureOrdered By: Siri Quinn on 02-26-2025 Bacteria identified Cx Nom (U) Mixed Gram Pos & Gram Neg Org Abnormal [facility] Urine glucose detectionOrder ed By: Alisa Quinn on 02-26-2025 Glucose Ql (U) Normal mg/dl Normal [facility] Urine leukocyte esterase det ection by dipstickOrdered By: Alisa Quinn on 02-26-2025 Leukocyte esterase Test strip Ql (U) Negative Negative [facility] Urine pHOrdered By: Alisa Littlejohn udla on 02-26-2025 pH (U) 6.5 [pH] 5.0 - 8.0 [facility] Urine sediment bacteria coun t by microscopy (number/high power field)Ordered By: Alisa Quinn on 02-26-2025 Bacteria LM.HPF (Urine sed) [#/Area] 0 /[HPF] None Seen [facility] Urine specific gravity measu rementOrdered By: Alisa Quinn on 02-26-2025 Specific gravity (U) [Rel density] 1.010 1.002-1.030 [facility] Urine urobilinogen measureme ntOrdered By: Alisa Quinn on 02-26-2025 Urobilinogen Ql (U) Normal mg/dl Normal [facility] White blood cell countOrdere d By: Alisa Quinn on 02-26-2025 White blood cell count 0 SEEN /hpf 0-5 [facility] Urine Cultureon 01-29-2025 URC Below infection leve l. Mixed Gram Pos Gram Neg Org [place] Count <1000 [facility] Mixed contaminants. Submit a new specimen if indicated. Normal [facility] Comment on above: Performed By: #### L [id number], M100.2200, L506.1001, L503.0106, L506.0200, L400.0001 #### [facility] [address] [place], [address] Anion gap in Serum or Plasma Ordered By: Alisa Quinn on 01-28-2025 Anion gap [Moles/Vol] 9 mmol/L 5-[address] [facility] BUN/creatinine ratioOrdered By: Alisa Quinn on 01-28-2025 Urea nitrogen/Creatinine [Mass ratio] 8.8 mg/mg Low 10-20 [facility] Bilirubin, totalOrdered By: Alisamarin Quinn on 01-28-2025 Bilirubin [Mass/Vol] 0.21 mg/dL 0.00-1.30 [facility] CBC-Complete Blood Cnt No Di ffon 01-28-2025 Erythrocyte distribution width (RBC) [Ratio] 13.2 % Normal 11.6-14.6 [facility] Comment on above: Performed By: #### L [id number], L100.0500 #### [facility] [address] [place], [address] Hematocrit (Bld) [Volume fraction] 32.3 % Low 37-47 [facility] Comment on above: Performed By: #### L [id number], L100.0500 #### [facility] [address] [place], [address] Hemoglobin (Bld) [Mass/Vol] 10.6 g/dL Low 12.0-15.0 [facility] Comment on above: Performed By: #### L [id number], L100.0500 #### [facility] [address] [place], [address] MCH (RBC) [Entitic mass] 30.7 pg Normal 27.0-32.0 [facility] Comment on above: Performed By: #### L [id number], L100.0500 #### [facility] [address] [place], [address] MCHC (RBC) [Mass/Vol] 32.8 g/dL Normal 32-[address] [facility] Comment on above: Performed By: #### L [id number], L100.0500 #### [facility] [address] [place], [address] MCV (RBC) [Entitic vol] 93.6 fL Normal 81-99 [facility] Comment on above: Performed By: #### L [id number], L100.0500 #### [facility] [address] [place], [address] Platelet mean volume (Bld) [Entitic vol] 9.1 fL Normal 6.2-12.0 [facility] Comment on above: Performed By: #### L 500.4050, L100.0500 #### [facility] [address] [place], [address] Platelets (Bld) [#/Vol] 239 10*3/uL Normal 150-450 [facility] Comment on above: Performed By: #### L 500.4050, L100.0500 #### [facility] [address] [place], [address] RBC (Bld) [#/Vol] 3.45 10*6/uL Low 4.2-5.4 [facility] Comment on above: Performed By: #### L 500.4050, L100.0500 #### [facility] [address] [place], [address] RDW SD 45.1 fl High 35.1-43.9 [facility] Comment on above: Performed By: #### L 500.4050, L100.0500 #### [facility] [address] [place], [address] WBC (Bld) [#/Vol] 4.9 10*3/uL Normal 4.4-11.0 [facility] Comment on above: Performed By: #### L 500.4050, L100.0500 #### [facility] [address] [place], [address] Carbon dioxide, total [Moles /volume] in Central venous bloodOrdered By: Alisa Quinn on 01-28-2025 CO2 [Moles/Vol] 28.0 mmol/L 21.0-32.0 [facility] Chloride assayOrdered By: Pee Quinn on 01-28-2025 Chloride [Moles/Vol] 103 mmol/L 98-108 [facility] Comprehensive Metabolic Prof ilon 01-28-2025 Albumin [Mass/Vol] 3.6 g/dL Normal 3.4-4.8 [facility] Comment on above: Performed By: #### L 500.4050, L100.0500 #### [facility] [address] [place], [address] Albumin/Globulin [Mass ratio] 1.6 {ratio} Normal 0.9-2.4 [facility] Comment on above: Performed By: #### L 500.4050, L100.0500 #### [facility] [address] [place], [address] ALK PHOS 61 U/L Normal 35-104 [facility] Comment on above: Performed By: #### L 500.4050, L100.0500 #### [facility] [address] [place], [address] ALT [Catalytic activity/Vol] 18 U/L Normal <=34 [facility] Comment on above: Performed By: #### L 500.4050, L100.0500 #### [facility] [address] [place], [address] AST [Catalytic activity/Vol] 28 U/L Normal <=31 [facility] Comment on above: Performed By: #### L 500.4050, L100.0500 #### [facility] [address] [place], [address] Bilirubin [Mass/Vol] 0.21 mg/dL Normal 0.00-1.30 [facility] Comment on above: Performed By: #### L 500.4050, L100.0500 #### [facility] [address] [place], [address] BUN/CRE 8.8 RATIO Low 10-20 [facility] Comment on above: Performed By: #### L 500.4050, L100.0500 #### [facility] [address] [place], [address] Calcium [Mass/Vol] 8.5 mg/dL Normal 7.6-11.0 [facility] Comment on above: Performed By: #### L 500.4050, L100.0500 #### [facility] [address] [place], [address] Chloride [Moles/Vol] 103 mmol/L Normal 98-108 [facility] Comment on above: Performed By: #### L 500.4050, L100.0500 #### [facility] [address] [place], [address] CO2 [Moles/Vol] 28.0 mmol/L Normal 21.0-32.0 [facility] Comment on above: Performed By: #### L 500.4050, L100.0500 #### [facility] [address] [place], [address] Creatinine [Mass/Vol] 1.32 mg/dL High 0.70-1.[address] [facility] Comment on above: Performed By: #### L 500.4050, L100.0500 #### [facility] [address] [place], [address] GAP 9 Normal 5-15 [facility] Comment on above: Performed By: #### L 500.4050, L100.0500 #### [facility] [address] [place], [address] GFR/1.73 sq M.predicted among non-blacks MDRD (S/P/Bld) [Vol rate/Area] 39 mL/min/{1.73_m2} Low >60 [facility] Comment on above: Result Comment: mL/m in/1.73m2 CKD-EPI Creatinine Equation (2020) Performed By: #### L 500.4050, L100.0500 #### [facility] [address] [place], [address] Globulin (S) [Mass/Vol] 2.2 g/dL Normal 2.2-4.2 [facility] Comment on above: Performed By: #### L 500.4050, L100.0500 #### [facility] [address] [place], [address] Glucose [Mass/Vol] 86 mg/dL Normal 70-99 [facility] Comment on above: Performed By: #### L 500.4050, L100.0500 #### [facility] [address] [place], [address] Potassium [Moles/Vol] 3.9 mmol/L Normal 3.3-5.[address] [facility] Comment on above: Performed By: #### L 500.4050, L100.0500 #### [facility] [address] [place], [address] Sodium [Moles/Vol] 140 mmol/L Normal 133-145 [facility] Comment on above: Performed By: #### L 500.4050, L100.0500 #### [facility] [address] [place], [address] T PROT 5.8 g/dL Low 5.9-8.4 [facility] Comment on above: Performed By: #### L 500.4050, L100.0500 #### [facility] [address] [place], [place], [address] Urea nitrogen [Mass/Vol] 12 mg/dL Normal 4-19 [facility] Comment on above: Performed By: #### L 500.4050, L100.0500 #### [facility] [address] [place], [place], [address] Erythrocyte distribution wid th ratioOrdered By: Alisa Quinn on 01-28-2025 Erythrocyte distribution width (RBC) [Ratio] 13.2 % 11.6-14.6 [facility] Erythrocyte distribution wid th standard deviationOrdered By: Alisa Quinn on 01-28-2025 Erythrocyte distribution width (RBC) [Ratio] 45.1 fl High 35.1-43.9 [facility] Glomerular filtration rate ( GFR) estimation/1.73 sq m using serum, plasma, or whole bOrdered By: Alisa Quinn on 01-28-2025 GFR/1.73 sq M.predicted among non-blacks MDRD (S/P/Bld) [Vol rate/Area] 39 mL/min/{1.73_m2} Low >60 [facility] Comment on above: mL/min/1.73m2 CKD-EP I Creatinine Equation (2020) Hematocrit Auto (Bld) [Volum e fraction]Ordered By: Alisa Quinn on 01-28-2025 Hematocrit (Bld) [Volume fraction] 32.3 % Low 37-47 [facility] Hemoglobin measurementOrdere d By: Alisa Quinn on 01-28-2025 Hemoglobin (Bld) [Mass/Vol] 10.6 g/dL Low 12.0-15.0 [facility] - Chemistry and C hemistry - challengeOrdered By: Alisa Quinn on 01-28-2025 AST [Catalytic activity/Vol] 28 U/L <32 [facility] MCV (mean corpuscular volume ) determinationOrdered By: Alisa Quinn on 01-28-2025 MCV (RBC) [Entitic vol] 93.6 fL 81-99 [facility] Mean corpuscular hemoglobin (MCH) determinationOrdered By: Alisa Quinn on 01-28-2025 MCH (RBC) [Entitic mass] 30.7 pg 27.0-32.0 [facility] Mean corpuscular hemoglobin concentration (MCHC) determinationOrdered By: Alisa Quinn on 01-28-2025 MCHC (RBC) [Mass/Vol] 32.8 g/dL 32-[address] [facility] Mean platelet volume determi nationOrdered By: Alisa Quinn on 01-28-2025 Platelet mean volume (Bld) [Entitic vol] 9.1 fL 6.2-12.0 [facility] Platelet countOrdered By: Pee Quinn on 01-28-2025 Platelets (Bld) [#/Vol] 239 10*3/uL 150-450 [facility] Potassium measurement (mass/ volume)Ordered By: Alisa Quinn on 01-28-2025 Potassium (Unsp spec) [Mass/Vol] 3.9 mmol/L 3.3-5.1 [facility] RBC Auto (Bld) [#/Vol]Ordere d By: Alisa Quinn on 01-28-2025 RBC (Bld) [#/Vol] 3.45 10*6/uL Low 4.2-5.4 [facility] Serum creatinine measurement (mass/volume)Ordered By: Alisa Quinn on 01-28-2025 Creatinine [Mass/Vol] 1.32 mg/dL High 0.70-1.[address] [facility] Serum globulin measurementOr dered By: Alisa Quinn on 01-28-2025 Globulin (S) [Mass/Vol] 2.2 g/dL 2.2-4.2 [facility] Serum glucose measurement (m ass/volume)Ordered By: Alisa Quinn on 01-28-2025 Glucose [Mass/Vol] 86 mg/dL 70-99 [facility] Serum or plasma alanine garces otransferase (ALT) measurementOrdered By: Alisa Quinn on 01-28-2025 ALT [Catalytic activity/Vol] 18 U/L <35 [facility] Serum or plasma albumin mery urement (mass/volume)Ordered By: Alisa Quinn on 01-28-2025 Albumin [Mass/Vol] 3.6 g/dL 3.4-4.8 [facility] Serum or plasma albumin/glob ulin mass ratioOrdered By: Alisa Quinn on 01-28-2025 Albumin/Globulin [Mass ratio] 1.6 {ratio} 0.9-2.4 [facility] Serum or plasma alkaline jessy sphatase measurementOrdered By: Alisa Quinn on 01-28-2025 ALP [Catalytic activity/Vol] 61 U/L 35-104 [facility] Serum or plasma calcium mery urement (mass/volume)Ordered By: Alisa Quinn on 01-28-2025 Calcium [Mass/Vol] 8.5 mg/dL 7.6-11.0 [facility] Serum or plasma urea nitroge n measurement (mass/volume)Ordered By: Alisa Quinn on 01-28-2025 Urea nitrogen [Mass/Vol] 12 mg/dL 4-19 [facility] Sodium levelOrdered By: Alecia Quinn on 01-28-2025 Sodium [Moles/Vol] 140 mmol/L 133-145 [facility] Total proteinOrdered By: Siri Quinn on 01-28-2025 Protein [Mass/Vol] 5.8 g/dL Low 5.9-8.4 [facility] Urinalysis, Completeon 01-28 WBC 0-5 SEEN Normal 0-5 [facility] Comment on above: Order Comment: 161 N Performed By: #### L [id number], M100.2200, L506.1001, L503.0106, L506.0200, L400.0001 #### [facility] [address] [place], [address] BACTERIA 0 SEEN Normal None Seen [facility] Comment on above: Order Comment: 161 N Performed By: #### L [id number], M100.2200, L506.1001, L503.0106, L506.0200, L400.0001 #### [facility] [address] [place], [address] EPI,SQUAMOUS 0 SEEN Normal 5-10 [facility] Comment on above: Order Comment: 161 N Performed By: #### L [id number], M100.2200, L506.1001, L503.0106, L506.0200, L400.0001 #### [facility] [address] [place], [address] Mucus Ql (Urine sed) 0 SEEN Normal [facility] Comment on above: Order Comment: 161 N Performed By: #### L [id number], M100.2200, L506.1001, L503.0106, L506.0200, L400.0001 #### [facility] [address] [place], [address] RBC 0 SEEN Normal 0-5 [facility] Comment on above: Order Comment: 161 N Performed By: #### L [id number], M100.2200, L506.1001, L503.0106, L506.0200, L400.0001 #### [facility] [address] [place], [address] White blood cell (WBC) count Ordered By: Alisa Quinn on 01-28-2025 WBC (Bld) [#/Vol] 4.9 10*3/uL 4.4-11.0 [facility] Bilirubin Test strip Ql (U)O rdered By: Alisa Quinn on 01-27-2025 Bilirubin Ql (U) Negative Negative [facility] Ketones Test strip Ql (U)Ord ered By: Alisa Qiunn on 01-27-2025 Ketones Ql (U) Negative Negative [facility] Microscopic analysis of urin e for red blood cells (RBC)Ordered By: Alisa Quinn on 01-27-2025 Microscopic analysis of urine for red blood cells (RBC) 0 SEEN /hpf 0-5 [facility] Mucus LM Ql (Urine sed)Order ed By: Alisa Quinn on 01-27-2025 Mucus Ql (Urine sed) 0 SEEN /hpf [facility] Nitrite Test strip Ql (U)Ord ered By: Alisa Quinn on 01-27-2025 Nitrite Ql (U) Negative Negative [facility] Protein Test strip Ql (U)Ord ered By: Alisa Quinn on 01-27-2025 Protein Ql (U) 30 mg/dl High Negative [facility] Squamous epithelial cells de tection in urine sediment by light microscopyOrdered By: Alisa Quinn on 01-27-2025 Epithelial cells.squamous LM Ql (Urine sed) 0 SEEN /hpf 5-10 [facility] Urine clarityOrdered By: Siri Quinn on 01-27-2025 Clarity (U) Sl. Cloudy Clear [facility] Urine color determinationOrd ered By: Alisa Quinn on 01-27-2025 Color (U) Yellow Yellow [facility] Urine cultureOrdered By: Siri Quinn on 01-27-2025 Bacteria identified Cx Nom (U) Mixed Gram Pos & Gram Neg Org Abnormal [facility] Urine glucose detectionOrder ed By: Alisa Quinn on 01-27-2025 Glucose Ql (U) Normal mg/dl Normal [facility] Urine leukocyte esterase det ection by dipstickOrdered By: Alisa Quinn on 01-27-2025 Leukocyte esterase Test strip Ql (U) 25 /ul High Negative [facility] Urine pHOrdered By: Alisa lott on 01-27-2025 pH (U) 6.0 [pH] 5.0 - 8.0 [facility] Urine sediment bacteria coun t by microscopy (number/high power field)Ordered By: Alisa Quinn on 01-27-2025 Bacteria LM.HPF (Urine sed) [#/Area] 0 /[HPF] None Seen [facility] Urine specific gravity measu rementOrdered By: Alisa Quinn on 01-27-2025 Specific gravity (U) [Rel density] 1.015 1.002-1.030 [facility] Urine urobilinogen measureme ntOrdered By: Alisa Quinn on 01-27-2025 Urobilinogen Ql (U) Normal mg/dl Normal [facility] White blood cell countOrdere d By: Alisa Quinn on 01-27-2025 White blood cell count 0-5 SEEN /hpf 0-5 [facility] CNPNon 01-21-2025 CNPN Telephone ([facility]) ESHA DAVILA ([id number]) 1935 F Date Time Provider Department 01/21/25 JEANINE PARKER [facility] During your visit today, we recorded the following information about you: Jeanine Parker APRN.CNP 01/21/2025 8:13 AM Signed Patient had 3+ bacteria in her urine. Cultured out for Klebsiella. GFR was low at 33. Allergy to penicillin. Susceptible to Cipro. will give Cipro twice a day 500 mg for 5 days. Reculture urine after antibiotic complete. Ailyn Bhatt MA 01/21/2025 9:24 AM Signed Faxed papers back to [facility] with instructions. Ailyn Bhatt MA January 21, 2025 9:24 AM Allergies As of Date: 01/21/2025 Noted Allergy Reaction FLEXERIL (CYCLOBENZAPRINE HCL) 03/23/2016 5 - Intolerance IBUPROFEN 03/23/2016 5 - Intolerance PENICILLIN 03/23/2016 7 - Swelling Date Reviewed: 08/10/2024 Reviewed by: Jeanine Parker APRN.[facility] - Fully Assessed Prescriptions as of 01/21/2025 - donepezil (ARICEPT) 5 mg tablet Take 1 tablet by mouth daily at bedtime. Psych is taking over. 08/20/24 - QUEtiapine (SEROQUEL) 25 mg tablet Take 1 tablet by mouth two times a day. - lisinopril (ZESTRIL) 40 mg tablet Take 1 tablet by mouth once daily. - Melatonin 5 mg cap Take by mouth. - hydroCHLOROthiazide 12.5 mg capsule Take 1 capsule by mouth once daily. - Cholecalciferol, Vitamin D3, 50 mcg (2,000 unit) cap Take by mouth. - carvedilol (COREG) 25 mg tablet Take 1 tablet by mouth two times a day. - venlafaxine ER (EFFEXOR XR) 150 mg 24 hr capsule Take 1 capsule by mouth once daily. - famotidine (PEPCID) 20 mg tablet Take 1 tablet by mouth twice daily. - promethazine (PHENERGAN) 25 mg tablet Take 1 tablet by mouth every 6 hours as needed for nausea/vomiting. - Walker misc 1 Each once daily. - atorvastatin (LIPITOR) 40 mg tablet Take 40 mg by mouth once daily. - alendronate (FOSAMAX) 70 mg tablet Take 1 tablet by mouth one time a week. Take with a full glass of water, on an empty stomach; do NOT lie down for 30minutes. - cyanocobalamin (VITAMIN B-12) 1,000 mcg tab Take 1,000 mcg by mouth once daily. - magnesium hydroxide (MILK OF MAGNESIA ORAL) Take 30 mL by mouth as needed. - clopidogrel (PLAVIX) 75 mg tablet Take 1 tablet by mouth once daily. - aluminum-magnesium hydroxide-simethicone (MAALOX,MYLANTA,MAG-AL PLUS) 200-200-20 mg/5 mL suspension Take 30 mL by mouth every 4 hours as needed. for Gi distress - guaiFENesin (ROBITUSSIN) 100 mg/5 mL syrup Take 10 mL by mouth every 4 hours as needed. for cough and congestion - clonazePAM (KLONOPIN) 0.5 mg tablet Take 0.125 mg by mouth daily at bedtime. Routine dose. Tues, Thur, Sat, Sun in the evening. This medication is managed and ordered by Psychiatrist, Dr. Salinas. - acetaminophen (TYLENOL) 325 mg tablet Take 650 mg by mouth every 6 hours as needed. - POLYETHYLENE GLYCOL 3350 (MIRALAX ORAL) Take 17 g by mouth once daily. Problem List As Of Date 01/21/2025 Noted Resolved Recurrent major depression in partial remission*06/09/2016 Chronic renal failure, stage 4 (severe) (HCC) [*06/09/2016 Undiagnosed cardiac murmurs [R01.1] 06/09/2016 12/22/2016 Internal carotid artery stenosis, right [I65.21]10/14/2016 Osteoporosis [M81.0] 12/08/2016 Chronic midline low back pain with right-sided *12/23/2016 Essential hypertension [I10] 12/23/2016 Hyperlipidemia, mixed [E78.2] 06/27/2017 Prediabetes [R73.03] 09/22/2017 Oropharyngeal dysphagia [R13.12] 01/30/2018 Arterial ischemic stroke, vertebrobasilar, thal*06/01/2020 Incidental lung nodule, greater than or equal t*06/25/2022 Hiatal hernia [K44.9] 09/02/2022 Chronic obstructive pulmonary disease (HCC) [J4*09/06/2022 Major depression with psychotic features (HCC) *08/11/2023 Mild late onset Alzheimer's dementia without be*08/11/2023 Encounter for support and coordination of trans*11/03/2023 Encounter Status:Closed by AILYN BHATT on 01/21/25 Normal [facility] Urine Cultureon 01-20-2025 [facility] 161 Pending Klebsiella oxytoca [place] Count >100,000 Klebsiella oxytoca: REACTION Ampicillin Islt KAROL >=32 Ampicillin+Sulbac Islt KAROL 4 S Cefepime Islt KAROL <=0.12 S cefTRIAXone Islt KAROL <=0.25 S Ciprofloxacin Islt KAROL <=0.06 S B-Lactamase Extended Susc Islt NEG Gentamicin Islt KAROL <=1 S levoFLOXacin Islt KAROL <=0.12 S Meropenem Islt KAROL <=0.25 S Nitrofurantoin Islt KAROL 32 S Pip+Tazo Islt KAROL <=4 S TMP SMX Islt KAROL <=20 S Normal [facility] Comment on above: Performed By: #### L 501.9509, M100.2200, L506.1001, L503.0106, L506.0200, L400.0001 #### [facility] [address] [place], [address] Urinalysis, Completeon 01-18 BACTERIA 3+ /hpf Normal None Seen [facility] Comment on above: Order Comment: 161 N Performed By: #### L [id number], M100.2200, L506.1001, L503.0106, L506.0200, L400.0001 #### [facility] [address] [place], [address] RBC 0-5 SEEN Normal 0-5 [facility] Comment on above: Order Comment: 161 N Performed By: #### L [id number], M100.2200, L506.1001, L503.0106, L506.0200, L400.0001 #### [facility] [address] [place], [address] WBC 10-25 SEEN Normal 0-5 [facility] Comment on above: Order Comment: 161 N Performed By: #### L [id number], M100.2200, L506.1001, L503.0106, L506.0200, L400.0001 #### [facility] [address] [place], [address] EPI,SQUAMOUS 0 SEEN Normal 5-10 [facility] Comment on above: Order Comment: 161 N Performed By: #### L [id number], M100.2200, L506.1001, L503.0106, L506.0200, L400.0001 #### [facility] [address] [place], [address] Mucus Ql (Urine sed) 0 SEEN Normal [facility] Comment on above: Order Comment: 161 N Performed By: #### L [id number], M100.2200, L506.1001, L503.0106, L506.0200, L400.0001 #### [facility] [address] [place], [address] Urine Cultureon 11-24-2024 URC Mixed Gram Positive Organisms [place] Count <1000 MIXC Mixed contaminants. Submit a new specimen if indicated. Normal [facility] Comment on above: Performed By: #### L [id number], M100.2200, L506.1001, L503.0106, L506.0200, L400.0001 #### [facility] [address] [place], [address] FOLATES,SERUM (FOLIC ACID)on 11-22-2024 FOLATES,SERUM 6.99 ng/mL Normal 4.60-34.80 [facility] Comment on above: Order Comment: 161 N Performed By: #### L [id number], M100.2200, L506.1001, L503.0106, L506.0200, L400.0001 #### [facility] [address] [place], [address] Folate [Moles/Vol]Ordered By : Alisa Quinn on 11-22-2024 Serum Folate 6.99 ng/mL 4.60-34.80 [facility] L503.0106on 11-22-2024 Cobalamin (Vitamin B12) [Mass/Vol] 1023 pg/mL High 180-914 [facility] Comment on above: Order Comment: 161 Performed By: #### L [id number], M100.2200, L506.1001, L503.0106, L506.0200, L400.0001 #### [facility] [address] [facility] [place], [address] L506.1001on 11-22-2024 Vitamin D 25-OH 67.8 ng/mL Normal 30-100 [facility] Comment on above: Order Comment: 161 Result Comment: Loin min D Status Deficiency: <20 ng/mL (50nmol/L) Insufficiency: 20-30 ng/mL (50-75 nmol/L) Sufficiency: 30-100 ng/mL (75-250 nmol/L) Toxicity: >100 ng/mL (>250 nmol/L) Performed By: #### L [id number], M100.2200, L506.1001, L503.0106, L506.0200, L400.0001 #### [facility] [address] [place], [address] TSH DL <= 0.005 mIU/L QnOrde red By: Alisa Quinn on 11-22-2024 Thyroid Stimulating Hormone (TSH) 2.920 uIU/mL 0.300-4.200 [facility] Thyroid Stim Hormone (TSH)on 11-22-2024 TSH 2.920 uIU/mL Normal 0.300-4.200 [facility] Comment on above: Order Comment: 161 Performed By: #### L [id number], M100.2200, L506.1001, L503.0106, L506.0200, L400.0001 #### [facility] [address] [place], [address] Urinalysis, Completeon 11-22 BACTERIA 0 SEEN Normal None Seen [facility] Comment on above: Order Comment: CLEAN CATCH Performed By: #### L [id number], M100.2200, L506.1001, L503.0106, L506.0200, L400.0001 #### [facility] [address] [place], [address] EPI,SQUAMOUS 0 SEEN Normal 5-10 [facility] Comment on above: Order Comment: CLEAN CATCH Performed By: #### L [id number], M100.2200, L506.1001, L503.0106, L506.0200, L400.0001 #### [facility] [address] [place], [address] Mucus Ql (Urine sed) 0 SEEN Normal [facility] Comment on above: Order Comment: CLEAN CATCH Performed By: #### L [id number], M100.2200, L506.1001, L503.0106, L506.0200, L400.0001 #### [facility] [address] [place], [address] RBC 0 SEEN Normal 0-5 [facility] Comment on above: Order Comment: CLEAN CATCH Performed By: #### L [id number], M100.2200, L506.1001, L503.0106, L506.0200, L400.0001 #### [facility] [address] [place], [address] WBC 0 SEEN Normal 0-5 [facility] Comment on above: Order Comment: CLEAN CATCH Performed By: #### L [id number], M100.2200, L506.1001, L503.0106, L506.0200, L400.0001 #### [facility] [address] [place], [address] Vitamin B12 ser/plasOrdered By: Alisa Quinn on 11-22-2024 Cobalamin (Vitamin B12) [Mass/Vol] 1023 pg/mL High 180-914 [facility] Vitamin D, 25-hydroxyOrdered By: Alisa Quinn on 11-22-2024 Vitamin D 25-Hydroxy 67.8 ng/mL 30-100 [facility] Comment on above: Vitamin D StatusDefi ciency: <20 ng/mL (50nmol/L)Insufficiency: 20-30 ng/mL (50-75 nmol/L)Sufficiency: 30-100 ng/mL (75-250 nmol/L)Toxicity: >100 ng/mL (>250 nmol/L) Bilirubin Test strip Ql (U)O rdered By: Alisa Quinn on 11-21-2024 Bilirubin Ql (U) Negative Negative [facility] Epithelial cells.squamous LM Ql (Urine sed)Ordered By: Alisa Quinn on 11-21-2024 Epithelial cells.squamous LM.HPF (Urine sed) [#/Area] 0 /[HPF] 5-10 [facility] Glucose Ql (U)Ordered By: Pee Quinn on 11-21-2024 Urine Glucose (UA) Normal mg/dl Normal [facility] Ketones Test strip Ql (U)Ord ered By: Alisa Quinn on 04-02-2025 Ketones Ql (U) Negative Negative [facility] Microscopic analysis of urin e for red blood cells (RBC)Ordered By: Alisa Quinn on 11-21-2024 Urine RBC 0 SEEN /hpf 0-5 [facility] Mucus LM Ql (Urine sed)Order ed By: Alisa Quinn on 11-21-2024 Mucus Ql (Urine sed) 0 SEEN /hpf [facility] Nitrite Test strip Ql (U)Ord ered By: Alisa Quinn on 11-21-2024 Nitrite Ql (U) Negative Negative [facility] Protein Test strip Ql (U)Ord ered By: Alisa Quinn on 11-21-2024 Protein Ql (U) 15 mg/dl High Negative [facility] Urine blood detectionOrdered By: Alisa Quinn on 11-21-2024 Urine Occult Blood Negative Negative [facility] Urine clarityOrdered By: Siri Quinn on 11-21-2024 Clarity (U) Sl. Cloudy Clear [facility] Urine color determinationOrd ered By: Alisa Quinn on 11-21-2024 Color (U) Yellow Yellow [facility] Urine cultureOrdered By: Siri Quinn on 11-21-2024 Bacteria identified Cx Nom (U) Positive Abnormal [facility] Urine leukocyte esterase det ection by dipstickOrdered By: Alisa Quinn on 11-21-2024 Leukocyte esterase Test strip Ql (U) Negative Negative [facility] Urine pHOrdered By: Alisa lott on 11-21-2024 pH (U) 8.0 [pH] 5.0 - 8.0 [facility] Urine sediment bacteria coun t by microscopy (number/high power field)Ordered By: Alisa Quinn on 11-21-2024 Bacteria LM.HPF (Urine sed) [#/Area] 0 /[HPF] None Seen [facility] Urine specific gravity measu rementOrdered By: Alisa Quinn on 11-21-2024 Specific gravity (U) [Rel density] 1.010 1.002-1.030 [facility] Urobilinogen Ql (U)Ordered B y: Alisa Quinn on 11-21-2024 Urine Urobilinogen Normal mg/dl Normal [facility] White blood cell countOrdere d By: Alisa Quinn on 11-21-2024 Urine WBC 0 [facility] 0-[facility] ESHA DAVILA ([id number]) 1935 F Date Time Provider Department 11/16/24 JEANINE PARKER During your visit today, we recorded the following information about you: Jeanine Parker APRN.[facility]OR 11/16/2024 9:31 AM Signed Received lab work from [facility] on Esha Hemoglobin A1c 5.6 Iron level 54 Ferritin 38 Sodium 140, potassium 3.9, BUN 14, creatinine 1.31, glucose 85 GFR 39 AST 29, ALT 19, alkaline phosphatase 56 WBC 5.4, hemoglobin 10.7, hematocrit 33.5, platelet count 225 Allergies As of Date: 11/16/2024 Noted Allergy Reaction FLEXERIL (CYCLOBENZAPRINE HCL) 03/23/2016 5 - Intolerance IBUPROFEN 03/23/2016 5 - Intolerance PENICILLIN 03/23/2016 7 - Swelling Date Reviewed: 08/10/2024 Reviewed by: Jeanine Parker APRN.[employer] - Fully Assessed Prescriptions as of 11/16/2024 - donepezil (ARICEPT) 5 mg tablet Take 1 tablet by mouth daily at bedtime. Psych is taking over. 08/20/24 - Diclofenac Sodium 3 % gel Apply 0.5 g to affected area two times a day. To hands - Diclofenac Sodium 3 % gel Apply 0.5 g to affected area two times a day. To hands - QUEtiapine (SEROQUEL) 25 mg tablet Take 1 tablet by mouth two times a day. - lisinopril (ZESTRIL) 40 mg tablet Take 1 tablet by mouth once daily. - Melatonin 5 mg cap Take by mouth. - hydroCHLOROthiazide 12.5 mg capsule Take 1 capsule by mouth once daily. - Cholecalciferol, Vitamin D3, 50 mcg (2,000 unit) cap Take by mouth. - carvedilol (COREG) 25 mg tablet Take 1 tablet by mouth two times a day. - venlafaxine ER (EFFEXOR XR) 150 mg 24 hr capsule Take 1 capsule by mouth once daily. - famotidine (PEPCID) 20 mg tablet Take 1 tablet by mouth twice daily. - promethazine (PHENERGAN) 25 mg tablet Take 1 tablet by mouth every 6 hours as needed for nausea/vomiting. - Walker misc 1 Each once daily. - atorvastatin (LIPITOR) 40 mg tablet Take 40 mg by mouth once daily. - alendronate (FOSAMAX) 70 mg tablet Take 1 tablet by mouth one time a week. Take with a full glass of water, on an empty stomach; do NOT lie down for 30minutes. - cyanocobalamin (VITAMIN B-12) 1,000 mcg tab Take 1,000 mcg by mouth once daily. - magnesium hydroxide (MILK OF MAGNESIA ORAL) Take 30 mL by mouth as needed. - clopidogrel (PLAVIX) 75 mg tablet Take 1 tablet by mouth once daily. - aluminum-magnesium hydroxide-simethicone (MAALOX,MYLANTA,MAG-AL PLUS) 200-200-20 mg/5 mL suspension Take 30 mL by mouth every 4 hours as needed. for Gi distress - guaiFENesin (ROBITUSSIN) 100 mg/5 mL syrup Take 10 mL by mouth every 4 hours as needed. for cough and congestion - clonazePAM (KLONOPIN) 0.5 mg tablet Take 0.125 mg by mouth daily at bedtime. Routine dose. Tues, Thur, Sat, Sun in the evening. This medication is managed and ordered by Psychiatrist, Dr. Salinas. - acetaminophen (TYLENOL) 325 mg tablet Take 650 mg by mouth every 6 hours as needed. - POLYETHYLENE GLYCOL 3350 (MIRALAX ORAL) Take 17 g by mouth once daily. 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 *12/23/2016 Essential hypertension [I10] 12/23/2016 Hyperlipidemia, mixed [E78.2] 06/27/2017 Prediabetes [R73.03] 09/22/2017 Oropharyngeal dysphagia [R13.12] 01/30/2018 Arterial ischemic stroke, vertebrobasilar, thal*06/01/2020 Incidental lung nodule, greater than or equal t*06/25/2022 Hiatal hernia [K44.9] 09/02/2022 Chronic obstructive pulmonary disease (HCC) [J4*09/06/2022 Major depression with psychotic features (HCC) *08/11/2023 Mild late onset Alzheimer's dementia without be*08/11/2023 Encounter for support and coordination of trans*11/03/2023 Encounter Status:Closed by JEANINE PARKER on 11/16/24 Normal [facility] Metabolic Prof ilon 11-14-2024 Albumin [Mass/Vol] 3.7 g/dL Normal 3.4-4.8 [facility] Comment on above: Order Comment: 161 N Performed By: #### L [id number], M100.2200, L506.1001, L503.0106, L506.0200, L400.0001 #### [facility] [address] [place], [address] Albumin/Globulin [Mass ratio] 1.5 {ratio} Normal 0.9-2.4 [facility] Comment on above: Order Comment: 161 N Performed By: #### L [id number], M100.2200, L506.1001, L503.0106, L506.0200, L400.0001 #### [facility] [address] [place], [address] ALK PHOS 56 U/L Normal 35-104 [facility] Comment on above: Order Comment: 161 N Performed By: #### L [id number], M100.2200, L506.1001, L503.0106, L506.0200, L400.0001 #### [facility] [address] [place], [address] ALT [Catalytic activity/Vol] 19 U/L Normal <=34 [facility] Comment on above: Order Comment: 161 N Performed By: #### L [id number], M100.2200, L506.1001, L503.0106, L506.0200, L400.0001 #### [facility] [address] [place], [address] AST [Catalytic activity/Vol] 29 U/L Normal <=31 [facility] Comment on above: Order Comment: 161 N Performed By: #### L [id number], M100.2200, L506.1001, L503.0106, L506.0200, L400.0001 #### [facility] [address] [place], [address] Bilirubin [Mass/Vol] 0.20 mg/dL Normal 0.00-1.30 [facility] Comment on above: Order Comment: 161 N Performed By: #### L [id number], M100.2200, L506.1001, L503.0106, L506.0200, L400.0001 #### [facility] [address] [place], [address] BUN/CRE 10.3 RATIO Normal 10-20 [facility] Comment on above: Order Comment: 161 N Performed By: #### L [id number], M100.2200, L506.1001, L503.0106, L506.0200, L400.0001 #### [facility] [address] [place], [address] Calcium [Mass/Vol] 9.0 mg/dL Normal 7.6-11.0 [facility] Comment on above: Order Comment: 161 N Performed By: #### L [id number], M100.2200, L506.1001, L503.0106, L506.0200, L400.0001 #### [facility] [address] [place], [address] Chloride [Moles/Vol] 103 mmol/L Normal 98-108 [facility] Comment on above: Order Comment: 161 N Performed By: #### L [id number], M100.2200, L506.1001, L503.0106, L506.0200, L400.0001 #### [facility] [address] [place], [address] CO2 [Moles/Vol] 26.1 mmol/L Normal 21.0-32.0 [facility] Comment on above: Order Comment: 161 N Performed By: #### L [id number], M100.2200, L506.1001, L503.0106, L506.0200, L400.0001 #### [facility] [address] [place], [address] Creatinine [Mass/Vol] 1.31 mg/dL High 0.70-1.[address] [facility] Comment on above: Order Comment: 161 N Performed By: #### L [id number], M100.2200, L506.1001, L503.0106, L506.0200, L400.0001 #### [facility] [address] [place], [address] GAP 12 Normal 5-15 [facility] Comment on above: Order Comment: 161 N Performed By: #### L [id number], M100.2200, L506.1001, L503.0106, L506.0200, L400.0001 #### [facility] [address] [place], [address] GFR/1.73 sq M.predicted among non-blacks MDRD (S/P/Bld) [Vol rate/Area] 39 mL/min/{1.73_m2} Low >60 [facility] Comment on above: Order Comment: 161 N Result Comment: mL/m in/1.73m2 CKD-EPI Creatinine Equation (2020) Performed By: #### L [id number], M100.2200, L506.1001, L503.0106, L506.0200, L400.0001 #### [facility] [address] [place], [address] Globulin (S) [Mass/Vol] 2.4 g/dL Normal 2.2-4.2 [facility] Comment on above: Order Comment: 161 N Performed By: #### L [id number], M100.2200, L506.1001, L503.0106, L506.0200, L400.0001 #### [facility] [address] [place], [address] Glucose [Mass/Vol] 85 mg/dL Normal 70-99 [facility] Comment on above: Order Comment: 161 N Performed By: #### L [id number], M100.2200, L506.1001, L503.0106, L506.0200, L400.0001 #### [facility] [address] [place], [address] Potassium [Moles/Vol] 3.9 mmol/L Normal 3.3-5.[address] [facility] Comment on above: Order Comment: 161 N Performed By: #### L [id number], M100.2200, L506.1001, L503.0106, L506.0200, L400.0001 #### [facility] [address] [place], [address] Sodium [Moles/Vol] 140 mmol/L Normal 133-145 [facility] Comment on above: Order Comment: 161 N Performed By: #### L [id number], M100.2200, L506.1001, L503.0106, L506.0200, L400.0001 #### [facility] [address] [place], [address] T PROT 6.1 g/dL Normal 5.9-8.4 [facility] Comment on above: Order Comment: 161 N Performed By: #### L [id number], M100.2200, L506.1001, L503.0106, L506.0200, L400.0001 #### [facility] [address] [place], [address] Urea nitrogen [Mass/Vol] 14 mg/dL Normal 4-19 [facility] Comment on above: Order Comment: 161 N Performed By: #### L [id number], M100.2200, L506.1001, L503.0106, L506.0200, L400.0001 #### [facility] [address] [place], [address] Ferritinon 11-14-2024 Ferritin [Mass/Vol] 38 ng/mL Normal 22-378 [facility] Comment on above: Order Comment: 161 N Performed By: #### L [id number], M100.2200, L506.1001, L503.0106, L506.0200, L400.0001 #### [facility] [address] [place], [address] Ironon 11-14-2024 Iron [Mass/Vol] 54 ug/dL Normal 50-170 [facility] Comment on above: Order Comment: 161 N Performed By: #### L [id number], M100.2200, L506.1001, L503.0106, L506.0200, L400.0001 #### [facility] [address] [place], [address] Anion gap in Serum or Plasma Ordered By: Yonny Renee on 11-13-2024 Anion gap [Moles/Vol] 12 mmol/L 5-[address] [facility] BUN/creatinine ratioOrdered By: Yonny Dowo on 11-13-2024 Urea nitrogen/Creatinine [Mass ratio] 10.3 mg/mg 10-20 [facility] Bilirubin, totalOrdered By: Yonny Dowo on 11-13-2024 Bilirubin [Mass/Vol] 0.20 mg/dL 0.00-1.30 [facility] CBC-Complete Blood Cnt No Di ffon 11-13-2024 Erythrocyte distribution width (RBC) [Ratio] 14.6 % Normal 11.6-14.6 [facility] Comment on above: Order Comment: 161 Performed By: #### L 100.0500, L503.6150, L503.6550, L501.9985, L500.4050 #### [facility] [address] [place], [address] Hematocrit (Bld) [Volume fraction] 33.5 % Low 37-47 [facility] Comment on above: Order Comment: 161 Performed By: #### L 100.0500, L503.6150, L503.6550, L501.9985, L500.4050 #### [facility] [address] [place], [address] Hemoglobin (Bld) [Mass/Vol] 10.7 g/dL Low 12.0-15.0 [facility] Comment on above: Order Comment: 161 Performed By: #### L 100.0500, L503.6150, L503.6550, L501.9985, L500.4050 #### [facility] [address] [place], [address] MCH (RBC) [Entitic mass] 29.9 pg Normal 27.0-32.0 [facility] Comment on above: Order Comment: 161 Performed By: #### L 100.0500, L503.6150, L503.6550, L501.9985, L500.4050 #### [facility] [address] [place], [address] MCHC (RBC) [Mass/Vol] 31.9 g/dL Low 32-[address] [facility] Comment on above: Order Comment: 161 Performed By: #### L 100.0500, L503.6150, L503.6550, L501.9985, L500.4050 #### [facility] [address] [place], [address] MCV (RBC) [Entitic vol] 93.6 fL Normal 81-99 [facility] Comment on above: Order Comment: 161 Performed By: #### L 100.0500, L503.6150, L503.6550, L501.9985, L500.4050 #### [facility] [address] [place], [address] Platelet mean volume (Bld) [Entitic vol] 9.1 fL Normal 6.2-12.0 [facility] Comment on above: Order Comment: 161 Performed By: #### L 100.0500, L503.6150, L503.6550, L501.9985, L500.4050 #### [facility] [address] [place], [address] Platelets (Bld) [#/Vol] 225 10*3/uL Normal 150-450 [facility] Comment on above: Order Comment: 161 Performed By: #### L 100.0500, L503.6150, L503.6550, L501.9985, L500.4050 #### [facility] [address] [place], [address] RBC (Bld) [#/Vol] 3.58 10*6/uL Low 4.2-5.4 [facility] Comment on above: Order Comment: 161 Performed By: #### L 100.0500, L503.6150, L503.6550, L501.9985, L500.4050 #### [facility] [address] [place], [address] RDW SD 50.1 fl High 35.1-43.9 [facility] Comment on above: Order Comment: 161 Performed By: #### L 100.0500, L503.6150, L503.6550, L501.9985, L500.4050 #### [facility] [address] [place], [address] WBC (Bld) [#/Vol] 5.4 10*3/uL Normal 4.4-11.0 [facility] Comment on above: Order Comment: 161 Performed By: #### L 100.0500, L503.6150, L503.6550, L501.9985, L500.4050 #### [facility] [address] [place], [address] Carbon dioxide, total [Moles /volume] in Central venous bloodOrdered By: Yonny Renee on 11-13-2024 CO2 [Moles/Vol] 26.1 mmol/L 21.0-32.0 [facility] Chloride assayOrdered By: David Renee on 11-13-2024 Chloride [Moles/Vol] 103 mmol/L 98-108 [facility] Erythrocyte distribution wid th (RBC) [Ratio]Ordered By: Yonny Renee on 11-13-2024 Erythrocyte distribution width (RBC) [Entitic vol] 50.1 fL High 35.1-43.9 [facility] Erythrocyte distribution wid th ratioOrdered By: Yonny Renee on 11-13-2024 Erythrocyte distribution width (RBC) [Ratio] 14.6 % 11.6-14.6 [facility] GFR/1.73 sq M.predicted stanislaw g non-blacks MDRD (S/P/Bld) [Vol rate/Area]Ordered By: Yonny Renee on 11-13-2024 Estimated GFR (MDRD) Non-Af Amer 39 Low >60 [facility] Comment on above: mL/min/1.73m2 CKD-EP I Creatinine Equation (2020) Hematocrit Auto (Bld) [Volum e fraction]Ordered By: Yonny Renee on 11-13-2024 Hematocrit (Bld) [Volume fraction] 33.5 % Low 37-47 [facility] Hemoglobin A1con 11-13-2024 HbA1c (Bld) [Mass fraction] 5.6 % Low <=5.6 [facility] Comment on above: Order Comment: 161 Performed By: #### L 100.0500, L503.6150, L503.6550, L501.9985, L500.4050 #### [facility] [address] [place], [address] Hemoglobin A1c percentageOrd ered By: Yonny Renee on 11-13-2024 HbA1c (Bld) [Mass fraction] 5.6 % Low >5.7 [facility] Hemoglobin measurementOrdere d By: Yonny Renee on 11-13-2024 Hemoglobin (Bld) [Mass/Vol] 10.7 g/dL Low 12.0-15.0 [facility] Iron (Unsp spec) [Mass/Mass] Ordered By: Yonny Renee on 11-13-2024 Iron [Mass/Vol] 54 ug/dL 50-170 [facility] - Chemistry and C hemistry - challengeOrdered By: Yonny Renee on 11-13-2024 AST [Catalytic activity/Vol] 29 U/L <32 [facility] MCV (mean corpuscular volume ) determinationOrdered By: Yonny Renee on 11-13-2024 MCV (RBC) [Entitic vol] 93.6 fL 81-99 [facility] Mean corpuscular hemoglobin (MCH) determinationOrdered By: Yonny Renee on 11-13-2024 MCH (RBC) [Entitic mass] 29.9 pg 27.0-32.0 [facility] Mean corpuscular hemoglobin concentration (MCHC) determinationOrdered By: Yonny Renee on 11-13-2024 MCHC (RBC) [Mass/Vol] 31.9 g/dL Low 32-[address] [facility] Mean platelet volume determi nationOrdered By: Yonny Renee on 11-13-2024 Platelet mean volume (Bld) [Entitic vol] 9.1 fL 6.2-12.0 [facility] Platelet countOrdered By: David Renee on 11-13-2024 Platelets (Bld) [#/Vol] 225 10*3/uL 150-450 [facility] Potassium (Unsp spec) [Mass/ Vol]Ordered By: Yonny Renee on 11-13-2024 Potassium [Moles/Vol] 3.9 mmol/L 3.3-5.[address] [facility] RBC Auto (Bld) [#/Vol]Ordere d By: Yonny Renee on 11-13-2024 RBC (Bld) [#/Vol] 3.58 10*6/uL Low 4.2-5.4 [facility] Serum creatinine measurement (mass/volume)Ordered By: Yonny Renee on 11-13-2024 Creatinine [Mass/Vol] 1.31 mg/dL High 0.70-1.[address] [facility] Serum globulin measurementOr dered By: Yonny Renee on 11-13-2024 Globulin (S) [Mass/Vol] 2.4 g/dL 2.2-4.2 [facility] Serum glucose measurement (m ass/volume)Ordered By: Yonny Renee on 11-13-2024 Glucose [Mass/Vol] 85 mg/dL 70-99 [facility] Serum or plasma alanine garces otransferase (ALT) measurementOrdered By: Yonny Renee on 11-13-2024 ALT [Catalytic activity/Vol] 19 U/L <35 [facility] Serum or plasma albumin mery urement (mass/volume)Ordered By: Yonny Renee on 11-13-2024 Albumin [Mass/Vol] 3.7 g/dL 3.4-4.8 [facility] Serum or plasma albumin/glob ulin mass ratioOrdered By: Yonny Renee on 11-13-2024 Albumin/Globulin [Mass ratio] 1.5 {ratio} 0.9-2.4 [facility] Serum or plasma alkaline jessy sphatase measurementOrdered By: Yonny Renee on 11-13-2024 ALP [Catalytic activity/Vol] 56 U/L 35-104 [facility] Serum or plasma calcium mery urement (mass/volume)Ordered By: Yonny Renee on 11-13-2024 Calcium [Mass/Vol] 9.0 mg/dL 7.6-11.0 [facility] Serum or plasma ferritin ke surement (mass/volume)Ordered By: Yonny Renee on 11-13-2024 Ferritin [Mass/Vol] 38 ng/mL 22-378 [facility] Serum or plasma urea nitroge n measurement (mass/volume)Ordered By: Yonny Renee on 11-13-2024 Urea nitrogen [Mass/Vol] 14 mg/dL 4-19 [facility] Sodium levelOrdered By: Carlos Renee on 11-13-2024 Sodium [Moles/Vol] 140 mmol/L 133-145 [facility] Total proteinOrdered By: Khadar eugenia Renee on 11-13-2024 Protein [Mass/Vol] 6.1 g/dL 5.9-8.4 [facility] White blood cell (WBC) count Ordered By: Yonny Renee on 11-13-2024 WBC (Bld) [#/Vol] 5.4 10*3/uL 4.4-11.0 [facility] CNPNon 09-06-2024 [facility] ESHA [facility]IL[facility] ([id number]) 1935 F Date Time Provider Department 09/06/24 [facility] During your visit today, we recorded the following information about you: Azra Chawla MA 09/06/2024 12:51 PM Signed Office received electronic communication from [facility] regarding refusal of Diclofenac Gel to b/l hands for arthritic pain. Routed to PCP to review. Once reviewed fax back to [phone]. MARGY Brower Jacqueline A, SENIOR PROJECT ACCOUNTANT.[facility] 09/06/2024 1:02 PM Signed I will send a prescription for a stronger 3% diclofenac gel- it is the safest way to treat her hand pain without causing increased risk to her stomach and kidneys. Please apply 2 x day to backs of her hands Elena Ceron, GABBY 09/06/2024 1:52 PM Signed Pts daughter called and is notified of providers message and instructions. She voices understanding. She states the last time it took weeks for her to get the medication. She wanted to know if provider could send it to [facility] in [place] and she could pick it up and bring it in. Put in short term supply. The patient has been identified by name and date of : Yes Caregiver verified no other encounters exist for this prescription request: Yes Caregiver confirmed with patient/requestor that no other refills are due, in the near future, with this provider at this time: Yes The last office visit in the department: 08/10/2024 Does the patient have a future office visit with this provider/department: No Visit date not found Requested Prescriptions Pending Prescriptions Disp Refills Diclofenac Sodium 3 % gel 30 g 0 Sig: Apply 0.5 g to affected area two times a day. To hands Signed Prescriptions Disp Refills Diclofenac Sodium 3 % gel 30 g 2 Sig: Apply 0.5 g to affected area two times a day. To hands Authorizing Provider: JEANINE PARKER RN September 06, 2024 1:52 PM Jeanine Parker APRN.CNP 09/06/2024 2:42 PM Signed RX sent. 3 % ordered because the [facility] pharmacy declined diclofenac 1% OTC Azra Chawla MA 09/06/2024 3:12 PM Signed Form signed and faxed back with note below with updated Rx being sent and information below with instructions. Azra Chawla MA Allergies As of Date: 09/06/2024 Noted Allergy Reaction FLEXERIL (CYCLOBENZAPRINE HCL) 03/23/2016 5 - Intolerance IBUPROFEN 03/23/2016 5 - Intolerance PENICILLIN 03/23/2016 7 - Swelling Date Reviewed: 08/10/2024 Reviewed by: Jeanine Parker APRN.ADULT BASIC EDUCATION INSTRUCTOR - Fully Assessed Reason for Visit: Electronic Communication [890] Cmt: [facility] Visit Diagnosis:Primary osteoarthritis of both hands [M19.041, M19.042] Order(s):Diclofenac Sodium 3 % gelApply 0.5 g to affected area two times a day. To handsDisp: 30 gRfl: 2 Diclofenac Sodium 3 % gelApply 0.5 g to affected area two times a day. To handsDisp: 30 gRfl: 0 Prescriptions as of 09/06/2024 - Diclofenac Sodium 3 % gel Apply 0.5 g to affected area two times a day. To hands - Diclofenac Sodium 3 % gel Apply 0.5 g to affected area two times a day. To hands - QUEtiapine (SEROQUEL) 25 mg tablet Take 1 tablet by mouth two times a day. - donepezil (ARICEPT) 5 mg tablet Take 1 tablet by mouth daily at bedtime. Psych is taking over. 08/20/24 - lisinopril (ZESTRIL) 40 mg tablet Take 1 tablet by mouth once daily. - Melatonin 5 mg cap Take by mouth. - hydroCHLOROthiazide 12.5 mg capsule Take 1 capsule by mouth once daily. - Cholecalciferol, Vitamin D3, 50 mcg (2,000 unit) cap Take by mouth. - carvedilol (COREG) 25 mg tablet Take 1 tablet by mouth two times a day. - venlafaxine ER (EFFEXOR XR) 150 mg 24 hr capsule Take 1 capsule by mouth once daily. - famotidine (PEPCID) 20 mg tablet Take 1 tablet by mouth twice daily. - promethazine (PHENERGAN) 25 mg tablet Take 1 tablet by mouth every 6 hours as needed for nausea/vomiting. - Walker misc 1 Each once daily. - atorvastatin (LIPITOR) 40 mg tablet Take 40 mg by mouth once daily. - alendronate (FOSAMAX) 70 mg tablet Take 1 tablet by mouth one time a week. Take with a full glass of water, on an empty stomach; do NOT lie down for 30minutes. - cyanocobalamin (VITAMIN B-12) 1,000 mcg tab Take 1,000 mcg by mouth once daily. - magnesium hydroxide (MILK OF MAGNESIA ORAL) Take 30 mL by mouth as needed. - clopidogrel (PLAVIX) 75 mg tablet Take 1 tablet by mouth once daily. - aluminum-magnesium hydroxide-simethicone (MAALOX,MYLANTA,MAG-AL PLUS) 200-200-20 mg/5 mL suspension Take 30 mL by mouth every 4 hours as needed. for Gi distress - guaiFENesin (ROBITUSSIN) 100 mg/5 mL syrup Take 10 mL by mouth every 4 hours as needed. for cough and congestion - clonazePAM (KLONOPIN) 0.5 mg tablet Take 0.125 mg by mouth daily at bedtime. Routine dose. Tues, Thur, Sat, Sun in the evening. This medication is managed and ordered by Psych (more content not included)... Normal [facility] CBC W Auto Differential pane l (Bld)on 08-10-2024 Basophils (Bld) [#/Vol] 0.03 10*3/uL [facility] Basophils/100 WBC (Bld) 0.4 % C [facility] Differential cell count method Nom (Bld) Auto [facility] Eosinophils (Bld) [#/Vol] 0.07 10*3/uL [facility] Eosinophils/100 WBC (Bld) 1.0 % [facility] Erythrocyte distribution width (RBC) [Ratio] 14.1 % 11.5 - 15.0 % [facility] Hematocrit (Bld) [Volume fraction] 34.7 % Low 36.0 - 46.0 % [facility] Hemoglobin (Bld) [Mass/Vol] 11.1 g/dL Low 11.5 - 15.5 g/dL [facility] Immature granulocytes (Bld) [#/Vol] [facility] Immature granulocytes/100 WBC (Bld) 0.1 % [facility] Interpretation and review of laboratory results Abnormal [facility] Lymphocytes (Bld) [#/Vol] 1.82 10*3/uL [facility] Lymphocytes/100 WBC (Bld) 26.2 % [facility] MCH (RBC) [Entitic mass] 30.0 pg 26. 0 - 34.0 pg [facility] MCHC (RBC) [Mass/Vol] 32.0 g/dL 30.5 - 36.0 g/dL [facility] MCV (RBC) [Entitic vol] 93.8 fL 80.0 - 100.0 fL [facility] Monocytes (Bld) [#/Vol] 0.88 10*3/uL High [facility] Monocytes/100 WBC (Bld) 12.7 % C [facility] Neutrophils (Bld) [#/Vol] 4.13 10*3/uL [facility] Neutrophils/100 WBC (Bld) 59.6 % [facility] Nucleated RBC (Bld) [#/Vol] [facility] Nucleated RBC/100 WBC (Bld) [Ratio] 0.0 % /100 WBC [facility] Platelet mean volume (Bld) [Entitic vol] 9.1 fL 9.0 - 12.7 fL [facility] Platelets (Bld) [#/Vol] 263 10*3/uL [facility] RBC (Bld) [#/Vol] 3.70 10*6/uL Low 3.90 - 5.2 0 m/uL [facility] WBC (Bld) [#/Vol] 6.94 10*3/uL [facility] Basophils (Bld) [#/Vol] 0.03 10*3/uL Normal <0.11 [facility] Comment on above: Order Comment: Speci men Type: BLOOD SPECIMENOrdering Facility: [facility] Address: [address] [place] [address] Performed By: #### 5 7021-8 ####[facility] LABCLIA [id number] [place] [address] [place] Basophils/100 WBC (Bld) 0.4 % Normal C [facility] Comment on above: Order Comment: Speci men Type: BLOOD SPECIMENOrdering Facility: [facility] Address: [address] [place] [address] Performed By: #### 5 7021-8 ####[facility] LABCLIA [id number] [place] [address] [place] Differential cell count method Nom (Bld) Auto Normal [facility] Comment on above: Order Comment: Speci men Type: BLOOD SPECIMENOrdering Facility: [facility] Address: [address] [place] [address] Performed By: #### 5 7021-8 ####[facility] LABCLIA [id number] [place] [address] [place] Eosinophils (Bld) [#/Vol] 0.07 10*3/uL Normal <0.46 [facility] Comment on above: Order Comment: Speci men Type: BLOOD SPECIMENOrdering Facility: [facility] Address: [address] [place] [address] Performed By: #### 5 7021-8 ####[facility] LABCLIA [id number] [place] [address] [place] Eosinophils/100 WBC (Bld) 1.0 % Normal [facility] Comment on above: Order Comment: Speci men Type: BLOOD SPECIMENOrdering Facility: [facility] Address: [address] [place] [address] Performed By: #### 5 7021-8 ####[facility] LABCLIA [id number] [place] [address] [place] Erythrocyte distribution width (RBC) [Ratio] 14.1 % Normal 11.5-15.0 [facility] Comment on above: Order Comment: Speci men Type: BLOOD SPECIMENOrdering Facility: [facility] Address: [address] [place] [address] Performed By: #### 5 7021-8 ####[facility] LABIA [id number] [place] [address] [place] Hematocrit (Bld) [Volume fraction] 34.7 % Low 36.0-46.0 [facility] Comment on above: Order Comment: Speci men Type: BLOOD SPECIMENOrdering Facility: [facility] Address: [address] [place] [address] Performed By: #### 5 7021-8 ####[facility] LABCLIA [id number] [place] [address] [place] Hemoglobin (Bld) [Mass/Vol] 11.1 g/dL Low 11.5-15.5 [facility] Comment on above: Order Comment: Speci men Type: BLOOD SPECIMENOrdering Facility: [facility] Address: [address] [place] [address] Performed By: #### 5 7021-8 ####[facility] LABIA [id number] [place] [address] [place] Immature granulocytes (Bld) [#/Vol] 10*3/uL Normal <0.10 [facility] Comment on above: Order Comment: Speci men Type: BLOOD SPECIMENOrdering Facility: [facility] Address: [address] [place] [address] Performed By: #### 5 7021-8 ####[facility] LABCLIA [id number] [place] [address] [place] Immature granulocytes/100 WBC (Bld) 0.1 % Normal [facility] Comment on above: Order Comment: Speci men Type: BLOOD SPECIMENOrdering Facility: [facility] Address: [address] [place] [address] Performed By: #### 5 7021-8 ####[facility] LABCLIA [id number] [place] [address] [place] Lymphocytes (Bld) [#/Vol] 1.82 10*3/uL Normal 1.00-4.00 [facility] Comment on above: Order Comment: Speci men Type: BLOOD SPECIMENOrdering Facility: [facility] Address: [address] [place] [address] Performed By: #### 5 7021-8 ####[facility] LABCLIA [id number] [place] [address] [place] Lymphocytes/100 WBC (Bld) 26.2 % Normal [facility] Comment on above: Order Comment: Speci men Type: BLOOD SPECIMENOrdering Facility: [facility] Address: [address] [place] [address] Performed By: #### 5 7021-8 ####[facility] LABCLIA [id number] [place] [address] [place] MCH (RBC) [Entitic mass] 30.0 pg Normal 26.0-34.0 [facility] Comment on above: Order Comment: Speci men Type: BLOOD SPECIMENOrdering Facility: [facility] Address: [address] [place] [address] Performed By: #### 5 7021-8 ####[facility] LABCLIA [id number] [place] [address] [place] MCHC (RBC) [Mass/Vol] 32.0 g/dL Normal 30.5-36.0 [facility] Comment on above: Order Comment: Speci men Type: BLOOD SPECIMENOrdering Facility: [facility] Address: [address] [place] [address] Performed By: #### 5 7021-8 ####[facility] LABIA [id number] [place] [address] [place] MCV (RBC) [Entitic vol] 93.8 fL Normal 80.0-100.0 C [facility] Comment on above: Order Comment: Speci men Type: BLOOD SPECIMENOrdering Facility: [facility] Address: [address] [place] [address] Performed By: #### 5 7021-8 ####[facility] LABIA [id number] [place] [address] [place] Monocytes (Bld) [#/Vol] 0.88 10*3/uL High <0.87 [facility] Comment on above: Order Comment: Speci men Type: BLOOD SPECIMENOrdering Facility: [facility] Address: [address] [place] [address] Performed By: #### 5 7021-8 ####[facility] LABIA [id number] [place] [address] [place] Monocytes/100 WBC (Bld) 12.7 % Normal C [facility] Comment on above: Order Comment: Speci men Type: BLOOD SPECIMENOrdering Facility: [facility] Address: [address] [place] [address] Performed By: #### 5 7021-8 ####[facility] LABIA [id number] [place] [address] [place] Neutrophils (Bld) [#/Vol] 4.13 10*3/uL Normal 1.45-7.50 [facility] Comment on above: Order Comment: Speci men Type: BLOOD SPECIMENOrdering Facility: [facility] Address: [address] [place] [address] Performed By: #### 5 7021-8 ####[facility] LABCLIA [id number] [place] [address] [place] Neutrophils/100 WBC (Bld) 59.6 % Normal [facility] Comment on above: Order Comment: Speci men Type: BLOOD SPECIMENOrdering Facility: [facility] Address: [address] [place] [address] Performed By: #### 5 7021-8 ####[facility] LABCLIA [id number] [place] [address] [place] Nucleated RBC (Bld) [#/Vol] 10*3/uL Normal <0.01 [facility] Comment on above: Order Comment: Speci men Type: BLOOD SPECIMENOrdering Facility: [facility] Address: [address] [place] [address] Performed By: #### 5 7021-8 ####[facility] LABCLIA [id number] [place] [address] [place] Nucleated RBC/100 WBC (Bld) [Ratio] 0.0 /100 WBC Normal [facility] Comment on above: Order Comment: Speci men Type: BLOOD SPECIMENOrdering Facility: [facility] Address: [address] [place] [address] Performed By: #### 5 7021-8 ####[facility] LABCLIA [id number] [place] [address] [place] Platelet mean volume (Bld) [Entitic vol] 9.1 fL Normal 9.0-12.7 [facility] Comment on above: Order Comment: Speci men Type: BLOOD SPECIMENOrdering Facility: [facility] Address: [address] [place] [address] Performed By: #### 5 7021-8 ####[facility] LABIA [id number] [place] [address] [place] Platelets (Bld) [#/Vol] 263 10*3/uL Normal 150-400 [facility] Comment on above: Order Comment: Speci men Type: BLOOD SPECIMENOrdering Facility: [facility] Address: [address] [place] [address] Performed By: #### 5 7021-8 ####[facility] LABIA [id number] [place] [address] [place] RBC (Bld) [#/Vol] 3.70 10*6/uL Low 3.90-5.20 [facility] Comment on above: Order Comment: Speci men Type: BLOOD SPECIMENOrdering Facility: [facility] Address: [address] [place] [address] Performed By: #### 5 7021-8 ####[facility] LABIA [id number] [place] [address] [place] WBC (Bld) [#/Vol] 6.94 10*3/uL Normal 3.70-11.00 [facility] Comment on above: Order Comment: Speci men Type: BLOOD SPECIMENOrdering Facility: [facility] Address: [address] [place] [address] Performed By: #### 5 7021-8 ####[facility] LABIA [id number] [address] [place] CNOVon 08-10-2024 CNOV Office Visit (FAMPWS ) ESHA DAVILA ([id number]) 1935 F Date Time Provider Department 08/10/24 3:00 PM JEANINE PARKER During your visit today, we recorded the following information about you: Pulse Respiration Blood pressure Weight 76/minute 16/minute 160/80 64.9 kg Jeanine Parker, SENIOR PROJECT ACCOUNTANT.ADULT BASIC EDUCATION INSTRUCTOR 08/10/2024 4:38 PM Addendum This is a 88 year old female who presents today with: Patient presents with: 6 Month Exam HISTORY OF PRESENT ILLNESS: Esha Davila is a 88 year old female. Patient presents with: 6 Month Exam Hands are causing her painful. Waking her up at night. Burning pain in fingers- all the MIP joints mostly. PAST MEDICAL HISTORY: PAST MEDICAL HISTORY Diagnosis Date Anxiety Arterial ischemic stroke, vertebrobasilar, thalamic, acute, left ([facility]) 06/01/2020 05/30/2020 sx dizziness and RUE numbness, MRI brain WO: two punctate left thalamic infarcts. CKD (chronic kidney disease) stage 3, GFR 30-59 ml/min ([facility]) COPD (chronic obstructive pulmonary disease) ([facility]) Essential hypertension Hyperlipidemia Recurrent major depression in partial remission ([facility]) 06/09/2016 PAST SURGICAL HISTORY Procedure Laterality Date BREAST LUMPECTOMY HX Left 1987 TEAEC W/PATCH GRF CAROTID VERTB SUBCLAV NECK INC Right 01/27/2017 ALLERGIES Flexeril [Cyclobenzaprine Hcl], Ibuprofen, and Penicillin MEDICATIONS Current Outpatient Medications Medication Sig QUEtiapine (SEROQUEL) 25 mg tablet Take 25 mg by mouth as needed (agitation). Melatonin 5 mg cap Take by mouth. hydroCHLOROthiazide 12.5 mg capsule Take 1 capsule by mouth once daily. lisinopril (ZESTRIL) 30 mg tablet Take 1 tablet by mouth once daily. donepezil (ARICEPT) 5 mg tablet Take 1 tablet by mouth daily at bedtime. Cholecalciferol, Vitamin D3, 50 mcg (2,000 unit) cap Take by mouth. carvedilol (COREG) 25 mg tablet Take 1 tablet by mouth two times a day. venlafaxine ER (EFFEXOR XR) 150 mg 24 hr capsule Take 1 capsule by mouth once daily. famotidine (PEPCID) 20 mg tablet Take 1 tablet by mouth twice daily. promethazine (PHENERGAN) 25 mg tablet Take 1 tablet by mouth every 6 hours as needed for nausea/vomiting. atorvastatin (LIPITOR) 40 mg tablet Take 40 [...] hours as needed. for cough and congestion clonazePAM (KLONOPIN) 0.5 mg tablet Take 0.125 mg by mouth daily at bedtime. Routine dose. Tues, Thur, Sat, Sun in the evening. This medication is managed and ordered by Psychiatrist, Dr. Salinas. acetaminophen (TYLENOL) 325 mg tablet Take 650 mg by mouth every 6 hours as needed. POLYETHYLENE GLYCOL 3350 (MIRALAX ORAL) Take 17 g by mouth once daily. Walker misc 1 Each once daily. No current facility-administered medications for this visit. FAMILY HISTORY Problem Relation Age of Onset Breast Cancer Mother Social History Tobacco Use Smoking status: Never Smokeless tobacco: Never REVIEW OF SYSTEMS GENERAL: Steady weight loss, + malaise, no fevers/chills HEENT: Negative for frequent or significant headaches, Some changes in hearing, no vision changes. NECK: Negative for lumps, goiter, pain and significant neck swelling RESPIRATORY: Negative for cough, hemoptysis, seldom wheezing, + dyspnea or shortness of breath CARDIOVASCULAR: Negative for chest pain, no leg swelling, no orthopnea, seldom palpitations GI: No nausea, vomiting, or diarrhea/ + constipation. No hematochezia/melena. No heartburn or reflux symptoms. : No history of dysuria, no frequency, some stress incontinence MUSCULOSKELETAL: Fingers for joint pain or swelling. SKIN: Negative for lesions, rash, and itching ENDOCRINE: Negative for cold or heat intolerance, polyuria, polydipsia and goiter NEURO: No history of headaches, syncope, paralysis, seizures or tremors- lightheaded MOOD: Some for depression, some anxiety, no suicidal ideation. EXAM: BP 154/80 Pulse 76 Resp 16 Wt 64.9 kg (143 lb) SpO2 97% BMI 28.88 kg/m? PHYSICAL EXAM: Physical Exam Vitals reviewed. Constitutional: Appearance: Normal appearance. HENT: Head: Normocephalic. Neck: Vascular: No carotid bruit. Cardiovascular: Rate and Rhythm: N (more content not included)... Normal [facility] Comprehensive metabolic 2000 panelon 08-10-2024 Albumin [Mass/Vol] 4.3 g/dL Normal 3.9-4.9 [facility] Comment on above: Order Comment: Speci men Type: BLOOD SPECIMENOrdering Facility: [facility] Address: [address] [place] [address] Performed By: #### L IPNF, 84155-6, 72476-5, 3024-7 ####[facility] LABCLIA [id number] [place] [address] [place] ALP [Catalytic activity/Vol] 80 U/L Normal 34-123 [facility] Comment on above: Order Comment: Speci men Type: BLOOD SPECIMENOrdering Facility: [facility] Address: [address] [place] [address] Performed By: #### L IPNF, 56812-8, 61225-5, 3024-7 ####[facility] LABCLIA [id number] [place] [address] [place] ALT [Catalytic activity/Vol] 16 U/L Normal 7-38 [facility] Comment on above: Order Comment: Speci men Type: BLOOD SPECIMENOrdering Facility: [facility] Address: [address] [place] [address] Performed By: #### L IPNF, 30171-6, 88318-2, 3024-7 ####[facility] LABCLIA [id number] [address] [address] [place] Anion gap [Moles/Vol] 11 mmol/L Normal 8-15 [facility] Comment on above: Order Comment: Speci men Type: BLOOD SPECIMENOrdering Facility: [facility] Address: [address] [place], [place] [address] Performed By: #### L IPNF, 33790-5, 87041-2, 3024-7 ####[facility] LABCLIA [id number] [place] [address] [place] AST [Catalytic activity/Vol] 27 U/L Normal 13-35 [facility] Comment on above: Order Comment: Speci men Type: BLOOD SPECIMENOrdering Facility: [facility] Address: [address] [place] [address] Performed By: #### L IPNF, 61913-4, 19129-9, 3024-7 ####[facility] LABCLIA [id number] [place] [id number] [place] Bilirubin [Mass/Vol] 0.2 mg/dL Normal 0.2-1.3 [facility] Comment on above: Order Comment: Speci men Type: BLOOD SPECIMENOrdering Facility: [facility] Address: [address] [place], [place] [address] Performed By: #### L IPNF, 35432-1, 64928-0, 3024-7 ####[facility] LABCLIA [id number] [address] [address] [place] Calcium [Mass/Vol] 9.2 mg/dL Normal 8.5-10.2 [facility] Comment on above: Order Comment: Speci men Type: BLOOD SPECIMENOrdering Facility: [facility] Address: [address] [place], [place] [address] Performed By: #### L IPNF, 26340-4, 96909-1, 3024-7 ####[facility] LABCLIA [id number] [place] [address] [place] Chloride [Moles/Vol] 98 mmol/L Normal 98-107 [facility] Comment on above: Order Comment: Speci men Type: BLOOD SPECIMENOrdering Facility: [facility] Address: [address] [place] [address] Performed By: #### L IPNF, 21214-0, 60966-6, 3024-7 ####[facility] LABCLIA [id number] [place] [address] [place] CO2 [Moles/Vol] 29 mmol/L Normal 22-30 [facility] Comment on above: Order Comment: Speci men Type: BLOOD SPECIMENOrdering Facility: [facility] Address: [address] [place] [address] Performed By: #### L IPNF, 50070-3, 56578-0, 3024-7 ####[facility] LABCLIA [id number] [place] [address] [place] Creatinine [Mass/Vol] 1.51 mg/dL High 0.58-0.96 [facility] Comment on above: Order Comment: Speci men Type: BLOOD SPECIMENOrdering Facility: [facility] Address: [address] [place] [address] Performed By: #### L IPNF, 91277-2, 80136-2, 3024-7 ####[facility] LABCLIA [id number] [place] [address] [place] Creatinine and Glomerular filtration rate.predicted panel (S/P/Bld) 33 mL/min/1.73m??? Low >=60 [facility] Comment on above: Order Comment: Speci men Type: BLOOD SPECIMENOrdering Facility: [facility] Address: [address] [place] [address] Result Comment: Nataliia mated Glomerular Filtration Rate (eGFR) is calculated using the 2020 CKD-EPI creatinine equation. This equation utilizes serum creatinine, sex, and age as parameters. The creatinine assay has traceable calibration to isotope dilution-mass spectrometry. Refer to KDIGO guidelines for clinical interpretation. In patients with unstable renal function, e.g. those with acute kidney injury, the eGFR may not accurately reflect actual GFR. Performed By: #### L JESSICA, 05429-8, 58481-7, 302-7 ####[facility] LABCLIA [id number] [address] [address] [place] Glucose [Mass/Vol] 93 mg/dL Normal 74-99 [facility] Comment on above: Order Comment: Juliet kyle Type: BLOOD SPECIMENOrdering Facility: [facility] Address: [address] [place] [address] Result Comment: The [place] Diabetes Association (ADA) provides guidance for cutoff values for fasting glucose and random glucose. The ADA defines fasting as no caloric intake for at least 8 hours. Fasting plasma glucose results between 100 to 125 mg/dL indicate increased risk for diabetes (prediabetes). Fasting plasma glucose results greater than or equal to 126 mg/dL meet the criteria for diagnosis of diabetes. In the absence of unequivocal hyperglycemia, results should be confirmed by repeat testing. In a patient with classic symptoms of hyperglycemia or hyperglycemic crisis, random plasma glucose results greater than or equal to 200 mg/dL meet the criteria for diagnosis of diabetes. Reference: Standards of Medical Care in Diabetes 2016, [place] Diabetes Association. Diabetes Care. 2016.39(Suppl 1). Performed By: #### L JESSICA, 92746-3, 27361-6, 3023-7 ####[facility] LABIA [id number] [address] [address] [place] Potassium [Moles/Vol] 4.5 mmol/L Normal 3.7-5.1 [facility] Comment on above: Order Comment: Juliet kyle Type: BLOOD SPECIMENOrdering Facility: [facility] Address: [address] [place] [address] Performed By: #### L JESSICA, 41028-6, 22529-3, 3024-7 ####[facility] LABCLIA [id number] [place] [id number] [place] Protein [Mass/Vol] 7.1 g/dL Normal 6.3-8.0 [facility] Comment on above: Order Comment: Speci men Type: BLOOD SPECIMENOrdering Facility: [facility] Address: [address] [place] [address] Performed By: #### L IPNF, 88494-2, 13385-9, 3024-7 ####[facility] LABCLIA [id number] [place] [address] [place] Sodium [Moles/Vol] 138 mmol/L Normal 136-144 [facility] Comment on above: Order Comment: Speci men Type: BLOOD SPECIMENOrdering Facility: [facility] Address: [address] [place] [address] Performed By: #### L IPNF, 62369-1, 73384-5, 302-7 ####[facility] LABIA [id number] [place] [address] [place] Urea nitrogen [Mass/Vol] 18 mg/dL Normal 7- [facility] Comment on above: Order Comment: Speci men Type: BLOOD SPECIMENOrdering Facility: [facility] Address: [address] [place] [address] Performed By: #### L IPNF, 65711-4, 96917-6, 302-7 ####[facility] LABCLIA [id number] [place] [address] [place] HbA1c (Bld)on 08-10-2024 Average glucose Estimated from glycated hemoglobin (Bld) [Mass/Vol] 120 mg/dL Normal [facility] Comment on above: Order Comment: Speci men Type: BLOOD SPECIMENOrdering Facility: [facility] Address: [address] [place] [address] Result Comment: eAG: (Estimated average glucose) is a calculated value from HgbA1c and is sales and marketing representative of the average blood glucose level in the last 2-3 month period. Performed By: #### 5 5454-3 ####[facility] LABCLIA [id number] [place] [address] [place] HbA1c (Bld) [Mass fraction] 5.8 % High 4.3-5.6 [facility] Comment on above: Order Comment: Speci men Type: BLOOD SPECIMENOrdering Facility: [facility] Address: [address] [place] [address] Result Comment: [place] Diabetes Association guidelines indicate that patients with HgbA1c in the range 5.7-6.4% are at increased risk for development of diabetes, and intervention by lifestyle modification may be beneficial. HgbA1c greater or equal to 6.5% is considered diagnostic of diabetes. Performed By: #### 5 5454-3 ####[facility] LABIA [id number] [place] [address] [place] Iron and Iron binding capaci ty panelon 08-10-2024 Iron [Mass/Vol] 86 ug/dL Normal 41-186 [facility] Comment on above: Order Comment: Juliet men Type: BLOOD SPECIMENOrdering Facility: [facility] Address: [address] [place] [address] Performed By: #### L IPNF, 87981-8, 01535-8, 3024-7 ####[facility] LABCLIA [id number] [address] [place] Iron binding capacity [Mass/Vol] 327 ug/dL Normal 232-386 [facility] Comment on above: Order Comment: Betii men Type: BLOOD SPECIMENOrdering Facility: [facility] Address: [address] [place] [address] Performed By: #### L IPNF, 75013-9, 51631-7, 3024-7 ####[facility] LABCLIA [id number] [place] [address] [place] Iron/TIBC [Molar ratio] 26.3 % Normal 15.0-57.0 [facility] Comment on above: Order Comment: Speci men Type: BLOOD SPECIMENOrdering Facility: [facility] Address: [address] [place] [address] Performed By: #### L IPNF, 40755-6, 27798-7, 3024-7 ####[facility] LABCLIA [id number] [address] [place] LIPID PANEL, NONFASTINGon Cholesterol [Mass/Vol] 172 mg/dL Normal <200 [facility] Comment on above: Order Comment: Speci men Type: BLOOD SPECIMENOrdering Facility: [facility] Address: [address] [place] [address] Result Comment: <200 mg/dL, Desirable 200-239 mg/dL, Borderline high >239 mg/dL, High Performed By: #### L IPNF, 71112-8, 61154-7, 3024-7 ####[facility] LABCLIA [id number] [place] [address] [place] HDL CHOLESTEROL, NF 81 mg/dL Normal >39 [facility] Comment on above: Order Comment: Speci men Type: BLOOD SPECIMENOrdering Facility: [facility] Address: [address] [place] [address] Result Comment: 40-5 9 mg/dL, Acceptable >59 mg/dL, High: Negative risk factor for coronary heart disease <40 mg/dL, Low: Positive risk factor for coronary heart disease Performed By: #### L IPNF, 46403-4, 53697-1, 3024-7 ####[facility] LABCLIA [id number] [place] [address] [place] LDL CHOLESTEROL, NF 53 mg/dL Normal <100 [facility] Comment on above: Order Comment: Speci men Type: BLOOD SPECIMENOrdering Facility: [facility] Address: [address] [place] [address] Result Comment: <100 mg/dL, Optimal 100-129 mg/dL, Near optimal/above optimal 130-159 mg/dL, Borderline high 160-189 mg/dL, High >189 mg/dL, Very high Secondary prevention optimal LDL Cholesterol levels are recommended to be < 70 mg/dL Performed By: #### L IPNF, 72643-2, 23939-1, 3023-7 ####[facility] LABCLIA [id number] [address] [place] LDL/HDL RATIO, NF 0.65 mg/dL Normal <2.54 [facility] Comment on above: Order Comment: Speci men Type: BLOOD SPECIMENOrdering Facility: [facility] Address: [address] [place] [address] Result Comment: Refe rence: 1. National Cholesterol Education Program ATP III Guideline At-A-Glance Quick Desk Reference: National Heart, Lung, and Blood [place]. National Institutes of Health. 2001: NIH Publication No. 01-3305. 2. An International Atherosclerosis Society position paper: global recommendations for the management of dyslipidemia: executive summary, Atherosclerosis. 2014: 232(2):410-413. Performed By: #### L JESSICA, 80638-6, 07335-6, 3024-02 ####[facility] LABCLIA [id number] [address] [place] NON HDL CHOL, NF 91 mg/dL Normal <130 [facility] Comment on above: Order Comment: Juliet kyle Type: BLOOD SPECIMENOrdering Facility: [facility] Address: [address] [place] [address] Result Comment: <130 mg/dL, Optimal 130-159 mg/dL, Near optimal/above optimal 160-189 mg/dL, Borderline high 190-219 mg/dL, High >219 mg/dL, Very high Secondary prevention optimal non HDL Cholesterol levels are recommended to be <100 mg/dL Performed By: #### L IPNF, 99227-8, 61373-4, 3023-7 ####[facility] LABCLIA [id number] [place] [address] [place] T CHOL/HDL RATIO NF 2.12 mg/dL Normal <5.10 [facility] Comment on above: Order Comment: Speci men Type: BLOOD SPECIMENOrdering Facility: [facility] Address: [address] [place] [address] Performed By: #### L IPNF, 46689-7, 32133-3, 3024-7 ####[facility] LABCLIA [id number] [place] [address] [place] TRIGLYCERIDES, NF 191 mg/dL High <150 [facility] Comment on above: Order Comment: Speci men Type: BLOOD SPECIMENOrdering Facility: [facility] Address: [address] [place] [address] Result Comment: <150 mg/dL, Normal 150-199 mg/dL, Borderline high 200-499 mg/dL, High >499 mg/dL, Very high Performed By: #### L IPNF, 90589-1, 41331-6, 3024-7 ####[facility] LABCLIA [id number] [place] [address] [place] VLDL CHOLESTEROL, NF 38 mg/dL High <30 [facility] Comment on above: Order Comment: Speci men Type: BLOOD SPECIMENOrdering Facility: [facility] Address: [address] [place] [address] Performed By: #### L IPNF, 53980-4, 96185-4, 3024-7 ####[facility] LABCLIA [id number] [place] [address] [place] [facility] Magnesium [Mass/Vol] 2.1 mg/dL Normal 1.7-2.3 [facility] Comment on above: Order Comment: Speci men Type: BLOOD SPECIMENOrdering Facility: [facility] Address: [address] [place] [address] Performed By: #### 1 9123-9, 9, 6-3 ####[facility] LABCLIA [id number] [place] [address] [place] T4 Free SerPl-mCncon 024 Free T4 [Mass/Vol] 0.7 ng/dL Low 0.9-1.7 [facility] Comment on above: Order Comment: Speci men Type: BLOOD SPECIMENOrdering Facility: [facility] Address: [address] [place] [address] Performed By: #### L IPNF, 77767-2, 29468-4, 3024-7 ####[facility] LABIA [id number] [place] [address] [place] TSH SerPl-aCncon 08-10-2024 TSH Qn 2.510 m[IU]/L Normal 0.270-4.200 [facility] Comment on above: Order Comment: Speci men Type: BLOOD SPECIMENOrdering Facility: [facility] Address: [address] [place] [address] Performed By: #### 1 9123-9, 2132-04, 6-3 ####[facility] [id number] [place] [address] [place] Vit B12 SerPl-mCncon 024 Cobalamin (Vitamin B12) [Mass/Vol] 846 pg/mL Normal 232-1245 [facility] Comment on above: Order Comment: Speci men Type: BLOOD SPECIMENOrdering Facility: [facility] Address: [address] [place] [address] Performed By: #### 1 9123-9, 9, 6-3 ####[facility] LABIA [id number] [place] [address] [place] CNPSoledad 06-05-2024 CNPN Telephone (FAMPWS) ESHA DAVILA ([id number]) 1935 F Date Time Provider Department 06/05/24 JEANINE PARKER During your visit today, we recorded the following information about you: Jeanine Parker APRN.IGOR 06/05/2024 5:07 PM Signed Lab results from June 05, 2024: WBC 5.2, hemoglobin 9.3, hematocrit 30, platelet count 224 Total iron binding capacity 262 Iron level 43. Will check a stool card for blood loss. If that is positive, we need to discuss with patient and her son further evaluation with invasive EGD and colonoscopy. She is on Plavix and I do not feel comfortable holding that as she has carotid stenosis. Could stop baby aspirin. Does not need both. Ailyn Bhatt MA 06/05/2024 5:28 PM Signed Left message for patient to return call. Margy Murray Lisa, MA 06/11/2024 5:14 PM Signed senior living taking care of follow up labs. Daughter notified Ailyn Bhatt MA June 11, 2024 5:14 PM Allergies As of Date: 06/05/2024 Noted Allergy Reaction FLEXERIL (CYCLOBENZAPRINE HCL) 03/23/2016 5 - Intolerance IBUPROFEN 03/23/2016 5 - Intolerance PENICILLIN 03/23/2016 7 - Swelling Date Reviewed: 01/23/2024 Reviewed by: Jeanine Parker APRN.TANK FURNACE OPERATOR - Fully Assessed Prescriptions as of 06/11/2024 - QUEtiapine (SEROQUEL) 25 mg tablet Take 25 mg by mouth as needed (agitation). - Melatonin 5 mg cap Take by mouth. - hydroCHLOROthiazide 12.5 mg capsule Take 1 capsule by mouth once daily. - lisinopril (ZESTRIL) 30 mg tablet Take 1 tablet by mouth once daily. - donepezil (ARICEPT) 5 mg tablet Take 1 tablet by mouth daily at bedtime. - Cholecalciferol, Vitamin D3, 50 mcg (2,000 unit) cap Take by mouth. - carvedilol (COREG) 25 mg tablet Take 1 tablet by mouth two times a day. - venlafaxine ER (EFFEXOR XR) 150 mg 24 hr capsule Take 1 capsule by mouth once daily. - famotidine (PEPCID) 20 mg tablet Take 1 tablet by mouth twice daily. - promethazine (PHENERGAN) 25 mg tablet Take 1 tablet by mouth every 6 hours as needed for nausea/vomiting. - Walker misc 1 Each once daily. - atorvastatin (LIPITOR) 40 mg tablet Take 40 mg by mouth once daily. - QUEtiapine (SEROQUEL) 100 mg tablet Take 100 mg by mouth once daily. - alendronate (FOSAMAX) 70 mg tablet Take 1 tablet by mouth one time a week. Take with a full glass of water, on an empty stomach; do NOT lie down for 30minutes. - cyanocobalamin (VITAMIN B-12) 1,000 mcg tab Take 1,000 mcg by mouth once daily. - magnesium hydroxide (MILK OF MAGNESIA ORAL) Take 30 mL by mouth as needed. - clopidogrel (PLAVIX) 75 mg tablet Take 1 tablet by mouth once daily. - aluminum-magnesium hydroxide-simethicone (MAALOX,MYLANTA,MAG-AL PLUS) 200-200-20 mg/5 mL suspension Take 30 mL by mouth every 4 hours as needed. for Gi distress - guaiFENesin (ROBITUSSIN) 100 mg/5 mL syrup Take 10 mL by mouth every 4 hours as needed. for cough and congestion - clonazePAM (KLONOPIN) 0.5 mg tablet Take 0.125 mg by mouth daily at bedtime. Routine dose. Tues, Thur, Sat, Sun in the evening. This medication is managed and ordered by Psychiatrist, Dr. Salinas. - acetaminophen (TYLENOL) 325 mg tablet Take 650 mg by mouth every 6 hours as needed. - POLYETHYLENE GLYCOL 3350 (MIRALAX ORAL) Take 17 g by mouth once daily. Problem List As Of Date 06/05/2024 Noted Resolved Recurrent major depression in partial remission*06/09/2016 Chronic renal failure, stage 4 (severe) (HCC) [*06/09/2016 Undiagnosed cardiac murmurs [R01.1] 06/09/2016 12/22/2016 Internal carotid artery stenosis, right [I65.21]10/14/2016 Osteoporosis [M81.0] 12/08/2016 Chronic midline low back pain with right-sided *12/23/2016 Essential hypertension [I10] 12/23/2016 Hyperlipidemia, mixed [E78.2] 06/27/2017 Prediabetes [R73.03] 09/22/2017 Oropharyngeal dysphagia [R13.12] 01/30/2018 Arterial ischemic stroke, vertebrobasilar, thal*06/01/2020 Incidental lung nodule, greater than or equal t*06/25/2022 Hiatal hernia [K44.9] 09/02/2022 Chronic obstructive pulmonary disease (HCC) [J4*09/06/2022 Major depression with psychotic features (HCC) *08/11/2023 Mild late onset Alzheimer's dementia without be*08/11/2023 Encounter for support and coordination of trans*11/03/2023 Encounter Status:Closed by AILYN BHATT on 06/11/24 [facility] 04-20-2024 [facility] Telephone ([facility]) ESHA DAVILA ([id number]) 1935 F Date Time Provider Department 04/20/24 JEANINE PARKER [facility] During your visit today, we recorded the following information about you: Jeanine Parker, SENIOR PROJECT ACCOUNTANT.ADULT BASIC EDUCATION INSTRUCTOR 04/20/2024 2:33 PM Signed Follow-up lab work done April 20, 2024: WBC 5.8, hemoglobin 9.4, hematocrit 30.1, platelet count 238. Please let patient know that she continues to have worsening anemia. Please make the multivitamin with iron that is chewable twice a day. Repeat CBC, iron, ferritin, B12, folate levels in 2 weeks. Also, recheck a CMP with magnesium. No other changes at this time. I will sign notes. Kira Parker LPN 04/20/2024 5:33 PM Signed Informations/orders forwarded to Hector Ledbetter. Kira Parker LPN Allergies As of Date: 04/20/2024 Noted Allergy Reaction FLEXERIL (CYCLOBENZAPRINE HCL) 03/23/2016 5 - Intolerance IBUPROFEN 03/23/2016 5 - Intolerance PENICILLIN 03/23/2016 7 - Swelling Date Reviewed: 01/23/2024 Reviewed by: Jeanine Parker APRN.TANK FURNACE OPERATOR - Fully Assessed Prescriptions as of 04/20/2024 - QUEtiapine (SEROQUEL) 25 mg tablet Take 25 mg by mouth as needed (agitation). - Melatonin 5 mg cap Take by mouth. - hydroCHLOROthiazide 12.5 mg capsule Take 1 capsule by mouth once daily. - lisinopril (ZESTRIL) 30 mg tablet Take 1 tablet by mouth once daily. - donepezil (ARICEPT) 5 mg tablet Take 1 tablet by mouth daily at bedtime. - Cholecalciferol, Vitamin D3, 50 mcg (2,000 unit) cap Take by mouth. - carvedilol (COREG) 25 mg tablet Take 1 tablet by mouth two times a day. - venlafaxine ER (EFFEXOR XR) 150 mg 24 hr capsule Take 1 capsule by mouth once daily. - famotidine (PEPCID) 20 mg tablet Take 1 tablet by mouth twice daily. - promethazine (PHENERGAN) 25 mg tablet Take 1 tablet by mouth every 6 hours as needed for nausea/vomiting. - Walker misc 1 Each once daily. - atorvastatin (LIPITOR) 40 mg tablet Take 40 mg by mouth once daily. - QUEtiapine (SEROQUEL) 100 mg tablet Take 100 mg by mouth once daily. - alendronate (FOSAMAX) 70 mg tablet Take 1 tablet by mouth one time a week. Take with a full glass of water, on an empty stomach; do NOT lie down for 30minutes. - cyanocobalamin (VITAMIN B-12) 1,000 mcg tab Take 1,000 mcg by mouth once daily. - magnesium hydroxide (MILK OF MAGNESIA ORAL) Take 30 mL by mouth as needed. - clopidogrel (PLAVIX) 75 mg tablet Take 1 tablet by mouth once daily. - aluminum-magnesium hydroxide-simethicone (MAALOX,MYLANTA,MAG-AL PLUS) 200-200-20 mg/5 mL suspension Take 30 mL by mouth every 4 hours as needed. for Gi distress - guaiFENesin (ROBITUSSIN) 100 mg/5 mL syrup Take 10 mL by mouth every 4 hours as needed. for cough and congestion - aspirin, enteric coated (ASPIRIN, ENTERIC COATED) 81 mg EC tablet GIVE 1 TABLET BY MOUTH ONCE DAILY - clonazePAM (KLONOPIN) 0.5 mg tablet Take 0.125 mg by mouth daily at bedtime. Routine dose. Tues, Thur, Sat, Sun in the evening. This medication is managed and ordered by Psychiatrist, Dr. Salinas. - acetaminophen (TYLENOL) 325 mg tablet Take 650 mg by mouth every 6 hours as needed. - POLYETHYLENE GLYCOL 3350 (MIRALAX ORAL) Take 17 g by mouth once daily. Problem List As Of Date 04/20/2024 Noted Resolved Recurrent major depression in partial remission*06/09/2016 Chronic renal failure, stage 4 (severe) (HCC) [*06/09/2016 Undiagnosed cardiac murmurs [R01.1] 06/09/2016 12/22/2016 Internal carotid artery stenosis, right [I65.21]10/14/2016 Osteoporosis [M81.0] 12/08/2016 Chronic midline low back pain with right-sided *12/23/2016 Essential hypertension [I10] 12/23/2016 Hyperlipidemia, mixed [E78.2] 06/27/2017 Prediabetes [R73.03] 09/22/2017 Oropharyngeal dysphagia [R13.12] 01/30/2018 Arterial ischemic stroke, vertebrobasilar, thal*06/01/2020 Incidental lung nodule, greater than or equal t*06/25/2022 Hiatal hernia [K44.9] 09/02/2022 Chronic obstructive pulmonary disease (HCC) [J4*09/06/2022 Major depression with psychotic features (HCC) *08/11/2023 Mild late onset Alzheimer's dementia without be*08/11/2023 Encounter for support and coordination of trans*11/03/2023 Encounter Status:Closed by KIRA PARKER on 04/20/24 [facility] 04-06-2024 [facility] Telephone ([facility]) ESHA DAVILA ([id number]) 1935 F Date Time Provider Department 04/06/24 JEANINE PARKER During your visit today, we recorded the following information about you: Jeanine Parker APRN.ADULT BASIC EDUCATION INSTRUCTOR 04/06/2024 2:38 PM Signed Sodium 138, potassium 4.1, BUN 16, creatinine 1.51, GFR 35 WBC 5.3, hemoglobin 9.8, hematocrit 32, platelet count 217 Urinalysis was normal except 100 leukocytes and some protein at 15 Urine culture showed mixed gram-positive organisms Please add a chewable multivitamin with iron daily. Patient has worsening anemia. Not sure how she could withstand a colon workup. Recheck CBC in 2 weeks. Ailyn Bhatt MA 04/06/2024 3:51 PM Signed Will fax to Hector Ledbetter attached to note. Ailyn Bhatt MA April 06, 2024 3:51 PM Allergies As of Date: 04/06/2024 Noted Allergy Reaction FLEXERIL (CYCLOBENZAPRINE HCL) 03/23/2016 5 - Intolerance IBUPROFEN 03/23/2016 5 - Intolerance PENICILLIN 03/23/2016 7 - Swelling Date Reviewed: 01/23/2024 Reviewed by: Jeanine Parker APRN.TANK FURNACE OPERATOR - Fully Assessed Reason for Visit: Results [95] Prescriptions as of 04/06/2024 - QUEtiapine (SEROQUEL) 25 mg tablet Take 25 mg by mouth as needed (agitation). - Melatonin 5 mg cap Take by mouth. - hydroCHLOROthiazide 12.5 mg capsule Take 1 capsule by mouth once daily. - lisinopril (ZESTRIL) 30 mg tablet Take 1 tablet by mouth once daily. - donepezil (ARICEPT) 5 mg tablet Take 1 tablet by mouth daily at bedtime. - Cholecalciferol, Vitamin D3, 50 mcg (2,000 unit) cap Take by mouth. - carvedilol (COREG) 25 mg tablet Take 1 tablet by mouth two times a day. - venlafaxine ER (EFFEXOR XR) 150 mg 24 hr capsule Take 1 capsule by mouth once daily. - famotidine (PEPCID) 20 mg tablet Take 1 tablet by mouth twice daily. - promethazine (PHENERGAN) 25 mg tablet Take 1 tablet by mouth every 6 hours as needed for nausea/vomiting. - Walker misc 1 Each once daily. - atorvastatin (LIPITOR) 40 mg tablet Take 40 mg by mouth once daily. - QUEtiapine (SEROQUEL) 100 mg tablet Take 100 mg by mouth once daily. - alendronate (FOSAMAX) 70 mg tablet Take 1 tablet by mouth one time a week. Take with a full glass of water, on an empty stomach; do NOT lie down for 30minutes. - cyanocobalamin (VITAMIN B-12) 1,000 mcg tab Take 1,000 mcg by mouth once daily. - magnesium hydroxide (MILK OF MAGNESIA ORAL) Take 30 mL by mouth as needed. - clopidogrel (PLAVIX) 75 mg tablet Take 1 tablet by mouth once daily. - aluminum-magnesium hydroxide-simethicone (MAALOX,MYLANTA,MAG-AL PLUS) 200-200-20 mg/5 mL suspension Take 30 mL by mouth every 4 hours as needed. for Gi distress - guaiFENesin (ROBITUSSIN) 100 mg/5 mL syrup Take 10 mL by mouth every 4 hours as needed. for cough and congestion - aspirin, enteric coated (ASPIRIN, ENTERIC COATED) 81 mg EC tablet GIVE 1 TABLET BY MOUTH ONCE DAILY - clonazePAM (KLONOPIN) 0.5 mg tablet Take 0.125 mg by mouth daily at bedtime. Routine dose. Tues, Thur, Sat, Sun in the evening. This medication is managed and ordered by Psychiatrist, Dr. Salinas. - acetaminophen (TYLENOL) 325 mg tablet Take 650 mg by mouth every 6 hours as needed. - POLYETHYLENE GLYCOL 3350 (MIRALAX ORAL) Take 17 g by mouth once daily. 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 Incidental lung nodule, greater than or equal t*06/25/2022 Hiatal hernia [K44.9] 09/02/2022 Chronic obstructive pulmonary disease (HCC) [J4*09/06/2022 Major depression with psychotic features (HCC) *08/11/2023 Mild late onset Alzheimer's dementia without be*08/11/2023 Encounter for support and coordination of trans*11/03/2023 Encounter Status:Closed by AILYN BHATT on 04/06/24 [facility] 02-17-2024 [facility] ESHA DAV[facility] ([id number]) 1935 F Date Time Provider Department 02/17/24 [facility] During your visit today, we recorded the following information about you: Ailyn hBatt MA 02/17/2024 9:35 AM Signed ----- Message from Jeanine Parker APRN.TANK FURNACE OPERATOR sent at 02/16/2024 5:24 PM EDT ----- Chest CT showed tiny pulmonary nodules stable. No further imaging needed. Ailyn Bhatt MA 02/17/2024 10:12 AM Signed Patient was made aware of the results. Patient verbalizes understanding. Ailyn Bhatt Ma Allergies As of Date: 02/17/2024 Noted Allergy Reaction FLEXERIL (CYCLOBENZAPRINE HCL) 03/23/2016 5 - Intolerance IBUPROFEN 03/23/2016 5 - Intolerance PENICILLIN 03/23/2016 7 - Swelling Date Reviewed: 01/23/2024 Reviewed by: Jeanine Parker APRN.TANK FURNACE OPERATOR - Fully Assessed Reason for Visit: Results [95] Prescriptions as of 02/17/2024 - QUEtiapine (SEROQUEL) 25 mg tablet Take 25 mg by mouth as needed (agitation). - Melatonin 5 mg cap Take by mouth. - hydroCHLOROthiazide 12.5 mg capsule Take 1 capsule by mouth once daily. - lisinopril (ZESTRIL) 30 mg tablet Take 1 tablet by mouth once daily. - donepezil (ARICEPT) 5 mg tablet Take 1 tablet by mouth daily at bedtime. - Cholecalciferol, Vitamin D3, 50 mcg (2,000 unit) cap Take by mouth. - carvedilol (COREG) 25 mg tablet Take 1 tablet by mouth two times a day. - venlafaxine ER (EFFEXOR XR) 150 mg 24 hr capsule Take 1 capsule by mouth once daily. - famotidine (PEPCID) 20 mg tablet Take 1 tablet by mouth twice daily. - promethazine (PHENERGAN) 25 mg tablet Take 1 tablet by mouth every 6 hours as needed for nausea/vomiting. - Walker misc 1 Each once daily. - atorvastatin (LIPITOR) 40 mg tablet Take 40 mg by mouth once daily. - QUEtiapine (SEROQUEL) 100 mg tablet Take 100 mg by mouth once daily. - alendronate (FOSAMAX) 70 mg tablet Take 1 tablet by mouth one time a week. Take with a full glass of water, on an empty stomach; do NOT lie down for 30minutes. - cyanocobalamin (VITAMIN B-12) 1,000 mcg tab Take 1,000 mcg by mouth once daily. - magnesium hydroxide (MILK OF MAGNESIA ORAL) Take 30 mL by mouth as needed. - clopidogrel (PLAVIX) 75 mg tablet Take 1 tablet by mouth once daily. - aluminum-magnesium hydroxide-simethicone (MAALOX,MYLANTA,MAG-AL PLUS) 200-200-20 mg/5 mL suspension Take 30 mL by mouth every 4 hours as needed. for Gi distress - guaiFENesin (ROBITUSSIN) 100 mg/5 mL syrup Take 10 mL by mouth every 4 hours as needed. for cough and congestion - aspirin, enteric coated (ASPIRIN, ENTERIC COATED) 81 mg EC tablet GIVE 1 TABLET BY MOUTH ONCE DAILY - clonazePAM (KLONOPIN) 0.5 mg tablet Take 0.125 mg by mouth daily at bedtime. Routine dose. Tues, Thur, Sat, Sun in the evening. This medication is managed and ordered by Psychiatrist, Dr. Salinas. - acetaminophen (TYLENOL) 325 mg tablet Take 650 mg by mouth every 6 hours as needed. - POLYETHYLENE GLYCOL 3350 (MIRALAX ORAL) Take 17 g by mouth once daily. Problem List As Of Date 02/17/2024 Noted Resolved Recurrent major depression in partial remission*06/09/2016 Chronic renal failure, stage 4 (severe) (HCC) [*06/09/2016 Undiagnosed cardiac murmurs [R01.1] 06/09/2016 12/22/2016 Internal carotid artery stenosis, right [I65.21]10/14/2016 Osteoporosis [M81.0] 12/08/2016 Chronic midline low back pain with right-sided *12/23/2016 Essential hypertension [I10] 12/23/2016 Hyperlipidemia, mixed [E78.2] 06/27/2017 Prediabetes [R73.03] 09/22/2017 Oropharyngeal dysphagia [R13.12] 01/30/2018 Arterial ischemic stroke, vertebrobasilar, thal*06/01/2020 Incidental lung nodule, greater than or equal t*06/25/2022 Hiatal hernia [K44.9] 09/02/2022 Chronic obstructive pulmonary disease (HCC) [J4*09/06/2022 Major depression with psychotic features (HCC) *08/11/2023 Mild late onset Alzheimer's dementia without be*08/11/2023 Encounter for support and coordination of trans*11/03/2023 Encounter Status:Closed by AILYN BHATT on 02/17/24 [facility] CT CHEST WO IVCONon 02-09-20 CT CHEST WO IVCON * * *Final Report* * * DATE OF EXAM: Feb 09 2024 3:57PM [facility] 0541 - CT CHEST WO IVCON / PROCEDURE REASON: Incidental lung nodule, greater than or equal to 8mm * * * * Physician Interpretation * * * * EXAMINATION: CHEST CT WITHOUT CONTRAST CLINICAL HISTORY: Lung nodule. Technique: Spiral CT acquisition of the chest from the thoracic inlet to the upper abdomen without contrast. MQ: [id number] CT Radiation dose: Integrated Dose-length product (DLP) for this visit = 170 mGy*cm CT Dose Reduction Employed: Automated exposure control(AEC) and iterative recon Comparison: CT chest on 07/09/2022 RESULT: Limitations: None. Lines, tubes, and devices: None. Lung parenchyma and airways: The central airways are patent. Multiple tiny nodules seen in the bilateral lungs. For example, there is a 4 mm nodule in the left upper lobe, series 7 image 64. A 3 mm nodule in the right upper lobe, series 7 image 50. Additional 3 mm nodule in the right upper lobe, series 7 image 65. There is a focal calcification in the left lower lobe. Similar triangular density demonstrated in the medial anterior right upper lobe, series 7 images 66. Atelectasis seen in the right middle lobe. No new consolidations. Stable biapical scarring. Pleural space: No pleural effusion or pneumothorax. No pleural thickening. Lower neck, lymph nodes, and mediastinum: The imaged thyroid gland is normal. No lymphadenopathy in the supraclavicular, axillary, mediastinal, or hilar regions. Heart, pericardium, and thoracic vessels: The thoracic aorta and main pulmonary artery are normal in caliber. There are atherosclerotic calcifications in the thoracic aorta. The cardiac chambers are normal in size. No coronary artery atherosclerotic calcifications are noted, although the study is not optimized for coronary assessment. No pericardial effusion or thickening. Bones and soft tissues: The spine shows degenerative changes. No destructive bone lesion. Chest wall soft tissue remains unremarkable. Upper abdomen: Limited study through the upper abdomen demonstrates no interval changes. Localizer images: No additional findings. IMPRESSION: Tiny nodules in the bilateral lungs as described above. No thoracic lymphadenopathy. 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 Transcribe Date/Time: Feb 16 2024 8:14A Dictated by : VICENTE CAPELLAN MD This examination was interpreted and the report reviewed and electronically signed by: VICENTE CAPELLAN MD on Feb 16 2024 4:41PM EST [id number] [facility]OVon 01-23-2024 CNOV Office Visit ([facility]AMPWS ) ESHA DAVILA ([id number]) 1935 F Date Time Provider Department 01/23/24 4:00 PM JEANINE PARKER [facility] During your visit today, we recorded the following information about you: Pulse Respiration Blood pressure Weight 94/minute 20/minute 130/68 65.3 kg Jeanine Parker, SENIOR PROJECT ACCOUNTANT.[facility] 01/23/2024 4:26 PM Signed This is a 88 year old female who presents today with: Patient presents with: Follow Up: 3 month exam HISTORY OF PRESENT ILLNESS: Esha Davila is a 88 year old female. Patient presents with: Follow Up: 3 month exam Daughter with mother today. Daughter is under the impression that she is taking donepezil 5 mg daily, Growths on back of neck. REVIEW OF SYSTEMS GENERAL: No weight loss, some malaise that has not changed, denies fevers/chills HEENT: Negative for frequent or significant headaches, No changes in hearing or vision. NECK: Negative for lumps, goiter, pain and significant neck swelling RESPIRATORY: Negative for cough, hemoptysis, wheezing, some dyspnea or shortness of breath CARDIOVASCULAR: Negative for chest pain, occ leg swelling, no orthopnea, or palpitations GI: No nausea, vomiting, or diarrhea/constipation. No hematochezia/melena. No heartburn or reflux symptoms. : No history of dysuria, frequency or incontinence MUSCULOSKELETAL: Negative for joint pain or swelling. SKIN: Negative for lesions, rash, and itching ENDOCRINE: Negative for cold or heat intolerance, polyuria, polydipsia and goiter NEURO: No history of headaches, syncope, paralysis, seizures or tremors MOOD: Negative for depression, anxiety, or suicidal ideation. PAST MEDICAL HISTORY: PAST MEDICAL HISTORY Diagnosis Date Anxiety Arterial ischemic stroke, vertebrobasilar, thalamic, acute, left (HCC) 06/01/2020 05/30/2020 sx dizziness and RUE numbness, MRI brain WO: two punctate left thalamic infarcts. CKD (chronic kidney disease) stage 3, GFR 30-59 ml/min (HCC) COPD (chronic obstructive pulmonary disease) ([facility]) Essential hypertension Hyperlipidemia Recurrent major depression in partial remission ([facility]) 06/09/2016 PAST SURGICAL HISTORY Procedure Laterality Date BREAST LUMPECTOMY HX Left 1987 TEAEC W/PATCH GRF CAROTID VERTB SUBCLAV NECK INC Right 01/27/2017 ALLERGIES Flexeril [Cyclobenzaprine Hcl], Ibuprofen, and Penicillin MEDICATIONS Current Outpatient Medications Medication Sig escitalopram oxalate (LEXAPRO) 10 mg tablet Take 10 mg by mouth once daily. QUEtiapine (SEROQUEL) 25 mg tablet Take 25 mg by mouth as needed (agitation). Melatonin 5 mg cap Take by mouth. hydroCHLOROthiazide 12.5 mg capsule Take 1 capsule by mouth once daily. lisinopril (ZESTRIL) 30 mg tablet Take 1 tablet by mouth once daily. donepezil (ARICEPT) 5 mg tablet Take 1 tablet by mouth daily at bedtime. Cholecalciferol, Vitamin D3, 50 mcg (2,000 unit) cap Take by mouth. carvedilol (COREG) 25 mg tablet Take 1 tablet by mouth two times a day. venlafaxine ER (EFFEXOR XR) 150 mg 24 hr capsule Take 1 capsule by mouth once daily. famotidine (PEPCID) 20 mg tablet Take 1 tablet by mouth twice daily. promethazine (PHENERGAN) 25 mg tablet Take 1 tablet by mouth every 6 hours as needed for nausea/vomiting. atorvastatin (LIPITOR) 40 mg tablet Take 40 [...] 4 hours as needed. for Gi distress aspirin, enteric coated (ASPIRIN, ENTERIC COATED) 81 mg EC tablet GIVE 1 TABLET BY MOUTH ONCE DAILY acetaminophen (TYLENOL) 325 mg tablet Take 650 mg by mouth every 6 hours as needed. POLYETHYLENE GLYCOL 3350 (MIRALAX ORAL) Take 17 g by mouth once daily. Walker misc 1 Each once daily. guaiFENesin (ROBITUSSIN) 100 mg/5 mL syrup Take 10 mL by mouth every 4 hours as needed. for cough and congestion clonazePAM (KLONOPIN) 0.5 mg tablet Take 0.125 mg by mouth daily at bedtime. Routine dose. Tues, Thur, Sat, Sun in the evening. This medication is managed and ordered by Psychiatrist, Dr. Salinas. No current facility-administered medications for this visit. FAMILY HISTORY Problem Relation Age of Onset Breast Cancer Mother Social History Tobacco Use Smoking status: Never Smokeless tobacco: Never EXAM: BP 130/68 Pulse 94 Resp 20 Wt 65.3 kg (144 lb) SpO2 95% BMI 29.08 kg/m? PHYSICAL EXAM (more content not included)... [facility] LIPID PANEL, NONFASTINGon Cholesterol [Mass/Vol] 197 mg/dL Normal <200 [facility] Comment on above: Order Comment: Speci men Type: BLOOD SPECIMENOrdering Facility: [facility] Address: [address] [place] [address] Result Comment: <200 mg/dL, Desirable 200-239 mg/dL, Borderline high >239 mg/dL, High Performed By: #### L IPNF ####[facility] LABCLIA [id number] [facility] [id number] [address] [place] HDL CHOLESTEROL, NF 87 mg/dL Normal >39 [facility] Comment on above: Order Comment: Speci men Type: BLOOD SPECIMENOrdering Facility: [facility] Address: [address] [place] [address] Result Comment: 40-5 9 mg/dL, Acceptable >59 mg/dL, High: Negative risk factor for coronary heart disease <40 mg/dL, Low: Positive risk factor for coronary heart disease Performed By: #### L IPNF ####[facility] LABCLIA [id number] [place] [address] [place] [facility] LDL CHOLESTEROL, NF 71 mg/dL Normal <100 [facility] Comment on above: Order Comment: Juliet anabella Type: BLOOD SPECIMENOrdering Facility: [facility] Address: [address] [place] [address] Result Comment: <100 mg/dL, Optimal 100-129 mg/dL, Near optimal/above optimal 130-159 mg/dL, Borderline high 160-189 mg/dL, High >189 mg/dL, Very high Secondary prevention optimal LDL Cholesterol levels are recommended to be < 70 mg/dL Performed By: #### L IPNF ####[facility] LABIA [id number] [address] STATES [place] [facility] LDL/HDL RATIO, NF 0.82 mg/dL Normal <2.54 [facility] Comment on above: Order Comment: Juliet kyle Type: BLOOD SPECIMENOrdering Facility: [facility] Address: [address] [place] [address] Result Comment: Refe rence: 1. National Cholesterol Education Program ATP III Guideline At-A-Glance Quick Desk Reference: National Heart, Lung, and Blood [place]. National Institutes of Health. 2001: NIH Publication No. 01-3305. 2. An International Atherosclerosis Society position paper: global recommendations for the management of dyslipidemia: executive summary, Atherosclerosis. 2014: 232(2):410-413. Performed By: #### L IPNF ####[facility] LABIA [id number] [address] [place] NON HDL CHOL, NF 110 mg/dL Normal <130 [facility] Comment on above: Order Comment: Juliet kyle Type: BLOOD SPECIMENOrdering Facility: [facility] Address: [address] [place] [address] Result Comment: <130 mg/dL, Optimal 130-159 mg/dL, Near optimal/above optimal 160-189 mg/dL, Borderline high 190-219 mg/dL, High >219 mg/dL, Very high Secondary prevention optimal non HDL Cholesterol levels are recommended to be <100 mg/dL Performed By: #### L IPNF ####[facility] LABCLIA [id number] [place] [address] [place] T CHOL/HDL RATIO NF 2.26 mg/dL Normal <5.10 [facility] Comment on above: Order Comment: Speci men Type: BLOOD SPECIMENOrdering Facility: [facility] Address: [address] [place] [address] Performed By: #### L IPNF ####[facility] LABCLIA [id number] [place] [address] [place] TRIGLYCERIDES, NF 196 mg/dL High <150 [facility] Comment on above: Order Comment: Speci men Type: BLOOD SPECIMENOrdering Facility: [facility] Address: [address] [place] [address] Result Comment: <150 mg/dL, Normal 150-199 mg/dL, Borderline high 200-499 mg/dL, High >499 mg/dL, Very high Performed By: #### L IPNF ####[facility] LABCLIA [id number] [place] [address] [place] VLDL CHOLESTEROL, NF 39 mg/dL High <30 [facility] Comment on above: Order Comment: Speci men Type: BLOOD SPECIMENOrdering Facility: [facility] Address: [address] [place] [address] Performed By: #### L IPNF ####[facility] LABCLIA [id number] [place] [address] [place] Absolute lymphocyte countOrd ered By: Lara Jones on 10-31-2023 Lymphocytes Auto (Unsp spec) [#/Vol] 1.00 10*3/uL 0.83-4.51 [facility] Automated lymphocyte count a s percentage of total leukocytesOrdered By: Lara Jones on 10-31-2023 Lymphocytes/100 WBC Auto (Unsp spec) 19.9 % 19-41 [facility] Basophil percentageOrdered B y: Lara Jones on 10-31-2023 Basophil percentage 25-50 SEEN /hpf 0-5 [facility] Basophils/100 WBC (Bld) 0.4 % 0-1 [facility] Chloride [Moles/Vol] 102 mmol/L 98-107 [facility] Eosinophils/100 WBC (Bld) 2.4 % 0-5 [facility] Glucose [Mass/Vol] 104 mg/dL 74-106 [facility] Comment on above: Fasting Glucose resu lt from 100 to 125 mg/dL suggests IMPAIRED HOMEOSTASIS per A.D.A. criteria. Hemoglobin (Bld) [Mass/Vol] 10.5 g/dL 12.0-15.0 [facility] Monocytes/100 WBC (Bld) 10.9 % 0-10 [facility] Neutrophils (Bld) [#/Vol] 3.3 10*3/uL 2.0-7.7 [facility] Neutrophils/100 WBC (Bld) 66.0 % 47-70 [facility] Potassium [Moles/Vol] 3.6 mmol/L 3.5-5.[address] [facility] Comment on above: Moderate Hemolysis, Result may be falsely increased. Sodium [Moles/Vol] 138 mmol/L 136-145 [facility] WBC (Bld) [#/Vol] 5.0 10*3/uL 4.4-11.0 [facility] Bilirubin Test strip Ql (U)O rdered By: Lara Jones on 10-31-2023 Bilirubin Ql (U) Negative Negative [facility] Culture, urineOrdered By: Naye Jones on 10-31-2023 Bacteria identified Cx Nom (U) Positive [facility] Determination of erythrocyte mean corpuscular volume (MCV)Ordered By: Lara Jones on 10-31-2023 MCV (RBC) [Entitic vol] 92.1 fL 81-99 [facility] Erythrocyte distribution wid th ratioOrdered By: Lara Jones on 10-31-2023 Erythrocyte distribution width (RBC) [Ratio] 13.2 % 11.6-14.6 [facility] Erythrocyte distribution wid th standard deviationOrdered By: Lara Jones on 10-31-2023 Erythrocyte distribution width (RBC) [Entitic vol] 44.0 fL 35.1-43.9 [facility] Hematocrit Auto (Bld) [Volum e fraction]Ordered By: Lara Jones on 10-31-2023 Hematocrit (Bld) [Volume fraction] 32.5 % 37-47 [facility] Immature granulocytes/100 WB C Auto (Bld)Ordered By: Lara Jones on 10-31-2023 Immature granulocytes/100 WBC (Bld) 0.400 % 0.0-0.9 [facility] Comment on above: IG% - Immature Granu locytes (promyelocytes, myelocytes and metamyelocytes) > 1% indicates that a LEFT SHIFT is Present. Ketones Test strip Ql (U)Ord ered By: Lara Jones on 10-31-2023 Ketones Ql (U) Negative Negative [facility] Laboratory - Chemistry and C hemistry - challengeOrdered By: Lara Jones on 10-31-2023 CO2 [Moles/Vol] 33.0 mmol/L 21.0-32.0 [facility] Urea nitrogen/Creatinine [Mass ratio] 9.3 mg/mg 10-20 [facility] Laboratory - Hematology and Cell countsOrdered By: Lara Jones on 10-31-2023 MCH (RBC) [Entitic mass] 29.7 pg 27.0-32.0 [facility] MCHC (RBC) [Mass/Vol] 32.3 g/dL 32-[address] [facility] Nucleated RBC/100 WBC (Bld) [Ratio] 0 % 0-5 [facility] Platelet mean volume (Bld) [Entitic vol] 10.2 fL 6.2-12.0 [facility] Platelets (Bld) [#/Vol] 185 10*3/uL 150-450 [facility] Mucus LM Ql (Urine sed)Order ed By: Lara Jones on 10-31-2023 Mucus Ql (Urine sed) 0 SEEN /hpf [facility] Nitrite Test strip Ql (U)Ord ered By: Lara Jones on 10-31-2023 Nitrite Ql (U) Negative Negative [facility] No Panel InformationOrdered By: Lara Jones on 10-31-2023 Urine RBC 0 SEEN /hpf 0-5 [facility] Estimated Creatinine Clearance Calc 28.14 ml/min [facility] Estimated GFR (MDRD) Amer 42 mL/min >60 [facility] Comment on above: GFR Calc Estimated GFR (MDRD) Non-Af Amer 35 mL/min >60 [facility] Comment on above: Non- GFR Calc Protein Test strip Ql (U)Ord ered By: Lara Jones on 10-31-2023 Protein Ql (U) 15 mg/dl Negative [facility] RBC Auto (Bld) [#/Vol]Ordere d By: Lara Jones on 10-31-2023 RBC (Bld) [#/Vol] 3.53 10*6/uL 4.2-5.4 [facility] Serum or plasma calcium mery urement (mass/volume)Ordered By: Lara Jones on 10-31-2023 Calcium [Mass/Vol] 8.8 mg/dL 8.5-10.1 [facility] Serum or plasma creatinine m easurement (mass/volume)Ordered By: Lara Jones on 10-31-2023 Creatinine [Mass/Vol] 1.50 mg/dL 0.55-1.[address] [facility] Comment on above: The validity of the calculated GFR & GFRAA in patients over 70 years has not been determined. Clinical correlation is essential. Serum or plasma urea nitroge n measurement (mass/volume)Ordered By: Lara Jones on 10-31-2023 Urea nitrogen [Mass/Vol] 14 mg/dL 7-18 [facility] Squamous epithelial cells de tection in urine sediment by light microscopyOrdered By: Lara Jones on 10-31-2023 Epithelial cells.squamous LM Ql (Urine sed) 0-5 SEEN /hpf 5-10 [facility] Thin prep Papanicolaou smear with manual screeningOrdered By: Lara Jones on 10-31-2023 Thin prep Papanicolaou smear with manual screening 3 5-15 [facility] Urine blood detectionOrdered By: Lara Jones on 10-31-2023 RBC Ql (U) Negative Negative [facility] Urine clarityOrdered By: Fer Jones on 10-31-2023 Clarity (U) Sl. Cloudy Clear [facility] Urine color determinationOrd ered By: Lara Jones on 10-31-2023 Color (U) Yellow Yellow [facility] Urine glucose detectionOrder ed By: Lara Jones on 10-31-2023 Glucose Ql (U) Normal mg/dl Normal [facility] Urine leukocyte esterase det ection by dipstickOrdered By: Lara Jones on 10-31-2023 Leukocyte esterase Test strip Ql (U) 500 /ul Negative [facility] Urine pHOrdered By: Gil Jones on 10-31-2023 pH (U) 7.0 [pH] 5.0 - 8.0 [facility] Urine sediment bacteria coun t by microscopy (number/high power field)Ordered By: Lara Jones on 10-31-2023 Bacteria LM.HPF (Urine sed) [#/Area] 1 /[HPF] None Seen [facility] Urine specific gravity measu rementOrdered By: Lara Jones on 10-31-2023 Specific gravity (U) [Rel density] 1.005 1.002-1.030 [facility] Urine urobilinogen measureme ntOrdered By: Lara Jones on 10-31-2023 Urobilinogen Ql (U) Normal mg/dl Normal [facility] Basophil percentageOrdered B y: Netta Olmedo on 10-27-2023 Basophil percentage 0-5 SEEN /hpf 0-5 [facility] Bilirubin Test strip Ql (U)O rdered By: Netta Olmedo on 10-27-2023 Bilirubin Ql (U) Negative Negative [facility] Culture, urineOrdered By: Jareth Olmedo on 10-27-2023 Bacteria identified Cx Nom (U) Positive [facility] Ketones Test strip Ql (U)Ord ered By: Netta Olmedo on 10-27-2023 Ketones Ql (U) 5 mg/dl Negative [facility] Mucus LM Ql (Urine sed)Order ed By: Netta Olmedo on 10-27-2023 Mucus Ql (Urine sed) 0 SEEN /hpf [facility] Nitrite Test strip Ql (U)Ord ered By: Netta Olmedo on 10-27-2023 Nitrite Ql (U) Negative Negative [facility] No Panel InformationOrdered By: Netta Olmedo on 10-27-2023 Urine RBC 0 SEEN /hpf 0-5 [facility] Protein Test strip Ql (U)Ord ered By: Netta Olmedo on 10-27-2023 Protein Ql (U) 15 mg/dl Negative [facility] Squamous epithelial cells de tection in urine sediment by light microscopyOrdered By: Netta Olmedo on 10-27-2023 Epithelial cells.squamous LM Ql (Urine sed) 0-5 SEEN /hpf 5-10 [facility] Urine blood detectionOrdered By: Netta Olmedo on 10-27-2023 RBC Ql (U) Negative Negative [facility] Urine clarityOrdered By: Julienne Olmedo on 10-27-2023 Clarity (U) Sl. Cloudy Clear [facility] Urine color determinationOrd ered By: Netta Olmedo on 10-27-2023 Color (U) Yellow Yellow [facility] Urine glucose detectionOrder ed By: Netta Olmedo on 10-27-2023 Glucose Ql (U) Normal mg/dl Normal [facility] Urine leukocyte esterase det ection by dipstickOrdered By: Netta Olmedo on 10-27-2023 Leukocyte esterase Test strip Ql (U) 25 /ul Negative [facility] Urine pHOrdered By: Netta Olmedo on 10-27-2023 pH (U) 6.0 [pH] 5.0 - 8.0 [facility] Urine sediment bacteria coun t by microscopy (number/high power field)Ordered By: Netta Olmedo on 10-27-2023 Bacteria LM.HPF (Urine sed) [#/Area] 0 /[HPF] None Seen [facility] Urine specific gravity measu rementOrdered By: Netta Olmedo on 10-27-2023 Specific gravity (U) [Rel density] 1.015 1.002-1.030 [facility] Urine urobilinogen measureme ntOrdered By: Netta Olmedo on 10-27-2023 Urobilinogen Ql (U) Normal mg/dl Normal [facility] Basophil percentageOrdered B y: Perfecto Juarez on 08-02-2023 Cholesterol [Mass/Vol] 162 mg/dL <200 [facility] Comment on above: <200 mg/dL Desirable 200-240 mg/dL Borderline >240 mg/dL High Risk Triglyceride [Mass/Vol] 61 mg/dL <199 [facility] Comment on above: The drugs N-Acetylcy steine and Metamizole may falsely depress this assay.Serum Triglycerides Reference Interval Normal <150 mg/dL Borderline high 150 - 199 mg/dL High 200 - 499 mg/dL Very High > or = 500 mg/dL Serum or plasma cholesterol in HDL measurement (mass/volume)Ordered By: Perfecto Juarez on 08-02-2023 Cholesterol in HDL [Mass/Vol] 81 mg/dL >40 [facility] Comment on above: The drugs N-Acetylcy steine and Metamizole may falsely depress this assay. Reference Range HDL <40 mg/dL Low HDL Cholesterol HDL >or= 60 mg/dL High HDL Cholesterol Serum or plasma cholesterol in VLDL measurement (mass/volume)Ordered By: Perfecto Juarez on 08-02-2023 Cholesterol in VLDL [Mass/Vol] 12 mg/dL 5-40 [facility] Serum or plasma low density lipoprotein (LDL) cholesterol measurement (mass/volume)Ordered By: Perfecto Juarez on 08-02-2023 Cholesterol in LDL [Mass/Vol] 69 mg/dL 0-130 [facility] Absolute lymphocyte countOrd ered By: Eliazar Mcknight on 08-01-2023 Lymphocytes Auto (Unsp spec) [#/Vol] 1.82 10*3/uL 0.83-4.51 [facility] Basophil percentageOrdered B y: Eliazar Mcknight on 08-01-2023 Basophils/100 WBC (Bld) 0.7 % 0-1 [facility] Chloride [Moles/Vol] 99 mmol/L 98-107 [facility] Eosinophils/100 WBC (Bld) 3.0 % 0-5 [facility] Glucose [Mass/Vol] 105 mg/dL 74-106 [facility] Comment on above: Fasting Glucose resu lt from 100 to 125 mg/dL suggests IMPAIRED HOMEOSTASIS per A.D.A. criteria. Neutrophils (Bld) [#/Vol] 3.3 10*3/uL 2.0-7.7 [facility] Neutrophils/100 WBC (Bld) 54.1 % 47-70 [facility] Potassium [Moles/Vol] 3.7 mmol/L 3.5-5.[address] [facility] Sodium [Moles/Vol] 136 mmol/L 136-145 [facility] WBC (Bld) [#/Vol] 6.1 10*3/uL 4.4-11.0 [facility] Blood erythrocytes count (nu mber/volume)Ordered By: Eliazar Mcknight on 08-01-2023 RBC (Bld) [#/Vol] 3.78 10*6/uL 4.2-5.4 [facility] Blood hemoglobin measurement (mass/volume)Ordered By: Eliazar Mcknight on 08-01-2023 Hemoglobin (Bld) [Mass/Vol] 11.1 g/dL 12.0-15.0 [facility] Blood lymphocytes/100 leukoc ytesOrdered By: Eliazar Mcknight on 08-01-2023 Lymphocytes/100 WBC (Bld) 30.0 % 19-41 [facility] Blood monocytes/100 leukocyt esOrdered By: Eliazar Mcknight on 08-01-2023 Monocytes/100 WBC (Bld) 12.0 % 0-10 [facility] Blood platelet mean volumeOr dered By: Eliazar Mcknight on 08-01-2023 Platelet mean volume (Bld) [Entitic vol] 9.3 fL 6.2-12.0 [facility] Determination of erythrocyte mean corpuscular volume (MCV)Ordered By: Eliazar Mcknight on 08-01-2023 MCV (RBC) [Entitic vol] 91.8 fL 81-99 [facility] Glucose Glucometer (BldC) [M ass/Vol]Ordered By: Eliazar Mcknight on 08-01-2023 Glucose [Mass/Vol] 95 mg/dL 74-106 [facility] Comment on above: MANAGEMENT OF PATIEN T CARE PER NURSING PROTOCOL Hematocrit Auto (Bld) [Volum e fraction]Ordered By: Eliazar Mcknight on 08-01-2023 Hematocrit (Bld) [Volume fraction] 34.7 % 37-47 [facility] INR in Blood by Coagulation assayOrdered By: Eliazar Mcknight on 08-01-2023 INR Coag (Bld) [Relative time] 1.0 {INR} [facility] Laboratory - Chemistry and C hemistry - challengeOrdered By: Eliazar Mcknight on 08-01-2023 CO2 [Moles/Vol] 32.0 mmol/L 21.0-32.0 [facility] Urea nitrogen/Creatinine [Mass ratio] 13.0 mg/mg 10-20 [facility] Laboratory - CoagulationOrde red By: Eliazar Mcknight on 08-01-2023 aPTT Coag (Bld) [Time] 29.7 s 24.1-36.2 [facility] PT Coag (PPP) [Time] 12.9 s 11.7-14.9 [facility] Laboratory - Hematology and Cell countsOrdered By: Eliazar Mcknight on 08-01-2023 Erythrocyte distribution width (RBC) [Entitic vol] 45.5 fL 35.1-43.9 [facility] Erythrocyte distribution width (RBC) [Ratio] 13.5 % 11.6-14.6 [facility] Immature granulocytes/100 WBC (Bld) 0.200 % 0.0-0.9 [facility] Comment on above: IG% - Immature Granu locytes (promyelocytes, myelocytes and metamyelocytes) > 1% indicates that a LEFT SHIFT is Present. MCH (RBC) [Entitic mass] 29.4 pg 27.0-32.0 [facility] Nucleated RBC/100 WBC (Bld) [Ratio] 0 % 0-5 [facility] MCHC Auto (RBC) [Mass/Vol]Or dered By: Eliazar Mcknight on 08-01-2023 MCHC (RBC) [Mass/Vol] 32.0 g/dL 32-[address] [facility] No Panel InformationOrdered By: Eliazar Mcknight on 08-01-2023 Estimated Creatinine Clearance Calc 3.97 ml/min [facility] Estimated GFR (MDRD) Amer 44 mL/min >60 [facility] Comment on above: GFR Calc Estimated GFR (MDRD) Non-Af Amer 36 mL/min >60 [facility] Comment on above: Non- GFR Calc Troponin I High Sensitivity 9 pg/mL 3.0-54.0 [facility] Comment on above: Please Note: [place] Units and Gender Specific Reference Ranges. For more information see Policy Stat Procedure [place] High Sensitivity Troponin (TNIH) and attachments. Platelets bldOrdered By: Heidy Mcknight on 08-01-2023 Platelets (Bld) [#/Vol] 221 10*3/uL 150-450 [facility] Serum or plasma calcium mery urement (mass/volume)Ordered By: Eliazar Mcknight on 08-01-2023 Calcium [Mass/Vol] 8.7 mg/dL 8.5-10.1 [facility] Serum or plasma creatinine m easurement (mass/volume)Ordered By: Eliazar Mcknight on 08-01-2023 Creatinine [Mass/Vol] 1.46 mg/dL 0.55-1.[address] [facility] Comment on above: The validity of the calculated GFR & GFRAA in patients over 70 years has not been determined. Clinical correlation is essential. Serum or plasma urea nitroge n measurement (mass/volume)Ordered By: Eliazar Mcknight on 08-01-2023 Urea nitrogen [Mass/Vol] 19 mg/dL 7-18 [facility] Thin prep Papanicolaou smear with manual screeningOrdered By: Eliazar Mcknight on 08-01-2023 Thin prep Papanicolaou smear with manual screening 5 5-15 [facility] Basophil percentageOrdered B y: Yonny Renee on 02-28-2023 Basophil percentage 0-5 SEEN /hpf 0-5 [facility] Bilirubin Test strip Ql (U)O rdered By: Yonny Renee on 02-28-2023 Bilirubin Ql (U) Negative Negative [facility] Culture, urineOrdered By: David Renee on 02-28-2023 Bacteria identified Cx Nom (U) Positive [facility] Ketones Test strip Ql (U)Ord ered By: Yonny Renee on 02-28-2023 Ketones Ql (U) Negative Negative [facility] Mucus LM Ql (Urine sed)Order ed By: Yonny Renee on 02-28-2023 Mucus Ql (Urine sed) 0 SEEN /hpf [facility] Nitrite Test strip Ql (U)Ord ered By: Yonny Renee on 02-28-2023 Nitrite Ql (U) Negative Negative [facility] Protein Test strip Ql (U)Ord ered By: Yonny Renee on 02-28-2023 Protein Ql (U) 15 mg/dl Negative [facility] Squamous epithelial cells de tection in urine sediment by light microscopyOrdered By: Yonny Renee on 02-28-2023 Epithelial cells.squamous LM Ql (Urine sed) 0-5 SEEN /hpf 5-10 [facility] Urine blood detectionOrdered By: Yonny Renee on 02-28-2023 RBC Ql (U) Negative Negative [facility] RBC Ql (U) 0 SEEN /hpf 0-5 [facility] Urine clarityOrdered By: Khadar Renee on 02-28-2023 Clarity (U) Clear Clear [facility] Urine color determinationOrd ered By: Yonny Renee on 02-28-2023 Color (U) Yellow Yellow [facility] Urine glucose detectionOrder ed By: Yonny Renee on 02-28-2023 Glucose Ql (U) Normal mg/dl Normal [facility] Urine leukocyte esterase det ection by dipstickOrdered By: Yonny Renee on 02-28-2023 Leukocyte esterase Test strip Ql (U) 25 /ul Negative [facility] Urine pHOrdered By: Yonny Renee on 02-28-2023 pH (U) 7.0 [pH] 5.0 - 8.0 [facility] Urine sediment bacteria coun t by microscopy (number/high power field)Ordered By: Yonny Renee on 02-28-2023 Bacteria LM.HPF (Urine sed) [#/Area] 0 /[HPF] None Seen [facility] Urine specific gravity measu rementOrdered By: Yonny Renee on 02-28-2023 Specific gravity (U) [Rel density] 1.010 1.002-1.030 [facility] Urobilinogen Auto test strip Ql (U)Ordered By: Yonny Renee on 02-28-2023 Urobilinogen Ql (U) Normal mg/dl Normal [facility] CT CHEST WO IVCONon 07-12-20 Radiology Result ACTIONABLE Abnormal [facility] Absolute lymphocyte counton 06-14-2022 Lymphocytes Auto (Unsp spec) [#/Vol] 0.99 10*3/uL 0.83-4.51 [facility] Work Phone: Basophil percentageon 2021 Lactate [Moles/Vol] 1.8 mmol/L 0.4-2.0 [facility] Work Phone: Basophil percentage 0 SEEN /hpf 0-5 [facility] Work Phone: Basophils/100 WBC (Bld) 0.2 % 0-1 [facility] Work Phone: Bilirubin [Mass/Vol] 0.50 mg/dL 0.20-1.00 [facility] Work Phone: Comment on above: For patients on eltr ombopag therapy, use of Dimension [place] TBIL is not recommended. Chloride [Moles/Vol] 98 mmol/L 98-107 [facility] Work Phone: Eosinophils/100 WBC (Bld) 0.0 % 0-5 [facility] Work Phone: Glucose [Mass/Vol] 179 mg/dL 74-106 [facility] Work Phone: Comment on above: Fasting Glucose resu lt greater than or equal to 126 mg/dL suggests DIABETES MELLITUS per A.D.A. criteria. Neutrophils (Bld) [#/Vol] 4.7 10*3/uL 2.0-7.7 [facility] Work Phone: Neutrophils/100 WBC (Bld) 73.0 % 47-70 [facility] Work Phone: Potassium [Moles/Vol] 3.4 mmol/L 3.5-5.[address] [facility] Work Phone: Protein [Mass/Vol] 7.0 g/dL 6.4-8.2 [facility] Work Phone: Sodium [Moles/Vol] 135 mmol/L 136-145 [facility] Work Phone: WBC (Bld) [#/Vol] 6.4 10*3/uL 4.4-11.0 [facility] Work Phone: Bilirubin Test strip Ql (U)o n 10-24-2022 Bilirubin Ql (U) Negative Negative [facility] Work Phone: Blood erythrocytes count (nu mber/volume)on 06-14-2022 RBC (Bld) [#/Vol] 3.94 10*6/uL 4.2-5.4 [facility] Work Phone: Blood hemoglobin measurement (mass/volume)on 06-14-2022 Hemoglobin (Bld) [Mass/Vol] 12.0 g/dL 12.0-15.0 [facility] Work Phone: Blood lymphocytes/100 leukoc yteson 06-14-2022 Lymphocytes/100 WBC (Bld) 15.5 % 19-41 [facility] Work Phone: Blood monocytes/100 leukocyt eson 06-14-2022 Monocytes/100 WBC (Bld) 10.8 % 0-10 [facility] Work Phone: Blood platelet mean volumeon 06-14-2022 Platelet mean volume (Bld) [Entitic vol] 9.8 fL 6.2-12.0 [facility] Work Phone: Determination of erythrocyte mean corpuscular volume (MCV)on 06-14-2022 MCV (RBC) [Entitic vol] 93.1 fL 81-99 [facility] Work Phone: Hematocrit Auto (Bld) [Volum e fraction]on 06-14-2022 Hematocrit (Bld) [Volume fraction] 36.7 % 37-47 [facility] Work Phone: INR in Blood by Coagulation assayon 06-14-2022 INR Coag (Bld) [Relative time] 1.1 {INR} [facility] Work Phone: Ketones Test strip Ql (U)on 06-14-2022 Ketones Ql (U) 15 mg/dl Negative [facility] Work Phone: Laboratory - Chemistry and C hemistry - challengeon 06-14-2022 ALP [Catalytic activity/Vol] 69 U/L 45-117 [facility] Work Phone: ALT [Catalytic activity/Vol] 46 U/L 13-56 [facility] Work Phone: [phone] CO2 [Moles/Vol] 30.0 mmol/L 21.0-32.0 [facility] Work Phone: [phone] Globulin (S) [Mass/Vol] 3.6 g/dL 2.2-4.2 [facility] Work Phone: [phone] Urea nitrogen/Creatinine [Mass ratio] 9.1 mg/mg 10-20 [facility] Work Phone: Laboratory - Coagulationon 1 aPTT Coag (Bld) [Time] 33.5 s 24.1-36.2 [facility] Work Phone: PT Coag (PPP) [Time] 14.0 s 11.7-14.9 [facility] Work Phone: [phone] Laboratory - Hematology and Cell countson 06-14-2022 Erythrocyte distribution width (RBC) [Entitic vol] 46.0 fL 35.1-43.9 [facility] Work Phone: [phone] Erythrocyte distribution width (RBC) [Ratio] 13.4 % 11.6-14.6 [facility] Work Phone: [phone] Immature granulocytes/100 WBC (Bld) 0.500 % 0.0-0.9 [facility] Work Phone: [phone] Comment on above: IG% - Immature Granu locytes (promyelocytes, myelocytes and metamyelocytes) > 1% indicates that a LEFT SHIFT is Present. MCH (RBC) [Entitic mass] 30.5 pg 27.0-32.0 [facility] Work Phone: Nucleated RBC/100 WBC (Bld) [Ratio] 0 % 0-5 [facility] Work Phone: [phone] MCHC Auto (RBC) [Mass/Vol]on 06-14-2022 MCHC (RBC) [Mass/Vol] 32.7 g/dL 32-36 [facility] Work [facility]: Mucus LM Ql (Urine sed)on Mucus Ql (Urine sed) 0 SEEN /hpf [facility] Work Phone: Nitrite Test strip Ql (U)on 06-14-2022 Nitrite Ql (U) Negative Negative [facility] Work Phone: No Panel Informationon 06-14 Troponin I High Sensitivity 16 pg/mL 3.0-54.0 [facility] Work Phone: Comment on above: Please Note: [place] Units and Gender Specific Reference Ranges. For more information see Policy Stat Procedure [place] High Sensitivity Troponin (TNIH) and attachments. Estimated Creatinine Clearance Calc 16.88 ml/min [facility] Work Phone: Estimated GFR (MDRD) Amer 36 mL/min >60 [facility] Work Phone: Comment on above: GFR Calc Estimated GFR (MDRD) Non-Af Amer 29 mL/min >60 [facility] Work Phone: Comment on above: Non- GFR Calc Platelets bldon 06-14-2022 Platelets (Bld) [#/Vol] 154 10*3/uL 150-450 [facility] Work Phone: Protein Test strip Ql (U)on 06-14-2022 Protein Ql (U) 30 mg/dl Negative [facility] Work Phone: [phone] Serum or plasma albumin mery urement (mass/volume)on 06-14-2022 Albumin [Mass/Vol] 3.4 g/dL 3.2-5.0 [facility] Work Phone: [phone] Serum or plasma albumin/glob ulin mass ratioon 06-14-2022 Albumin/Globulin [Mass ratio] 0.9 {ratio} 0.9-2.4 [facility] Work Phone: [phone] Serum or plasma calcium mery urement (mass/volume)on 06-14-2022 Calcium [Mass/Vol] 8.1 mg/dL 8.5-10.1 [facility] Work Phone: Serum or plasma creatinine m easurement (mass/volume)on 06-14-2022 Creatinine [Mass/Vol] 1.75 mg/dL 0.55-1.[address] [facility] Work Phone: Comment on above: The validity of the calculated GFR & GFRAA in patients over 70 years has not been determined. Clinical correlation is essential. Serum or plasma urea nitroge n measurement (mass/volume)on 06-14-2022 Urea nitrogen [Mass/Vol] 16 mg/dL 7-18 [facility] Work Phone: Squamous epithelial cells de tection in urine sediment by light microscopyon 06-14-2022 Epithelial cells.squamous LM Ql (Urine sed) 0 SEEN /hpf 5-10 [facility] Work Phone: Thin prep Papanicolaou smear with manual screeningon 06-14-2022 Thin prep Papanicolaou smear with manual screening 103 U/L 15-37 [facility] Work Phone: Thin prep Papanicolaou smear with manual screening 7 5-15 [facility] Work Phone: Urine blood detectionon 05-23 RBC Ql (U) 10 /ul Negative [facility] Work Phone: RBC Ql (U) 0 SEEN /hpf 0-5 [facility] Work Phone: Urine clarityon 06-14-2022 Clarity (U) Clear Clear [facility] Work Phone: Urine color determinationon 06-14-2022 Color (U) Yellow Yellow [facility] Work Phone: Urine glucose detectionon Glucose Ql (U) Normal mg/dl Normal [facility] Work Phone: Urine leukocyte esterase det ection by dipstickon 06-14-2022 Leukocyte esterase Test strip Ql (U) Negative Negative [facility] Work Phone: Urine pHon 06-14-2022 pH (U) 6.0 [pH] 5.0 - 8.0 [facility] Work Phone: Urine sediment bacteria coun t by microscopy (number/high power field)on 06-14-2022 Bacteria LM.HPF (Urine sed) [#/Area] 0 /[HPF] None Seen [facility] Work Phone: Urine specific gravity measu rementon 06-14-2022 Specific gravity (U) [Rel density] 1.015 1.002-1.030 [facility] Work Phone: Urobilinogen Auto test strip Ql (U)on 06-14-2022 Urobilinogen Ql (U) Normal mg/dl Normal [facility] Work Phone: SURGICAL PATHOLOGY, CONVERTE Don 08-09-2012 [facility] SURGICAL PATHOLOGY, CONVERTE Don 07-02-2008 [facility] Vital Signs Date Time Vital Sign Value Performing Clinician Faci lity 08-10-2024 15:57-0500 Diastolic blood pressure 80 mm[Hg] Jeanine Suppdaya SENIOR PROJECT ACCOUNTANT.ADULT BASIC EDUCATION INSTRUCTOR Work Phone: [facility] 08-10-2024 15:57-0500 Systolic blood pressure 160 mm[Hg] Jeanine Suppan SENIOR PROJECT ACCOUNTANT.ADULT BASIC EDUCATION INSTRUCTOR Work Phone: [facility] 08-10-2024 15:22-0500 Body mass index (BMI) [Ratio] 28.88 kg/m2 Jeanine Suppan SENIOR PROJECT ACCOUNTANT.ADULT BASIC EDUCATION INSTRUCTOR Work Phone: [facility] 08-10-2024 15:22-0500 Body weight 64.86 kg Jeanine Suppdaya SENIOR PROJECT ACCOUNTANT.ADULT BASIC EDUCATION INSTRUCTOR Work Phone: [facility] 08-10-2024 15:22-0500 Heart rate 76 /min Jeanine Suppan SENIOR PROJECT ACCOUNTANT.ADULT BASIC EDUCATION INSTRUCTOR Work Phone: [facility] 08-10-2024 15:22-0500 Respiratory rate 16 /min Jeanine Suppan SENIOR PROJECT ACCOUNTANT.ADULT BASIC EDUCATION INSTRUCTOR Work Phone: [facility] 08-10-2024 15:22-0500 SaO2% (BldA) [Mass fraction] 97 % Jeanine Suppan SENIOR PROJECT ACCOUNTANT.ADULT BASIC EDUCATION INSTRUCTOR Work Phone: [facility] 01-23-2024 16:04-0400 Body mass index (BMI) [Ratio] 29.08 kg/m2 Jeanine Suppdaya SENIOR PROJECT ACCOUNTANT.TANK FURNACE OPERATOR Work Phone: [facility] 01-23-2024 16:04-0400 Body weight 65.32 kg Jeanine Suppdaya SENIOR PROJECT ACCOUNTANT.TANK FURNACE OPERATOR Work Phone: [facility] 01-23-2024 16:04-0400 Diastolic blood pressure 68 mm[Hg] Jeanine Suppdaya SENIOR PROJECT ACCOUNTANT.TANK FURNACE OPERATOR Work Phone: [facility] 01-23-2024 16:04-0400 Heart rate 94 /min Jeanine Suppdaya SENIOR PROJECT ACCOUNTANT.TANK FURNACE OPERATOR Work Phone: [facility] 01-23-2024 16:04-0400 Respiratory rate 20 /min Jeanine Suppdaya SENIOR PROJECT ACCOUNTANT.TANK FURNACE OPERATOR Work Phone: [facility] 01-23-2024 16:04-0400 SaO2% (BldA) [Mass fraction] 95 % Jeanine Suppdaya SENIOR PROJECT ACCOUNTANT.TANK FURNACE OPERATOR Work Phone: [facility] 01-23-2024 16:04-0400 Systolic blood pressure 130 mm[Hg] Jeanine Parker SENIOR PROJECT ACCOUNTANT.TANK FURNACE OPERATOR Work Phone: [facility] 10-31-2023 16:30-0400 Body temperature 97.6 [degF] Dr. Yonny Renee Work Phone: [facility] 10-31-2023 16:30-0400 Diastolic blood pressure 90 mm[Hg] Dr. Yonny Renee Work Phone: [facility] 10-31-2023 16:30-0400 Heart rate 79 /min Dr. Yonny Renee Work Phone: [facility] 10-31-2023 16:30-0400 Respiratory rate 16 /min Dr. Yonny Renee Work Phone: [facility] 10-31-2023 16:30-0400 SaO2% (BldA) [Mass fraction] 99 % Dr. Yonny Renee Work Phone: [facility] 10-31-2023 16:30-0400 Systolic blood pressure 166 mm[Hg] Dr. Yonny Renee Work Phone: [facility] 10-31-2023 12:33-0400 Body height 175.[address] Yonny Renee Work Phone: [facility] 10-31-2023 12:33-0400 Body mass index (BMI) [Ratio] 21.7 kg/m2 Dr. Yonny Renee Work Phone: [facility] 10-31-2023 12:33-0400 Body weight 66.[address] Yonny Renee Work Phone: [facility] 10-10-2023 13:44-0500 Body weight 65.77 kg NA Esqueda PA-C Work Phone: [facility] 10-10-2023 13:44-0500 Diastolic blood pressure 66 mm[Hg] NA Esqueda PA-C Work Phone: [facility] 10-10-2023 13:44-0500 Heart rate 66 /min NA Esqueda PA-C Work Phone: [facility] 10-10-2023 13:44-0500 Respiratory rate 16 /min NA Esqueda PA-C Work Phone: [facility] 10-10-2023 13:44-0500 SaO2% (BldA) [Mass fraction] 96 % NA Esqueda PA-C Work Phone: [facility] 10-10-2023 13:44-0500 Systolic blood pressure 118 mm[Hg] NA Esqueda PA-C Work Phone: [facility] 08-02-2023 18:18-0500 Body temperature 97.1 [degF] Dr. Yonny Renee Work Phone: [facility] 08-02-2023 18:18-0500 Diastolic blood pressure 89 mm[Hg] Dr. Yonny Renee Work Phone: [facility] 12-12-2023 18:18-0500 Heart rate 75 /min Dr. Yonny Renee Work Phone: 4(211)267-532260 [place] [address] 08-02-2023 18:18-0500 Respiratory rate 16 /min Dr. Yonny Renee Work Phone: 7(686)304-417884 [place] [address] 08-02-2023 18:18-0500 SaO2% (BldA) [Mass fraction] 93 % Dr. Yonny Renee Work Phone: 7(583)503-715060 [place] [address] 08-02-2023 18:18-0500 Systolic blood pressure 120 mm[Hg] Dr. Yonny Renee Work Phone: 5(588)971-700884 [place] [address] 08-02-2023 00:21-0500 Body mass index (BMI) [Ratio] 21.6 kg/m2 Dr. Yonny Renee Work Phone: 0(137)409-749284 [place] [address] 08-01-2023 23:36-0500 Body height 175.[address] Yonny Renee Work Phone: 8(674)408-282084 [place] [address] 08-01-2023 23:36-0500 Body weight 66.[address] Yonny Renee Work Phone: 3(715)439-067284 [place] [address] 08-01-2023 23:00-0500 Diastolic blood pressure 75 mm[Hg] Dr. Yonny Renee Work Phone: 8(324)909-384584 [place] [address] 08-01-2023 23:00-0500 Heart rate 81 /min Dr. Yonny Renee Work Phone: 0(904)218-366260 [place] [address] 08-01-2023 23:00-0500 Respiratory rate 20 /min Dr. Yonny Renee Work Phone: 7(314)502-719660 [place] [address] 08-01-2023 23:00-0500 SaO2% (BldA) [Mass fraction] 95 % Dr. Yonny Renee Work Phone: 2(524)647-613460 [place] [address] 08-01-2023 23:00-0500 Systolic blood pressure 173 mm[Hg] Dr. Yonny Renee Work Phone: 9(740)167-263384 [place] [address] 08-01-2023 22:03-0500 Body temperature 93 [degF] Dr. Yonny Renee Work Phone: [facility] 08-01-2023 19:43-0500 Body height 152.[address] Yonny Renee Work Phone: [facility] 08-01-2023 19:43-0500 Body mass index (BMI) [Ratio] 3.9 kg/m2 Dr. Yonny Renee Work Phone: [facility] 08-01-2023 19:43-0500 Body weight 9.[address] Yonny Renee Work Phone: [facility] 09-02-2022 09:53-0500 Body weight 68.49 kg NA Esqueda PA-C Work Phone: [facility] 09-02-2022 09:53-0500 Diastolic blood pressure 60 mm[Hg] NA Esqueda PA-C Work Phone: [facility] 09-02-2022 09:53-0500 Heart rate 83 /min NA Esqueda PA-C Work Phone: [facility] 09-02-2022 09:53-0500 Respiratory rate 18 /min NA Esqueda PA-C Work Phone: [facility] 09-02-2022 09:53-0500 SaO2% (BldA) [Mass fraction] 95 % NA Esqueda PA-C Work Phone: [facility] 09-02-2022 09:53-0500 Systolic blood pressure 142 mm[Hg] NA Esqueda PA-C Work Phone: [facility] 06-14-2022 13:17-0400 Diastolic blood pressure 73 mm[Hg] [facility] Work Phone: 06-14-2022 13:17-0400 Heart rate 74 /min [facility] Work Phone: 06-14-2022 13:17-0400 Respiratory rate 23 /min [facility] Work Phone: 06-14-2022 13:17-0400 SaO2% (BldA) [Mass fraction] 94 % [facility] Work Phone: 06-14-2022 13:17-0400 Systolic blood pressure 147 mm[Hg] [facility] Work Phone: 06-14-2022 09:59-0400 Body temperature 97.9 [degF] [facility] Work Phone: 06-14-2022 09:19-0400 Body height 152.4 cm [facility] Work Phone: 06-14-2022 09:19-0400 Body mass index (BMI) [Ratio] 29.9 kg/m2 [facility] Work Phone: 06-14-2022 09:19-0400 Body weight 69.7 kg [facility] Work Phone: Encounters Encounter Date Encounter Type Care Provider Facility Start: 06-14-2025 ambulatory Alisamarin Quinn Facility:[facility] Start: 05-18-2025 Encounter for genera l adult medical examination without abnormal findings [facility] Start: 05-06-2025 End: 05-06-[address] Yonny Renee MD Work Phone: [facility] Start: 05-06-2025 End: 05-06-2025 Patient encounter procedure Alisa Quinn MD [facility] Work Phone: Start: 05-06-2025 End: 05-06-2025 ambulatory Alisa Quinn Facility:[facility] Start: 05-03-2025 End: 05-03-[address] Alisa Quinn MD -[facility] Start: 05-03-2025 End: 05-03-[address] Alisa Quinn MD -[facility] Start: 05-03-2025 End: 05-03-2025 ambulatory Alisa Quinn [facility] Facility:[facility] Start: 04-28-[address] Alisa Quinn MD -[facility] Work Phone: Start: 04-28-2025 End: 04-28-2025 ambulatory Alisa JERNIGAN Facility:[facility] Start: 02-26-2025 ambulatory Alisa Quinn [facility] Facili ty:[facility] Start: 02-26-[address] Alisa Quinn MD -[facility] Work Phone: Start: 01-28-2025 ambulatory Alisa Quinn OLS Facili ty:[facility] Start: 01-28-[address] Alisa Quinn MD -[facility] Work Phone: Start: 01-21-2025 End: 01-21-2025 Telephone encounter Jeanine Parker APRN.ADULT BASIC EDUCATION INSTRUCTOR Work Phone: [facility] Start: 01-18-2025 ambulatory Yonny JERNIGAN Facili ty:[facility] Start: 11-22-2024 Registered Referred Alisa Quinn MD -[facility] Work Phone: Start: 11-22-2024 End: 11-22-2024 ambulatory Alisa Quinn Facility:[facility] Start: 11-16-2024 End: 11-16-2024 Telephone encounter Jeanine Parker APRN.ADULT BASIC EDUCATION INSTRUCTOR Work Phone: [facility] Start: 11-13-2024 End: 11-13-[address] Yonny Renee MD Work Phone: [facility] Work Phone: Start: 11-13-2024 End: 11-13-2024 Departed Referred Yonny Renee [facility] Work Phone: Start: 11-13-2024 End: 11-13-2024 ambulatory Yonny Dowshad JERNIGAN Facility:[facility] Start: 09-06-2024 End: 09-06-2024 Telephone encounter Jeanine Parker APRN.ADULT BASIC EDUCATION INSTRUCTOR Work Phone: [facility] Comment on above: Electronic Communica tion ([facility]) Start: 08-29-2024 End: 08-30-2024 ambulatory Jeanine A Suppan SENIOR PROJECT ACCOUNTANT.ADULT BASIC EDUCATION INSTRUCTOR Work Phone: [facility] Comment on above: Excessive sleepiness Start: 08-23-2024 End: 08-23-2024 ambulatory Yonny Renee MD Work Phone: [facility] Comment on above: Meds Start: 08-10-2024 End: 08-10-2024 ambulatory JEANINE A SUPPAN Facility:[facility] Start: 08-10-2024 End: 08-10-2024 Office outpatient visit 25 minutes Jeanine A Suppan SENIOR PROJECT ACCOUNTANT.ADULT BASIC EDUCATION INSTRUCTOR Work Phone: [facility] Comment on above: Arterial ischemic st roke, vertebrobasilar, thalamic, acute, left (HCC) (Primary Dx); Chronic renal failure, stage 4 (severe) (HCC); Hyperlipidemia, mixed; Age-related osteoporosis without current pathological fracture; Mild late onset Alzheimer's dementia without behavioral disturbance, psychotic disturbance, mood disturbance, or anxiety (HCC); Anemia in other chronic diseases classified elsewhere; Weight loss; Chronic fatigue; Primary osteoarthritis involving multiple joints; Primary hypertension Start: 06-17-2024 End: 06-18-2024 ambulatory Jeanine A Suppan SENIOR PROJECT ACCOUNTANT.ADULT BASIC EDUCATION INSTRUCTOR Work Phone: [facility] Comment on above: Anemia Start: 06-05-2024 End: 06-11-2024 Telephone encounter Jeanine A Suppan SENIOR PROJECT ACCOUNTANT.ADULT BASIC EDUCATION INSTRUCTOR Work Phone: [facility] Start: 04-20-2024 End: 04-20-2024 Telephone encounter Jeanine A Suppan SENIOR PROJECT ACCOUNTANT.ADULT BASIC EDUCATION INSTRUCTOR Work Phone: [facility] Start: 04-06-2024 Telephone encounter Jeanine A Suppan SENIOR PROJECT ACCOUNTANT.ADULT BASIC EDUCATION INSTRUCTOR Work Phone: [facility] [place] Comment on above: Results Start: 03-29-2024 ambulatory Yonny Renee MD Work Phone: [facility] Comment on above: Feeling lethargic Start: 02-17-2024 Telephone encounter Jeanine A Suppan SENIOR PROJECT ACCOUNTANT.TANK FURNACE OPERATOR Work Phone: [facility] Comment on above: Results Start: 02-09-2024 End: 02-09-2024 ambulatory MANUEL ESQUEDA Facility:[facility] Start: 02-09-2024 End: 02-09-2024 Subsequent hospital visit by physician Meg [facility] ([facility]) Work Phone: [facility] Comment on above: Incidental lung nodu le, greater than or equal to 8mm [R91.1] Start: 01-25-2024 ambulatory Jeanine A S uppan SENIOR PROJECT ACCOUNTANT.TANK FURNACE OPERATOR Work Phone: [facility] Comment on above: prescription Start: 01-24-2024 ambulatory Jeanine A S uppan SENIOR PROJECT ACCOUNTANT.ADULT BASIC EDUCATION INSTRUCTOR Work Phone: [facility] Comment on above: Cholesterol profile Start: 01-24-2024 E-mail encounter fro m caregiver Jeanine A Suppan SENIOR PROJECT ACCOUNTANT.ADULT BASIC EDUCATION INSTRUCTOR Work Phone: [facility] Start: 01-23-2024 End: 01-23-2024 Office outpatient visit 25 minutes Jeanine A Suppan SENIOR PROJECT ACCOUNTANT.TANK FURNACE OPERATOR Work Phone: [facility] Comment on above: Arterial ischemic st roke, vertebrobasilar, thalamic, acute, left (HCC) (Primary Dx); Incidental lung nodule, greater than or equal to 8mm; Essential hypertension; Chronic renal failure, stage 4 (severe) (HCC); Hyperlipidemia, mixed; Age-related osteoporosis without current pathological fracture; Memory loss Start: 01-23-2024 End: 01-23-2024 ambulatory MANUEL ESQUEDA Facility:[facility] Start: 10-31-2023 Telephone encounter Patrick Beto Esqueda PA-C Work Phone: [facility] Comment on above: Nursing Facility Mic l Regarding Patient Start: 10-31-2023 End: 10-31-2023 Emergency department patient visit Dr. Yonny Renee Work Phone: [facility] Work Phone: Start: 10-27-2023 End: 10-27-[address] Yonny Renee Work Phone: [facility] Work Phone: Start: 10-27-2023 End: 10-27-[address] Yonny Renee Work Phone: [facility] Work Phone: Start: 10-27-[address] Joseph Renee Work Phone: [facility] Work Phone: Start: 10-10-2023 End: 10-10-2023 Patient encounter procedure Patrick Esqueda PA-C Work Phone: [facility] Comment on above: Essential hypertensi on (Primary Dx); Chronic renal failure, stage 4 (severe) (HCC) Start: 08-02-2023 Non-patient / Non-visit Dr. David Renee Work Phone: [facility] Work Phone: Start: 08-01-2023 End: 08-02-2023 Evaluation and management of inpatient Dr. Yonny Renee Work Phone: [facility] Work Phone: Start: 08-01-2023 End: 08-02-[address] Yonny Renee Work Phone: [facility] Work Phone: Start: 08-01-2023 Non-patient / Non-visit Dr. David Renee Work Phone: [facility] Work Phone: Start: 02-28-2023 Telephone encounter Patrick Esqueda PA-C Work Phone: [facility] Comment on above: Patient Update Start: 02-28-2023 End: 02-28-2023 ambulatory [facility] Work Phone: Start: 02-28-2023 End: 02-28-2023 Departed Referred [facility] Work Phone: Start: 02-04-2023 End: 02-04-2023 ambulatory Yonny Renee MD Work Phone: [facility] Comment on above: Arterial ischemic st roke, vertebrobasilar, thalamic, acute, left (HCC) (Primary Dx); Auditory hallucinations; Memory loss; Tinnitus, unspecified laterality; Essential hypertension; Age-related osteoporosis without current pathological fracture; Prediabetes Start: 02-04-2023 End: 02-04-2023 Telemedicine consultation with patient Yonny Renee MD Work Phone: [facility] Start: 01-24-2023 Telephone encounter Yonny Renee MD Work Phone: [facility] Comment on above: Medication Question Start: 01-14-2023 ambulatory Jeanine badillo LPN NURSE DATE PULLER Comment on above: Blood Pressure Start: 09-09-2022 Refill Patrick Piper on PA-C Work Phone: [facility] Comment on above: Refill Request Start: 09-02-2022 End: 09-02-2022 Patient encounter procedure Patrick Esqueda PA-C Work Phone: [facility] Comment on above: Essential hypertensi on (Primary Dx); Hyperlipidemia, mixed; Arterial ischemic stroke, vertebrobasilar, thalamic, acute, left (HCC); Internal carotid artery stenosis, right; Chronic renal failure, stage 4 (severe) (HCC); Prediabetes; Recurrent major depression in partial remission (HCC); Chronic obstructive pulmonary disease, unspecified COPD type (HCC); Age-related osteoporosis without current pathological fracture; Oropharyngeal dysphagia; Hiatal hernia Start: 08-20-2022 ambulatory Patrick john PA-C Work Phone: [facility] Comment on above: Vinod bowne Start: 06-25-2022 Telephone encounter Patrick Esqueda PA-C Work Phone: [facility] Comment on above: Results Start: 06-14-2022 End: 06-14-2022 Emergency department patient visit [facility] Start: 08-09-2012 Documentation procedure Rigo Preciado MD Work Phone: [facility] Start: 08-09-2012 Historic EMR Rigo rai MD Work Phone: [facility] Start: 07-03-2008 Documentation procedure Taj Sifuentes MD Work Phone: [facility] Start: 07-03-2008 Historic EMR Taj daniel MD Work Phone: [facility] Procedures Date Procedure Procedure Detail Performing Clinician Start: 05-03-[address] Cordelia Quinn MD Start: 05-03-2025 Urnls dip stick/tabl et reagent auto microscopy Dr. Alisa Quinn MD Start: 04-28-2025 Urnls dip stick/tabl et reagent auto microscopy Dr. Yonny Renee MD Work Phone: Start: 04-28-[address] Kieran Renee MD Work Phone: Start: 02-26-[address] Kieran Renee MD Work Phone: Start: 02-26-2025 Urnls dip stick/tabl et reagent auto microscopy Dr. Yonny Renee MD Work Phone: Start: 01-27-2025 Urnls dip stick/tabl et reagent auto microscopy Dr. Yonny Renee MD Work Phone: Start: 01-27-[address] Kieran Renee MD Work Phone: Start: 11-21-[address] Kieran Renee MD Work Phone: Start: 10-31-2023 Plain chest X-ray Dr. Bradford Renee Work Phone: Start: 10-31-[address] Kieran Renee Work Phone: Start: 10-31-2023 CT of head without contrast Dr. Yonny Renee Work Phone: Start: 10-27-[address] Kieran Renee Work Phone: Start: 08-02-2023 Magnetic resonance angiography of head without contrast Dr. Yonny Renee Work Phone: Start: 08-02-2023 Magnetic resonance angiography of neck without contrast Dr. Yonny Renee Work Phone: Start: 08-02-2023 MRI of brain without contrast Dr. Yonny Renee Work Phone: Start: 08-01-2023 Plain chest X-ray Dr. Bradford Renee Work Phone: Start: 08-01-2023 CT of head without contrast Dr. Yonny Renee Work Phone: Start: 02-28-2023 Urine culture Start: 06-14-2022 Plain chest X-ray Start: 08-09-2012 SURGICAL PATHOLOGY, CONVERTED Rigo Preciado MD Work Phone: Start: 07-02-2008 SURGICAL PATHOLOGY, CONVERTED Taj Sifuentes MD Work Phone: Plan of Treatment Date Care Activity Detail Author Start: 04-28-2031 Urine microalbumin profile [facility] Start: 08-10-2027 [facility] Start: 02-09-2026 DIABETES SCREEN DIABETES SCREEN [facility] Start: 02-09-2026 Diabetes Screening Diabetes Screen[facility] Start: 04-22-2025 Influenza vaccination Influenz a Vaccine (Season Ended) [facility] Start: 02-08-2025 End: 02-08-2025 Patient encounter procedure 02/08/2025 11:20 AM EDT Office Visit [facility] [address] [place] [address] Jeanine Parker APRN.ADULT BASIC EDUCATION INSTRUCTOR [address] [place] [address] 6 month exam [facility] Comment on above: 6 month exam Start: 10-10-2024 Covid-19 Vaccine (#1) Covid-19 Vacci ne (#1) [facility] Comment on above: Postponed from 05/31 (Declined at this time) Start: 10-10-2024 Covid-19 Vaccine () Covid-19 Vaccine () [facility] Comment on above: Postponed from 04/22 (Declined at this time) Start: 08-22-2024 Advance Directive Discussion Advance Directive Discussion [facility] Start: 08-10-2024 End: 11-09-2024 Cobalamin (Vitamin B12) [Mass/volume] in Serum or Plasma [facility] Comment on above: Expected: 08/10/2024 , Expires: 11/09/2024 Start: 08-10-2024 End: 11-09-2024 Comprehensive metabolic 2000 panel - Serum or Plasma [facility] Comment on above: Expected: 08/10/2024 , Expires: 11/09/2024 Start: 08-10-2024 End: 11-09-2024 Hemoglobin A1c in Blood [facility] Comment on above: Expected: 08/10/2024 , Expires: 11/09/2024 Start: 08-10-2024 End: 11-09-2024 Iron and Iron binding capacity panel - Serum or Plasma [facility] Comment on above: Expected: 08/10/2024 , Expires: 11/09/2024 Start: 08-10-2024 End: 11-09-2024 LIPID PANEL, NONFASTING [facility] Comment on above: Expected: 08/10/2024 , Expires: 11/09/2024 Start: 08-10-2024 End: 11-09-2024 Magnesium [Mass/volume] in Serum or Plasma [facility] Comment on above: Expected: 08/10/2024 , Expires: 11/09/2024 Start: 08-10-2024 End: 11-09-2024 Thyrotropin [Units/volume] in Serum or Plasma [facility] Work Phone: Comment on above: Expected: 08/10/2024 , Expires: 11/09/2024 Start: 08-10-2024 End: 11-09-2024 Thyroxine (T4) free [Mass/volume] in Serum or Plasma [facility] Comment on above: Expected: 08/10/2024 , Expires: 11/09/2024 Start: 07-24-2024 End: 07-24-2024 Patient encounter procedure [facility] Comment on above: 6 month follow up transferring care fr om esqueda/ 6 mo f/u Start: 04-22-2024 Covid-19 Vaccine ( season) Covid-19 Vaccine ( season) [facility] Start: 04-22-2024 Influenza vaccination C [facility] Start: 02-19-2024 Influenza vaccination Influenza Vacc ine (#1) [facility] Comment on above: Postponed from 04/22 (Declined at this time) Start: 02-07-2024 End: 02-07-2024 Patient encounter procedure 02/07/2024 1:00 PM EDT Appointment Cat Scan [address] [place] [address] Incidental lung nodule, greater than or equal to 8mm [R91.1] [facility] Comment on above: Incidental lung nodu le, greater than or equal to 8mm [R91.1] Start: 01-30-2024 End: 02-21-2025 CT Chest WO contrast CT CHEST WO IVCON Radiology Routine Incidental lung nodule, greater than or equal to 8mm Expected: 01/30/2024, Expires: 02/21/2025 [facility] Comment on above: Expected: 01/30/2024 , Expires: 02/21/2025 Start: 01-23-2024 End: 04-23-2024 LIPID PANEL, NONFASTING [facility] Work Phone: Comment on above: Expected: 01/23/2024 , Expires: 04/23/2024 Start: 12-31-2023 DIABETES SCREEN DIABETES SCREEN [facility] Start: 10-31-2023 End: 10-31-2023 [facility] Start: 10-31-2023 Bacteria identified in Urine by Culture [facility] Start: 10-31-2023 [facility] Start: 08-22-2023 Advance Directive Discussion Advance Directive Discussion [facility] Start: 08-02-2023 Referral to service [facility] Start: 08-02-2023 Patient discharge [facility] Start: 08-01-2023 Following clinical pathway protocol [facility] Start: 08-01-2023 Assessment of risk o f venous thromboembolism [facility] Start: 08-01-2023 Cardiac monitoring [facility] Start: 08-01-2023 Catheterization of vein [facility] Start: 08-01-2023 Continuous pulse oximetry [facility] Start: 08-01-2023 Elevation of head of bed [facility] Start: 08-01-2023 Exercises [facility] Start: 08-01-[address] anned interventions [facility] Start: 08-01-2023 Insertion of cathete r into peripheral vein [facility] Start: 08-01-2023 Measuring intake and output [facility] Start: 08-01-2023 Notification of physician [facility] Start: 08-01-2023 Oxygen therapy [facility] Start: 08-01-2023 Providing care accor ding to standard [facility] Start: 08-01-2023 Referral to service [facility] Start: 08-01-2023 [facility] Start: 08-01-2023 Vital signs measurements [facility] Start: 08-01-2023 Hospital admission, emergency, from emergency room, medical nature [facility] Start: 08-01-2023 Magnetic resonance angiography of head without contrast MRA Head ONLY without Contrast [facility] Start: 08-01-2023 Magnetic resonance angiography of neck without contrast MRA Neck without Contrast [facility] Start: 08-01-2023 MRI of brain without contrast Brain without Contrast [facility] Start: 08-01-2023 Verification routine [facility] Start: 08-01-2023 Admission procedure [facility] Start: 08-01-2023 Oxygen therapy [facility] Start: 08-01-2023 End: 08-01-2023 [facility] Start: 04-22-2023 Influenza vaccination [facility] Start: 02-04-2023 End: 04-06-2023 25-hydroxyvitamin D3 [Mass/volume] in Serum or Plasma VITAMIN D 25 HYDROXY Lab Routine Age-related osteoporosis without current pathological fracture Expected: 02/04/2023, Expires: 04/06/2023 [facility] Work Phone: Comment on above: Expected: 02/04/2023 , Expires: 04/06/2023 Start: 02-04-2023 End: 04-06-2023 CBC W Auto Differential panel - Blood CBC + DIFF Lab Routine Auditory hallucinations Memory loss Essential hypertension Expected: 02/04/2023, Expires: 04/06/2023 [facility] Work Phone: Comment on above: Expected: 02/04/2023 , Expires: 04/06/2023 Start: 02-04-2023 End: 04-06-2023 Cobalamin (Vitamin B12) [Mass/volume] in Serum or Plasma VITAMIN B12 BLOOD Lab Routine Auditory hallucinations Memory loss Expected: 02/04/2023, Expires: 04/06/2023 [facility] Work Phone: Comment on above: Expected: 02/04/2023 , Expires: 04/06/2023 Start: 02-04-2023 End: 04-06-2023 Comprehensive metabolic 2000 panel - Serum or Plasma COMP METABOLIC PANEL Lab Routine Auditory hallucinations Memory loss Essential hypertension Expected: 02/04/2023, Expires: 04/06/2023 [facility] Work Phone: Comment on above: Expected: 02/04/2023 , Expires: 04/06/2023 Start: 02-04-2023 End: 04-06-2023 Folate [Mass/volume] in Serum or Plasma FOLATE SERUM Lab Routine Auditory hallucinations Memory loss Expected: 02/04/2023, Expires: 04/06/2023 [facility] Work Phone: Comment on above: Expected: 02/04/2023 , Expires: 04/06/2023 Start: 02-04-2023 End: 04-06-2023 Hemoglobin A1c in Blood HGB A1C Lab Routine Prediabetes Expected: 02/04/2023, Expires: 04/06/2023 [facility] Work Phone: Comment on above: Expected: 02/04/2023 , Expires: 04/06/2023 Start: 02-04-2023 End: 04-06-2023 Lipid 1996 panel - Serum or Plasma LIPID PANEL BASIC Lab Routine Essential hypertension Expected: 02/04/2023, Expires: 04/06/2023 [facility] Work Phone: Comment on above: Expected: 02/04/2023 , Expires: 04/06/2023 Start: 02-04-2023 End: 04-06-2023 Thyrotropin [Units/volume] in Serum or Plasma TSH BLD Lab Routine Auditory hallucinations Memory loss Expected: 02/04/2023, Expires: 04/06/2023 [facility] Work Phone: Comment on above: Expected: 02/04/2023 , Expires: 04/06/2023 Start: 02-04-2023 End: 04-06-2023 VITAMIN B1 (THIAMINE), WHOLE BLOOD VITAMIN B1 (THIAMINE), WHOLE BLOOD Lab Routine Auditory hallucinations Memory loss Expected: 02/04/2023, Expires: 04/06/2023 [facility] Work Phone: Comment on above: Expected: 02/04/2023 , Expires: 04/06/2023 Start: 12-01-2022 Screening for osteoporosis Bone Density Screening [facility] Start: 09-02-2022 End: 11-02-2022 ALBUMIN/CREAT RATIO RND UR ALBUMIN/CREAT RATIO RND UR Lab Routine Chronic renal failure, stage 4 (severe) (HCC) Expected: 09/02/2022, Expires: 11/02/2022 [facility] Work Phone: Comment on above: Expected: 09/02/2022 , Expires: 11/02/2022 Start: 09-02-2022 End: 11-02-2022 CBC panel - Blood by Automated count CBC Lab Routine Essential hypertension Recurrent major depression in partial remission (HCC) Expected: 09/02/2022, Expires: 11/02/2022 [facility] Work Phone: Comment on above: Expected: 09/02/2022 , Expires: 11/02/2022 Start: 09-02-2022 End: 11-02-2022 Comprehensive metabolic 2000 panel - Serum or Plasma COMP METABOLIC PANEL Lab Routine Essential hypertension Hyperlipidemia, mixed Expected: 09/02/2022, Expires: 11/02/2022 [facility] Work Phone: Comment on above: Expected: 09/02/2022 , Expires: 11/02/2022 Start: 09-02-2022 End: 11-02-2022 Hemoglobin A1c in Blood HGB A1C Lab Routine Prediabetes Expected: 09/02/2022, Expires: 11/02/2022 [facility] Work Phone: Comment on above: Expected: 09/02/2022 , Expires: 11/02/2022 Start: 09-02-2022 End: 11-02-2022 Lipid 1996 panel - Serum or Plasma LIPID PANEL BASIC Lab Routine Hyperlipidemia, mixed Recurrent major depression in partial remission ([facility]) Expected: 09/02/2022, Expires: 11/02/2022 [facility] Work Phone: Comment on above: Expected: 09/02/2022 , Expires: 11/02/2022 Start: 09-02-2022 End: 11-02-2022 Magnesium [Mass/volume] in Serum or Plasma MAGNESIUM BLD Lab Routine Essential hypertension Prediabetes Expected: 09/02/2022, Expires: 11/02/2022 [facility] Work Phone: Comment on above: Expected: 09/02/2022 , Expires: 11/02/2022 Start: 09-02-2022 End: 11-02-2022 Urinalysis complete panel - Urine URINALYSIS, WITH MICROSCOPIC Lab Routine Chronic renal failure, stage 4 (severe) ([facility]) Expected: 09/02/2022, Expires: 11/02/2022 [facility] Work Phone: Comment on above: Expected: 09/02/2022 , Expires: 11/02/2022 Start: 08-22-2022 ADVANCE DIRECTIVE DISCUSSION ADVANCE DIRECTIVE DISCUSSION [facility] Start: 04-22-2022 Influenza vaccination INFLUENZA (#1) [facility] Start: 11-30-2011 RSV Vaccine (1 - 1-d ose 75+ series) RSV Vaccine (1 - 1-dose 75+ series) [facility] Start: 1996 RSV Vaccine (1 - 1-d ose 60+ series) RSV Vaccine (1 - 1-dose 60+ series) [facility] Start: 1986 SHINGRIX VACCINE (1 of 2) MCMAHON GRIX VACCINE (1 of 2) [facility] Start: 11-30-1955 Pneumococcal Vaccine : 50+ (1 of 2 - PCV) Pneumococcal Vaccine: 50+ (1 of 2 - PCV) [facility] Start: 11-30-1955 SHINGRIX VACCINE (1 of 2) MCMAHON GRIX VACCINE (1 of 2) [facility] Start: 1954 SPIROMETRY SPIROMETRY [facility] Start: 1942 Pneumococcal Vaccine : 65+ (1 - PCV) Pneumococcal Vaccine: 65+ (1 - PCV) [facility] Start: 1942 Pneumococcal Vaccine : 65+ (1 of 2 - PCV) Pneumococcal Vaccine: 65+ (1 of 2 - PCV) [facility] Start: 1942 PNEUMOCOCCAL: 65+ (1 - PCV) PNEUMOCOCCAL: 65+ (1 - PCV) [facility] Start: 05-31-1937 COVID-19 VACCINE (#1) COVID-19 VACCI NE (#1) [facility] CT Chest WO contrast CT CHEST WO IVCON Radiology Routine Incidental lung nodule, greater than or equal to 8mm 02/09/2024 3:57 PM EDT [facility] Work Phone: Lactic acid measurement [facility] Work Phone: Patient Education [facility] Work Phone: Patient referral [facility] Work Phone: [facility] Immunizations Immunization Date Immunization Notes Care Provider Fa matthew 04-28-2021 tetanus toxoid, redu nabil diphtheria toxoid, and acellular pertussis vaccine, adsorbed [facility] 06-24-2020 influenza virus vaccine, unspecified formulation Taj Sifuentes MD Work Phone: [facility] 05-11-2019 influenza, high dose seasonal, preservative-free KIERAN Esqueda PA-C Work Phone: [facility] 06-07-2018 influenza, injectabl e, quadrivalent, contains preservative NA Lazarus KAHN Work Phone: [facility] Work Phone: 05-25-2016 influenza, high dose seasonal, preservative-free NA Lazarus KAHN Work Phone: [facility] Payers Date Payer Category Payer Medicaid [id number] 2024 Self-pay [id number] 2018 Medicaid [id number] 2017 Medicare (Managed Care) [facility] MEDIC[facility] [id number] 2017 Unknown [id number] 2014 Unknown [employer] HMO [id number] 2001 Medicare [id number] Unknown [id number] Unknown [id number] Unknown [id number] Unknown [id number] Unknown [id number] Unknown [id number] Unknown [id number] Unknown [id number] Social History Date Type Detail Facility Start: 06-14-2022 End: 10-31-2023 Tobacco smoking status MSIS Unknown if ever smoked [facility] Start: 05-30-2020 None [facility] Start: 05-30-2020 Alone [facility] Start: 1935 Sex Assigned At Female [facility] Start: 10-26-2017 End: 09-02-2022 Tobacco smoking status NHIS Never smoked tobacco [facility] Work Phone: Start: 10-26-2017 End: 09-02-2022 Tobacco use and exposure Smokeless tobacco non-user [facility] Work Phone: Start: 08-31-2021 End: 08-10-2024 Alcohol intake Not Asked [facility] Start: 06-09-2020 End: 02-04-2023 History SDOH Social Connections Phone 5 [facility] Start: 06-09-2020 End: 02-04-2023 History SDOH Social Connections Get Together 1 [facility] Start: 06-09-2020 End: 02-04-2023 History SDOH Social Connections Membership 2 [facility] Start: 06-09-2020 End: 02-04-2023 History SDOH Social Connections Living 4 [facility] Start: 06-09-2020 End: 02-04-2023 History SDOH Physical Activity DPW 0 [facility] Start: 1935 Sex Assigned At Not on file [facility] Start: 02-04-2023 History SDOH Stress 3 [facility] Start: 09-06-2022 End: 02-04-2023 [facility] Start: 09-06-2022 End: 02-04-2023 Social connection and isolation panel [facility] Do you belong to any clubs or organizations such as mandaeism groups, unions, fraternal or athletic groups, or school groups? No [facility] Are you now , , , , never or living with a partner? [facility] How often to you hav e a drink containing alcohol? Never [facility] How many standard dr inks containing alcohol do you have on a typical day? Patient does not drink [facility] Do you feel stress - tense, restless, nervous, or anxious, or unable to sleep at night because your mind is troubled all the time - these days [OSQ] To some extent [facility] (I/We) worried jamila er (my/our) food would run out before (I/we) got money to buy more. Never true [facility] Start: 08-08-2021 End: 09-07-2021 Exposure to SARS-CoV-2 (event) Unable to assess [facility] Start: 08-02-2023 Non-smoker [facility] Start: 12-06-2024 Sex Female (finding) [facility] Goals Date Patient Goal Desired Activity /State Functional Status Date Assessment Result Facility 08-02-2023 Functional status Bedrest [facility] Work Phone: Mental Status Date Assessment Result Facility 08-02-2023 Cognitive function Voice/Name [facility] Work Phone: 08-01-2023 Cognitive function Level Of Cons ciousness Awake;Alert;Appropriate;Follow s Commands [facility] Work Phone: 06-14-2022 Cognitive function Level Of Cons ciousness Awake;Alert;Appropriate;Follow s Commands [facility] Work Phone: Clinical Notes 06-09-2016 to 01-21-2025 Telephone Encounter - Ailyn Bhatt MA - 01/21/2025 9:23 AM EDTTelephone Encounter - Ailyn Bhatt MA - 01/21/2025 9:23 AM EDTTelephone Encounter - Jeanine Parker APRN.IGOR - 01/21/2025 8:09 AM EDT Note Date & Type Note Facility 01-21-2025 Telephone encount er Note Faxed papers back to [facility] with instructions. Ailyn Bhatt MA January 21, 2025 9:24 AM [facility] 01-21-2025 Miscellaneous Notes Formattin g of this note might be different from the original. [facility]axed papers [facility] to [facility] with instructions. Ailyn Bhatt MA January 21, 2025 9:24 AM Patient had 3+ bacteria in her urine. Cultured out for Klebsiella. GFR was low at 33. Allergy to penicillin. Susceptible to Cipro. will give Cipro twice a day 500 mg for 5 days. Reculture urine after antibiotic complete. documented in this encounter [facility] 01-21-2025 Telephone encount er Note Patient had 3+ bacteria in her urine. Cultured out for Klebsiella. GFR was low at 33. Allergy to penicillin. Susceptible to Cipro. will give Cipro twice a day 500 mg for 5 days. Reculture urine after antibiotic complete. [facility] 11-16-2024 Telephone encount er Note [facility] [address] Hemoglobin A1c 5.6 Iron level 54 Ferritin 38 Sodium 140, potassium 3.9, BUN 14, creatinine 1.31, glucose 85 GFR 39 AST 29, ALT 19, alkaline phosphatase 56 WBC 5.4, hemoglobin 10.7, hematocrit 33.5, platelet count 225 [facility] 11-16-2024 Miscellaneous Notes Formattin g of this note might be different from the original. Re[facility] lab work from [facility] [address] Hemoglobin A1c 5.6 Iron level 54 Ferritin 38 Sodium 140, potassium 3.9, BUN 14, creatinine 1.31, glucose 85 GFR 39 AST 29, ALT 19, alkaline phosphatase 56 WBC 5.4, hemoglobin 10.7, hematocrit 33.5, platelet count 225 documented in this encounter [facility] 09-06-2024 Telephone encount er Note Form signed and faxed back with note below with updated Rx being sent and information below with instructions. Azra Chawla MA [facility] 09-06-2024 Miscellaneous Notes Formattin g of this note might be different from the original. Form signed and faxed back with note below with updated Rx being sent and information below with instructions. Azra Chawla MA RX sent. 3 % ordered because the [facility] pharmacy declined diclofenac 1% OTC Pts daughter called and is notified of providers message and instructions. She voices understanding. She states the last time it took weeks for her to get the medication. She wanted to know if provider could send it to [facility] in [place] and she could pick it up and bring it in. Put in short term supply. The patient has been identified by name and date of : Yes Caregiver verified no other encounters exist for this prescription request: Yes Caregiver confirmed with patient/requestor that no other refills are due, in the near future, with this provider at this time: Yes The last office visit in the department: 08/10/2024 Does the patient have a future office visit with this provider/department: No Visit date not found Requested Prescriptions Pending Prescriptions Disp Refills Diclofenac Sodium 3 % gel 30 g 0 Sig: Apply 0.5 g to affected area two times a day. To hands Signed Prescriptions Disp Refills Diclofenac Sodium 3 % gel 30 g 2 Sig: Apply 0.5 g to affected area two times a day. To hands Authorizing Provider: JEANINE PARKER RN September 06, 2024 1:52 PM I will send a prescription for a stronger 3% diclofenac gel- it is the safest way to treat her hand pain without causing increased risk to her stomach and kidneys. Please apply 2 x day to backs of her hands Office received electronic communication from [facility] regarding refusal of Diclofenac Gel to b/l hands for arthritic pain. Routed to PCP to review. Once reviewed fax back to [phone]. Azra Chawla MA documented in this encounter [facility] 09-06-2024 Telephone encount er Note RX sent. 3 % ordered because the [facility] pharmacy declined diclofenac 1% OTC [facility] 09-06-2024 Telephone encount er Note Pts daughter called and is notified of providers message and instructions. She voices understanding. She states the last time it took weeks for her to get the medication. She wanted to know if provider could send it to [facility] in [place] and she could pick it up and bring it in. Put in short term supply. The patient has been identified by name and date of : Yes Caregiver verified no other encounters exist for this prescription request: Yes Caregiver confirmed with patient/requestor that no other refills are due, in the near future, with this provider at this time: Yes The last office visit in the department: 08/10/2024 Does the patient have a future office visit with this provider/department: No Visit date not found Requested Prescriptions Pending Prescriptions Disp Refills Diclofenac Sodium 3 % gel 30 g 0 Sig: Apply 0.5 g to affected area two times a day. To hands Signed Prescriptions Disp Refills Diclofenac Sodium 3 % gel 30 g 2 Sig: Apply 0.5 g to affected area two times a day. To hands Authorizing Provider: JEANINE PARKER RN September 06, 2024 1:52 PM [facility] 09-06-2024 Telephone encount er Note I will send a prescription for a stronger 3% diclofenac gel- it is the safest way to treat her hand pain without causing increased risk to her stomach and kidneys. Please apply 2 x day to backs of her hands [facility] 09-06-2024 Telephone encount er Note Office received electronic communication from [facility] regarding refusal of Diclofenac Gel to b/l hands for arthritic pain. Routed to PCP to review. Once reviewed fax back to [phone]. Azra Chawla MA [facility] 08-30-2024 Telephone encount er Note Family Medicine adjusting Seroquel? [facility] 08-30-2024 Miscellaneous Notes Formattin g of this note might be different from the original. Family Medicine adjusting Seroquel? documented in this encounter [facility] 08-23-2024 Telephone encount er Note Psych has changed patient's medications due to sundowning. Patient has been roaming the halls at night and knocking on a gentleman's door at the facility that reminds the daughter of patient's late . Seroquel 25 mg twice a day instead of 50 mg daily and placed her back on aricept 5 mg Ailyn Bhatt MA August 23, 2024 5:14 PM [facility] 08-23-2024 Miscellaneous Notes Formattin g of this note might be different from the original. Psych has changed patient's medications due to sundowning. Patient has been roaming the halls at night and knocking on a gentleman's door at the facility that reminds the daughter of patient's late . Seroquel 25 mg twice a day instead of 50 mg daily and placed her back on aricept 5 mg Ailyn Bhatt MA August 23, 2024 5:14 PM She was in [facility] in October. It may have been stopped or just lost in transfers. However, it looks like it was ordered 07/2023 and for 3 months- would have in October if not renewed. Were you wanting her to have it? It does not restore memory, only keep it from failing as quickly. I don't see where [facility] stopped the Aricept but it is no longer on her [facility] orders. documented in this encounter [facility] 08-23-2024 Telephone encount er Note She was in [facility] in October. It may have been stopped or just lost in transfers. However, it looks like it was ordered 07/2023 and for 3 months- would have in October if not renewed. Were you wanting her to have it? It does not restore memory, only keep it from failing as quickly. [facility] 08-23-2024 Telephone encount er Note I don't see where [facility] stopped the Aricept but it is no longer on her [facility] orders. [facility] 08-10-2024 Instructions Jeanine Parker APRN.CNP - 08/10/2024 4:01 PM EST 1) check labs today 2) diclofenac gel 2 x day to backs of hands 3) increase lisinopril 40 mg daily documented in this encounter [facility] 08-10-2024 Note HNO ID: [id number] Author: JEANINE PARKER APRN.IGOR Service: ? Author Type: Clinical Nurse Specialist Type: Progress Notes Filed: 08/10/2024 16:38 Note Text: This is a 88 year old female who presents today with: Patient presents with: 6 Month Exam HISTORY OF PRESENT ILLNESS: Esha Davila is a 88 year old female. Patient presents with: 6 Month Exam Hands are causing her painful. Waking her up at night. Burning pain in fingers- all the MIP joints mostly. PAST MEDICAL HISTORY: PAST MEDICAL HISTORY Diagnosis Date Anxiety Arterial ischemic stroke, vertebrobasilar, thalamic, acute, left ([facility]) 06/01/2020 05/30/2020 sx dizziness and RUE numbness, MRI brain WO: two punctate left thalamic infarcts. CKD (chronic kidney disease) stage 3, GFR 30-59 ml/min ([facility]) COPD (chronic obstructive pulmonary disease) ([facility]) Essential hypertension Hyperlipidemia Recurrent major depression in partial remission ([facility]) 06/09/2016 PAST SURGICAL HISTORY Procedure Laterality Date BREAST LUMPECTOMY HX Left 1987 TEAEC W/PATCH GRF CAROTID VERTB SUBCLAV NECK INC Right 01/27/2017 ALLERGIES Flexeril [Cyclobenzaprine Hcl], Ibuprofen, and Penicillin MEDICATIONS Current Outpatient Medications Medication Sig QUEtiapine (SEROQUEL) 25 mg tablet Take 25 mg by mouth as needed (agitation). Melatonin 5 mg cap Take by mouth. hydroCHLOROthiazide 12.5 mg capsule Take 1 capsule by mouth once daily. lisinopril (ZESTRIL) 30 mg tablet Take 1 tablet by mouth once daily. donepezil (ARICEPT) 5 mg tablet Take 1 tablet by mouth daily at bedtime. Cholecalciferol, Vitamin D3, 50 mcg (2,000 unit) cap Take by mouth. carvedilol (COREG) 25 mg tablet Take 1 tablet by mouth two times a day. venlafaxine ER (EFFEXOR XR) 150 mg 24 hr capsule Take 1 capsule by mouth once daily. famotidine (PEPCID) 20 mg tablet Take 1 tablet by mouth twice daily. promethazine (PHENERGAN) 25 mg tablet Take 1 tablet by mouth every 6 hours as needed for nausea/vomiting. atorvastatin (LIPITOR) 40 mg tablet Take 40 [...] hours as needed. for cough and congestion clonazePAM (KLONOPIN) 0.5 mg tablet Take 0.125 mg by mouth daily at bedtime. Routine dose. Tues, Thur, Sat, Sun in the evening. This medication is managed and ordered by Psychiatrist, Dr. Salinas. acetaminophen (TYLENOL) 325 mg tablet Take 650 mg by mouth every 6 hours as needed. POLYETHYLENE GLYCOL 3350 (MIRALAX ORAL) Take 17 g by mouth once daily. Walker misc 1 Each once daily. No current facility-administered medications for this visit. FAMILY HISTORY Problem Relation Age of Onset Breast Cancer Mother Social History Tobacco Use Smoking status: Never Smokeless tobacco: Never REVIEW OF SYSTEMS GENERAL: Steady weight loss, + malaise, no fevers/chills HEENT: Negative for frequent or significant headaches, Some changes in hearing, no vision changes. NECK: Negative for lumps, goiter, pain and significant neck swelling RESPIRATORY: Negative for cough, hemoptysis, seldom wheezing, + dyspnea or shortness of breath CARDIOVASCULAR: Negative for chest pain, no leg swelling, no orthopnea, seldom palpitations GI: No nausea, vomiting, or diarrhea/ + constipation. No hematochezia/melena. No heartburn or reflux symptoms. : No history of dysuria, no frequency, some stress incontinence MUSCULOSKELETAL: Fingers for joint pain or swelling. SKIN: Negative for lesions, rash, and itching ENDOCRINE: Negative for cold or heat intolerance, polyuria, polydipsia and goiter NEURO: No history of headaches, syncope, paralysis, seizures or tremors- lightheaded MOOD: Some for depression, some anxiety, no suicidal ideation. EXAM: BP 154/80 Pulse 76 Resp 16 Wt 64.9 kg (143 lb) SpO2 97% BMI 28.88 kg/m? PHYSICAL EXAM: Physical Exam Vitals reviewed. Constitutional: Appearance: Normal appearance. HENT: Head: Normocephalic. Neck: Vascular: No carotid bruit. Cardiovascular: Rate and Rhythm: Normal rate and regular rhythm. Pulses: Normal pulses. Heart sounds: Normal heart sounds. Comments: Soft JOHN @ sternal border Pulmonary: Effort: Pulmonary effort is normal. Breath sounds: Normal breath sounds. Abdominal: General: Bowel sounds are normal. Pa (more content not included)... [facility] 08-10-2024 History of Presen t illness Narrative This is a 88 year old female who presents today with: Patient presents with: 6 Month Exam HISTORY OF PRESENT ILLNESS: Esha Davila is a 88 year old female. Patient presents with: 6 Month Exam Hands are causing her painful. Waking her up at night. Burning pain in fingers- all the MIP joints mostly. PAST MEDICAL HISTORY: PAST MEDICAL HISTORY Diagnosis Date Anxiety Arterial ischemic stroke, vertebrobasilar, thalamic, acute, left ([facility]) 06/01/2020 05/30/2020 sx dizziness and RUE numbness, MRI brain WO: two punctate left thalamic infarcts. CKD (chronic kidney disease) stage 3, GFR 30-59 ml/min ([facility]) COPD (chronic obstructive pulmonary disease) ([facility]) Essential hypertension Hyperlipidemia Recurrent major depression in partial remission ([facility]) 06/09/2016 PAST SURGICAL HISTORY Procedure Laterality Date BREAST LUMPECTOMY HX Left 1987 TEAEC W/PATCH GRF CAROTID VERTB SUBCLAV NECK INC Right 01/27/2017 ALLERGIES Flexeril [Cyclobenzaprine Hcl], Ibuprofen, and Penicillin MEDICATIONS Current Outpatient Medications Medication Sig QUEtiapine (SEROQUEL) 25 mg tablet Take 25 mg by mouth as needed (agitation). Melatonin 5 mg cap Take by mouth. hydroCHLOROthiazide 12.5 mg capsule Take 1 capsule by mouth once daily. lisinopril (ZESTRIL) 30 mg tablet Take 1 tablet by mouth once daily. donepezil (ARICEPT) 5 mg tablet Take 1 tablet by mouth daily at bedtime. Cholecalciferol, Vitamin D3, 50 mcg (2,000 unit) cap Take by mouth. carvedilol (COREG) 25 mg tablet Take 1 tablet by mouth two times a day. venlafaxine ER (EFFEXOR XR) 150 mg 24 hr capsule Take 1 capsule by mouth once daily. famotidine (PEPCID) 20 mg tablet Take 1 tablet by mouth twice daily. promethazine (PHENERGAN) 25 mg tablet Take 1 tablet by mouth every 6 hours as needed for nausea/vomiting. atorvastatin (LIPITOR) 40 mg tablet Take 40 [...] hours as needed. for cough and congestion clonazePAM (KLONOPIN) 0.5 mg tablet Take 0.125 mg by mouth daily at bedtime. Routine dose. Tues, Thur, Sat, Sun in the evening. This medication is managed and ordered by Psychiatrist, Dr. Salinas. acetaminophen (TYLENOL) 325 mg tablet Take 650 mg by mouth every 6 hours as needed. POLYETHYLENE GLYCOL 3350 (MIRALAX ORAL) Take 17 g by mouth once daily. Walker misc 1 Each once daily. No current facility-administered medications for this visit. FAMILY HISTORY Problem Relation Age of Onset Breast Cancer Mother Social History Tobacco Use Smoking status: Never Smokeless tobacco: Never REVIEW OF SYSTEMS GENERAL: Steady weight loss, + malaise, no fevers/chills HEENT: Negative for frequent or significant headaches, Some changes in hearing, no vision changes. NECK: Negative for lumps, goiter, pain and significant neck swelling RESPIRATORY: Negative for cough, hemoptysis, seldom wheezing, + dyspnea or shortness of breath CARDIOVASCULAR: Negative for chest pain, no leg swelling, no orthopnea, seldom palpitations GI: No nausea, vomiting, or diarrhea/ + constipation. No hematochezia/melena. No heartburn or reflux symptoms. : No history of dysuria, no frequency, some stress incontinence MUSCULOSKELETAL: Fingers for joint pain or swelling. SKIN: Negative for lesions, rash, and itching ENDOCRINE: Negative for cold or heat intolerance, polyuria, polydipsia and goiter NEURO: No history of headaches, syncope, paralysis, seizures or tremors- lightheaded MOOD: Some for depression, some anxiety, no suicidal ideation. EXAM: BP 154/80 Pulse 76 Resp 16 Wt 64.9 kg (143 lb) SpO2 97% BMI 28.88 kg/m PHYSICAL EXAM: Physical Exam Vitals reviewed. Constitutional: Appearance: Normal appearance. HENT: Head: Normocephalic. Neck: Vascular: No carotid bruit. Cardiovascular: Rate and Rhythm: Normal rate and regular rhythm. Pulses: Normal pulses. Heart sounds: Normal heart sounds. Comments: Soft JOHN @ sternal border Pulmonary: Effort: Pulmonary effort is normal. Breath sounds: Normal breath sounds. Abdominal: General: Bowel sounds are normal. Palpations: Abdomen is soft. Tenderness: There is no abdominal tenderness. There is no guarding or rebound. Musculoskeletal: General: Normal range of motion. Comments: Stiffness and burning in MIP joints of fingers Walks without assistive device Lymphadenopathy: Cervical: No cervical adenopathy. Skin: General: Skin is warm and dry. Neurological: Mental Status: She is alert and oriented to person, place, and time. Psychiatric: Mood and Affect: Mood normal. Behavior: Behavior normal. LABS: check labs ASSESSMENT/PLAN: 1. Arterial ischemic stroke, vertebrobasilar, thalamic, acute, left (HCC) - ICD9: 434.91, ICD10: I63.81 (primary diagnosis) Check labs - LIPID PANEL, NONFASTING - IRON AND TIBC 2. Chronic renal failure, stage 4 (severe) (HCC) - ICD9: 585.4, ICD10: N18.4 Check labs - Counseled on avoiding NSAIDs, adequate hydration 3. Hyperlipidemia, mixed - ICD9: 272.2, ICD10: E78.2 - Control undetermined, due for labs - Counseled on healthy diet and regular exercise 4. Age-related osteoporosis without current pathological fracture - ICD9: 733.01, ICD10: M81.0 - Reviewed the need for Calcium and Vitamin D supplements and weight bearing exercise as tolerated 5. Mild late onset Alzheimer's dementia without behavioral disturbance, psychotic disturbance, mood disturbance, or anxiety (HCC) - ICD9: 331.0, 294.10, ICD10: G30.1, F02.A0 Ongoing 6. Anemia in other chronic diseases classified elsewhere - ICD9: 285.29, ICD10: D63.8 Check labs - COMPLETE BLOOD COUNT AND DIFFERENTIAL - MAGNESIUM - VITAMIN B12 7. Weight loss - ICD9: 783.21, ICD10: R63.4 Check labs - COMPREHENSIVE METABOLIC PANEL - HEMOGLOBIN A1C 8. Chronic fatigue - ICD9: 780.79, ICD10: R53.82 Check labs - THYROID STIMULATING HORMONE - T4 FREE/FREE THYROXINE 9. Primary osteoarthritis involving multiple joints - ICD9: 715.98, ICD10: M15.0 Diclofenac gel topically to hands 10. Primary hypertension - ICD9: 401.9, ICD10: I10 - Uncontrolled - Recommend home blood pressure monitoring, to bring results to next visit - Encouraged sodium restriction, DASH or Mediterranean diet - Recommend regular aerobic exercise - Increase lisinopril to 40 mg daily Discussed treatment plan and patient voices understanding. Patient's questions answered appropriately. Medications and potential side effects were discussed and patient voices understanding. Return to the office as scheduled or as needed for worsening/no improvement. Jeanine Parker APRN.IGOR documented in this encounter [facility] 06-18-2024 Telephone encount er Note Per senior living fax on 06/03/24, hemoccult was negative. On 06/05/24, Dr Renee received the lab results faxed from [facility] and responded to them as Hgb is stable and to stay on iron and follow up in office at scheduled appointment as discussed. Message sent to daughter. Ailyn Bhatt MA June 18, 2024 8:53 AM [facility] 06-18-2024 Miscellaneous Notes Formattin g of this note might be different from the original. Per senior living fax on 06/03/24, hemoccult was negative. On 06/05/24, Dr Renee received the lab results faxed from [facility] and responded to them as Hgb is stable and to stay on iron and follow up in office at scheduled appointment as discussed. Message sent to daughter. Ailyn Bhatt MA June 18, 2024 8:53 AM documented in this encounter [facility] 06-11-2024 Telephone encount er Note senior living taking care of follow up labs. Daughter notified Ailyn Bhatt MA June 11, 2024 5:14 PM [facility] 06-11-2024 Miscellaneous Notes Formattin g of this note might be different from the original. senior living taking care of follow up labs. Daughter notified Ailyn Bhatt MA June 11, 2024 5:14 PM Left message for patient to return call. Ailyn Bhatt Ma Lab results from June 05, 2024: WBC 5.2, hemoglobin 9.3, hematocrit 30, platelet count 224 Total iron binding capacity 262 Iron level 43. Will check a stool card for blood loss. If that is positive, we need to discuss with patient and her son further evaluation with invasive EGD and colonoscopy. She is on Plavix and I do not feel comfortable holding that as she has carotid stenosis. Could stop baby aspirin. Does not need both. documented in this encounter [facility] 06-05-2024 Telephone encount er Note Left message for patient to return call. Ailyn Bhatt Ma [facility] 06-05-2024 Telephone encount er Note Lab results from June 05, 2024: WBC 5.2, hemoglobin 9.3, hematocrit 30, platelet count 224 Total iron binding capacity 262 Iron level 43. Will check a stool card for blood loss. If that is positive, we need to discuss with patient and her son further evaluation with invasive EGD and colonoscopy. She is on Plavix and I do not feel comfortable holding that as she has carotid stenosis. Could stop baby aspirin. Does not need both. [facility] Work Phone: 04-20-2024 Telephone encount er Note Informations/orders forwarded to Hector Ledbetter. Kira Parker LPN [facility] 04-20-2024 Miscellaneous Notes Formattin g of this note might be different from the original. Informations/orders forwarded to Hector Ledbetter. Kira Parker LPN Follow-up lab work done April 20, 2024: WBC 5.8, hemoglobin 9.4, hematocrit 30.1, platelet count 238. Please let patient know that she continues to have worsening anemia. Please make the multivitamin with iron that is chewable twice a day. Repeat CBC, iron, ferritin, B12, folate levels in 2 weeks. Also, recheck a CMP with magnesium. No other changes at this time. I will sign notes. documented in this encounter [facility] 04-20-2024 Telephone encount er Note Follow-up lab work done April 20, 2024: WBC 5.8, hemoglobin 9.4, hematocrit 30.1, platelet count 238. Please let patient know that she continues to have worsening anemia. Please make the multivitamin with iron that is chewable twice a day. Repeat CBC, iron, ferritin, B12, folate levels in 2 weeks. Also, recheck a CMP with magnesium. No other changes at this time. I will sign notes. [facility] Work Phone: 04-06-2024 Telephone encount er Note Faxed to [facility] 04-06-2024 Miscellaneous Notes Formattin g of this note might be different from the original. [facility]axed to [facility] Lab work done on April 02, 2024: Sodium 138, potassium 4.1, BUN 16, creatinine 1.51, GFR 35 TSH 2.74 WBC 5.3, hemoglobin 9.8, hematocrit 32, platelet count 217 Urinalysis was normal with slight increase in protein at 15 and leukocytes of 100 Urine showed mixed gram positive organisms 1000-10,000 Please let Hector Ledbetter know that patient has slightly worsening anemia. Would add a chewable multivitamin with iron daily. Not sure she could withstand: Workup? Recheck CBC in 2 weeks. documented in this encounter [facility] 04-06-2024 Telephone encount er Note Will fax to Hector Ledbetter attached to note. Ailyn Bhatt MA April 06, 2024 3:51 PM [facility] 04-06-2024 Miscellaneous Notes Formattin g of this note might be different from the original. Will fax to Hector Ledbetter attached to note. Ailyn Bhatt MA April 06, 2024 3:51 PM Sodium 138, potassium 4.1, BUN 16, creatinine 1.51, GFR 35 WBC 5.3, hemoglobin 9.8, hematocrit 32, platelet count 217 Urinalysis was normal except 100 leukocytes and some protein at 15 Urine culture showed mixed gram-positive organisms Please add a chewable multivitamin with iron daily. Patient has worsening anemia. Not sure how she could withstand a colon workup. Recheck CBC in 2 weeks. documented in this encounter [facility] 04-06-2024 Telephone encount er Note Sodium 138, potassium 4.1, BUN 16, creatinine 1.51, GFR 35 WBC 5.3, hemoglobin 9.8, hematocrit 32, platelet count 217 Urinalysis was normal except 100 leukocytes and some protein at 15 Urine culture showed mixed gram-positive organisms Please add a chewable multivitamin with iron daily. Patient has worsening anemia. Not sure how she could withstand a colon workup. Recheck CBC in 2 weeks. [facility] Work Phone: 04-06-2024 Telephone encount er Note Lab work done on April 02, 2024: Sodium 138, potassium 4.1, BUN 16, creatinine 1.51, GFR 35 TSH 2.74 WBC 5.3, hemoglobin 9.8, hematocrit 32, platelet count 217 Urinalysis was normal with slight increase in protein at 15 and leukocytes of 100 Urine showed mixed gram positive organisms 1000-10,000 Please let Hector Ledbetter know that patient has slightly worsening anemia. Would add a chewable multivitamin with iron daily. Not sure she could withstand: Workup? Recheck CBC in 2 weeks. [facility] Work Phone: 03-29-2024 Telephone encount er Note Advised to make appt. MARGY Rousseau MA [facility] 03-29-2024 Miscellaneous Notes Formattin g of this note might be different from the original. Advised to make appt. MARGY Rousseau MA documented in this encounter [facility] 02-17-2024 Telephone encount er Note Patient was made aware of the results. Patient verbalizes understanding. Ailyn Bhatt Ma [facility] 02-17-2024 Miscellaneous Notes Formattin g of this note might be different from the original. Patient was made aware of the results. Patient verbalizes understanding. Ailyn Bhatt Ma ----- Message from Jeanine Parker APRN.TANK FURNACE OPERATOR sent at 02/16/2024 5:24 PM EDT ----- Chest CT showed tiny pulmonary nodules stable. No further imaging needed. documented in this encounter [facility] 02-17-2024 Telephone encount er Note ----- Message from Jeanine Parker APRN.TANK FURNACE OPERATOR sent at 02/16/2024 5:24 PM EDT ----- Chest CT showed tiny pulmonary nodules stable. No further imaging needed. [facility] 02-09-2024 History of Presen t illness Narrative Radiology Service Progress Note PATIENT NAME: Esha Davila DATE OF SERVICE: February 09, 2024 TIME: 3:59 PM PATIENT IDENTITY VERIFICATION COMPLETED USING TWO (2) IDENTIFIERS: Name and Date of confirmed by patient verbally. FALL SCREENING: Has the patient had 2 falls in the last year or 1 fall with injury or currently using an Ambulatory Assistive Device (Walker, Cane, Wheelchair, Crutches, etc.)? No PATIENT GENDER DATA: Female. status: : No status: NO. PATIENT RELEVANT IMPLANT DATA REVIEWED: Yes PATIENT PRESENTS WITH AN IMPLANTABLE OR ATTACHED POCKET SECRETARY ASSEMBLER: No RADIOLOGY DEPARTMENT: CT; Exam(s) Completed: Chest PERIPHERAL IV DATA: Not applicable SIGNED BY: RT Nidhi(R) February 09, 2024 3:59 PM documented in this encounter [facility] 02-09-2024 Note HNO ID: [id number] Author: ROZINA OCONNOR RT(R) Service: ? Author Type: Electronic Technician Type: Progress Notes Filed: 02/09/2024 16:00 Note Text: Radiology Service Progress Note PATIENT NAME: Esha Davila DATE OF SERVICE: February 09, 2024 TIME: 3:59 PM PATIENT IDENTITY VERIFICATION COMPLETED USING TWO (2) IDENTIFIERS: Name and Date of confirmed by patient verbally. FALL SCREENING: Has the patient had 2 falls in the last year or 1 fall with injury or currently using an Ambulatory Assistive Device (Walker, Cane, Wheelchair, Crutches, etc.)? No PATIENT GENDER DATA: Female. status: : No status: NO. PATIENT RELEVANT IMPLANT DATA REVIEWED: Yes PATIENT PRESENTS WITH AN IMPLANTABLE OR ATTACHED POCKET SECRETARY ASSEMBLER: No RADIOLOGY DEPARTMENT: CT; Exam(s) Completed: Chest PERIPHERAL IV DATA: Not applicable SIGNED BY: RACHEL Terrell) February 09, 2024 3:59 PM [facility] 01-23-2024 Note Addended by: JEANINE PARKER on: 01/23/2024 04:32 PM Modules accepted: Orders [facility] 01-23-2024 Miscellaneous Notes Addended by: JEANINE PARKER on: 01/23/2024 04:32 PM Modules accepted: Orders documented in this encounter [facility] 01-23-2024 Instructions Jeanine Parker APRN.CNS - 01/23/2024 4:23 PM EDT 1) Lab work is due, can get them before you leave today 2) Please schedule CT scan 3) Follow up in 6 months documented in this encounter [facility] 01-23-2024 Note HNO ID: [id number] Author: JEANINE PARKER APRN.TANK FURNACE OPERATOR Service: ? Author Type: Clinical Nurse Specialist Type: Progress Notes Filed: 01/23/2024 16:26 Note Text: This is a 88 year old female who presents today with: Patient presents with: Follow Up: 3 month exam HISTORY OF PRESENT ILLNESS: Esha Davila is a 88 year old female. Patient presents with: Follow Up: 3 month exam Daughter with mother today. Daughter is under the impression that she is taking donepezil 5 mg daily, Growths on back of neck. REVIEW OF SYSTEMS GENERAL: No weight loss, some malaise that has not changed, denies fevers/chills HEENT: Negative for frequent or significant headaches, No changes in hearing or vision. NECK: Negative for lumps, goiter, pain and significant neck swelling RESPIRATORY: Negative for cough, hemoptysis, wheezing, some dyspnea or shortness of breath CARDIOVASCULAR: Negative for chest pain, occ leg swelling, no orthopnea, or palpitations GI: No nausea, vomiting, or diarrhea/constipation. No hematochezia/melena. No heartburn or reflux symptoms. : No history of dysuria, frequency or incontinence MUSCULOSKELETAL: Negative for joint pain or swelling. SKIN: Negative for lesions, rash, and itching ENDOCRINE: Negative for cold or heat intolerance, polyuria, polydipsia and goiter NEURO: No history of headaches, syncope, paralysis, seizures or tremors MOOD: Negative for depression, anxiety, or suicidal ideation. PAST MEDICAL HISTORY: PAST MEDICAL HISTORY Diagnosis Date Anxiety Arterial ischemic stroke, vertebrobasilar, thalamic, acute, left ([facility]) 06/01/2020 05/30/2020 sx dizziness and RUE numbness, MRI brain WO: two punctate left thalamic infarcts. CKD (chronic kidney disease) stage 3, GFR 30-59 ml/min ([facility]) COPD (chronic obstructive pulmonary disease) ([facility]) Essential hypertension Hyperlipidemia Recurrent major depression in partial remission ([facility]) 06/09/2016 PAST SURGICAL HISTORY Procedure Laterality Date BREAST LUMPECTOMY HX Left 1987 TEAEC W/PATCH GRF CAROTID VERTB SUBCLAV NECK INC Right 01/27/2017 ALLERGIES Flexeril [Cyclobenzaprine Hcl], Ibuprofen, and Penicillin MEDICATIONS Current Outpatient Medications Medication Sig escitalopram oxalate (LEXAPRO) 10 mg tablet Take 10 mg by mouth once daily. QUEtiapine (SEROQUEL) 25 mg tablet Take 25 mg by mouth as needed (agitation). Melatonin 5 mg cap Take by mouth. hydroCHLOROthiazide 12.5 mg capsule Take 1 capsule by mouth once daily. lisinopril (ZESTRIL) 30 mg tablet Take 1 tablet by mouth once daily. donepezil (ARICEPT) 5 mg tablet Take 1 tablet by mouth daily at bedtime. Cholecalciferol, Vitamin D3, 50 mcg (2,000 unit) cap Take by mouth. carvedilol (COREG) 25 mg tablet Take 1 tablet by mouth two times a day. venlafaxine ER (EFFEXOR XR) 150 mg 24 hr capsule Take 1 capsule by mouth once daily. famotidine (PEPCID) 20 mg tablet Take 1 tablet by mouth twice daily. promethazine (PHENERGAN) 25 mg tablet Take 1 tablet by mouth every 6 hours as needed for nausea/vomiting. atorvastatin (LIPITOR) 40 mg tablet Take 40 [...] 4 hours as needed. for Gi distress aspirin, enteric coated (ASPIRIN, ENTERIC COATED) 81 mg EC tablet GIVE 1 TABLET BY MOUTH ONCE DAILY acetaminophen (TYLENOL) 325 mg tablet Take 650 mg by mouth every 6 hours as needed. POLYETHYLENE GLYCOL 3350 (MIRALAX ORAL) Take 17 g by mouth once daily. Walker misc 1 Each once daily. guaiFENesin (ROBITUSSIN) 100 mg/5 mL syrup Take 10 mL by mouth every 4 hours as needed. for cough and congestion clonazePAM (KLONOPIN) 0.5 mg tablet Take 0.125 mg by mouth daily at bedtime. Routine dose. Tues, Thur, Sat, Sun in the evening. This medication is managed and ordered by Psychiatrist, Dr. Salinas. No current facility-administered medications for this visit. FAMILY HISTORY Problem Relation Age of Onset Breast Cancer Mother Social History Tobacco Use Smoking status: Never Smokeless tobacco: Never EXAM: BP 130/68 Pulse 94 Resp 20 Wt 65.3 kg (144 lb) SpO2 95% BMI 29.08 kg/m? PHYSICAL EXAM: Physical Exam Vitals and nursing note reviewed. Constitutional: Appearance: Normal appearance. HENT: Head: Normocephalic. Cardiovascular: Rate and Rhythm: Normal rate and regular rhythm. Pulmonary: Effort: Pulmonary effort is normal. Breath ray (more content not included)... [facility] 01-23-2024 History of Presen t illness Narrative This is a 88 year old female who presents today with: Patient presents with: Follow Up: 3 month exam HISTORY OF PRESENT ILLNESS: Esha Davila is a 88 year old female. Patient presents with: Follow Up: 3 month exam Daughter with mother today. Daughter is under the impression that she is taking donepezil 5 mg daily, Growths on back of neck. REVIEW OF SYSTEMS GENERAL: No weight loss, some malaise that has not changed, denies fevers/chills HEENT: Negative for frequent or significant headaches, No changes in hearing or vision. NECK: Negative for lumps, goiter, pain and significant neck swelling RESPIRATORY: Negative for cough, hemoptysis, wheezing, some dyspnea or shortness of breath CARDIOVASCULAR: Negative for chest pain, occ leg swelling, no orthopnea, or palpitations GI: No nausea, vomiting, or diarrhea/constipation. No hematochezia/melena. No heartburn or reflux symptoms. : No history of dysuria, frequency or incontinence MUSCULOSKELETAL: Negative for joint pain or swelling. SKIN: Negative for lesions, rash, and itching ENDOCRINE: Negative for cold or heat intolerance, polyuria, polydipsia and goiter NEURO: No history of headaches, syncope, paralysis, seizures or tremors MOOD: Negative for depression, anxiety, or suicidal ideation. PAST MEDICAL HISTORY: PAST MEDICAL HISTORY Diagnosis Date Anxiety Arterial ischemic stroke, vertebrobasilar, thalamic, acute, left ([facility]) 06/01/2020 05/30/2020 sx dizziness and RUE numbness, MRI brain WO: two punctate left thalamic infarcts. CKD (chronic kidney disease) stage 3, GFR 30-59 ml/min ([facility]) COPD (chronic obstructive pulmonary disease) ([facility]) Essential hypertension Hyperlipidemia Recurrent major depression in partial remission ([facility]) 06/09/2016 PAST SURGICAL HISTORY Procedure Laterality Date BREAST LUMPECTOMY HX Left 1987 TEAEC W/PATCH GRF CAROTID VERTB SUBCLAV NECK INC Right 01/27/2017 ALLERGIES Flexeril [Cyclobenzaprine Hcl], Ibuprofen, and Penicillin MEDICATIONS Current Outpatient Medications Medication Sig escitalopram oxalate (LEXAPRO) 10 mg tablet Take 10 mg by mouth once daily. QUEtiapine (SEROQUEL) 25 mg tablet Take 25 mg by mouth as needed (agitation). Melatonin 5 mg cap Take by mouth. hydroCHLOROthiazide 12.5 mg capsule Take 1 capsule by mouth once daily. lisinopril (ZESTRIL) 30 mg tablet Take 1 tablet by mouth once daily. donepezil (ARICEPT) 5 mg tablet Take 1 tablet by mouth daily at bedtime. Cholecalciferol, Vitamin D3, 50 mcg (2,000 unit) cap Take by mouth. carvedilol (COREG) 25 mg tablet Take 1 tablet by mouth two times a day. venlafaxine ER (EFFEXOR XR) 150 mg 24 hr capsule Take 1 capsule by mouth once daily. famotidine (PEPCID) 20 mg tablet Take 1 tablet by mouth twice daily. promethazine (PHENERGAN) 25 mg tablet Take 1 tablet by mouth every 6 hours as needed for nausea/vomiting. atorvastatin (LIPITOR) 40 mg tablet Take 40 [...] 4 hours as needed. for Gi distress aspirin, enteric coated (ASPIRIN, ENTERIC COATED) 81 mg EC tablet GIVE 1 TABLET BY MOUTH ONCE DAILY acetaminophen (TYLENOL) 325 mg tablet Take 650 mg by mouth every 6 hours as needed. POLYETHYLENE GLYCOL 3350 (MIRALAX ORAL) Take 17 g by mouth once daily. Walker misc 1 Each once daily. guaiFENesin (ROBITUSSIN) 100 mg/5 mL syrup Take 10 mL by mouth every 4 hours as needed. for cough and congestion clonazePAM (KLONOPIN) 0.5 mg tablet Take 0.125 mg by mouth daily at bedtime. Routine dose. Tues, Thur, Sat, Sun in the evening. This medication is managed and ordered by Psychiatrist, Dr. Salinas. No current facility-administered medications for this visit. FAMILY HISTORY Problem Relation Age of Onset Breast Cancer Mother Social History Tobacco Use Smoking status: Never Smokeless tobacco: Never EXAM: BP 130/68 Pulse 94 Resp 20 Wt 65.3 kg (144 lb) SpO2 95% BMI 29.08 kg/m PHYSICAL EXAM: Physical Exam Vitals and nursing note reviewed. Constitutional: Appearance: Normal appearance. HENT: Head: Normocephalic. Cardiovascular: Rate and Rhythm: Normal rate and regular rhythm. Pulmonary: Effort: Pulmonary effort is normal. Breath sounds: Normal breath sounds. Abdominal: General: Bowel sounds are normal. Palpations: Abdomen is soft. Musculoskeletal: General: Normal range of motion. Cervical back: Normal range of motion. Skin: General: Skin is warm and dry. Neurological: Mental Status: She is alert. Comments: Poor memory Psychiatric: Mood and Affect: Mood normal. LABS: labs and CT pending ASSESSMENT/PLAN: 1. Arterial ischemic stroke, vertebrobasilar, thalamic, acute, left (HCC) - ICD9: 434.91, ICD10: I63.81 (primary diagnosis) Stable 2. Incidental lung nodule, greater than or equal to 8mm - ICD9: 793.11, ICD10: R91.[address] scan 3. Essential hypertension - ICD9: 401.9, ICD10: I10 - Controlled - Recommend home blood pressure monitoring, to bring results to next visit - Encouraged sodium restriction, DASH or Mediterranean diet - Recommend regular aerobic exercise 4. Chronic renal failure, stage 4 (severe) (HCC) - ICD9: 585.4, ICD10: N18.4 - eGFR: 35 Due for labs - Schedule labs 5. Hyperlipidemia, mixed - ICD9: 272.2, ICD10: E78.2 - Control undetermined, due for labs - Counseled on healthy diet and regular exercise 6. Age-related osteoporosis without current pathological fracture - ICD9: 733.01, ICD10: M81.0 - Reviewed the need for Calcium and Vitamin D supplements and weight bearing exercise as tolerated 7. Memory loss - ICD9: 780.93, ICD10: R41.3 Not sure why donepezil was discontinued Reordered through [facility] Discussed treatment plan and patient voices understanding. Patient's questions answered appropriately. Medications and potential side effects were discussed and patient voices understanding. Return to the office as scheduled or as needed for worsening/no improvement. Jeanine Parker APRN.[employer]NACE OPERATOR documented in this encounter [facility] 10-31-2023 Miscellaneous Notes Formattin g of this note might be different from the original. Aj notified. Verbalized understanding. Ok to do Aj, Director at [facility], calling Dr. Renee regarding patient. Reports patient is having paranoia and hallucinations. Reports seeing people in parking lots and hallways as well as seeing bugs. Urine testing was completed 4 days ago and was negative. Reports current vitals are stable., no fever or recent medication changes. Aj asking if Dr. Renee agreeable that they send pt to ER for a work up? Please advise DirectorAj on his cell #: [phone]. Thank you. documented in this encounter [facility] 10-10-2023 History of Presen t illness Narrative 87 year old female with c/o here for 4 week BP recheck since increasing to Lisinopril 30mg BP from [facility] show controlled BPs 09/24/2023: 92/68 09/15/2023: [...] No. Syncope: No. Headache: No. Dizziness: Yes. [place] a little unsteady coming in today, unsure-footed, blames on her anxiety. Does have some [...] LIST Recurrent Major Depression in Partial Remission (Hcc) Chronic Renal Failure, Stage 4 (Severe) ([facility]) Internal Carotid Artery Stenosis, Right Osteoporosis Chronic Midline Low Back Pain With Right-Sided Sciatica Essential Hypertension Hyperlipidemia, Mixed Prediabetes Oropharyngeal Dysphagia Arterial Ischemic Stroke, Vertebrobasilar, Thalamic, Acute, Left (Hcc) Incidental Lung Nodule, Greater Than Or Equal to 8mm Hiatal Hernia Chronic Obstructive Pulmonary Disease ([facility]) Major Depression With Psychotic Features ([facility]) Mild Late Onset Alzheimer's Dementia Without Behavioral Disturbance, Psychotic Disturbance, Mood Disturbance, Or Anxiety ([facility]) Current Outpatient Medications Medication Sig Dispense Refill [...] adjusted for changes in prior data. Patrick Esqueda PA-C . documented in this encounter [facility] 08-02-2023 Consult note Note Date/Time August 02, 2023 3:43pm [facility] Medical Records Department [address] [place] [id number] Counseling Note - Pharmacy 08/02/231542 MR#: [id number] Acct: [id number] Name: ESHA DAVILA Rep #:[id number] : 1935 87 From: Mary Epstein PCP: Dr. Yonny Renee MD Status:ADM I NO Y Location: [place] [address] Pharmacy [place] Med Reconciliation Pharmacy Service has performed discharge medication reconciliation for this patient. The patient's discharge medication list was reviewed for discrepancies and discrepancies were resolved. 08/02/231542 <Electronically signed by Mary Epstein> Date _ Mary Epstein Cosigner Signature (if applicable): Date CC: ~ Signed [facility] Work Phone: [phone]) 670-702412-12-2023 Discharge summary Author Shane Conroy [facility] August 02, 2023 3:39pm Note Date/Time August 02, 2023 3:37pm [facility] Medical Records Department [address] [place] [address] Instructions for Home/Discharge Instructions 08/02/23 1536 MR#: [id number] Acct: [id number] Name: ESHA DAVILA Rep #:[id number] : 1935 87 From: Shane han DO PCP: Dr. Yonny Renee MD Status:ADM I NO Discharge Instructions Diet Discharge Diet: No restrictions Activity Discharge Activity: Return to Normal Activity Weight Bearing Status: Full weight bearing Follow Up Care Please Follow Up With: Yonny Renee MD When: As needed Test Results: Test results from this visit will be discussed in further detail at your follow- up appointment, if applicable. Pending Tests Upon Discharge: None Discharge Plan Admission Admit Date/Time: 08/01/23 22:00 Primary Reason for Your Visit: Right-sided paresthesias Attending Provider: Shane Conroy Primary Care Provider: Yonny Renee Consulting Providers: Perfecto Juarez Instructions Additional Instructions / Restrictions: Continue all home medications as previously prescribed. Follow-up with your primary care doctor as needed. Discharge Orders/Prescriptions Prescriptions: Continued carvedilol 25 MG tablet 25 mg PO BID cyanocobalamin (vitamin B-12) 1,000 MCG tablet 1,000 mcg PO DAILY guaifenesin 10 ML liquid 10 ml PO Q4H PRN PRN (Reason: Cough) aspirin 81 MG tablet,chewable 81 mg PO DAILY@0800 alum-mag hydroxide-simeth 355 ML suspension 30 ml PO Q4H PRN (Reason: GI DISTRESS) peg [id number] 1 DROP bottle 1 drp EACH EYE PRN PRN (Reason: Dry Eyes) acetaminophen 325 MG capsule 2 tab PO Q4H PRN (Reason: Pain 1-10 Or Fever) polyethylene glycol 3350 17 GM packet 17 gm PO QHS venlafaxine 150 MG capsule,extended release 24hr 150 mg PO DAILY clopidogrel 75 MG tablet 75 mg PO DAILY quetiapine 100 MG tablet 100 mg PO QHS famotidine 20 MG tablet 20 mg PO BID magnesium hydroxide 30 ML suspension 30 ml PO DAILY PRN PRN (Reason: Constipation) promethazine 25 MG tablet 25 mg PO Q6H PRN (Reason: Nausea) atorvastatin 40 MG tablet 40 mg PO QHS Qty: 30 1RF alendronate 70 mg Tablet 70 mg PO QWEEK lisinopril 5 mg Tablet 5 mg PO DAILY cholecalciferol (vitamin D3) [Vitamin D3] 50 mcg (2,000 unit) Capsule 50 mcg PO DAILY Referrals / Follow Up: Yonny Renee MD [Primary Care Provider] - Disposition Disposition (needs filled in before D/C Order can be placed): Home Health Service 08/02/23 1536<Electronically signed by Shane Conroy DO>Shane Conroy DO CC: Dr. Perfecto Juarez MD; Dr. Yonny Renee MD ~ Signed [facility] Work Phone: 1(804) 237-524012-12-2023 Discharge summary Author Eliazar [facility] August 01, 2023 11:22pm Note Date/Time August 01, 2023 8:03pm [facility] Medical Records Department [address] [place] [address] Emergency Department Summary 08/01/23 MR#: [id number] Acct: [id number] Name: ESHA DAVILA Rep #:[id number] : 1935 87 From: Eliazar Mcknight MD PCP: Dr. Yonny Renee MD Status:ADM I NO Location: [place] [address] HPI History of Present Illness Chief Complaint: Numb/Ting Narrative Narrative: 87-year-old female past medical history of hypertension, hypercholesterolemia, presents from her assisted living facility at [facility] with right-sided arm and leg numbness. She states that at around 6:45 PM, almost an hour ago, she was sitting and resting, and not doing anything active. She started to get right arm and leg numbness. She denies chest pain or shortness of breath, but noticed that her blood pressure was elevated at 215 systolic. She presents withthe numbness that seems to be improving. She denies any difficulty with speech,no headaches, no other symptoms. She is unsure if she has had problems with TIAor stroke in the past. She does state that she is on a blood thinner but does not know which 1. PFSH [facility] Medical History (Updated 08/01/23 @ 22:16 by Eliazar Mcknight MD) Anxiety CKD (chronic kidney disease) COPD (chronic obstructive pulmonary disease) Hyperlipemia Hypertension Major depressive disorder with psychotic features Home Medications acetaminophen 325 mg capsule 2 tab PO Q4H PRN Pain 1-10 Or Fever 05/30/20 [History Last Taken Unknown] aluminum-mag hydroxide-simethicone 400 mg-400 mg-40 mg/5 mL oral susp 30 ml PO Q4H PRN GI DISTRESS 05/30/20 [History Last Taken Unknown] aspirin 81 mg chewable tablet 81 mg PO DAILY@0800 05/30/20 [History Last Taken Unknown] carvedilol 25 mg tablet 25 mg PO BID 05/30/20 [History Last Taken Unknown] clopidogrel 75 mg tablet 75 mg PO DAILY 05/30/20 [History Last Taken Unknown] cyanocobalamin (vitamin B-12) 1,000 mcg tablet 1,000 mcg PO DAILY 05/30/20 [History Last Taken Unknown] famotidine 20 mg tablet 20 mg PO BID 05/30/20 [History Last Taken Unknown] guaifenesin 100 mg/5 mL oral liquid 10 ml PO Q4H PRN PRN Cough 05/30/20 [History Last Taken Unknown] magnesium hydroxide 400 mg/5 mL oral suspension 30 ml PO DAILY PRN PRN Constipation 05/30/20 [History Last Taken Unknown] peg [id number] 1 %-0.2 %-0.2 % eye drops 1 drp EACH EYE PRN PRN Dry Eyes 05/30/20 [History Last Taken Unknown] polyethylene glycol 3350 17 gram oral powder packet 17 gm PO QHS 05/30/20 [History Last Taken Unknown] promethazine 25 mg tablet 25 mg PO Q6H PRN Nausea 05/30/20 [History Last Taken Unknown] quetiapine 100 mg tablet 100 mg PO QHS 05/30/20 [History Last Taken Unknown] venlafaxine 150 mg capsule,extended release 24 hr 150 mg PO DAILY 05/30/20 [History Last Taken Unknown] atorvastatin 40 mg tablet 40 mg PO QHS #30 tabs 05/31/20 [Rx Last Taken Unknown] alendronate 70 mg tablet 70 mg PO QWEEK 06/14/22 [History Last Taken Unknown] cholecalciferol (vitamin D3) 50 mcg (2,000 unit) capsule (Vitamin D3) 50 mcg PO DAILY 06/14/22 [History Last Taken Unknown] lisinopril 5 mg tablet 5 mg PO DAILY 06/14/22 [History Last Taken Unknown] Allergy/AdvReac Type Severity Reaction Status Date / Time ibuprofen Allergy Unknown Verified 08/01/23 19:51 Penicillins Allergy Swelling Verified 08/01/23 19:51 cyclobenzaprine AdvReac Other Verified 08/01/23 19:51 [From Flexeril] Social History Smoking Status: Former smoker substance use type: does not use ROS ROS ED ROS Narrative Constitutional: No fever, no chills. HEENT: No sore throat. No neck pain. No loss of vision. No rhinorrhea. Cardiovascular: No chest pain. No palpitations. No pedal edema. Respiratory: No cough, no shortness of breath. Abdominal: No abdominal pain. No nausea. No vomiting. Genitourinary: No dysuria. No hematuria. Musculoskeletal: No myalgias. No arthralgias. Neurologic: No headaches. No dizziness. No lightheadedness. Paresthesias of right arm and right leg. Skin: No rash. No change in color. Psychiatric: No depression. No anxiety. EXAM Physical Exam Narrative Exam Narrative: Afebrile. Vital signs noted. HEENT: Normocephalic. Atraumatic. PERRL, EOMI. Neck soft and supple. No pointtenderness or step off. Cardiovascular: Regular rate and rhythm. No murmurs, rubs, or gallops appreciated. Respiratory: No tachypnea. Lungs clear to auscultation bilaterally. Gastrointestinal: Abdomen soft, nontender, with normoactive bowel sounds. No rebound or guarding. Neurological: Awake. Alert. Nonfocal, nonlateralizing. NIH stroke scale of 0. Skin: No rash. Normal color. No pallor. Musculoskeletal: No pedal edema. Full range of motion extremities. Const Vital Signs: 08/01/23 19:43 08/01/23 20:11 08/01/23 20:04 Temperature 97.0 F L Temperature Source Temporal Pulse Rate 70 67 Respiratory Rate 18 18 Blood Pressure 178/95 H 192/91 H Blood Pressure Mean 122 124 Pulse Ox 96 96 Oxygen Delivery Method Room Air Room Air Room Air 08/01/23 20:17 08/01/23 20:19 08/01/23 20:34 Temperature Temperature Source Pulse Rate 68 65 Respiratory Rate 16 19 H Blood Pressure 196/88 H 155/85 H 186/91 H Blood Pressure Mean 124 108 122 Pulse Ox 98 95 Oxygen Delivery Method Room Air Room Air 08/01/23 20:49 08/01/23 21:04 08/01/23 21:19 Temperature Temperature Source Pulse Rate 70 66 82 Respiratory Rate 16 19 H 18 Blood Pressure 181/76 H 169/77 H 173/91 H Blood Pressure Mean 111 107 118 Pulse Ox 97 94 95 Oxygen Delivery Method Room Air Room Air Room Air 08/01/23 21:49 08/01/23 22:00 08/01/23 22:03 Temperature 93 F L Temperature Source Pulse Rate 64 64 65 Respiratory Rate 16 18 19 H Blood Pressure 161/83 H 159/97 H 159/97 H Blood Pressure Mean 109 117 117 Pulse Ox 96 95 Oxygen Delivery Method Room Air NIHSS NIHSS Initial: 1a Level of Consciousness: 0 1b LOC Questions (Score 2 if aphasic/stupor): 0 1c LOC Commands (Only score 1st attempt): 0 2 Best Gaze (If aphasic, use reflexive mvmts.): 0 3 Visual: 0 4 Facial Palsy: 0 5 Motor Arm Right (UN = amputation/fusion): 0 5 Motor Arm Left: 0 6 Motor Leg Right: 0 6 Motor Leg Left: 0 7 Limb ataxia (Only + if out of proportion): 0 8 Sensory (Aphasia/stupor=0 or 1, coma=2): 0 9 Best Language: 0 10 Dysarthria (mute, coma=2, intubated=UN): 0 11 Extinction and Inattention (only scored if +): 0 Total Score: 0 MDM MDM MDM Narrative Medical decision making narrative: Patient only has subjective paresthesias of her right arm and leg. She did haveelevated blood pressure reportedly but currently it is 178/95. I do not feel that stroke team is indicated as her NIH stroke scale is 0. However, CT of the brain will be obtained along with generalized stroke workup as she may be havingmore of a TIA. Chest x-ray in 1 view was obtained and I see no evidence of pneumothorax or pneumonia. I reviewed the radiology report and they commented on a left seventh rib fracture. However, patient is not having any tenderness or pain in that area. There is no direct clinical correlation. Patient did require a dose of labetalol as her blood pressure was elevated at 191 systolic. I reviewed her laboratory work and she has normal white count of 6.1, hemoglobin stable 11.1, hematocrit 34.7, platelet count normal at 221. Coags are normal with an INR of 1.0 and a PTT of 29.7. Her BUN is elevated at 19 with a creatinine of 1.46. She does have a history of chronic kidney disease. Troponin is 9. Gbsku-yy-[id number] glucose 95. I reviewed the radiology report of the CT of the brain which shows chronic involutional Saulo changes but no evidence of acute hemorrhage. I do not feel CTA is indicated as her NIH stroke scale is 0. I do not feel that she is a tPA candidate as she does not have a debilitating deficit, and has subjective numbness. Upon repeat examination, she states she feels she has improved. I do feel that she requiresfurther workup. I discussed the patient with Dr. Perfecto Juarez for observation on PCU. Patient is in stable condition. History & Record Review Discussion w/independent historian: Patient Additional record(s) reviewed:: Prior ED visit and Prior labs Lab Data Attestation: I reviewed the patient's lab results. Labs: Laboratory Results - last 24 hr 08/01/23 08/01/23 20:02 20:11 WBC 6.1 RBC 3.78 L Hgb 11.1 L Hct 34.7 L MCV 91.8 MCH 29.4 MCHC 32.0 RDW Std Deviation 45.5 H RDW Coeff of Jessica 13.5 Plt Count 221 MPV 9.3 Immature Gran % (Auto) 0.200 Neut % (Auto) 54.1 Lymph % (Auto) 30.0 Parker % (Auto) 12.0 H Eos % (Auto) 3.0 Baso % (Auto) 0.7 Absolute Neuts (auto) 3.3 Absolute Lymphs (auto) 1.82 Nucleated RBC % 0 PT 12.9 INR 1.0 APTT 29.7 Sodium 136 Potassium 3.7 Chloride 99 Carbon Dioxide 32.0 Anion Gap 5 BUN 19 H Creatinine 1.46 H Estim Creat Clear Calc 3.97 Est GFR (MDRD) Af Amer 44 L Est GFR (MDRD) Non-Af 36 L BUN/Creatinine Ratio 13.0 Glucose 105 Calcium 8.7 Troponin I High Sens 9 POC Glucose 95 Radiography Diagnostic Testing: Clinical Impression(s) from Imaging Studies Brain CT 08/01/23 19:58 IMPRESSION: Chronic involutional changes of the brain. Electronically Signed: Kendall Mary MD at 21:05 EST , Chest X-Ray 08/01/23 20:25 IMPRESSION: Left rib fracture. Electronically Signed: Kendall Mary MD at 21:12 EST , Differential Diagnosis Differential Diagnosis: TIA, stroke, hypertensive emergency/urgency, intracranial hemorrhage. Stroke Documentation Questions Stroke Team Activated: No Was Patient considered for Endovascular Intervention?: No-CTA not indicated IV Thrombolytic Administered: No Discharge Plan Dx/Rx/DC Orders Clinical Impression: TIA (transient ischemic attack), Hyperlipemia, Hypertension Disposition Disposition: Acute Care Hospital [facility] What to do if you have Problems For any increased pain, shortness of breath, bleeding, nausea or vomiting, chestpain, or any unexpected problems, contact your Primary Care Provider. Call [facility] ([phone]) or report to the closest Emergency Room. Call 911 if necessary. 08/01/232217 <Electronically signed by Eliazar Mcknight MD> Cosigner Signature (if applicable): CC: Dr. Yonny Renee MD ~ Signed ADDENDUM by Dr. Eliazar Mcknight MD on 08/01/23 at 2322 EKG was obtained to help rule out atrial fibrillation, and it was interpreted bymyself independently as normal sinus rhythm at 64 bpm without ectopy or acute STchanges. No STEMI. 08/01/232321<Electronically signed by Eliazar Mcknight MD> Cosigner Signature (if applicable): cc: Dr. Yonny Renee MD ~* Signed [facility] Work Phone: 1(615) 182-217912-12-2023 History and physical note Author Perfecto Juarez [facility] August 01, 2023 10:00pm Note Date/Time August 01, 2023 10:00pm [facility] Medical Records Department [address] [place] [address] History & Physical Exam 08/01/232151 MR#: [id number] Acct: [id number] Name: ESHA DAVILA Rep #:[id number] : 1935 87 From: Perfecto Juarez MD PCP: Dr. Yonny Renee MD Status:REG E R Location: ED HPI - General General Date of Admission: 08/01/23 Date of Service: 08/01/23 Chief Complaint: Right-sided paresthesia HPI Narrative ESHA DAVILA, is a 87 F who presents to the emergency room with chief complaint of right-sided arm and leg numbness. Onset of symptoms began this evening after she was having dinner. Where she felt her leg was heavy and her arm felt numb as well. This was approximately at 6:45 PM and she was transferred to the emergency room for evaluation. She denies any chest pain, shortness of breath or fevers or chills. She does have an elevated blood pressure with systolic of 215 upon arrival however her initial NIH score was 0. CT scan of the brain was negative for hemorrhage and other laboratory studies were unremarkable. Patient will be admitted for observation to the progressive care unit for workup of fatigue of transient ischemic attack. Patient does states she is on a blood thinner but is unclear as to which one she is taking atthis time will review medical records. [facility] Medical History (Updated 08/01/23 @ 21:[address] Perfecto Juarez MD) Anxiety CKD (chronic kidney disease) COPD (chronic obstructive pulmonary disease) Hyperlipemia Hypertension Major depressive disorder with psychotic features Home Medications acetaminophen 325 mg capsule 2 tab PO Q4H PRN Pain 1-10 Or Fever 05/30/20 [History Last Taken Unknown] aluminum-mag hydroxide-simethicone 400 mg-400 mg-40 mg/5 mL oral susp 30 ml PO Q4H PRN GI DISTRESS 05/30/20 [History Last Taken Unknown] aspirin 81 mg chewable tablet 81 mg PO DAILY@0800 05/30/20 [History Last Taken Unknown] carvedilol 25 mg tablet 25 mg PO BID 05/30/20 [History Last Taken Unknown] clopidogrel 75 mg tablet 75 mg PO DAILY 05/30/20 [History Last Taken Unknown] cyanocobalamin (vitamin B-12) 1,000 mcg tablet 1,000 mcg PO DAILY 05/30/20 [History Last Taken Unknown] famotidine 20 mg tablet 20 mg PO BID 05/30/20 [History Last Taken Unknown] guaifenesin 100 mg/5 mL oral liquid 10 ml PO Q4H PRN PRN Cough 05/30/20 [History Last Taken Unknown] magnesium hydroxide 400 mg/5 mL oral suspension 30 ml PO DAILY PRN PRN Constipation 05/30/20 [History Last Taken Unknown] peg [id number]-hyvzruix 1 %-0.2 %-0.2 % eye drops 1 drp EACH EYE PRN PRN Dry Eyes 05/30/20 [History Last Taken Unknown] polyethylene glycol 3350 17 gram oral powder packet 17 gm PO QHS 05/30/20 [History Last Taken Unknown] promethazine 25 mg tablet 25 mg PO Q6H PRN Nausea 05/30/20 [History Last Taken Unknown] quetiapine 100 mg tablet 100 mg PO QHS 05/30/20 [History Last Taken Unknown] venlafaxine 150 mg capsule,extended release 24 hr 150 mg PO DAILY 05/30/20 [History Last Taken Unknown] atorvastatin 40 mg tablet 40 mg PO QHS #30 tabs 05/31/20 [Rx Last Taken Unknown] alendronate 70 mg tablet 70 mg PO QWEEK 06/14/22 [History Last Taken Unknown] cholecalciferol (vitamin D3) 50 mcg (2,000 unit) capsule (Vitamin D3) 50 mcg PO DAILY 06/14/22 [History Last Taken Unknown] lisinopril 5 mg tablet 5 mg PO DAILY 06/14/22 [History Last Taken Unknown] Allergy/AdvReac Type Severity Reaction Status Date / Time ibuprofen Allergy Unknown Verified 08/01/23 19:51 Penicillins Allergy Swelling Verified 08/01/23 19:51 cyclobenzaprine AdvReac Other Verified 08/01/23 19:51 [From Flexeril] Social History Smoking Status: Former smoker substance use type: does not use ROS Constitutional Constitutional: Denies chills or fever(s) Eyes Eyes: Denies blurry vision, change in vision or double vision ENT HEENT: Denies abnormal hearing, headache(s), hearing loss or loss taste/smell Cardiovascular Cardiovascular: Denies chest pain Respiratory/Chest Respiratory/Chest: Denies shortness of breath at rest Gastrointestinal Gastrointestinal: Denies abdominal pain Genitourinary Genitourinary: Denies dysuria Musculoskeletal Musculoskeletal: Denies back pain Neurologic Neurologic: Reports numbness; Denies confusion Psychiatric Psychiatric: Denies anxiety Vital Signs Vital Signs Vital Signs: 08/01/23 19:43 08/01/23 20:11 08/01/23 20:04 Temperature 97.0 F L Temperature Source Temporal Pulse Rate 70 67 Respiratory Rate 18 18 Blood Pressure 178/95 H 192/91 H Blood Pressure Mean 122 124 Pulse Ox 96 96 Oxygen Delivery Method Room Air Room Air Room Air 08/01/23 20:17 08/01/23 20:19 08/01/23 20:34 Temperature Temperature Source Pulse Rate 68 65 Respiratory Rate 16 19 H Blood Pressure 196/88 H 155/85 H 186/91 H Blood Pressure Mean 124 108 122 Pulse Ox 98 95 Oxygen Delivery Method Room Air Room Air 08/01/23 20:49 08/01/23 21:04 08/01/23 21:19 Temperature Temperature Source Pulse Rate 70 66 82 Respiratory Rate 16 19 H 18 Blood Pressure 181/76 H 169/77 H 173/91 H Blood Pressure Mean 111 107 118 Pulse Ox 97 94 95 Oxygen Delivery Method Room Air Room Air Room Air Weight Weight: 20 lb 0.993 oz Body Mass Index (BMI) 3.9 Physical Exam Const oriented x3 General Appearance: cooperative and well developed HEENT normocephalic and head/scalp atraumatic Eyes PERRL and EOMs intact bilaterally Neck no lymphadenopathy Lymph Lymphatic: no lymphadenopathy noted Resp normal respiratory effort, normal air movement and clear to auscultation bilaterally Cardio regular rate, regular rhythm, S1 normal heart sound and S2 normal heart sound GI normal to inspection, nondistended, normoactive bowel sounds Extremity normal capillary refill Skin General Skin Exam: turgor normal Neuro CN's II-XII intact bilaterally Speech: speech normal Motor Exam: strength 5/5 throughout Psych thought process normal, cooperative and affect normal Appearance: appropriate Results Lab / Micro Data 08/01/23 20:02 08/01/23 20:02 Labs: Laboratory Results - last 24 hr 08/01/23 20:02: WBC 6.1, RBC 3.78 L, Hgb 11.1 L, Hct 34.7 L, MCV 91.8, MCH 29.4,MCHC 32.0, RDW Std Deviation 45.5 H, RDW Coeff of Jessica 13.5, Plt Count 221, MPV 9.3, Immature Gran % (Auto) 0.200, Neut % (Auto) 54.1, Lymph % (Auto) 30.0, Parker% (Auto) 12.0 H, Eos % (Auto) 3.0, Baso % (Auto) 0.7, Absolute Neuts (auto) 3.3,Absolute Lymphs (auto) 1.82, Nucleated RBC % 0, PT 12.9, INR 1.0, APTT 29.7, Sodium 136, Potassium 3.7, Chloride 99, Carbon Dioxide 32.0, Anion Gap 5, BUN 19H, Creatinine 1.46 H, Estim Creat Clear Calc 3.97, Est GFR (MDRD) Af Amer 44 L, Est GFR (MDRD) Non-Af 36 L, BUN/Creatinine Ratio 13.0, Glucose 105, Calcium 8.7,Troponin I High Sens 9 08/01/23 20:11: POC Glucose 95 Imagaing Radiology Impression Brain CT 08/01/23 19:58 IMPRESSION: Chronic involutional changes of the brain. Electronically Signed: Kendall Mary MD at 21:05 EST , Chest X-Ray 08/01/23 20:25 IMPRESSION: Left rib fracture. Electronically Signed: Kendall Mary MD at 21:12 EST , Assessment & Plan Assessment/Plan (1) TIA (transient ischemic attack): (2) Major depressive disorder with psychotic features: (3) Hypertension: (4) Hyperlipemia: (5) CKD (chronic kidney disease): (6) COPD (chronic obstructive pulmonary disease): PLAN: Plan 1 transient ischemic attack?admit patient for observation to progressive care unit, neurologic evaluations every 4 hours per routine protocol, will add aspirin if not already taking after review of home medical record, MRI MRA head and neck to be done in the morning 2. COPD?continue routine home medications 3. Hyperlipidemia?continue statin therapy 4. Hypertension?will add as needed antihypertensive per routine TIA protocol 5. Depression?continue antidepressant therapy 6. DVT prophylaxis?low molecular weight heparin unless already anticoagulated after review Charges/Coding Visit Charges OBSV E&M: 71189 Observ/hosp same date L2 08/01/232199 <Electronically signed by Perfecto Juarez MD> Cosigner Signature (if applicable): CC: Dr. Perfecto Juarez MD; Dr. Yonny Renee MD~ Signed [facility] Work Phone: 1(804) 923-984012-11-2023 Discharge summary Author Eliazar Mcknight [facility] August 01, 2023 11:22pm Note Date/Time August 01, 2023 8:03pm [facility] Medical Records Department [address] [place] [address] Emergency Department Summary 08/01/23 MR#: [id number] Acct: [id number] Name: ESHA DAVILA Rep #:[id number] : 1935 87 From: Eliazar Mcknight MD PCP: Dr. Yonny Renee MD Status:ADM I NO Location: [address] History of Present Illness Chief Complaint: Numb/Ting Narrative Narrative: 87-year-old female past medical history of hypertension, hypercholesterolemia, presents from her assisted living facility at [facility] with right-sided arm and leg numbness. She states that at around 6:45 PM, almost an hour ago, she was sitting and resting, and not doing anything active. She started to get right arm and leg numbness. She denies chest pain or shortness of breath, but noticed that her blood pressure was elevated at 215 systolic. She presents withthe numbness that seems to be improving. She denies any difficulty with speech,no headaches, no other symptoms. She is unsure if she has had problems with TIAor stroke in the past. She does state that she is on a blood thinner but does not know which 1. [facility] Medical History (Updated 08/01/23 @ 22:16 by Eliazar Mcknight MD) Anxiety CKD (chronic kidney disease) COPD (chronic obstructive pulmonary disease) Hyperlipemia Hypertension Major depressive disorder with psychotic features Home Medications acetaminophen 325 mg capsule 2 tab PO Q4H PRN Pain 1-10 Or Fever 05/30/20 [History Last Taken Unknown] aluminum-mag hydroxide-simethicone 400 mg-400 mg-40 mg/5 mL oral susp 30 ml PO Q4H PRN GI DISTRESS 05/30/20 [History Last Taken Unknown] aspirin 81 mg chewable tablet 81 mg PO DAILY@0800 05/30/20 [History Last Taken Unknown] carvedilol 25 mg tablet 25 mg PO BID 05/30/20 [History Last Taken Unknown] clopidogrel 75 mg tablet 75 mg PO DAILY 05/30/20 [History Last Taken Unknown] cyanocobalamin (vitamin B-12) 1,000 mcg tablet 1,000 mcg PO DAILY 05/30/20 [History Last Taken Unknown] famotidine 20 mg tablet 20 mg PO BID 05/30/20 [History Last Taken Unknown] guaifenesin 100 mg/5 mL oral liquid 10 ml PO Q4H PRN PRN Cough 05/30/20 [History Last Taken Unknown] magnesium hydroxide 400 mg/5 mL oral suspension 30 ml PO DAILY PRN PRN Constipation 05/30/20 [History Last Taken Unknown] peg [id number] 1 %-0.2 %-0.2 % eye drops 1 drp EACH EYE PRN PRN Dry Eyes 05/30/20 [History Last Taken Unknown] polyethylene glycol 3350 17 gram oral powder packet 17 gm PO QHS 05/30/20 [History Last Taken Unknown] promethazine 25 mg tablet 25 mg PO Q6H PRN Nausea 05/30/20 [History Last Taken Unknown] quetiapine 100 mg tablet 100 mg PO QHS 05/30/20 [History Last Taken Unknown] venlafaxine 150 mg capsule,extended release 24 hr 150 mg PO DAILY 05/30/20 [History Last Taken Unknown] atorvastatin 40 mg tablet 40 mg PO QHS #30 tabs 05/31/20 [Rx Last Taken Unknown] alendronate 70 mg tablet 70 mg PO QWEEK 06/14/22 [History Last Taken Unknown] cholecalciferol (vitamin D3) 50 mcg (2,000 unit) capsule (Vitamin D3) 50 mcg PO DAILY 06/14/22 [History Last Taken Unknown] lisinopril 5 mg tablet 5 mg PO DAILY 06/14/22 [History Last Taken Unknown] Allergy/AdvReac Type Severity Reaction Status Date / Time ibuprofen Allergy Unknown Verified 08/01/23 19:51 Penicillins Allergy Swelling Verified 08/01/23 19:51 cyclobenzaprine AdvReac Other Verified 08/01/23 19:51 [From Flexeril] Social History Smoking Status: Former smoker substance use type: does not use ROS ROS ED ROS Narrative Constitutional: No fever, no chills. HEENT: No sore throat. No neck pain. No loss of vision. No rhinorrhea. Cardiovascular: No chest pain. No palpitations. No pedal edema. Respiratory: No cough, no shortness of breath. Abdominal: No abdominal pain. No nausea. No vomiting. Genitourinary: No dysuria. No hematuria. Musculoskeletal: No myalgias. No arthralgias. Neurologic: No headaches. No dizziness. No lightheadedness. Paresthesias of right arm and right leg. Skin: No rash. No change in color. Psychiatric: No depression. No anxiety. EXAM Physical Exam Narrative Exam Narrative: Afebrile. Vital signs noted. HEENT: Normocephalic. Atraumatic. PERRL, EOMI. Neck soft and supple. No pointtenderness or step off. Cardiovascular: Regular rate and rhythm. No murmurs, rubs, or gallops appreciated. Respiratory: No tachypnea. Lungs clear to auscultation bilaterally. Gastrointestinal: Abdomen soft, nontender, with normoactive bowel sounds. No rebound or guarding. Neurological: Awake. Alert. Nonfocal, nonlateralizing. NIH stroke scale of 0. Skin: No rash. Normal color. No pallor. Musculoskeletal: No pedal edema. Full range of motion extremities. Const Vital Signs: 08/01/23 19:43 08/01/23 20:11 08/01/23 20:04 Temperature 97.0 F L Temperature Source Temporal Pulse Rate 70 67 Respiratory Rate 18 18 Blood Pressure 178/95 H 192/91 H Blood Pressure Mean 122 124 Pulse Ox 96 96 Oxygen Delivery Method Room Air Room Air Room Air 08/01/23 20:17 08/01/23 20:19 08/01/23 20:34 Temperature Temperature Source Pulse Rate 68 65 Respiratory Rate 16 19 H Blood Pressure 196/88 H 155/85 H 186/91 H Blood Pressure Mean 124 108 122 Pulse Ox 98 95 Oxygen Delivery Method Room Air Room Air 08/01/23 20:49 08/01/23 21:04 08/01/23 21:19 Temperature Temperature Source Pulse Rate 70 66 82 Respiratory Rate 16 19 H 18 Blood Pressure 181/76 H 169/77 H 173/91 H Blood Pressure Mean 111 107 118 Pulse Ox 97 94 95 Oxygen Delivery Method Room Air Room Air Room Air 08/01/23 21:49 08/01/23 22:00 08/01/23 22:03 Temperature 93 F L Temperature Source Pulse Rate 64 64 65 Respiratory Rate 16 18 19 H Blood Pressure 161/83 H 159/97 H 159/97 H Blood Pressure Mean 109 117 117 Pulse Ox 96 95 Oxygen Delivery Method Room Air NIHSS NIHSS Initial: 1a Level of Consciousness: 0 1b LOC Questions (Score 2 if aphasic/stupor): 0 1c LOC Commands (Only score 1st attempt): 0 2 Best Gaze (If aphasic, use reflexive mvmts.): 0 3 Visual: 0 4 Facial Palsy: 0 5 Motor Arm Right (UN = amputation/fusion): 0 5 Motor Arm Left: 0 6 Motor Leg Right: 0 6 Motor Leg Left: 0 7 Limb ataxia (Only + if out of proportion): 0 8 Sensory (Aphasia/stupor=0 or 1, coma=2): 0 9 Best Language: 0 10 Dysarthria (mute, coma=2, intubated=UN): 0 11 Extinction and Inattention (only scored if +): 0 Total Score: 0 MDM MDM MDM Narrative Medical decision making narrative: Patient only has subjective paresthesias of her right arm and leg. She did haveelevated blood pressure reportedly but currently it is 178/95. I do not feel that stroke team is indicated as her NIH stroke scale is 0. However, CT of the brain will be obtained along with generalized stroke workup as she may be havingmore of a TIA. Chest x-ray in 1 view was obtained and I see no evidence of pneumothorax or pneumonia. I reviewed the radiology report and they commented on a left seventh rib fracture. However, patient is not having any tenderness or pain in that area. There is no direct clinical correlation. Patient did require a dose of labetalol as her blood pressure was elevated at 191 systolic. I reviewed her laboratory work and she has normal white count of 6.1, hemoglobin stable 11.1, hematocrit 34.7, platelet count normal at 221. Coags are normal with an INR of 1.0 and a PTT of 29.7. Her BUN is elevated at 19 with a creatinine of 1.46. She does have a history of chronic kidney disease. Troponin is 9. [id number]-tdne glucose 95. I reviewed the radiology report of the CT of the brain which shows chronic involutional Saulo changes but no evidence of acute hemorrhage. I do not feel CTA is indicated as her NIH stroke scale is 0. I do not feel that she is a tPA candidate as she does not have a debilitating deficit, and has subjective numbness. Upon repeat examination, she states she feels she has improved. I do feel that she requiresfurther workup. I discussed the patient with Dr. Perfecto Juarez for observation on PCU. Patient is in stable condition. History & Record Review Discussion w/independent historian: Patient Additional record(s) reviewed:: Prior ED visit and Prior labs Lab Data Attestation: I reviewed the patient's lab results. Labs: Laboratory Results - last 24 hr 08/01/23 08/01/23 20:02 20:11 WBC 6.1 RBC 3.78 L Hgb 11.1 L Hct 34.7 L MCV 91.8 MCH 29.4 MCHC 32.0 RDW Std Deviation 45.5 H RDW Coeff of Jessica 13.5 Plt Count 221 MPV 9.3 Immature Gran % (Auto) 0.200 Neut % (Auto) 54.1 Lymph % (Auto) 30.0 Parker % (Auto) 12.0 H Eos % (Auto) 3.0 Baso % (Auto) 0.7 Absolute Neuts (auto) 3.3 Absolute Lymphs (auto) 1.82 Nucleated RBC % 0 PT 12.9 INR 1.0 APTT 29.7 Sodium 136 Potassium 3.7 Chloride 99 Carbon Dioxide 32.0 Anion Gap 5 BUN 19 H Creatinine 1.46 H Estim Creat Clear Calc 3.97 Est GFR (MDRD) Af Amer 44 L Est GFR (MDRD) Non-Af 36 L BUN/Creatinine Ratio 13.0 Glucose 105 Calcium 8.7 Troponin I High Sens 9 POC Glucose 95 Radiography Diagnostic Testing: Clinical Impression(s) from Imaging Studies Brain CT 08/01/23 19:58 IMPRESSION: Chronic involutional changes of the brain. Electronically Signed: Kendall Mary MD at 21:05 EST , Chest X-Ray 08/01/23 20:25 IMPRESSION: Left rib fracture. Electronically Signed: Kendall Mary MD at 21:12 EST , Differential Diagnosis Differential Diagnosis: TIA, stroke, hypertensive emergency/urgency, intracranial hemorrhage. Stroke Documentation Questions Stroke Team Activated: No Was Patient considered for Endovascular Intervention?: No-CTA not indicated IV Thrombolytic Administered: No Discharge Plan Dx/Rx/DC Orders Clinical Impression: TIA (transient ischemic attack), Hyperlipemia, Hypertension Disposition Disposition: Acute Care Hospital [facility] What to do if you have Problems For any increased pain, shortness of breath, bleeding, nausea or vomiting, chestpain, or any unexpected problems, contact your Primary Care Provider. Call [facility] ([phone]) or report to the closest Emergency Room. Call 911 if necessary. 08/01/238 <Electronically signed by Eliazar Mcknight MD> Cosigner Signature (if applicable): CC: Dr. Yonny Renee MD ~ Signed ADDENDUM by Dr. Eliazar Mcknight MD on 08/01/23 at 2322 EKG was obtained to help rule out atrial fibrillation, and it was interpreted bymyself independently as normal sinus rhythm at 64 bpm without ectopy or acute STchanges. No STEMI. 08/01/232321<Electronically signed by Eliazar Mcknight MD> Cosigner Signature (if applicable): cc: Dr. Yonny Renee MD ~* Signed [facility] Work Phone: [phone]) 102-287307-10-2023 Miscellaneous Notes* Telephone Encounter - Ailyn Bhatt Ma - 02/28/2023 5:20 PM EDT Orders faxed to [facility] * Telephone Encounter - Patrick Esqueda PA-C - 02/28/2023 4:53 PM EDT See mychart note to daughter Pam today. I think patient resides at [facility]. I don't see that she was checked for UTI at her last visit with change in mental status with hallucinations both visual and auditory. I would like notes on when the first evidence of auditory or visual hallucinations (bugs) occurred. Please contact [facility] to see if this was checked and if not should have a least a urinalysis and culture. Should also have a CXR to r/o occult pneumonia. Thanks, Noman Esqueda PA-C documented in this encounterSelect Medical [facility]06-16-[facility]23 History of Present illness Narrative* Yonny Renee MD - 02/04/2023 9:11 AM EDT Patient presents with: Acute Visit HPI:This Team Access Model visit is a virtual encounter. It required patient- provider interaction for the medical decision making as documented below. Patient has elected to have a visit through distance medicine I have communicated my name and active licensure. The patient's identity and physical location wereverified at the time of this visit. Either the patient or their legal sales and marketing representative has been informed of the risks and benefits of -- and alternatives to -- treatment through a remote evaluation andconsents to proceed with the evaluation remotely. Accompanied [...] capsule Take 1 capsule by mouth once eachweek. carvedilol (COREG) 12.5 mg tablet Take 1 tablet by mouth twice daily. (Patient taking differently: Take 25 mg by mouth twice daily.) clopidogrel (PLAVIX) 75 mg tablet Take 1 tablet by mouth once daily. aluminum-magnesium hydroxide-simethicone (MAALOX,MYLANTA,MAG-AL PLUS) 200-200-20 mg/5 mL suspensionTake 30 mL by mouth every 4 hours [...] stroke, vertebrobasilar, thalamic, acute, left ([facility]) 06/01/2020 05/30/2020 sx dizziness and RUE numbness, MRI brain WO: two punctate left thalamic infarcts. CKD (chronic kidney disease) stage 3, GFR 30-59 ml/min ([facility]) COPD (chronic obstructive pulmonary disease) ([facility]) Essential hypertension Hyperlipidemia Recurrent major depression in partial remission ([facility]) 06/09/2016 PAST SURGICAL HISTORY Procedure Laterality Date BREAST LUMPECTOMY HX Left 1987 TEAEC W/PATCH GRF CAROTID VERTB SUBCLAV NECK INC Right 01/27/2017 FAMILY HISTORY Problem Relation Age of Onset Breast Cancer Mother Social History Tobacco Use Smoking status: Never Smokeless tobacco: Never Reviewed current medications, allergies, past medical history, surgical history, family history andsocial history today. REVIEW OF SYSTEMS All other [...] ICD9: 790.29, ICD10: R73.03 - HGB A1C Yonny Renee MD RTO in six weeks documented in this encounterSelect Medical [facility]06-05-2023 Miscellaneous Notes* Telephone Encounter - Ciera Black - 01/24/2023 2:57 PM EDT Placed call to Red with [facility]. No answer. Left detailed message on his secure voicemail that patient can stop the med. Advised to call back with any questions or concerns. Ciera Black * Telephone Encounter - Yonny Renee MD - 01/24/2023 2:50 PM EDT Can stop * Telephone Encounter - Radha White LPN - 01/24/2023 1:40 PM EDT Red with [facility] calls to ask if dr wants pt to still take Pooler 5/325 mg 1 q 6hrs prn pain. Do not see a current rx for this medication in pt's med chart. Red reports if wants pt to still take medication a [facility] rx needs [facility]. Red reports Dr. Renee wrote original rx?! Please review and advise. Radha White LPN documented in this encounterSelect Medical [facility]05-26-2023 Miscellaneous Notes* Telephone Encounter - Jeanine Archer LPN - 01/14/2023 6:51 PM EDT Caregiver calling with bp concerns, pt breathing is labored and she is anxious. Caregiver denies any new or worsening symptoms of which a provider is not aware:No transferred to the affiliate line for paging an component engineer provider to report. Jaenine Archer LPN documented in this encounterSelect Medical [facility]01-19-2023 Miscellaneous Notes* Telephone Encounter - Bobbi New LPN - 09/09/2022 11:01 AM EST Patient has been identified by name and date of : Yes Requested Prescriptions Pending Prescriptions Disp Refills venlafaxine ER (EFFEXOR XR) 150 mg 24 hr capsule 30 capsule 5 Sig: Take 1 capsule by mouth once daily. RX INSTRUCTIONS: Requested per [facility]. Bobbi New LPN documented in this encounterSelect Medical [facility] Hospital01-12-2023 Instructions* Patient Instructions* Patrick Esqueda PA-C - 09/02/2022 10:17 AM EST Please check carvedilol (Coreg) dosage and prescriber and let me know what the bottle says. documented in this encounterSelect Medical [facility]01-12-2023 History of Present illness Narrative* Patrick Esqueda PA-C - 09/02/2022 9:40 AM EST 86 year old female with c/o daughter's concern with loss of balance and falls. Twice missed step and tumbled forward. Last episode was in kitchen, turning in daughter's kitchen and lost balance, hit kitchen table witha little soreness in posterior lower rib from [...] brain WO: two punctate left thalamic infarcts. Pendingcoag tests. 05/30/2020 CTA head/ neck no significant [...] ER Quetiapine 100mg daily Klonopin 0.5m.125mg daily HS Stable symptom maria per patient and daughter. [...] stage 3, GFR 30-59 ml/min ([facility]) COPD (chronic obstructive pulmonary disease) ([facility]) Essential hypertension Hyperlipidemia Recurrent major depression in partial remission ([facility]) 06/09/2016 PAST SURGICAL HISTORY Procedure Laterality Date BREAST LUMPECTOMY HX Left 1987 TEAEC W/PATCH GRF CAROTID VERTB SUBCLAV NECK INC Right 01/27/2017 Social History Tobacco Use Smoking status: Never Smokeless tobacco: Never ACTIVE PROBLEM LIST Recurrent Major Depression in Partial Remission ([facility]) Chronic Renal Failure, Stage 4 (Severe) ([facility]) Internal Carotid Artery Stenosis, Right Osteoporosis Chronic [...] capsule Take 1 capsule by mouth once eachweek. 12 capsule 3 carvedilol (COREG) 12.5 mg [...] aluminum-magnesium hydroxide-simethicone (MAALOX,MYLANTA,MAG-AL PLUS) 200-200-20 mg/5 mL suspensionTake 30 mL by mouth every 4 hours as needed. for Gi distress guaiFENesin (ROBITUSSIN) 100 mg/5 mL syrup Take 10 mL by mouth every 4 hours as needed. for cough and congestion aspirin, enteric coated (ASPIRIN, ENTERIC COATED) 81 mg EC tablet GIVE 1 TABLET BY MOUTH ONCE DAILY30 tablet 2 clonazePAM (KLONOPIN) 0.5 mg tablet [...] right - ICD9: 433.10, ICD10: I65.21 [address] orders to recheck. 5. Chronic [...] 553.3, ICD10: K44.9 No current sx. Patrick Esqueda PA-C documented in this encounterSelect Medical [facility]01-04-2023 Miscellaneous Notes* Telephone Encounter - Natalie Perez RN - 08/25/2022 9:25 AM EST Daughter contacted and updated of orders below. Walker prescription and PT order faxed to [facility] as requested. Natalie Perez RN * Telephone Encounter - Patrick Esqueda PA-C - 08/24/2022 5:35 PM EST Get Medical Advice on 08/20/22 CONSULT TO PHYSICAL THERAPY Please fax order printed an on desk Thanks, Noman Esqueda PA-C * Telephone Encounter - Ailyn Bhatt Ma - 08/24/2022 10:54 AM EST Daughter is requesting physical therapy order to be faxed to [facility]. . * Telephone Encounter - Patrick Esqueda PA-C - 08/20/2022 12:10 PM EST The following approved medication requests have been transmitted electronically. Requested Prescriptions Signed Prescriptions Disp Refills Walker misc 1 Each 0 Si Each once daily. Patrick Esqueda PA-C documented in this encounterSelect Medical [facility]11-08-2022 Miscellaneous Notes* Telephone Encounter - Ciera Black - 06/29/2022 5:05 PM EST Spoke with patients daughter, Pam who states patients number is wrong. Gave me correct number. Chart updated. Pam is durable POA and took message regarding result. Verbalized understanding. Sent to schedulers for CT. Ciera Black * Telephone Encounter - Eddie Gerard LPN - 06/25/2022 5:03 PM EDT TC to pt, phone rings busy. Eddie Gerard LPN * Telephone Encounter - Patrick Esqueda PA-C - 06/25/2022 4:57 PM EDT Please advise CXR [facility] showed a 2.6 x 3.4cm nodule medial aspect right lung: recommend CT chest for clarification. Telephone on 06/25/22 CT CHEST WO SHOAIBON Noman Martinez PA-C [facility] of Past illness Narrative* Problem Noted Date Resolved Date Undiagnosed cardiac murmurs 06/09/2016 050 10/2016 documented as of this encounter (statuses as of 08/26/2022) [facility] History of Past illness Narrative* Problem Noted Date Resolved Date Undiagnosed cardiac murmurs 06/09/2016 05/0 10/2016 documented as of this encounter (statuses as of 09/06/2022) [address]19-2016 History of Past illness Narrative* Problem Noted Date Resolved Date Undiagnosed cardiac murmurs 06/09/2016 05/0 10/2016 documented as of this encounter (statuses as of 09/08/2022) [facility] History of Past illness Narrative* Problem Noted Date Resolved Date Undiagnosed cardiac murmurs 06/09/2016 05/0 10/2016 documented as of this encounter (statuses as of 09/09/2022) [facility] History of Past illness Narrative* Problem Noted Date Resolved Date Undiagnosed cardiac murmurs 06/09/20160 10/2016 documented as of this encounter (statuses as of 01/15/2023) [address]2016 History of Past illness Narrative* Problem Noted Date Resolved Date Undiagnosed cardiac murmurs 06/09/20160 10/2016 documented as of this encounter (statuses as of 01/25/2023) [address]2016 History of Past illness Narrative* Problem Noted Date Resolved Date Undiagnosed cardiac murmurs 06/09/201610/2016 documented as of this encounter (statuses as of 02/04/2023) [address]2016 History of Past illness Narrative* Problem Noted Date Diagnosed Date Resolved Date Undiagnosed cardiac murmurs 06/09/2016 12/22/2016 documented as of this encounter (statuses as of 03/01/2023) [address]19-2016 History of Past illness Narrative* Problem Noted Date Diagnosed Date Resolved Date UNDIAGNOSED CARDIAC MURMURS 06/09/2016 12/22/2016 documented as of this encounter (statuses as of 05/12/2023) [address]19-2016 History of Past illness Narrative* Problem Noted Date Diagnosed Date Resolved Date Undiagnosed cardiac murmurs 06/09/2016 12/22/2016 documented as of this encounter (statuses as of 05/13/2023) [address]19-2016 History of Past illness Narrative* Problem Noted Date Diagnosed Date Resolved Date Undiagnosed cardiac murmurs 06/09/2016 12/22/2016 documented as of this encounter (statuses as of 10/10/2023) [address]2016 History of Past illness Narrative* Problem Noted Date Diagnosed Date Resolved Date Undiagnosed cardiac murmurs 06/09/2016 12/22/2016 documented as of this encounter (statuses as of 10/31/2023) [facility] noteNo assessment information availableWWyandot [facility] Work Phone: Evaluation note* Diagnosis Imbalance- Primary Abnormality of gait Gait instability Abnormality of gait [facility]* Diagnosis Essential hypertension- Primary Unspecified essential [...] obstruction or gangrene documented in this encounter [facility] note* Diagnosis Lung nodules- Primary Other nonspecific abnormal finding of lung field Incidental lung nodule, greater than or equal to 8mm Solitary pulmonary nodule [facility] Diagnosis Arterial ischemic stroke, vertebrobasilar, thalamic, acute, left (HCC)- Primary Auditory hallucinations Hallucinations Memory loss Tinnitus, unspecified laterality Essential hypertension Unspecified essential hypertension Age-related osteoporosis without current pathological fracture Senile osteoporosis Prediabetes Other abnormal glucose documented in this encounter [facility] note* Diagnosis Onset Date Resolution Status Hyperlipemia acute Major depressive disorder with psychotic features acute TIA (transient ischemic attack) acute CKD (chronic kidney disease) chronic COPD (chronic obstructive pulmonary disease) chronic Hypertension chronic [facility] Work Phone: Evaluation note* Diagnosis Essential hypertension- Primary Unspecified essential hypertension Chronic renal failure, stage 4 (severe) ([facility]) documented in this encounter [facility]* Diagnosis Onset Date Resolution Status TIA (transient ischemic attack) [facility] Work Phone: Evaluation note* Diagnosis Arterial ischemic stroke, vertebrobasilar, thalamic, acute, left (HCC)- Primary Incidental lung nodule, greater than or equal to 8mm Solitary pulmonary nodule Essential hypertension Unspecified essential hypertension Chronic renal failure, stage 4 (severe) (HCC) Hyperlipidemia, mixed Mixed hyperlipidemia Age-related osteoporosis without current pathological fracture Senile osteoporosis Memory loss documented in this encounter [facility] note* Diagnosis Incidental lung nodule, greater than or equal to 8mm Solitary pulmonary nodule documented in this encounter [facility] note* Diagnosis Osteoporosis- Primary Osteoporosis, unspecified Arterial ischemic stroke, vertebrobasilar, thalamic, acute, left (HCC)- Primary Chronic renal failure, stage 4 (severe) (HCC) Hyperlipidemia, mixed Mixed hyperlipidemia Age-related osteoporosis without current pathological fracture 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 without behavioral disturbance, psychotic disturbance, mood disturbance, or anxiety ([facility]) Anemia in other chronic diseases classified elsewhere Weight loss Loss of weight Chronic fatigue Other malaise and fatigue Primary osteoarthritis involving multiple joints Primary hypertension Unspecified essential hypertension [facility]* Diagnosis Osteoporosis- Primary Osteoporosis, unspecified Primary osteoarthritis of both hands- Primary documented in this encounter [facility] Hospital[facility] and physical note Author Perfecto Juarez [facility] August 01, 2023 10:00pm Note Date/Time August 01, 2023 10:00pm [facility] Medical Records Department [address] [place] [address] History & Physical Exam 08/01/232151 MR#: [id number] Acct: [id number] Name: ESHA DAVILA Rep #:[id number] : 1935 87 From: Perfecto Juarez MD PCP: Dr. Yonny Renee MD Status:REG E R Location: ED HPI - General General Date of Admission: 08/01/23 Date of Service: 08/01/23 Chief Complaint: Right-sided paresthesia HPI Narrative ESHA DAVILA, is a 87 F who presents to the emergency room with chief complaint of right-sided arm and leg numbness. Onset of symptoms began this evening after she was having dinner. Where she felt her leg was heavy and her arm felt numb as well. This was approximately at 6:45 PM and she was transferred to the emergency room for evaluation. She denies any chest pain, shortness of breath or fevers or chills. She does have an elevated blood pressure with systolic of 215 upon arrival however her initial NIH score was 0. CT scan of the brain was negative for hemorrhage and other laboratory studies were unremarkable. Patient will be admitted for observation to the progressive care unit for workup of fatigue of transient ischemic attack. Patient does states she is on a blood thinner but is unclear as to which one she is taking atthis time will review medical records. [facility] Medical History (Updated 08/01/23 @ 21:[address] Perfecto Juarez MD) Anxiety CKD (chronic kidney disease) COPD (chronic obstructive pulmonary disease) Hyperlipemia Hypertension Major depressive disorder with psychotic features Home Medications acetaminophen 325 mg capsule 2 tab PO Q4H PRN Pain 1-10 Or Fever 05/30/20 [History Last Taken Unknown] aluminum-mag hydroxide-simethicone 400 mg-400 mg-40 mg/5 mL oral susp 30 ml PO Q4H PRN GI DISTRESS 05/30/20 [History Last Taken Unknown] aspirin 81 mg chewable tablet 81 mg PO DAILY@0800 05/30/20 [History Last Taken Unknown] carvedilol 25 mg tablet 25 mg PO BID 05/30/20 [History Last Taken Unknown] clopidogrel 75 mg tablet 75 mg PO DAILY 05/30/20 [History Last Taken Unknown] cyanocobalamin (vitamin B-12) 1,000 mcg tablet 1,000 mcg PO DAILY 05/30/20 [History Last Taken Unknown] famotidine 20 mg tablet 20 mg PO BID 05/30/20 [History Last Taken Unknown] guaifenesin 100 mg/5 mL oral liquid 10 ml PO Q4H PRN PRN Cough 05/30/20 [History Last Taken Unknown] magnesium hydroxide 400 mg/5 mL oral suspension 30 ml PO DAILY PRN PRN Constipation 05/30/20 [History Last Taken Unknown] peg [id number] 1 %-0.2 %-0.2 % eye drops 1 drp EACH EYE PRN PRN Dry Eyes 05/30/20 [History Last Taken Unknown] polyethylene glycol 3350 17 gram oral powder packet 17 gm PO QHS 05/30/20 [History Last Taken Unknown] promethazine 25 mg tablet 25 mg PO Q6H PRN Nausea 05/30/20 [History Last Taken Unknown] quetiapine 100 mg tablet 100 mg PO QHS 05/30/20 [History Last Taken Unknown] venlafaxine 150 mg capsule,extended release 24 hr 150 mg PO DAILY 05/30/20 [History Last Taken Unknown] atorvastatin 40 mg tablet 40 mg PO QHS #30 tabs 05/31/20 [Rx Last Taken Unknown] alendronate 70 mg tablet 70 mg PO QWEEK 06/14/22 [History Last Taken Unknown] cholecalciferol (vitamin D3) 50 mcg (2,000 unit) capsule (Vitamin D3) 50 mcg PO DAILY 06/14/22 [History Last Taken Unknown] lisinopril 5 mg tablet 5 mg PO DAILY 06/14/22 [History Last Taken Unknown] Allergy/AdvReac Type Severity Reaction Status Date / Time ibuprofen Allergy Unknown Verified 08/01/23 19:51 Penicillins Allergy Swelling Verified 08/01/23 19:51 cyclobenzaprine AdvReac Other Verified 08/01/23 19:51 [From Flexeril] Social History Smoking Status: Former smoker substance use type: does not use ROS Constitutional Constitutional: Denies chills or fever(s) Eyes Eyes: Denies blurry vision, change in vision or double vision ENT HEENT: Denies abnormal hearing, headache(s), hearing loss or loss taste/smell Cardiovascular Cardiovascular: Denies chest pain Respiratory/Chest Respiratory/Chest: Denies shortness of breath at rest Gastrointestinal Gastrointestinal: Denies abdominal pain Genitourinary Genitourinary: Denies dysuria Musculoskeletal Musculoskeletal: Denies back pain Neurologic Neurologic: Reports numbness; Denies confusion Psychiatric Psychiatric: Denies anxiety Vital Signs Vital Signs Vital Signs: 08/01/23 19:43 08/01/23 20:11 08/01/23 20:04 Temperature 97.0 F L Temperature Source Temporal Pulse Rate 70 67 Respiratory Rate 18 18 Blood Pressure 178/95 H 192/91 H Blood Pressure Mean 122 124 Pulse Ox 96 96 Oxygen Delivery Method Room Air Room Air Room Air 08/01/23 20:17 08/01/23 20:19 08/01/23 20:34 Temperature Temperature Source Pulse Rate 68 65 Respiratory Rate 16 19 H Blood Pressure 196/88 H 155/85 H 186/91 H Blood Pressure Mean 124 108 122 Pulse Ox 98 95 Oxygen Delivery Method Room Air Room Air 08/01/23 20:49 08/01/23 21:04 08/01/23 21:19 Temperature Temperature Source Pulse Rate 70 66 82 Respiratory Rate 16 19 H 18 Blood Pressure 181/76 H 169/77 H 173/91 H Blood Pressure Mean 111 107 118 Pulse Ox 97 94 95 Oxygen Delivery Method Room Air Room Air Room Air Weight Weight: 20 lb 0.993 oz Body Mass Index (BMI) 3.9 Physical Exam Const oriented x3 General Appearance: cooperative and well developed HEENT normocephalic and head/scalp atraumatic Eyes PERRL and EOMs intact bilaterally Neck no lymphadenopathy Lymph Lymphatic: no lymphadenopathy noted Resp normal respiratory effort, normal air movement and clear to auscultation bilaterally Cardio regular rate, regular rhythm, S1 normal heart sound and S2 normal heart sound GI normal to inspection, nondistended, normoactive bowel sounds Extremity normal capillary refill Skin General Skin Exam: turgor normal Neuro CN's II-XII intact bilaterally Speech: speech normal Motor Exam: strength 5/5 throughout Psych thought process normal, cooperative and affect normal Appearance: appropriate Results Lab / Micro Data 08/01/23 20:02 08/01/23 20:02 Labs: Laboratory Results - last 24 hr 08/01/23 20:02: WBC 6.1, RBC 3.78 L, Hgb 11.1 L, Hct 34.7 L, MCV 91.8, MCH 29.4,MCHC 32.0, RDW Std Deviation 45.5 H, RDW Coeff of Jessica 13.5, Plt Count 221, MPV 9.3, Immature Gran % (Auto) 0.200, Neut % (Auto) 54.1, Lymph % (Auto) 30.0, Parker% (Auto) 12.0 H, Eos % (Auto) 3.0, Baso % (Auto) 0.7, Absolute Neuts (auto) 3.3,Absolute Lymphs (auto) 1.82, Nucleated RBC % 0, PT 12.9, INR 1.0, APTT 29.7, Sodium 136, Potassium 3.7, Chloride 99, Carbon Dioxide 32.0, Anion Gap 5, BUN 19H, Creatinine 1.46 H, Estim Creat Clear Calc 3.97, Est GFR (MDRD) Af Amer 44 L, Est GFR (MDRD) Non-Af 36 L, BUN/Creatinine Ratio 13.0, Glucose 105, Calcium 8.7,Troponin I High Sens 9 08/01/23 20:11: POC Glucose 95 Imagaing Radiology Impression Brain CT 08/01/23 19:58 IMPRESSION: Chronic involutional changes of the brain. Electronically Signed: Kendall Mary MD at 21:05 EST , Chest X-Ray 08/01/23 20:25 IMPRESSION: Left rib fracture. Electronically Signed: Kendall Mary MD at 21:12 EST , Assessment & Plan Assessment/Plan (1) TIA (transient ischemic attack): (2) Major depressive disorder with psychotic features: (3) Hypertension: (4) Hyperlipemia: (5) CKD (chronic kidney disease): (6) COPD (chronic obstructive pulmonary disease): PLAN: Plan 1 transient ischemic attack?admit patient for observation to progressive care unit, neurologic evaluations every 4 hours per routine protocol, will add aspirin if not already taking after review of home medical record, MRI MRA head and neck to be done in the morning 2. COPD?continue routine home medications 3. Hyperlipidemia?continue statin therapy 4. Hypertension?will add as needed antihypertensive per routine TIA protocol 5. Depression?continue antidepressant therapy 6. DVT prophylaxis?low molecular weight heparin unless already anticoagulated after review Charges/Coding Visit Charges OBSV E&M: 93686 Observ/hosp same date L2 08/01/232199 <Electronically signed by Perfecto Juarez MD> Cosigner Signature (if applicable): CC: Dr. Perfecto Juarez MD; Dr. Yonny Renee MD~ Signed [facility] Work Phone: Hospital Discharge instructions Additional Instructions Continue all home medications as previously prescribed. Follow-up with your primary care doctor as needed.[facility] Work Phone: Hospital Discharge instructions Additional Instructions The CT scan of your head shows a lacunar infarct, it is unclear how old that is, I would recommend following up with your PCP for an outpatient MRI.[facility] Work Phone: Reason for referral (narrative)No reason for referral information availableWWyandot Memorial Hospital Work Phone: Chief Complaint and Reason for Visit Chief Complaint altered loc Chief Complaint JAIL LABWORK Chief Complaint neuro changes TIA,HYPERTENSIVE URGENCY Reason for Visit Hyperlipemia Major depressive disorder with psychotic features TIA (transient ischemic attack) CKD (chronic kidney disease) COPD (chronic obstructive pulmonary disease) Hypertension Chief Complaint neuro changes TIA,HYPERTENSIVE URGENCY TIA,HYPERTENSIVE URGENCY mental health Reason for Visit TIA (transient ische karol attack) Chief Complaint neuro changes TIA,HYPERTENSIVE URGENCY TIA,HYPERTENSIVE URGENCY LABWORK mental health Reason for Visit TIA (transient ische karol attack) Chief Complaint Admit Date JAIL LAB WORK November 13, 2024 5 :00am Chief Complaint Admit Date JAIL LAB WORK January 28, 2025 7:3 0am JAIL LAB WORK February 26, 2025 1:3 0am JAIL LAB WORK April 28 6:20pm WEIGHT LOSS May 06, 2025 2:00pm Family History No Family History Records Found Relationship Condition Age at Onset Recorded Date/T aviva Unknown Family History?No pe rtinent history Unknown May 30, 2020 12:37pm Family History?No pe rtinent history Unknown May 30, 2020 12:37pm Relationship Condition Age at Onset Recorded Date/T aviva Unknown Family History?No pe rtinent history Unknown May 30, 2020 11:37am Family History?No pe rtinent history Unknown May 30, 2020 11:37am Advance Directives No Advanced Directives Records Found Advance Directive Response Recorded Date/ Time Living Will Yes June 14 9:27am Power of Allopathic Doctor Yes June 14, 2022 9:27am Name of Medical Power of Allopathic Doctor pam moffett -octavio June 14, 2022 9:27am Documents on File Type Date Recorded 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 Advance Directive(s) 04/09/2016 12:37 PM Documents on File Type Date Recorded 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 Advance Directive(s) 04/09/2016 12:37 PM Advance Directive Response Recorded Date/ Time Living Will Yes June 14 9:27am Power of Allopathic Doctor Yes June 14, 2022 9:27am Advance Directive Response Recorded Date/ Time Living Will Yes August 01 7:49pm Power of Allopathic Doctor No August 01, 2023 7:49pm Advance Directive Response Recorded Date/ Time Living Will No August 01 11:36pm Power of Allopathic Doctor No August 01, 2023 11:36pm Advance Directive Response Recorded Date/ Time Living Will No October 31, 2023 12:42pm Power of Allopathic Doctor No October 30 12:42pm Reason for Referral Specialty Diagnoses / Procedures Referred By Contjelena t Referred To Contact [facility] Diagnoses Imbalance Gait instability Procedures CONSULT TO PHYSICAL THERAPY PHYSICAL THERAPY EVALUATION HIGH COMPLEX 45 MINS Patrick Esqueda PA-C [address] [place] [address] [facility] [place] [address] [place] [address] Referral ID Status Reason Start Date Expiration Date Visits Requested Visits Authorized [id number] Pending Review Auto-Generat ed Referral 08/24/2022 08/24/2023 1 1 Specialty Diagnoses / Procedures Referred By Contac t Referred To Contact CT IMAGING Diagnoses Lung nodules Procedures CT CHEST WO IVCON DIAGNOSTIC COMPUTED TOMOGRAPHY THORAX W/O CNTRST Patrick Esqueda PA-C [id number] Imaging Referral ID Status Reason Start Date Expiration Date V isits Requested Visits Authorized [id number] Closed Auto-Generate d Referral 06/25/2022 07/25/2023 1 1 Specialty Diagnoses / Procedures Referred By Contac t Referred To Contact Ent - Otolaryngology Diagnoses Tinnitus, unspecified laterality Procedures CONSULT TO ENT OFFICE/OUTPATIENT [facility] 60-74 MINUTES Yonny Renee MD [address] [phone] Referral ID Status Reason Start Date Expiration Date Visits Requested Visits Authorized [id number] Authorized PCP Requested Referral 02/04/2023 02/04/2024 1 1 Specialty Diagnoses / Procedures Referred By Contac t Referred To Contact Neurology Diagnoses Auditory hallucinations Memory loss Procedures CONSULT TO NEUROLOGY OFFICE/OUTPATIENT [facility] 60-74 MINUTES Yonny Renee MD [address] [place] [address] Referral ID Status Reason Start Date Expiration Date Visits Requested Visits Authorized [id number] Authorized PCP Requested Referral 02/04/2023 02/04/2024 1 1 Specialty Diagnoses / Procedures Referred By Contac t Referred To Contact CT IMAGING Diagnoses Incidental lung nodule, greater than or equal to 8mm Procedures CT CHEST WO IVCON DIAGNOSTIC COMPUTED TOMOGRAPHY THORAX W/O CNTRST Jeanine Parker, SENIOR PROJECT ACCOUNTANT.TANK FURNACE OPERATOR [address] [place] [address] [place] [address] Referral ID Status Reason Start Date Expiration Date Visits Requested Visits Authorized [id number] Authorized Auto-Generat ed Referral 01/30/2024 02/21/2025 1 1 Summary Purpose Additional Source Comments Goals (unrecognized section and content) Goals may be documented in a n alternate sectionGoals may be documented in an alternate sectionGoals may be documented in an alternate sectionGoals may be documented in an alternate sectionGoals may be documented in an alternate sectionGoals may be documented in an alternate section Source Comments (unrecognize d section and content) In the event this informatio n is protected by the Federal Confidentiality of Alcohol and Drug Abuse Patient Records regulations: The Federal rules restrict any use of the information to criminally investigate or prosecute any alcohol or drug abuse patient.[facility] the event this information is protected by the Federal Confidentiality of Alcohol and Drug Abuse Patient Records regulations: The Federal rules restrict any use of the information to criminally investigate or prosecute any alcohol or drug abuse patient.[facility] Hospital[facility] the event this information is protected by the Federal Confidentiality of Alcohol and Drug Abuse Patient Records regulations: The Federal rules restrict any use of the information to criminally investigate or prosecute any alcohol or drug abuse patient.[facility] Hospital[facility] the event this information is protected by the Federal Confidentiality of Alcohol and Drug Abuse Patient Records regulations: The Federal rules restrict any use of the information to criminally investigate or prosecute any alcohol or drug abuse patient.[facility] Hospital[facility] the event this information is protected by the Federal Confidentiality of Alcohol and Drug Abuse Patient Records regulations: The Federal rules restrict any use of the information to criminally investigate or prosecute any alcohol or drug abuse patient.[facility] Hospital[facility] the event this information is protected by the Federal Confidentiality of Alcohol and Drug Abuse Patient Records regulations: The Federal rules restrict any use of the information to criminally investigate or prosecute any alcohol or drug abuse patient.[facility] Hospital[facility] the event this information is protected by the Federal Confidentiality of Alcohol and Drug Abuse Patient Records regulations: The Federal rules restrict any use of the information to criminally investigate or prosecute any alcohol or drug abuse patient.[facility] Hospital[facility] the event this information is protected by the Federal Confidentiality of Alcohol and Drug Abuse Patient Records regulations: The Federal rules restrict any use of the information to criminally investigate or prosecute any alcohol or drug abuse patient.[facility] Hospital[facility] the event this information is protected by the Federal Confidentiality of Alcohol and Drug Abuse Patient Records regulations: The Federal rules restrict any use of the information to criminally investigate or prosecute any alcohol or drug abuse patient.[facility] Hospital[facility] the event this information is protected by the Federal Confidentiality of Alcohol and Drug Abuse Patient Records regulations: The Federal rules restrict any use of the information to criminally investigate or prosecute any alcohol or drug abuse patient.[facility] Hospital[facility] the event this information is protected by the Federal Confidentiality of Alcohol and Drug Abuse Patient Records regulations: The Federal rules restrict any use of the information to criminally investigate or prosecute any alcohol or drug abuse patient.[facility] HospitalIn the event this information is protected by the Federal Confidentiality of Alcohol and Drug Abuse Patient Records regulations: The Federal rules restrict any use of the information to criminally investigate or prosecute any alcohol or drug abuse patient.[facility] HospitalIn the event this information is protected by the Federal Confidentiality of Alcohol and Drug Abuse Patient Records regulations: The Federal rules restrict any use of the information to criminally investigate or prosecute any alcohol or drug abuse patient.[facility] HospitalIn the event this information is protected by the Federal Confidentiality of Alcohol and Drug Abuse Patient Records regulations: The Federal rules restrict any use of the information to criminally investigate or prosecute any alcohol or drug abuse patient.[facility] HospitalIn the event this information is protected by the Federal Confidentiality of Alcohol and Drug Abuse Patient Records regulations: The Federal rules restrict any use of the information to criminally investigate or prosecute any alcohol or drug abuse patient.[facility] HospitalIn the event this information is protected by the Federal Confidentiality of Alcohol and Drug Abuse Patient Records regulations: The Federal rules restrict any use of the information to criminally investigate or prosecute any alcohol or drug abuse patient.[facility] HospitalIn the event this information is protected by the Federal Confidentiality of Alcohol and Drug Abuse Patient Records regulations: The Federal rules restrict any use of the information to criminally investigate or prosecute any alcohol or drug abuse patient.[facility] HospitalIn the event this information is protected by the Federal Confidentiality of Alcohol and Drug Abuse Patient Records regulations: The Federal rules restrict any use of the information to criminally investigate or prosecute any alcohol or drug abuse patient.[facility] HospitalIn the event this information is protected by the Federal Confidentiality of Alcohol and Drug Abuse Patient Records regulations: The Federal rules restrict any use of the information to criminally investigate or prosecute any alcohol or drug abuse patient.[facility] HospitalIn the event this information is protected by the Federal Confidentiality of Alcohol and Drug Abuse Patient Records regulations: The Federal rules restrict any use of the information to criminally investigate or prosecute any alcohol or drug abuse patient.[facility] HospitalIn the event this information is protected by the Federal Confidentiality of Alcohol and Drug Abuse Patient Records regulations: The Federal rules restrict any use of the information to criminally investigate or prosecute any alcohol or drug abuse patient.[facility] HospitalIn the event this information is protected by the Federal Confidentiality of Alcohol and Drug Abuse Patient Records regulations: The Federal rules restrict any use of the information to criminally investigate or prosecute any alcohol or drug abuse patient.[facility] HospitalIn the event this information is protected by the Federal Confidentiality of Alcohol and Drug Abuse Patient Records regulations: The Federal rules restrict any use of the information to criminally investigate or prosecute any alcohol or drug abuse patient.[facility] HospitalIn the event this information is protected by the Federal Confidentiality of Alcohol and Drug Abuse Patient Records regulations: The Federal rules restrict any use of the information to criminally investigate or prosecute any alcohol or drug abuse patient.[facility] HospitalIn the event this information is protected by the Federal Confidentiality of Alcohol and Drug Abuse Patient Records regulations: The Federal rules restrict any use of the information to criminally investigate or prosecute any alcohol or drug abuse patient.[facility] HospitalIn the event this information is protected by the Federal Confidentiality of Alcohol and Drug Abuse Patient Records regulations: The Federal rules restrict any use of the information to criminally investigate or prosecute any alcohol or drug abuse patient.[facility] HospitalIn the event this information is protected by the Federal Confidentiality of Alcohol and Drug Abuse Patient Records regulations: The Federal rules restrict any use of the information to criminally investigate or prosecute any alcohol or drug abuse patient.[facility] HospitalIn the event this information is protected by the Federal Confidentiality of Alcohol and Drug Abuse Patient Records regulations: The Federal rules restrict any use of the information to criminally investigate or prosecute any alcohol or drug abuse patient.[facility] Care Teams (unrecognized sec tion and content) Contact Center Associate Relationship Specialty Start Date End Date Patrick Esqueda PA-C [address] [place] [address] PCP - General Family Medicine 12/22/16 Contact Center Associate Relationship Specialty Start Date End Date Patrick Esqueda PA-C [address] [place] [address] PCP - General Family Medicine 12/22/16 Contact Center Associate Relationship Specialty Start Date End Date Patrick Esqueda PA-C [address] [place] [address] PCP - General Family Medicine 12/22/16 Contact Center Associate Relationship Specialty Start Date End Date Patrick Esqueda PA-C [address] [place] [address] PCP - General Family Medicine 12/22/16 Contact Center Associate Relationship Specialty Start Date End Date Patrick Esqueda PA-C [address] [facility] [place] [address] PCP - General Family Medicine 12/22/16 Contact Center Associate Relationship Specialty Start Date End Date Patrick Esqueda PA-C [address] [place] [address] PCP - General Family Medicine 12/22/16 Contact Center Associate Relationship Specialty Start Date End Date Patrick Esqueda PA-C [address] [place] [address] PCP - General Family Medicine 12/22/16 Contact Center Associate Relationship Specialty Start Date End Date Patrick Esqueda PA-C [address] [place] [address] PCP - General Family Medicine 12/22/16 Team Status: Active Member Role Status Dates MARILEE Hernández Family Provider Active Dr. Yonny Renee MD Primary Care Provider Active Team Status: Inactive Member Role Status Dates Dr. Yonny Renee MD Primary Care Provider Active Yonny JERNIGAN Attending Provider Active Contact Center Associate Relationship Specialty Start Date End Date Taj Sifuentes MD [address] [place] [address] PCP - General Family Medicine 02/27/16 03/22/16 Ivania Dennison DO [address] [place] [address] PCP - General Family Medicine 03/23/16 12/21/16 Patrick Esqueda PA-C [address] [place] [address] PCP - General Family Medicine 12/22/16 Team Status: Active Member Role Status Dates Dr. Yonny Renee MD Primary Care Provider Active Eliazar Mcknight MD Emergency Provider Active Dr. Perfecto Juarez MD Attending Provider Active Team Status: Active Member Role Status Dates Dr. Yonny Renee MD Primary Care Provider Active Eliazar Mcknight MD Emergency Provider Active Dr. Perfecto Juarez MD Admit Provider, Attending Provid er Active Team Status: Inactive Member Role Status Dates Dr. Yonny Renee MD Primary Care Provider Active Eliazar Mcknight MD Emergency Provider Active Dr. Perfecto Juarez MD Admit Provider, Other Provider A ctive Dr. Shane Conroy , Attending Provider Active Contact Center Associate Relationship Specialty Start Date End Date Patrick Esqueda PA-C [address] [place] [address] PCP - General Family Medicine 12/22/16 Team Status: Active Member Role Status Dates Dr. Yonny Renee MD Primary Care Provider Active Eliazar Mcknight MD Emergency Provider Active Dr. Perfecto Juarez MD Admit Provider, Other Provider A ctive Dr. Shane Conroy , Attending Provider, Other Provider Active Team Status: Active Member Role Status Dates Dr. Yonny Renee MD Primary Care Provider Active Netta Olmedo BAKER HEAD, BAKER HEAD-C Attending Provider Active Team Status: Inactive Member Role Status Dates Dr. Yonny Renee MD Primary Care Provider Active Dr. Katharina Read DO Emergency Provider Active Contact Center Associate Relationship Specialty Start Date End Date Patrick Esqueda PA-C [address] [place] [address] PCP - General Family Medicine 12/22/16 Team Status: Inactive Member Role Status Dates Dr. Yonny Renee MD Primary Care Provider Active Netta Olmedo BAKER HEAD, BAKER HEAD-C Attending Provider Active Contact Center Associate Relationship Specialty Start Date End Date Patrick Esqueda PA-C [address] [place] [address] PCP - General Family Medicine 12/22/16 Contact Center Associate Relationship Specialty Start Date End Date Patrick Esqueda PA-C [address] [facility] [place] [address] PCP - General Family Medicine 12/22/16 Contact Center Associate Relationship Specialty Start Date End Date Patrick Esqueda PA-C [address] [facility] [place] [address] PCP - General Family Medicine 12/22/16 Contact Center Associate Relationship Specialty Start Date End Date Patrick Esqueda PA-C [address] [facility] [place] [address] PCP - General Family Medicine 12/22/16 Contact Center Associate Relationship Specialty Start Date End Date Jeanine Parker SENIOR PROJECT ACCOUNTANT.ADULT BASIC EDUCATION INSTRUCTOR [address] [facility] [place] [address] PCP - General Family Medicine 08/10/24 Shae Grimaldo, SENIOR PROJECT ACCOUNTANT.ADULT BASIC EDUCATION INSTRUCTOR [address] [facility] [place] [address] Agronomy Research Manager Family Medicine 07/27/24 Jeainne Parker, SENIOR PROJECT ACCOUNTANT.ADULT BASIC EDUCATION INSTRUCTOR [address] [facility] [place] [address] Agronomy Research Manager Family Medicine 07/27/24 Contact Center Associate Relationship Specialty Start Date End Date Jeanine Parker, SENIOR PROJECT ACCOUNTANT.ADULT BASIC EDUCATION INSTRUCTOR [address] [facility] [place] [address] PCP - General Family Medicine 08/10/24 Shae Grimaldo SENIOR PROJECT ACCOUNTANT.ADULT BASIC EDUCATION INSTRUCTOR [address] [facility] [place] [address] Agronomy Research Manager Family Medicine 07/27/24 Jeanine Parker SENIOR PROJECT ACCOUNTANT.ADULT BASIC EDUCATION INSTRUCTOR [address] [facility] [place] [address] Agronomy Research Manager Family Medicine 07/27/24 Contact Center Associate Relationship Specialty Start Date End Date Jeanine Parker APRN.ADULT BASIC EDUCATION INSTRUCTOR [address] [place] [address] PCP - General Family Medicine 08/10/24 Shae Grimaldo APRN.ADULT BASIC EDUCATION INSTRUCTOR [address] [place] [address] Agronomy Research Manager Family Medicine 07/27/24 Jeanine Parker APRN.ADULT BASIC EDUCATION INSTRUCTOR [address] [place] [address] Agronomy Research Manager Family Medicine 07/27/24 Contact Center Associate Relationship Specialty Start Date End Date Jeanine Parker, SENIOR PROJECT ACCOUNTANT.ADULT BASIC EDUCATION INSTRUCTOR [address] [place] [address] PCP - General Family Medicine 08/10/24 Shae Grimaldo APRN.ADULT BASIC EDUCATION INSTRUCTOR [address] [place] [address] Agronomy Research Manager Family Medicine 07/27/24 Jeanine Parker SENIOR PROJECT ACCOUNTANT.ADULT BASIC EDUCATION INSTRUCTOR [address] [place] [address] Agronomy Research Manager Family Medicine 07/27/24 Contact Center Associate Relationship Specialty Start Date End Date Jeanine Parker SENIOR PROJECT ACCOUNTANT.ADULT BASIC EDUCATION INSTRUCTOR [address] [place] [address] PCP - General Family Medicine 08/10/24 Team Status: Inactive Member Role Status Dates Dr. Yonny Renee MD Primary Care Provider Active Start: November 13, 2024 End: November 13, 2024 Yonny JERNIGAN Attending Provider Active Start : November 13, 2024 End: November 13, 2024 Team Status: Active Member Role Status Dates Dr. Yonny Renee MD Primary Care Provider Active Start: November 22, 2024 Dr. Alisa Quinn MD Attending Provider Active Start: November 22, 2024 Contact Center Associate Relationship Specialty Start Date End Date Jeanine Parker APRN.ADULT BASIC EDUCATION INSTRUCTOR [address] [place] [address] PCP - General Family Medicine 08/10/24 Team Status: Active Member Role/Relationship Status Dates Dr. Yonny Renee MD Primary care physician Active Team Status: Active Member Role/Relationship Status Dates Dr. Yonny Renee MD Primary care physician Active Start: January 28, 2025 Dr. Alisa JERNIGAN MD Attending physician Active Start: January 28, 2025 Team Status: Active Member Role/Relationship Status Dates Dr. Yonny Renee MD Primary care physician Active Start: February 26, 2025 Dr. Alisa JERNIGAN MD Attending physician Active Start: February 26, 2025 Team Status: Active Member Role/Relationship Status Dates Dr. Yonny Renee MD Primary care physician Active Start: April 28, 2025 Dr. Alisa JERNIGAN MD Attending physician Active Start: April 28, 2025 Dr. Alisa JERNIGAN MD Referring Provider Active Start: April 28, 2025 Team Status: Inactive Member Role/Relationship Status Dates Dr. Yonny Renee MD Primary care physician Active Start: May 06, 2025 End: May 06, 2025 Dr. Alisa Quinn MD Attending physician Active Start: May 06, 2025 End: May 06, 2025 Dr. Alisa Quinn MD Referring Provider Active Start: May 06, 2025 End: May 06, 2025 Team Status: Inactive Member Role/Relationship Status Dates Dr. Alisa JERNIGAN MD Attending physician Active Start: May 03, 2025 End: May 03, 2025 Reason for Visit (unrecogniz ed section and content) Reason Comments Fall Reason Comments Results Reason Onset Date Comments Refill Request 09/09/2022 Reason Onset Date Comments Blood Pressure 01/14/2023 Reason Comments Medication Question Reason Comments Acute Visit Reason Comments Patient Update Reason Comments Follow Up 4 week Reason Comments Nursing Facility Call Regarding Patient Reason Comments Follow Up 3 month exam Reason Comments Radiology CT Specialty Diagnoses / Procedures Referred By Flip wray Referred To Contact CT IMAGING Diagnoses Incidental lung nodule, greater than or equal to 8mm Procedures CT CHEST WO IVCON DIAGNOSTIC COMPUTED TOMOGRAPHY THORAX W/O CNTRST Jeanine Parker, SENIOR PROJECT ACCOUNTANT.TANK FURNACE OPERATOR [address] [place] [address] [place] [address] Referral ID Status Reason Start Date Expiration Date V isits Requested Visits Authorized [id number] Closed Auto-Generate d Referral 01/30/2024 02/21/2025 1 1 Reason Comments Results Reason Comments 6 Month Exam Reason Comments Electronic Communication [facility] INFORMATION SOURCE (unrecogn ized section and content) DATE CREATED AUTHOR 01/21/2025 [facility] DATE CREATED AUTHOR AUTHOR'S ORGANIZ ATION 06/05/2025 [facility] DATE CREATED AUTHOR AUTHOR'S ORGANIZ ATION 06/25/2025 [facility] FOR RECORDS PERTAINING TO PATIENTS WHO ARE [...] BE BASED ON THE PRIMARY CLINICAL RECORDS. [email or web address] provides no warranty or guarantee of the accuracy or completeness of information in this document.
[2025-08-07 08:43] LABS: Hematocrit 32.5 % (37-47); Hemoglobin 10.5 g/dL (12.0-15.0); Immature Granulocytes Count 0.020 X10^3/uL (0.0-0.0); Mean Corp Hgb Conc 32.3 g/dL (32-36); Mean Corpuscular Volume 93.9 fL (81-99); Mean Platelet Vol. 9.2 fl (6.2-12.0); NRBC Flagged by Analyzer 0 % (0-5); Platelet Count 241 K/mm3 (150-450); RBC Distribution Width CV 13.4 % (11.6-14.6); RBC Distribution Width SD 46.1 fl (35.1-43.9); Red Blood Count 3.46 M/mm3 (4.2-5.4); White Blood Count 5.8 K/mm3 (4.4-11.0)
[2025-08-07 08:53] LABS: Anion Gap 9 (5-15); BUN 19 mg/dL (4-19); BUN/Creat Ratio 12.6 RATIO (10-20); Calcium,Total 8.7 mg/dL (7.6-11.0); Carbon Dioxide 28.3 mmol/L (21.0-32.0); Chloride 103 mmol/L (98-108); Glucose 91 mg/dL (70-99); Magnesium 2.4 mg/dL (1.5-2.2); Potassium 4.0 mmol/L (3.3-5.1)
== END ==
LOC: OLS.SWAL 05:00
PROVIDERS: PCP Family Medicine; Visit Provider Internal Medicine
DX: Z00.00 Encounter for general adult medical examination without abnormal findings (principal)
CPT/HCPCS: 36415; 80048; 83735; 85025